=== PATIENT | female | born 1940 | race Caucasian/White ===

== ENCOUNTER 2023-05-07 14:59 | Outpatient (AMB) | payer MEDICARE, SELFPAY ==
--- NOTE | 2023-05-07 15:02 | A.OFFVIS_ITS ---
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 Clippings offered & declined Accompanied by: Sister Allergies penicillin G Allergy (Unknown, Verified 05/07/23 15:14) Hives Medication List - Last Reconciled 05/07/23 by Lillie Pérez LPN albuterol sulfate 90 mcg/actuation 1 puff inhalation QID PRN diphenhydramine-acetaminophen 25-500 mg (Tylenol PM Extra Strength) 1 tab PO BEDTIME PRN ferrous sulfate (Feosol) 975 mg PO BID gutihcjsiod-vmbdfexks-gclclkir 200-62.5-25 mcg (Trelegy Ellipta) 1 inh inhalation DAILY gabapentin 200 mg PO BID lisinopril 20 mg PO DAILY melatonin 12 mg PO BEDTIME ropinirole 2 mg PO BEDTIME simvastatin 20 mg PO BEDTIME HPI COPD 2 HPI0 Details Beata is a very pleasant 82 year old female, former smoker, quit 10 years ago, with 55 pack year history. She was referred by PCP for pulmonary evaluation for dyspnea on exertion. She reports progressively worsening dyspnea on minimal exertion over the last few years. She denies cough, chest tightness or wheezing. She has trialed multiple inhalers and was recently started on Trelegy with significant improvements overall. She reports minimal use of albuterol since starting Trelegy 2 months ago. Recent CXR was unremarkable, denies recent CT or PFT. She denies any prior history of respiratory conditions or any family history. She reports intermittent bilateral lower extremity edema and has been on a short course of lasix in the past. She had a recent echo, report not available today. [facility] Social History (Updated 05/07/23 @ 15:16 by Lillie Pérez LPN) Patient Tobacco Use Status: Former Tobacco user Tobacco use type: Cigarette Cigarette Packs Per Day: 1.5 Cigarettes Per Day: 15 Years Smoked: 50 Review of Systems Const Denies chills, Denies excessive sweating, Denies fever(s), Denies headache(s) and Denies night sweats Eyes Denies dry eyes, Denies irritation and Denies itchy eyes ENT Reports Normal hearing present, Denies headache(s), Denies nasal congestion, Denies nasal discharge, Denies post nasal drip and Denies sore throat Card Denies chest pain, Denies chest pain at rest, Denies chest pain with activity, Denies claudication, Denies orthopnea and Denies paroxysmal nocturnal dyspnea Resp Denies chest congestion, Denies cough, Denies excessive phlegm production, Denies pain on inspiration, Denies pain with cough, Denies stridor and Denies wheezing Musc Denies myalgias Neuro Reports Normal hearing present and Denies headache(s) Endo Denies excessive sweating Buddy/Lymph Denies lymphadenopathy Aller/Immun Denies itchy eyes, Denies seasonal rhinorrhea and Denies wheezing Physical Exam Vital Signs: Last Vital Signs Pulse 89 05/07/23 15:06 BP 110/64 05/07/23 15:06 Pulse Ox 94 05/07/23 15:06 Oxygen Delivery Method Room Air 05/07/23 15:06 BMI result Body Mass Index 34.7 Const General: cooperative, healthy appearing, comfortable, no acute distress, well developed and alert Orientation/consciousness: patient oriented x3 Limitations: no limitations HEENT Head: Yes normal to inspection, Yes normocephalic and Yes atraumatic Ears: hearing grossly normal bilaterally and external ears normal Eyes General: appearance normal, both eyes and all related structures Eyelids: Yes eyelids normal Sclerae: sclerae normal EOM: EOMs intact bilaterally Neck Neck: Yes normal visual inspection and Yes no lymphadenopathy Lymphatic: no lymphadenopathy noted Chest Chest palpation & inspection: normal inspection of the chest Resp Effort & Inspection: normal respiratory effort, able to speak in complete sentences, no audible wheezes, no cough, no stridor, not tachypneic, no tripod positioning and no use of accessory muscles Cardio Jugular venous distension: no JVD Rate: regular rate Rhythm: regular rhythm Skin Other: warm, dry General skin exam: no rashes or lesions noted Neuro General: patient oriented x3 Cranial nerves: Yes Normal hearing present Cognition (Neuro): normal cognition Gait exam (Neuro): Normal gait present Extrem Other: 1+ pitting edema of BLE General: Yes normal to inspection and Yes capillary refill normal Psych Appearance: grossly normal and well kempt Speech and movement: Normal speech and movement present and Clear speech present Affect: normal affect Attitude: cooperative Thought process: Normal thought process present Thought content: Normal thought content present Insight: Good insight present (Psych) Judgement: Good judgement present (Psych) Office Procedures 6 Minute Walk Time:: 15:50 SPO2 % at rest: 95 Pulse at rest: 79 SPO2 % during excercise: 77 Pulse during excercise: 100 SPO2 % after excercise: 94 Pulse after excercise: 77 Distance in yards walked: 1,000 Michi Score: 8 Performance Observations:: Patient walked unassisted on level ground with occasional unsteadiness. Patient walked for approx 3 minutes when her O2 saturation dropped to 85% with a pulse of 99..O2 applied at 1L via nasal cannula. Rested with O2 on approx 1 minute and O2 saturation increased to 95% pulse of 91. Walk resumed with O2 on at 1L after approx 150 feet O2 sat dropped to 77% pulse 100. O2 increased to 2L and rested for 1 minute. Patient walked back to exam room and rested O2 sat returned to 94% and pulse of 77. Patient was short of breath during the walk and does not usually walk any distance. Patient would benefit from supplemental O2. [id number] - 6 Minute Walk Results Reviewed Results Reviewed: Assessment & Plan Assessment & Plan (1) Dyspnea on exertion: Code(s): R06.09 - Other forms of dyspnea (2) Personal history of tobacco use: Code(s): Z87.891 - Personal history of nicotine dependence (3) Nocturnal hypoxemia: Code(s): G47.34 - Idiopathic sleep related nonobstructive alveolar hypoventilation Plan Beata's symptoms are likely multifactorial with contribution from pulmonary, cardiac and deconditioning etiologies. Patient also reported history of anemia, will send for CBC. Likely with COPD, of unclear severity, will send for PFT to thoroughly evaluate. 6MWT performed and patient's oxygen saturation decreased to 77%, requiring 2L of oxygen. Discussed the need for supplemental oxygen with ambulation as well as the effects of not using oxygen. At this time, patient declined oxygen and is aware of the negative effects of not using. If she would like to proceed, she will call the office. She did agree to overnight oximetry, will enter this order. Will also send for chest CT as CXR unremarkable, to assess for underlying parenchymal disease. Patient requesting this be performed at [facility]. Advised to continue current regimen of Trelegy and albuterol PRN. Will also have patient sign release to obtain echo report. All questions were answered and patient is in agreement of plan. Will follow up in 4-6 weeks to review results. Orders: Orders 2 Complete Blood Count Auto Diff Today J44.9 - Chronic obstructive pulmonary disease, unspecified, R06.09 - Other forms of dyspnea, Z87.891 - Personal history of nicotine dependence AMB 6 minute walk Today J44.9 - Chronic obstructive pulmonary disease, unspecified, R06.09 - Other forms of dyspnea PFT pulmonary function test Today R06.09 - Other forms of dyspnea CT chest wo IV con Today R06.09 - Other forms of dyspnea Overnight Pulse Oximetry Today G47.34 - Idiopathic sleep related nonobstructive alveolar hypoventilation Medications: New 2 albuterol sulfate 90 mcg/actuation 2 puffs inhalation Q4-6H PRN 1 ea 3RF shortness of breath or wheezing Coding Level of Care Code New Pt Level 4 (78464) Diagnoses Dyspnea on exertion R06.09 Personal history of tobacco use Z87.891 Nocturnal hypoxemia G47.34 CPT Codes Coding ([id number])
[2023-05-07 15:06] VITALS: BP 110/64; PULSE 89; O2SAT 94; BMI 34.7
[2023-05-07 16:30] VITALS: PULSE 79; O2SAT 95
== END 2023-05-07 16:18 | disposition home or self-care (01) ==
LOC: HO.HPSW 14:59
PROVIDERS: PCP Physician Assistant; Referring Provider Physician Assistant; Visit Provider Nurse Practitioner Family
DX: R06.09 Other forms of dyspnea (principal); Z87.891 Personal history of nicotine dependence; G47.34 Idiopathic sleep related nonobstructive alveolar hypoventilation
CPT/HCPCS: 94618; 99204

== ENCOUNTER → 2023-05-07 14:59 | Outpatient (BNVA) | payer MEDICARE, SELFPAY | PROVIDERS: PCP Physician Assistant; Visit Provider Nurse Practitioner Family | DX: J44.9 Chronic obstructive pulmonary disease, unspecified (principal); R06.09 Other forms of dyspnea; G47.34 Idiopathic sleep related nonobstructive alveolar hypoventilation; Z87.891 Personal history of nicotine dependence | CPT/HCPCS: 94618 ==

== ENCOUNTER 2023-06-10 10:39 | Outpatient (REF) | payer MEDICARE, SELFPAY ==
--- NOTE | ~2023-06-10 | CT_ITS ---
EXAMINATION: CT CHEST WITHOUT CONTRAST CLINICAL INFORMATION: Dyspnea COMPARISON: None available. TECHNIQUE: Multidetector volumetric CT imaging of the chest was done. Axial MIP volume rendering provided. Sagittal and coronal reformatted images were obtained. This CT examination was performed using dose optimization techniques as appropriate, variously including the following: *Automated exposure control *Adjustment of mA and/or kV according to patient size (this includes techniques or standardized protocols for targeted exams where dose is matched to indication/reason for exam; i.e. extremities or head) *Use of iterative reconstruction technique DLP: 144 mGy-cm FINDINGS: BMET: Low lung volumes with eventrated right hemidiaphragm. Large thick-walled hiatal hernia containing most of the stomach. Cholecystectomy clips. LUNGS: Study limited by respiratory motion and atelectasis. Mild centrilobular emphysema. Trachea and bronchi are patent. Increased markings and cystic change anterior right upper lobe, 5:210, right middle lobe, 5:266. RUL micronodule, 5:210. Scattered granulomas. MEDIASTINUM: Unremarkable thyroid. No pathologic lymphadenopathy. Large thick-walled hiatal hernia. Nonenlarged heart. No pericardial effusion. Mitral annular calcifications. Atherosclerotic calcifications nonaneurysmal aorta. Nonenlarged pulmonary arteries. CORONARY ARTERY CALCIFICATION: Mild PLEURA: There is no pleural effusion. No pleural mass or thickening. AXILLA: No lymphadenopathy. UPPER ABDOMEN: Status post cholecystectomy. Mild left adrenal hypertrophy. 1.7 cm exophytic right upper pole indeterminate renal lesion with peripheral calcification. Nonspecific mild perinephric stranding. OSSEOUS STRUCTURES: Old right posterolateral rib fractures IMPRESSION.: Study limited by respiratory motion. Underlying mild centrilobular emphysema, atelectasis and chronic appearing increased markings and cystic changes. Large hiatal hernia. 1.7 cm right upper pole exophytic renal lesion. Ultrasound recommended. Fleischner guidelines were followed.
--- NOTE | 2023-06-10 12:33 | PFT_ITS ---
Forced vital capacity 97%, FEV1 108%, FEV1 over FVC ratio is 85. FEF 25-75 151% and MVV 84%. Post bronchodilator therapy, there is no significant change. Total lung capacity 105%. Residual volume 119%. Diffusion capacity is 26%, which is markedly decreased and out of proportion to the other findings. CONCLUSION: Normal pulmonary function test and there is no evidence of obstructive or restrictive pulmonary disorder. Markedly decreased diffusion capacity. I think it is probably due to technical reason. Clinical correlation is recommended. This should be correlated with the radiologic picture and also with oxygen saturation at rest and walking. MD SABA Ocampo/MODL / [id number]
== END 2023-06-10 10:40 | disposition home or self-care (01) ==
LOC: HO.CT 10:39
PROVIDERS: PCP Physician Assistant; Visit Provider Nurse Practitioner Family
DX: R06.09 Other forms of dyspnea (principal); J43.2 Centrilobular emphysema; K44.9 Diaphragmatic hernia without obstruction or gangrene
CPT/HCPCS: 71250; 94010; 94727; 94729

== ENCOUNTER → 2023-06-10 12:33 | Outpatient (BNV) | payer MEDICARE, SELFPAY | PROVIDERS: PCP Physician Assistant; Visit Provider Internal Medicine | DX: R06.09 Other forms of dyspnea (principal) | CPT/HCPCS: 94060; 94727; 94729 ==

== ENCOUNTER 2023-06-18 10:33 | Outpatient (AMB) | payer MEDICARE, SELFPAY ==
--- NOTE | 2023-06-18 10:37 | A.OFFVIS_ITS ---
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: Cordage Sales Representative offered & declined Accompanied by: Sister Allergies penicillin G Allergy (Unknown, Verified 06/18/23 10:44) Hives Medication List - Last Reconciled 06/18/23 by Lillie Péerz LPN albuterol sulfate 90 mcg/actuation 1 puff inhalation QID PRN albuterol sulfate 90 mcg/actuation 2 puffs inhalation Q4-6H PRN diphenhydramine-acetaminophen 25-500 mg (Tylenol PM Extra Strength) 1 tab PO BEDTIME PRN ferrous sulfate (Feosol) 975 mg PO BID rsilawrncih-tvjuglgql-ftciixgx 200-62.5-25 mcg (Trelegy Ellipta) 1 inh inhalation DAILY gabapentin 200 mg PO BID lisinopril 20 mg PO DAILY melatonin 12 mg PO BEDTIME ropinirole 2 mg PO BEDTIME simvastatin 20 mg PO BEDTIME HPI copd: 6 week f/u 2 HPI0 Details Beata is a very pleasant 82 year old female, former smoker, quit 10 years ago, with 55 pack year history. She reports progressively worsening dyspnea on minimal exertion over the last few years. She denies cough, chest tightness or wheezing. She has been using Trelegy with good effect and minimal use of albuterol. At the last visit she had a 6MWT and required supplemental oxygen but patient again refused. Recommended obtaining a pulse oximeter which she has yet to obtain. Today she is here to review chest CT and PFT results. [facility] Social History (Updated 06/18/23 @ 10:45 by Lillie Pérez LPN) Patient Tobacco Use Status: Former Tobacco user Tobacco use type: Cigarette Cigarette Packs Per Day: 1.5 Cigarettes Per Day: 15 Years Smoked: 50 Review of Systems Const Denies chills, Denies excessive sweating, Denies fever(s), Denies headache(s) and Denies night sweats Eyes Denies dry eyes, Denies irritation and Denies itchy eyes ENT Reports Normal hearing present, Denies headache(s), Denies nasal congestion, Denies nasal discharge, Denies post nasal drip and Denies sore throat Card Denies chest pain, Denies chest pain at rest, Denies chest pain with activity, Denies claudication, Denies orthopnea and Denies paroxysmal nocturnal dyspnea Resp Denies chest congestion, Denies cough, Denies excessive phlegm production, Denies pain on inspiration, Denies pain with cough, Denies stridor and Denies wheezing Musc Denies myalgias Neuro Reports Normal hearing present and Denies headache(s) Endo Denies excessive sweating Buddy/Lymph Denies lymphadenopathy Aller/Immun Denies itchy eyes, Denies seasonal rhinorrhea and Denies wheezing Physical Exam Vital Signs: Last Vital Signs Pulse 89 06/18/23 10:39 BP 132/70 06/18/23 10:39 Pulse Ox 93 06/18/23 10:39 Oxygen Delivery Method Room Air 06/18/23 10:39 BMI result Body Mass Index 33.3 Const General: cooperative, healthy appearing, comfortable, no acute distress, well developed and alert Orientation/consciousness: patient oriented x3 Limitations: no limitations HEENT Head: Yes normal to inspection, Yes normocephalic and Yes atraumatic Ears: hearing grossly normal bilaterally and external ears normal Eyes General: appearance normal, both eyes and all related structures Eyelids: Yes eyelids normal Sclerae: sclerae normal EOM: EOMs intact bilaterally Neck Neck: Yes normal visual inspection and Yes no lymphadenopathy Lymphatic: no lymphadenopathy noted Chest Chest palpation & inspection: normal inspection of the chest Resp Effort & Inspection: normal respiratory effort, able to speak in complete sentences, no audible wheezes, no cough, no stridor, not tachypneic, no tripod positioning and no use of accessory muscles Auscultation: diminished lung sounds Cardio Other: trace BLE edema Jugular venous distension: no JVD Rate: regular rate Rhythm: regular rhythm Skin Other: warm, dry General skin exam: no rashes or lesions noted Neuro General: patient oriented x3 Cranial nerves: Yes Normal hearing present Cognition (Neuro): normal cognition Gait exam (Neuro): Normal gait present Extrem General: Yes normal to inspection and Yes capillary refill normal Psych Appearance: grossly normal and well kempt Speech and movement: Normal speech and movement present and Clear speech present Affect: normal affect Attitude: cooperative Thought process: Normal thought process present Thought content: Normal thought content present Insight: Good insight present (Psych) Judgement: Good judgement present (Psych) Results Reviewed Results Reviewed: [facility] [address] [place] [address] [place] [address] [place] Scan Report Signed Patient: Beata Arnold MR#: [id number] : 1940 Acct:[id number] Age/Sex: 82 / F ADM Date: 06/10/23 Loc: HO.CT Attending Dr: Maria Luisa Hills NP Ordering Physician: Maria Luisa Hills NP Date of Service: 06/10/23 Procedure(s): CT chest wo IV con Accession Number(s): [id number] cc: Socrates De Paz PA-C; Maria Luisa Hills NP~ EXAMINATION: CT CHEST WITHOUT CONTRAST CLINICAL INFORMATION: Dyspnea COMPARISON: None available. TECHNIQUE: Multidetector volumetric CT imaging of the chest was done. Axial MIP volume rendering provided. Sagittal and coronal reformatted images were obtained. This CT examination was performed using dose optimization techniques as appropriate, variously including the following: *Automated exposure control *Adjustment of mA and/or kV according to patient size (this includes techniques or standardized protocols for targeted exams where dose is matched to indication/reason for exam; i.e. 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 Large thick-walled hiatal hernia containing most of the stomach. Cholecystectomy clips. LUNGS: Study limited by respiratory motion and atelectasis. Mild centrilobular emphysema. Trachea and bronchi are patent. Increased markings and cystic change anterior right upper lobe, 5:210, right middle lobe, 5:266. RUL micronodule, 5:210. Scattered granulomas. MEDIASTINUM: Unremarkable thyroid. No pathologic lymphadenopathy. Large thick-walled hiatal hernia. Nonenlarged heart. No pericardial effusion. Mitral annular calcifications. Atherosclerotic calcifications nonaneurysmal aorta. Nonenlarged pulmonary arteries. CORONARY ARTERY CALCIFICATION: Mild PLEURA: There is no pleural effusion. No pleural mass or thickening. AXILLA: No lymphadenopathy. UPPER ABDOMEN: Status post cholecystectomy. Mild left adrenal hypertrophy. 1.7 cm exophytic right upper pole indeterminate renal lesion with peripheral calcification. Nonspecific mild perinephric stranding. OSSEOUS STRUCTURES: Old right posterolateral rib fractures IMPRESSION.: Study limited by respiratory motion. Underlying mild centrilobular emphysema, atelectasis and chronic appearing increased markings and cystic changes. Large hiatal hernia. 1.7 cm right upper pole exophytic renal lesion. Ultrasound recommended. Fleischner guidelines were followed. Assessment & Plan Assessment & Plan (1) Emphysema lung: Code(s): J43.9 - Emphysema, unspecified (2) Dyspnea on exertion: Code(s): R06.09 - Other forms of dyspnea (3) Personal history of tobacco use: Code(s): Z87.891 - Personal history of nicotine dependence (4) Nocturnal hypoxemia: Code(s): G47.34 - Idiopathic sleep related nonobstructive alveolar hypoventilation Plan Reviewed chest CT which revealed emphysema, atelectasis and chronic appearing increased markings and cystic changes. A large hiatal hernia was noted which she is aware of and declined surgical intervention in the past. There was also note of a 1.7 cm right upper pole exophytic renal lesion. She has an ultrasound ordered by PCP in June. Reviewed PFT which revealed no evidence of obstructive or restrictive pulmonary disorder. However there was a severely decreased DLCO of 26%. We again discussed importance of supplemental oxygen and negative effects of hypoxia. She had a 6MWT performed at prior visit requiring 2L of oxygen but she contines to decline. Advised to continue current regimen of Trelegy and albuterol PRN. Will attempt to obtain echo report again. All questions were answered and patient is in agreement of plan. Will follow up in 3 months or sooner if needed. Coding Level of Care Code Est Pt Level 4 (29059) Diagnoses Emphysema lung J43.9 Dyspnea on exertion R06.09 Personal history of tobacco use Z87.891 Nocturnal hypoxemia G47.34
[2023-06-18 10:39] VITALS: BP 132/70; PULSE 89; O2SAT 93; BMI 33.3
== END 2023-06-18 11:15 | disposition home or self-care (01) ==
PROVIDERS: PCP Physician Assistant; Visit Provider Nurse Practitioner Family
DX: J43.9 Emphysema, unspecified (principal); R06.09 Other forms of dyspnea; Z87.891 Personal history of nicotine dependence; G47.34 Idiopathic sleep related nonobstructive alveolar hypoventilation
CPT/HCPCS: 99214

== ENCOUNTER → 2023-06-18 10:33 | Outpatient (BNVA) | payer MEDICARE, SELFPAY | PROVIDERS: PCP Physician Assistant; Visit Provider Nurse Practitioner Family | DX: J43.9 Emphysema, unspecified (principal); R06.09 Other forms of dyspnea; G47.34 Idiopathic sleep related nonobstructive alveolar hypoventilation; Z87.891 Personal history of nicotine dependence | CPT/HCPCS: 99212 ==

== ENCOUNTER 2023-10-07 11:18 | Outpatient (AMB) | payer MEDICARE, SELFPAY ==
--- NOTE | 2023-10-07 11:17 | MHC.OFFVIS ---
Intake Vital Signs 10/07/23 11:20 Height 4 ft 11 in Weight 170 lb BMI 34.3 BP 124/68 Blood Pressure Location Rt brachial Position Sitting Pulse 80 Pulse Source Pulse Oximeter Pulse Oximetry (%) 95 Oxygen Delivery Method Room Air Intake Visit Reasons: copd [place] [employer] Group Leader Required: No [employer] Utility Worker: [employer] Utility Worker offered & declined Accompanied by: Sister Allergies penicillin G Allergy (Unknown, Verified 10/07/23 11:25) Hives Medication List - Last Reconciled 10/07/23 by Lillie Pérez LPN albuterol sulfate 90 mcg/actuation 1 puff inhalation QID PRN albuterol sulfate 90 mcg/actuation 2 puffs inhalation Q4-6H PRN diphenhydramine-acetaminophen 25-500 mg (Tylenol PM Extra Strength) 1 tab PO BEDTIME PRN ferrous sulfate (Feosol) 975 mg PO BID vqlrzwnbioz-qkncazcdi-ivnfgfei 200-62.5-25 mcg (Trelegy Ellipta) 1 inh inhalation DAILY gabapentin 200 mg PO BID lisinopril 20 mg PO DAILY melatonin 12 mg PO BEDTIME ropinirole 2 mg PO BEDTIME simvastatin 20 mg PO BEDTIME HPI copd HPI Details Beata is a very pleasant 82 year old female, former smoker, quit 10 years ago, with 55 pack year history. She is accompanied by her sister. She initially reported progressively worsening dyspnea on minimal exertion over the last few years and has been using Trelegy with significant improvements in symptoms. She has also been using albuterol PRN with good effect. She denies cough, chest tightness or wheezing. At previous visit, we had discussed importance of supplemental oxygen but patient continues to refuse. [facility] Social History (Updated 10/07/23 @ 11:26 by Lillie Pérez LPN) Patient Tobacco Use Status: Former Tobacco user Tobacco use type: Cigarette Cigarette Packs Per Day: 1.5 Cigarettes Per Day: 15 Years Smoked: 50 Review of Systems Const Denies chills, Denies excessive sweating, Denies fever(s), Denies headache(s) and Denies night sweats Eyes Denies dry eyes, Denies irritation and Denies itchy eyes ENT Reports Normal hearing present, Denies headache(s), Denies nasal congestion, Denies nasal discharge, Denies post nasal drip and Denies sore throat Card Denies chest pain, Denies chest pain at rest, Denies chest pain with activity, Denies claudication, Denies leg edema, Denies orthopnea and Denies paroxysmal nocturnal dyspnea Resp Denies chest congestion, Denies cough, Denies excessive phlegm production, Denies pain on inspiration, Denies pain with cough, Denies stridor and Denies wheezing Musc Denies myalgias Neuro Reports Normal hearing present and Denies headache(s) Endo Denies excessive sweating Buddy/Lymph Denies lymphadenopathy Aller/Immun Denies itchy eyes, Denies seasonal rhinorrhea and Denies wheezing Physical Exam Vital Signs: Last Vital Signs Pulse 80 10/07/23 11:20 BP 124/68 10/07/23 11:20 Pulse Ox 95 10/07/23 11:20 Oxygen Delivery Method Room Air 10/07/23 11:20 BMI result Body Mass Index 34.3 Const General: cooperative, healthy appearing, comfortable, no acute distress, well developed and alert Orientation/consciousness: patient oriented x3 Limitations: no limitations HEENT Head: Yes normal to inspection, Yes normocephalic and Yes atraumatic Ears: hearing grossly normal bilaterally and external ears normal Eyes General: appearance normal, both eyes and all related structures Eyelids: Yes eyelids normal Sclerae: sclerae normal EOM: EOMs intact bilaterally Neck Neck: Yes normal visual inspection and Yes no lymphadenopathy Lymphatic: no lymphadenopathy noted Chest Chest palpation & inspection: normal inspection of the chest Resp Effort & Inspection: normal respiratory effort, able to speak in complete sentences, no audible wheezes, no cough, no stridor, not tachypneic, no tripod positioning and no use of accessory muscles Auscultation: diminished lung sounds Cardio Jugular venous distension: no JVD Rate: regular rate Rhythm: regular rhythm Skin Other: warm, dry General skin exam: no rashes or lesions noted Neuro General: patient oriented x3 Cranial nerves: Yes Normal hearing present Cognition (Neuro): normal cognition Gait exam (Neuro): Normal gait present Extrem General: Yes normal to inspection, Yes capillary refill normal, Yes no clubbing, cyanosis or edema and Yes no pedal edema Psych Appearance: grossly normal and well kempt Speech and movement: Normal speech and movement present and Clear speech present Affect: normal affect Attitude: cooperative Thought process: Normal thought process present Thought content: Normal thought content present Insight: Good insight present (Psych) Judgement: Good judgement present (Psych) Assessment & Plan Assessment & Plan (1) COPD (chronic obstructive pulmonary disease): Code(s): J44.9 - Chronic obstructive pulmonary disease, unspecified (2) Emphysema lung: Code(s): J43.9 - Emphysema, unspecified (3) Dyspnea on exertion: Code(s): R06.09 - Other forms of dyspnea (4) Personal history of tobacco use: Code(s): Z87.895 - Personal history of nicotine dependence Plan Advised to continue current regimen of Trelegy and albuterol PRN. We again discussed importance of supplemental oxygen and negative effects of hypoxia. She is aware if she would like to proceed with use, she will call the office. Patient was supposed to get an ultrasound of kidney for a 1.7 cm lesion as well as repeat echo ordered by PCP but had canceled. She will follow up with PCP to reschedule. All questions were answered and patient is in agreement of plan. Will follow up in 6 months or sooner if needed. Coding Level of Care Code Est Pt Level 4 (50612) Diagnoses COPD (chronic obstructive pulmonary disease) J44.9 Emphysema lung J43.9 Dyspnea on exertion R06.09 Personal history of tobacco use Z12.197
[2023-10-07 11:20] VITALS: BP 124/68; PULSE 80; O2SAT 95; BMI 34.3
== END 2023-10-07 11:47 | disposition home or self-care (01) ==
PROVIDERS: PCP Physician Assistant; Visit Provider Nurse Practitioner Family
DX: J44.9 Chronic obstructive pulmonary disease, unspecified (principal); J43.9 Emphysema, unspecified; R06.09 Other forms of dyspnea; Z87.891 Personal history of nicotine dependence
CPT/HCPCS: 99214

== ENCOUNTER → 2023-10-07 11:18 | Outpatient (BNVA) | payer MEDICARE, SELFPAY | PROVIDERS: PCP Physician Assistant; Visit Provider Nurse Practitioner Family | DX: J44.9 Chronic obstructive pulmonary disease, unspecified (principal); J43.9 Emphysema, unspecified; R06.09 Other forms of dyspnea; Z87.891 Personal history of nicotine dependence | CPT/HCPCS: 99212 ==

== ENCOUNTER 2024-04-07 11:36 | Outpatient (AMB) | payer MEDICARE, SELFPAY ==
--- NOTE | 2024-04-07 11:36 | MHC.OFFVIS ---
Vital Signs 04/07/24 11:37 Height 4 ft 11 in Weight 166 lb 8 oz BMI 33.6 BP 130/88 Blood Pressure Location Rt brachial Position Sitting Pulse 71 Pulse Source Pulse Oximeter Pulse Oximetry (%) 96 Oxygen Delivery Method Room Air Intake Visit Reasons: 6 month f/u copd Allergies penicillin G Allergy (Unknown, Verified 04/07/24 11:41) Hives HPI HPI 6 month f/u copd : Details: Beata is a very pleasant 83 year old female, former smoker, quit 10 years ago, with 55 pack year history. She is accompanied by her sister. She reports good control with Trelegy, using albuterol infrequently. She denies any visits to urgent care or hospitalizations related to respiratory distress since the last visit. She was previously prescribed supplemental oxygen however does not use. She does not drive. Today she presents for routine visit. [facility] Social History Patient Tobacco Use Status: Former Tobacco user Tobacco use type: Cigarette Cigarette Packs Per Day: 1.5 Cigarettes Per Day: 15 Years Smoked: 50 Review of Systems Const Denies chills, Denies excessive sweating, Denies fever(s), Denies headache(s) and Denies night sweats Eyes Denies dry eyes, Denies irritation and Denies itchy eyes ENT Reports Normal hearing present, Denies headache(s), Denies nasal congestion, Denies nasal discharge, Denies post nasal drip and Denies sore throat Card Denies chest pain, Denies chest pain at rest, Denies chest pain with activity, Denies claudication, Denies leg edema, Denies orthopnea and Denies paroxysmal nocturnal dyspnea Resp Denies chest congestion, Denies cough, Denies excessive phlegm production, Denies pain on inspiration, Denies pain with cough, Denies stridor and Denies wheezing Musc Denies myalgias Neuro Reports Normal hearing present and Denies headache(s) Endo Denies excessive sweating Buddy/Lymph Denies lymphadenopathy Aller/Immun Denies itchy eyes, Denies seasonal rhinorrhea and Denies wheezing Physical Exam Vital Signs: Last Vital Signs Pulse 71 04/07/24 11:37 BP 130/88 04/07/24 11:37 Pulse Ox 96 04/07/24 11:37 Oxygen Delivery Method Room Air 04/07/24 11:37 BMI result Body Mass Index 33.6 Const General: cooperative, healthy appearing, comfortable, no acute distress, well developed and alert Orientation/consciousness: patient oriented x3 Limitations: no limitations HEENT Head: Yes normal to inspection, Yes normocephalic and Yes atraumatic Ears: hearing grossly normal bilaterally and external ears normal Eyes General: appearance normal, both eyes and all related structures Eyelids: Yes eyelids normal Sclerae: sclerae normal EOM: EOMs intact bilaterally Neck Neck: Yes normal visual inspection and Yes no lymphadenopathy Lymphatic: no lymphadenopathy noted Chest Chest palpation & inspection: normal inspection of the chest Resp Effort & Inspection: normal respiratory effort, able to speak in complete sentences, no audible wheezes, no cough, no stridor, not tachypneic, no tripod positioning and no use of accessory muscles Auscultation: diminished lung sounds Cardio Jugular venous distension: no JVD Rate: regular rate Rhythm: regular rhythm Skin Other: warm, dry General skin exam: no rashes or lesions noted Neuro General: patient oriented x3 Cranial nerves: Yes Normal hearing present Cognition (Neuro): normal cognition Gait exam (Neuro): Normal gait present Extrem General: Yes normal to inspection, Yes capillary refill normal, Yes no clubbing, cyanosis or edema and Yes no pedal edema Psych Appearance: grossly normal and well kempt Speech and movement: Normal speech and movement present and Clear speech present Affect: normal affect Attitude: cooperative Thought process: Normal thought process present Thought content: Normal thought content present Insight: Good insight present (Psych) Judgement: Good judgement present (Psych) Assessment & Plan Assessment & Plan (1) COPD (chronic obstructive pulmonary disease): Code(s): J44.9 - Chronic obstructive pulmonary disease, unspecified Category: Medical (2) Emphysema lung: Code(s): J43.9 - Emphysema, unspecified Category: Medical (3) Dyspnea on exertion: Code(s): R06.09 - Other forms of dyspnea Category: Medical (4) Personal history of tobacco use: Code(s): Z87.891 - Personal history of nicotine dependence Category: Social Hx (5) Multiple pulmonary nodules: Code(s): R91.8 - Other nonspecific abnormal finding of lung field Category: Medical Plan Advised to continue current regimen of Trelegy and albuterol PRN. We again discussed importance of supplemental oxygen and negative effects of hypoxia. Patient was supposed to get an ultrasound of kidney for a 1.7 cm lesion however this was never performed, sister agreed to discuss with PCP. She had a cardiac evaluation with [facility] with echo, results not available today. Will obtain records. All questions were answered and patient is in agreement of plan. Will follow up in 3-6 months or sooner if needed. Orders: Orders CT chest wo IV con 2 Months R91.8 - Other nonspecific abnormal finding of lung field Medications: New otkxgwqfiio-sllavzflu-pfjvtzof 200-62.5-25 mcg (Trelegy Ellipta) 1 inh inhalation DAILY 60 ea 3RF Coding Level of Care Code Est Pt Level 3 (47983) Diagnoses COPD (chronic obstructive pulmonary disease) J44.9 Emphysema lung J43.9 Dyspnea on exertion R06.09 Personal history of tobacco use Z87.891 Multiple pulmonary nodules R91.8
[2024-04-07 11:37] VITALS: BP 130/88; PULSE 71; O2SAT 96; BMI 33.6
== END 2024-04-07 11:59 | disposition home or self-care (01) ==
PROVIDERS: PCP Physician Assistant; Visit Provider Nurse Practitioner Family
DX: J44.9 Chronic obstructive pulmonary disease, unspecified (principal); J43.9 Emphysema, unspecified; R06.09 Other forms of dyspnea; Z87.891 Personal history of nicotine dependence; R91.8 Other nonspecific abnormal finding of lung field
CPT/HCPCS: 99213

== ENCOUNTER → 2024-04-07 11:36 | Outpatient (BNVA) | payer MEDICARE, SELFPAY | PROVIDERS: PCP Physician Assistant; Visit Provider Nurse Practitioner Family | DX: J43.9 Emphysema, unspecified (principal); R06.09 Other forms of dyspnea; R91.8 Other nonspecific abnormal finding of lung field; Z87.891 Personal history of nicotine dependence | CPT/HCPCS: 99212 ==

== ENCOUNTER 2024-10-05 10:51 | Outpatient (AMB) | payer MEDICARE, SELFPAY ==
[2024-10-05 10:52] VITALS: BP 122/68; PULSE 93; O2SAT 93; BMI 32.3
--- NOTE | 2024-10-05 10:52 | MHC.OFFVIS ---
Vital Signs 10/05/24 10:52 Height 4 ft 11 in Weight 160 lb BMI 32.3 BP 122/68 Blood Pressure Location Rt brachial Position Sitting Pulse 93 Pulse Source Pulse Oximeter Pulse Oximetry (%) 93 Oxygen Delivery Method Room Air Intake Visit Reasons: 6 month f/u copd Strategic Alliances Manager Required: No Slitter And Rewinder Machine Operator: Slitter And Rewinder Machine Operator offered & declined Accompanied by: Sister Allergies penicillin G Allergy (Unknown, Verified 10/05/24 10:58) Hives Medication List - Last Reconciled 10/05/24 by Lillie Pérez LPN albuterol sulfate 90 mcg/actuation 1 puff inhalation QID PRN albuterol sulfate 90 mcg/actuation 2 puffs inhalation Q4-6H PRN diphenhydramine-acetaminophen 25-500 mg (Tylenol PM Extra Strength) 1 tab PO BEDTIME PRN ferrous sulfate (Feosol) 975 mg PO BID rzgnbqytuor-thmudphtg-vglbsqzz 200-62.5-25 mcg (Trelegy Ellipta) 1 ea PO DAILY gabapentin 200 mg PO BID lisinopril 20 mg PO DAILY melatonin 12 mg PO BEDTIME ropinirole 2 mg PO BEDTIME simvastatin 20 mg PO BEDTIME HPI HPI 6 month f/u copd : Details: Beata is a very pleasant 83 year old female, former smoker, quit 10 years ago, with 55 pack year history with underlying COPD, emphysema and pulmonary nodules. Today she is accompanied by her sister. She reports good control with Trelegy, using albuterol infrequently. She endorses an urgent care visit in July related to worsening respiratory symptoms, however was not using Trelegy consistently. There have been some issues with memory which is being addressed by PCP. Since restarting consistent use of Trelegy patient denies any overt respiratory symptoms. She reports intermittent dry cough and wheezing which resolves with albuterol MDI. [facility] Social History Patient Tobacco Use Status: Former Tobacco user Tobacco use type: Cigarette Cigarette Packs Per Day: 1.5 Cigarettes Per Day: 15 Years Smoked: 50 Review of Systems Const Denies chills, Denies excessive sweating, Denies fever(s), Denies headache(s) and Denies night sweats Eyes Denies dry eyes, Denies irritation and Denies itchy eyes ENT Reports Normal hearing present, Denies headache(s), Denies nasal congestion, Denies nasal discharge, Denies post nasal drip and Denies sore throat Card Denies chest pain, Denies chest pain at rest, Denies chest pain with activity, Denies claudication, Denies leg edema, Denies orthopnea and Denies paroxysmal nocturnal dyspnea Resp Denies chest congestion, Denies excessive phlegm production, Denies pain on inspiration, Denies pain with cough and Denies stridor Musc Denies myalgias Neuro Reports Normal hearing present and Denies headache(s) Endo Denies excessive sweating Buddy/Lymph Denies lymphadenopathy Aller/Immun Denies itchy eyes and Denies seasonal rhinorrhea Physical Exam Vital Signs: Last Vital Signs Pulse 93 10/05/24 10:52 BP 122/68 10/05/24 10:52 Pulse Ox 93 10/05/24 10:52 Oxygen Delivery Method Room Air 10/05/24 10:52 BMI result Body Mass Index 32.3 Const General: cooperative, healthy appearing, comfortable, no acute distress, well developed and alert Orientation/consciousness: patient oriented x3 Limitations: no limitations HEENT Head: Yes normal to inspection, Yes normocephalic and Yes atraumatic Ears: hearing grossly normal bilaterally and external ears normal Eyes General: appearance normal, both eyes and all related structures Eyelids: Yes eyelids normal Sclerae: sclerae normal EOM: EOMs intact bilaterally Neck Neck: Yes normal visual inspection and Yes no lymphadenopathy Lymphatic: no lymphadenopathy noted Chest Chest palpation & inspection: normal inspection of the chest Resp Other: diminished aeration through left compared to right Effort & Inspection: normal respiratory effort, able to speak in complete sentences, no audible wheezes, no cough, no stridor, not tachypneic, no tripod positioning and no use of accessory muscles Cardio Jugular venous distension: no JVD Rate: regular rate Rhythm: regular rhythm Skin Other: warm, dry General skin exam: no rashes or lesions noted Neuro General: patient oriented x3 Cranial nerves: Yes Normal hearing present Cognition (Neuro): normal cognition Gait exam (Neuro): Normal gait present Extrem General: Yes normal to inspection, Yes capillary refill normal, Yes no clubbing, cyanosis or edema and Yes no pedal edema Psych Appearance: grossly normal and well kempt Speech and movement: Normal speech and movement present and Clear speech present Affect: normal affect Attitude: cooperative Thought process: Normal thought process present Thought content: Normal thought content present Insight: Good insight present (Psych) Judgement: Good judgement present (Psych) Assessment & Plan Assessment & Plan (1) COPD (chronic obstructive pulmonary disease): Code(s): J44.9 - Chronic obstructive pulmonary disease, unspecified Category: Medical (2) Emphysema lung: Code(s): J43.9 - Emphysema, unspecified Category: Medical (3) Dyspnea on exertion: Code(s): R06.09 - Other forms of dyspnea Category: Medical (4) Personal history of tobacco use: Code(s): Z87.891 - Personal history of nicotine dependence Category: Social Hx (5) Multiple pulmonary nodules: Code(s): R91.8 - Other nonspecific abnormal finding of lung field Category: Medical Plan Advised to continue current regimen of Trelegy and albuterol PRN. We again discussed importance of supplemental oxygen and negative effects of hypoxia. Patient is overdue for chest CT, states she never received information to schedule, however documentation notes multiple attempts made to patient with letter ultimately being sent to schedule. Will reenter chest CT order to assess stability of pulmonary nodules. On exam today patient with assymetrical breath sounds, will send for CXR. All questions were answered and patient is in agreement of plan. Will follow up in 3 months or sooner if needed. Orders: Orders XR chest 2V Today R05.9 - Cough, unspecified Medications: Refilled nhmvutcfdxl-rwcyqhrvw-hntggvnc 200-62.5-25 mcg (Trelegy Ellipta) 1 ea PO DAILY 60 ea 3RF Coding Level of Care Code Est Pt Level 4 (96734) Diagnoses COPD (chronic obstructive pulmonary disease) J44.9 Emphysema lung J43.9 Dyspnea on exertion R06.09 Personal history of tobacco use Z87.891 Multiple pulmonary nodules R91.8
--- OUTSIDE RECORDS SUMMARY | 2024-10-05 13:16 | XMS_ITS ---
Author Organization [facility] Address [address] [place] [address] Care Team Providers Care Lab Engineer Name Role Phone MARTIN LOREDO [phone] REASON FOR VISIT refill if Ropinirole MEDICATIONS Medication SIG (Take, Route, Fr equency, Duration) Notes Start Date End Date Status rOPINIRole HCl ER 8 MG TAKE 1 TABLET BY MOUTH DAILY for 30 days Active Encounters Encounter Location Date Provider Diagnosis [facility] [address] [place] [address] 09/14/2024 MARTIN LOREDO PLAN OF TREATMENT Medication Medication Name Sig Start Date Stop Date Notes rOPINIRole HCl ER 8 MG TAKE 1 TABLET BY MOUTH DAILY for 30 days Next Appt Details Provider Name:MARTIN LOREDO, 0 12/06/2024 01:30:00 PM, [address] , [place], [address], Progress Notes * LUIS ARMANDO MUÑOZOB:[birth year] (83 yo F)Acc No.[id number]:09/14/2024 Patient:??IBAN MUÑOZ :1940?Age:83 Y?Sex:Fe male Address:[address], [place] [address] * Refills?? Refill rOPINIRole HCl ER Tablet Extended Release 24 Hour, 8 MG, 30 Tablet, TAKE 1 TABLET BY MOUTH DAILY, 30 days, Refills=0 * true * Date:??
--- OUTSIDE RECORDS SUMMARY | 2024-10-05 13:16 | XMS_ITS | Encounter Summary ---
Author Organization [facility] Address [address] [place] [address] Care Team Providers Care Forest Technology Professor Name Role Phone Socrates De Paz Primary Care Provider [phone] Reason for Visit * Reason Onset Date Comments Called to schedule follow up with Vinnie Reagan NP 09/25/2024 Encounter Details Date Type Department Care Team (Late st Contact Info) Description 09/25/2024 Telephone [facility] - [facility] [address] [address] Vinnie Reagan NP [address] [place] [address] Called to schedule follow up with Vinnie Reagan NP Social History Tobacco Use Types Packs/Day Years Used Date Smoking Tobacco: Former Cigarettes Q uit: 2013 Alcohol Use Standard Drinks/Week Comments Not Asked 0 (1 standard drink = 0.6 oz pur e alcohol) Occasionally Interpersonal Safety Answer Date Record ed Physical Abuse 06/13/2024 Verbal Abuse 06/13/2024 Comments Unknown Sex and Gender Information Value Date Recorded Sex Assigned at Not on file Legal Sex Female 8:36 PM EST Gender Identity Not on file Sexual Orientation Not on file documented as of this encounter Progress Notes * Kavita Bermeo MA - 09/25/2024 10:02 AM EST 09/25/24 - Spoke with patient's sister Veronica who will call [facility] back on Friday09/27/24 to schedule follow up with Vinnie Reagan NP on recall list. Veronica was unable to schedule due to not being home but stated she would call us back. Thank you. documented in this encounter Plan of Treatment Upcoming Encounters Date Type Department Care Team (Late st Contact Info) Description 05/30/2025 11:00 AM EST Ancillary Procedure [facility] - [address] [place] [address] documented as of this encounter Visit Diagnoses Not on filedocumented in this encounter Care Teams Forest Technology Professor Relationship Specialty Start Date End Date Socrates De Paz PA [address] [place] [address] PCP - General 02/06/23 documented as of this encounter
--- OUTSIDE RECORDS SUMMARY | 2024-10-05 13:16 | XMS_ITS ---
Author Organization [facility] Address [address] [place] [address] Care Team Providers Care Recooperer Name Role Phone MARTIN LOREDO Unavailable [phone] REASON FOR VISIT FYI-neuro referral Encounters Encounter Location Date Provider Diagnosis [facility] [address] [place] [address] 10/04/2024 MARTIN LOREDO PLAN OF TREATMENT Next Appt Details Provider Name:MARTIN LOREDO, 0 12/06/2024 01:30:00 PM, [address], [place], [address], Progress Notes * LUIS ARMANDO MUÑOZOB:[birth year] (83 yo F)Acc No.[id number]:10/04/2024 Patient:??TONI IBAN :1940?Age:83 Y?Sex:Fe male Address:[address], [place] [address] * true * Date:??
--- OUTSIDE RECORDS SUMMARY | 2024-10-05 13:16 | XMS_ITS | Clinical Summary ---
Author Organization [facility] Address [address] [place] [address] Phone Care Team Providers Care Production Sorter Name Role Phone Socrates De Paz Primary Care Provider Allergies Active Allergy Reactions Criticality Noted Date Comments Penicillins 01/27/2024 Medications acetaminophen (TYLENOL) 325 mg tablet Take 2 tablets (650 mg total) by mouth every 6 (six) hours if needed. Active albuterol HFA (PROAIR HFA ; PROVENTIL HFA ; VENTOLIN HFA) 90 mcg/actuation inhaler Inhale 2 puffs by mouth every 4 (four) hours if needed. Active ferrous sulfate 325 mg (65 mg elemental iron) tablet Take 1 tablet (325 mg total) by mouth 1 (one) time each day. Active gabapentin (NEURONTIN) 300 mg capsule Take 1 capsule (300 mg total) by mouth 1 (one) time each day. Active rOPINIRole XL (REQUIP XL) 8 mg 24 hr tablet Take 1 tablet (8 mg total) by mouth. Active simvastatin (ZOCOR) 20 mg tablet Take 1 tablet (20 mg total) by mouth. Active pantoprazole (PROTONIX) 40 mg EC tablet Take 1 tablet (40 mg total) by mouth 2 (two) times a day before meals. Do not crush, chew, or split. 60 each 06/14/2024 Active Active Problems Problem Noted Date Diagnosed Date Nonrheumatic aortic valve stenosis 06/14/2024 RYAN (acute kidney injury) 06/13/2024 Mild cognitive impairment 06/13/2024 Acute encephalopathy 06/13/2024 Resolved Problems Problem Noted Date Diagnosed Date Resolved Date Upper GI bleed 06/13/2024 06/14/2024 Systolic murmur 06/13/2024 06/14/2024 Encounters Date Type Department Care Team Description 09/25/2024 Telephone [facility] - [facility] [address] [place] [address] Vinnie Reagan NP Called to schedule follow up with Vinnie Reagan NP from Last 3 Months Surgical History Surgery Date Site/Laterality Comments CHOLECYSTECTOMY APPENDECTOMY Medical History Medical History Date Comments Hypertension Restless leg syndrome COPD (chronic obstructive pu lmonary disease) ([facility]) Hypercholesteremia CKD (chronic kidney disease) stage 3, GFR 30-59 ml/min ([facility]) Insomnia Aortic stenosis Mod to severe pe r Echo 02/2024, asymptomatic Social History Tobacco Use Types Packs/Day Years Used Date Smoking Tobacco: Former Cigarettes Q uit: 2014 Alcohol Use Standard Drinks/Week Comments Not Asked 0 (1 standard drink = 0.6 oz pur e alcohol) Occasionally Interpersonal Safety Answer Date Record ed Physical Abuse 06/13/2024 Verbal Abuse 06/13/2024 Comments Unknown Sex and Gender Information Value Date Recorded Sex Assigned at Not on file Legal Sex Female 8:36 PM EST Gender Identity Not on file Sexual Orientation Not on file Obstetrics History Last Filed Vital Signs Vital Sign Reading Time Taken Comments Blood Pressure 126/74 06/14/2024 9:16 AM EST Pulse 73 06/14/2024 9:16 AM EST Temperature 36.4 ??C (97.5 ??F) 06/14/2024 8:56 AM ES T Respiratory Rate 19 06/14/2024 9:16 AM EST Oxygen Saturation 88% 06/14/2024 9:16 AM EST Inhaled Oxygen Concentration - - Weight 74.2 kg (163 lb 8 oz) 06/13/2024 1:13 PM EST Height 157.5 cm (5' 2 ) 06/13/2024 1:13 PM EST Body Mass Index 29.9 06/13/2024 1:13 PM EST Plan of Treatment Upcoming Encounters Date Type Department Care Team (Late st Contact Info) Description 05/30/2025 11:00 AM EST Ancillary Procedure [facility] - [address] [place] [address] Health Maintenance Due Date Last Done Comments COVID-19 Vaccine (#1) 1945 DTaP,Tdap,and Td Vaccines (1 - Tdap) 1960 Pneumococcal Vaccine: 50+ Years (1 of 1 - PCV) 10/28/1991 Zoster Vaccines (1 of 2) 10/28/1991 RSV Immunization Patients 60+ Years Old (1 - 1-dose 75+ series) 2016 Cholesterol Screening (Lipid Panel) 08/22/2023 Depression Screening 08/22/2023 Medicare Annual Wellness Visit 08/22/2023 Osteoporosis Screening (Bone Density Screening) 08/22/2023 Social Influencers of Health Screening 08/22/2023 Influenza Vaccine (#1) 2024 Falls Risk Assessment 06/14/2025 06/14/2024 Hypertension/CHF/CAD Annual BMP Blood Test 06/14/2025 06/14/2024, 06/13/2024, 01/30/2024, Additional history exists HIB Vaccines Aged Out No longer eligi ble based on patient's age to complete this topic HPV Vaccines Aged Out No longer eligi ble based on patient's age to complete this topic Hepatitis A Vaccines Aged Out No long er eligible based on patient's age to complete this topic Hepatitis B Vaccines Aged Out No long er eligible based on patient's age to complete this topic IPV Vaccines Aged Out No longer eligi ble based on patient's age to complete this topic MMR Vaccines Aged Out No longer eligi ble based on patient's age to complete this topic Meningococcal ACWY Vaccine Aged Out N o longer eligible based on patient's age to complete this topic Meningococcal B Vacine Aged Out No lo nger eligible based on patient's age to complete this topic RSV Immunization Patients Under 20 months Aged Out No longer eligible based on patient's age to complete this topic Varicella Vaccines Aged Out No longer eligible based on patient's age to complete this topic Procedures Procedure Name Priority Date/Time Associated Diagnosis Comments COMPREHENSIVE METABOLIC PANEL Routine 06/14/2024 5:40 AM EST from Last 3 Months or Most Recently Relevant to Health Maintenance Results * (ABNORMAL) Comprehensive metabolic panel (06/14/2024 5:40 AM EST) Sodium 144 133 - 145 mmol/L LAB CHEMISTRY METHOD 06/14/2024 6:46 AM [facility] Potassium 4.2 3.5 - 5.5 mmol/L LAB CHEMISTRY METHOD 06/14/2024 6:46 AM [facility] Chloride 116(H) 96 - 110 mmol/L LAB CHEMISTRY METHOD 06/14/2024 6:46 AM [facility] CO2 23 21 - 32 mmol/L LAB CHEMISTRY METHOD 06/14/2024 6:46 AM [facility] Anion Gap 5 3 - 11 LAB CHEMISTRY METHOD 06/14/2024 6:46 AM [facility] Glucose 93 70 - 100 mg/dL LAB CHEMISTRY METHOD 06/14/2024 6:46 AM [facility] BUN 64(H) 5 - 25 mg/dL LAB CHEMISTRY METHOD 06/14/2024 6:46 AM [facility] Creatinine 1.50(H) 0.50 - 1.10 mg/dL LAB CHEMISTRY METHOD 06/14/2024 6:46 AM [facility] eGFR 35(L) >=60 mL/min/1. 73m2 LAB CHEMISTRY METHOD 06/14/2024 6:46 AM [facility] Comment:Calculation based on the??Chronic Kidney Disease Epidemiology Collaboration (CKD-EPI) equation refit??without adjustment for race. BUN/Creatinine Ratio 42.7 LAB CHEMISTRY METHOD 06/14/2024 6:46 AM [facility] Calcium 8.6 8.5 - 10.5 mg/dL LAB CHEMISTRY METHOD 06/14/2024 6:46 AM [facility] AST (SGOT) 19 10 - 42 unit/L LAB CHEMISTRY METHOD 06/14/2024 6:46 AM [facility] ALT (SGPT) 16 10 - 60 unit/L LAB CHEMISTRY METHOD 06/14/2024 6:46 AM EST [facility] Alkaline Phosphatase 45 42 - 121 unit/L LAB CHEMISTRY METHOD 06/14/2024 6:46 AM [facility] Total Protein 5.0(L) 6.0 - 8.0 g/dL LAB CHEMISTRY METHOD 06/14/2024 6:46 AM [facility] Albumin 3.0(L) 3.2 - 5.0 g/dL LAB CHEMISTRY METHOD 06/14/2024 6:46 AM [facility] Total Bilirubin 0.4 0.0 - 1.4 mg/dL LAB CHEMISTRY METHOD 06/14/2024 6:46 AM [facility] Blood Venous blood specimen / Unknown Venipuncture / Unknown 06/14/2024 5:40 AM EST 06/14/2024 6:13 AM EST us Brain Green MD LAB BLOOD ORDERABLES Final Re sult [facility] [address] [place] [address], from Last 3 Months or Most Recently Relevant to Health Maintenance Insurance [address] [place] [address] [facility]) MEDICARE ADVANTAGE Advance Directives Documents on File Type Date Recorded Patient Head Of Research & Insights Mercedes roberts Advance Directives and Tomer lazo Will 06/15/2024 10:01 AM * Full Code - Default (Latest Code Status on File) Date Activated Date Inactivated Comments 06/13/2024 11:21 AM 06/14/2024 4:20 PM This is o rder is used when code status has not been discussed with the patient, or code status is otherwise unknown/unconfirmed To update the patient's code status, place a code status order. Do not modify or discontinue any currently active code status orders. Care Teams Production Sorter Relationship Specialty Start Date End Date Socrates De Paz PA [address] [place] [address] PCP - General 02/06/23
--- OUTSIDE RECORDS SUMMARY | 2024-10-05 13:17 | XMS_ITS | Clinical Summary ---
Author Organization [facility] Address [address] [place] [address] Care Team Providers Care Distribution Field Engineer Name Role Phone Socrates De Paz PA-C Primary Care Provider [phone] Allergies Active Allergy Reactions Criticality Noted Date Comments Penicillins 01/27/2024 Medications Medication Sig Dispensed Refills Start Date End Date Status nitrofurantoin, macrocrystal-monohyd rate, (MACROBID) 100 MG capsule Take 1 capsule (100 mg total) by mouth 2 (two) times a day. 14 capsule 0 01/27/2024 Active Active Problems No known active problems Social History Tobacco Use Types Packs/Day Years Used Date Smoking Tobacco: Never Assessed Sex and Gender Information Value Date Recorded Sex Assigned at Not on file Gender Identity Not on file Sexual Orientation Not on file Job Start Date Occupation Industry Not on file Not on file Not on file Last Filed Vital Signs Vital Sign Reading Time Taken Comments Blood Pressure 175/74 01/30/2024 10:28 PM EDT Pulse 89 01/30/2024 10:29 PM EDT Temperature 36.8 ??C (98.2 ??F) 01/30/2024 10:28 PM E DT Respiratory Rate 21 01/30/2024 10:28 PM EDT Oxygen Saturation 93% 01/30/2024 10:29 PM EDT Inhaled Oxygen Concentration - - Weight 77.6 kg (171 lb) 01/30/2024 8:24 PM EDT Height 157.5 cm (5' 2 ) 01/30/2024 8:24 PM EDT Body Mass Index 31.28 01/30/2024 8:24 PM EDT Plan of Treatment Health Maintenance Due Date Last Done Comments COVID-19 Vaccine (#1) 04/28/1941 Depression Screening 1953 Preventative Health Evaluation 10/28/1959 DTap / Tdap / Td (1 - Tdap) 1960 Shingrix-Zoster Vaccine (1 of 2) 10/28/1991 Fall Risk Assessment 2006 Osteoporosis Screening (DEXA Scan) 2006 Pneumococcal Vaccine (1 of 1 - PCV) 2006 RSV Adult > 60+ Yrs or Pregn ant (1 - 1-dose 75+ series) 2016 Influenza Vaccine (#1) 2024 Hepatitis B Vaccines Aged Out No long er eligible based on patient's age to complete this topic RSV Ped < 20 months Aged Out No longe r eligible based on patient's age to complete this topic Care Teams Distribution Field Engineer Relationship Specialty Start Date End Date Socrates De Paz PA-C [address] [facility] [place] [address] PCP - General Physician [facility] 01/27/24
--- OUTSIDE RECORDS SUMMARY | 2024-10-05 13:17 | XMS_ITS ---
Author Name [facility] Organization Unknown History of Medication Use Medication Directions Dispensed Refills Start Date End Date Stat ipratropium-albutero l (DUO-NEB) nebulizer solution 3 mL 3 mL, Nebulization, Once, On Fri01/30/24 at 2030, For 1 dose 01/31/2024 01/31/2024 completed nitrofurantoin (macrocrystal-monohy drate) (MACROBID) capsule 100 mg 100 mg, Oral, Once, On Fri01/27/24 at 2000, For 1 dose 01/27/2024 01/28/2024 completed Problems Problem Status Onset Date Problem Type Date of Resoluti on Source Palpitation active EncounterDiagnosisAct [facility] Encounters Encounter Type Encounter Reason Primary Diagnosis Location Date Emergency Palpitations Palpitations [facility] 11/2023 Emergency Urinary tract infection, site not specified Urinary tract infection, site not specified [facility] 01/27/2024
--- OUTSIDE RECORDS SUMMARY | 2024-10-05 13:17 | XMS_ITS ---
Author Organization [facility] Address [address] [place] [address] Care Team Providers [facility] Director Name Role Phone MARTIN LOREDO Unavailable [phone] ALLERGIES Allergen (clinical drug ingredient) Drug/Non Drug Allergy documented on EMR Reaction Allergy Type Onset Date Status Penicillin G Potassium rash Drug Allergy Active REASON FOR VISIT pt presents in office accompanied by Rossi for routine follow up with no acute concerns MEDICATIONS Medication SIG (Take, Route, Frequency, Duration) Notes Start Date End Date Status Vitamin C 500 MG as directed Orally Active Trelegy Ellipta 200-62.5-25 MCG/ACT INHALE 1 PUFF BY MOUTH EVERY DAY for 90 days Active Iron Active Simvastatin 20 MG TAKE 1 TABLET BY JEANCARLOS TH EVERY DAY IN THE EVENING for 90 days Active Gabapentin 400 MG 1 capsule Orally Onc e a day for 90 days Not-Taking Pantoprazole Sodium 40 MG 1 tablet 1/2 t o 1 hour before morning meal Orally Once a day Active Tylenol 325 MG 1 capsule as needed Orally every 6 hrs Active Albuterol Sulfate HFA 108 (90 Base) MCG/ACT INHALE 1 PUFF BY MOUTH EVERY 4 HOURS NEEDED for 33 prn Active Lisinopril 20 MG TAKE 1 TABLET Orally Once a day for 90 days Active rOPINIRole HCl ER 8 MG TAKE 1 TABLET BY MOUTH DAILY Orally Once a day for 90 days Active VITAL SIGNS Heart Rate 94 /min 10/04/2024 Blood pressure systolic 146 mm Hg 10/05/19 25 Blood pressure diastolic 80 mm Hg 025 Weight 158.2 lbs 10/04/2024 BMI 29.89 kg/m2 10/04/2024 Height 61 in 10/04/2024 Oximetry 95 % 10/04/2024 Encounters Encounter Location Date Provider Diagnosis [facility] [address] [place] [address] 10/04/2024 MARTIN LOREDO Cognitive changes R4 1.89 ; Restless leg syndrome G25.81 ; Hypertension, unspecified type I10 ; Hyperlipidemia, unspecified hyperlipidemia type E78.5 ; COPD, mild J44.9 ; Anxiety F41.9 ; Kidney lesion N28.9 and Chronic kidney disease, stage 3a N18.31 ASSESSMENTS Encounter Date Diagnosis Assessment Notes Treatment Notes Treatment Clinical Notes Section Notes 10/04/2024 Cognitive changes (ICD-10 - R41.89) # Hyperlipidemia: Continue simvastatin 20 mg #COPD: Patient diagnosed with emphysema 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 Taking Trelegy with adequate control of SOB.Patient stopped taking Trelegy x 1 month, and had a flareup, Continue with Trelegy and albuterol. Following with pulmonology tomorrow. # Patient inquires about snoring/heavy breathing at night. Following with pulmonology consider sleep study # With pulmonology obtaining a CT of her chest,incidentally found a right 1.7 cm kidney lesion For which we ordered an ultrasound, and resulted on 05/25/2024 showing a cyst in the right upper pole of the kidney benign, no further workup needed at this time. #Anxiety: Patient discontinue mirtazapine due to diarrhea, but she is feeling well, no need for initiation of additional medication at this time. #HTN: BP stable today in office. Educated take blood pressure at home. Call the office blood pressure reading greater than 140/90.Lisinopril was discontinued due to acute kidney injury in the hospital.Repeated BMP. Showing stability. Continuing lisinopril 20 mg at this time. #Restless leg syndrome: Discontinued gabapentin because she felt it was making it worse. States that stable on ropinirole 8 mg Extended release in the evening. Going to follow with neurology for continued restless leg #Heart murmur: Patient with history of aortic and mitral stenosis. Previous echo with evidence of aortic stenosis, mitral stenosis, LVH, LAE. Most recent echo 03/10/2024 showing severe aortic stenosis and left atrial enlargement for which we are referring to cardiology for further evaluation. Ejection fraction 65 to 70%. Normal pulmonary pressures.Continuing to follow with cardiology # Patient had a history of GI bleed, was going to get endoscopy with Dr. Mackenzie. Patient sister will call the office for follow-up. Patient declines any symptoms at this time Signed scheduled for cataract surgery in November, [facility]. #Cognitive decline: Patient's sister/healthcare proxy Rossi and Mrs. Muñoz expressed concern for Alzheimer's, as their mother did unfortunately suffer from early onset Alzheimer's disease. Mini-Mental status exam performed in office In January by TONI Yan scored 30 out of 30 points. Did MoCA testing In February for which she scored a 26 out of 30. Completed MoCA testing again 10/04/2024 with continued score of 26 out of 30 Patient mostly had difficulty with memory recall with category cue, But was able to get options with multiple choice. Also difficulty counting back from sevens from 100. Blood work including B12, folate, RPR, TSH, and UA negative. MRI patient obtained, although could not get result because she did not tolerate the machine well,So we repeated MRI without contrast, prescribed 1 dose of lorazepam to help with anxiety associated with image. Showed moderate to severe periventricular and subcortical hyperintensity suggestive of chronic microvascular ischemia. Going to refer to neurology. Also going to follow with [facility]. Follow-up in 2 months, sooner as needed. Follow-up pulmonology, cardiology, neurology in the meantime. All quetsions answered to patients satisfaction. Patient verbalized understanding of diagnosis and treatments explained. To call sooner prior to next visit it any questions/concerns arise. Case discussed with collaborating physician Teri Stroud who reviewed the assessment and plan. Chart, medications, labs, vital signs reviewed. Dictation was accomplished with the use of [employer] voice recognition software, prone to medical misidentifications and grammatical errors. This is unintentional and the practitioner does try to identify and correct these, but some could still be present. Please do not hesitate to contact practitioner for clarification. 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 Taking Trelegy with adequate control of SOB.Patient stopped taking Trelegy x 1 month, and had a flareup, Continue with Trelegy and albuterol. Following with pulmonology tomorrow. # Patient inquires about snoring/heavy breathing at night. Following with pulmonology consider sleep study # With pulmonology obtaining a CT of her chest,incidentally found a right 1.7 cm kidney lesion For which we ordered an ultrasound, and resulted on 05/25/2024 showing a cyst in the right upper pole of the kidney benign, no further workup needed at this time. #Anxiety: Patient discontinue mirtazapine due to diarrhea, but she is feeling well, no need for initiation of additional medication at this time. #HTN: BP stable today in office. Educated take blood pressure at home. Call the office blood pressure reading greater than 140/90.Lisinopril was discontinued due to acute kidney injury in the hospital.Repeated BMP. Showing stability. Continuing lisinopril 20 mg at this time. #Restless leg syndrome: Discontinued gabapentin because she felt it was making it worse. States that stable on ropinirole 8 mg Extended release in the evening. Going to follow with neurology for continued restless leg #Heart murmur: Patient with history of aortic and mitral stenosis. Previous echo with evidence of aortic stenosis, mitral stenosis, LVH, LAE. Most recent echo 03/10/2024 showing severe aortic stenosis and left atrial enlargement for which we are referring to cardiology for further evaluation. Ejection fraction 65 to 70%. Normal pulmonary pressures.Continuing to follow with cardiology # Patient had a history of GI bleed, was going to get endoscopy with Dr. Mackenzie. Patient sister will call the office for follow-up. Patient declines any symptoms at this time Signed scheduled for cataract surgery in November, [facility]. #Cognitive decline: Patient's sister/healthcare proxy Rossi and Mrs. Muñoz expressed concern for Alzheimer's, as their mother did unfortunately suffer from early onset Alzheimer's disease. Mini-Mental status exam performed in office In January by TONI Yan scored 30 out of 30 points. Did MoCA testing In February for which she scored a 26 out of 30. Completed MoCA testing again 10/04/2024 with continued score of 26 out of 30 Patient mostly had difficulty with memory recall with category cue, But was able to get options with multiple choice. Also difficulty counting back from sevens from 100. Blood work including B12, folate, RPR, TSH, and UA negative. MRI patient obtained, although could not get result because she did not tolerate the machine well,So we repeated MRI without contrast, prescribed 1 dose of lorazepam to help with anxiety associated with image. Showed moderate to severe periventricular and subcortical hyperintensity suggestive of chronic microvascular ischemia. Going to refer to neurology. Also going to follow with [facility] services. Follow-up in 2 months, sooner as needed. Follow-up pulmonology, cardiology, neurology in the meantime. All quetsions answered to patients satisfaction. Patient verbalized understanding of diagnosis and treatments explained. To call sooner prior to next visit it any questions/concerns arise. Case discussed with collaborating physician Teri Stroud who reviewed the assessment and plan. Chart, medications, labs, vital signs reviewed. Dictation was accomplished with the use of [employer] voice recognition software, prone to medical misidentifications and grammatical errors. This is unintentional and the practitioner does try to identify and correct these, but some could still be present. Please do not hesitate to contact practitioner for clarification. 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 Taking Trelegy with adequate control of SOB.Patient stopped taking Trelegy x 1 month, and had a flareup, Continue with Trelegy and albuterol. Following with pulmonology tomorrow. # Patient inquires about snoring/heavy breathing at night. Following with pulmonology consider sleep study # With pulmonology obtaining a CT of her chest,incidentally found a right 1.7 cm kidney lesion For which we ordered an ultrasound, and resulted on 05/25/2024 showing a cyst in the right upper pole of the kidney benign, no further workup needed at this time. #Anxiety: Patient discontinue mirtazapine due to diarrhea, but she is feeling well, no need for initiation of additional medication at this time. #HTN: BP stable today in office. Educated take blood pressure at home. Call the office blood pressure reading greater than 140/90.Lisinopril was discontinued due to acute kidney injury in the hospital.Repeated BMP. Showing stability. Continuing lisinopril 20 mg at this time. #Restless leg syndrome: Discontinued gabapentin because she felt it was making it worse. States that stable on ropinirole 8 mg Extended release in the evening. Going to follow with neurology for continued restless leg #Heart murmur: Patient with history of aortic and mitral stenosis. Previous echo with evidence of aortic stenosis, mitral stenosis, LVH, LAE. Most recent echo 03/10/2024 showing severe aortic stenosis and left atrial enlargement for which we are referring to cardiology for further evaluation. Ejection fraction 65 to 70%. Normal pulmonary pressures.Continuing to follow with cardiology # Patient had a history of GI bleed, was going to get endoscopy with Dr. Mackenzie. Patient sister will call the office for follow-up. Patient declines any symptoms at this time Signed scheduled for cataract surgery in November, [facility]. #Cognitive decline: Patient's sister/healthcare proxy Rossi and Mrs. Muñoz expressed concern for Alzheimer's, as their mother did unfortunately suffer from early onset Alzheimer's disease. Mini-Mental status exam performed in office In January by TONI Yan scored 30 out of 30 points. Did MoCA testing In February for which she scored a 26 out of 30. Completed MoCA testing again 10/04/2024 with continued score of 26 out of 30 Patient mostly had difficulty with memory recall with category cue, But was able to get options with multiple choice. Also difficulty counting back from sevens from 100. Blood work including B12, folate, RPR, TSH, and UA negative. MRI patient obtained, although could not get result because she did not tolerate the machine well,So we repeated MRI without contrast, prescribed 1 dose of lorazepam to help with anxiety associated with image. Showed moderate to severe periventricular and subcortical hyperintensity suggestive of chronic microvascular ischemia. Going to refer to neurology. Also going to follow with [facility]. Follow-up in 2 months, sooner as needed. Follow-up pulmonology, cardiology, neurology in the meantime. All quetsions answered to patients satisfaction. Patient verbalized understanding of diagnosis and treatments explained. To call sooner prior to next visit it any questions/concerns arise. Case discussed with collaborating physician Teri Stroud who reviewed the assessment and plan. Chart, medications, labs, vital signs reviewed. Dictation was accomplished with the use of [employer] voice recognition software, prone to medical misidentifications and grammatical errors. This is unintentional and the practitioner does try to identify and correct these, but some could still be present. Please do not hesitate to contact practitioner for clarification. 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 Taking Trelegy with adequate control of SOB.Patient stopped taking Trelegy x 1 month, and had a flareup, Continue with Trelegy and albuterol. Following with pulmonology tomorrow. # Patient inquires about snoring/heavy breathing at night. Following with pulmonology consider sleep study # With pulmonology obtaining a CT of her chest,incidentally found a right 1.7 cm kidney lesion For which we ordered an ultrasound, and resulted on 05/25/2024 showing a cyst in the right upper pole of the kidney benign, no further workup needed at this time. #Anxiety: Patient discontinue mirtazapine due to diarrhea, but she is feeling well, no need for initiation of additional medication at this time. #HTN: BP stable today in office. Educated take blood pressure at home. Call the office blood pressure reading greater than 140/90.Lisinopril was discontinued due to acute kidney injury in the hospital.Repeated BMP. Showing stability. Continuing lisinopril 20 mg at this time. #Restless leg syndrome: Discontinued gabapentin because she felt it was making it worse. States that stable on ropinirole 8 mg Extended release in the evening. Going to follow with neurology for continued restless leg #Heart murmur: Patient with history of aortic and mitral stenosis. Previous echo with evidence of aortic stenosis, mitral stenosis, LVH, LAE. Most recent echo 03/10/2024 showing severe aortic stenosis and left atrial enlargement for which we are referring to cardiology for further evaluation. Ejection fraction 65 to 70%. Normal pulmonary pressures.Continuing to follow with cardiology # Patient had a history of GI bleed, was going to get endoscopy with Dr. Mackenzie. Patient sister will call the office for follow-up. Patient declines any symptoms at this time Signed scheduled for cataract surgery in November, [facility]. #Cognitive decline: Patient's sister/healthcare proxy Rossi and Mrs. Muñoz expressed concern for Alzheimer's, as their mother did unfortunately suffer from early onset Alzheimer's disease. Mini-Mental status exam performed in office In January by TONI Yan scored 30 out of 30 points. Did MoCA testing In February for which she scored a 26 out of 30. Completed MoCA testing again 10/04/2024 with continued score of 26 out of 30 Patient mostly had difficulty with memory recall with category cue, But was able to get options with multiple choice. Also difficulty counting back from sevens from 100. Blood work including B12, folate, RPR, TSH, and UA negative. MRI patient obtained, although could not get result because she did not tolerate the machine well,So we repeated MRI without contrast, prescribed 1 dose of lorazepam to help with anxiety associated with image. Showed moderate to severe periventricular and subcortical hyperintensity suggestive of chronic microvascular ischemia. Going to refer to neurology. Also going to follow with [facility]. Follow-up in 2 months, sooner as needed. Follow-up pulmonology, cardiology, neurology in the meantime. All quetsions answered to patients satisfaction. Patient verbalized understanding of diagnosis and treatments explained. To call sooner prior to next visit it any questions/concerns arise. Case discussed with collaborating physician Teri Stroud who reviewed the assessment and plan. Chart, medications, labs, vital signs reviewed. Dictation was accomplished with the use of [employer] voice recognition software, prone to medical misidentifications and grammatical errors. This is unintentional and the practitioner does try to identify and correct these, but some could still be present. Please do not hesitate to contact practitioner for clarification. 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 Taking Trelegy with adequate control of SOB.Patient stopped taking Trelegy x 1 month, and had a flareup, Continue with Trelegy and albuterol. Following with pulmonology tomorrow. # Patient inquires about snoring/heavy breathing at night. Following with pulmonology consider sleep study # With pulmonology obtaining a CT of her chest,incidentally found a right 1.7 cm kidney lesion For which we ordered an ultrasound, and resulted on 05/25/2024 showing a cyst in the right upper pole of the kidney benign, no further workup needed at this time. #Anxiety: Patient discontinue mirtazapine due to diarrhea, but she is feeling well, no need for initiation of additional medication at this time. #HTN: BP stable today in office. Educated take blood pressure at home. Call the office blood pressure reading greater than 140/90.Lisinopril was discontinued due to acute kidney injury in the hospital.Repeated BMP. Showing stability. Continuing lisinopril 20 mg at this time. #Restless leg syndrome: Discontinued gabapentin because she felt it was making it worse. States that stable on ropinirole 8 mg Extended release in the evening. Going to follow with neurology for continued restless leg #Heart murmur: Patient with history of aortic and mitral stenosis. Previous echo with evidence of aortic stenosis, mitral stenosis, LVH, LAE. Most recent echo 03/10/2024 showing severe aortic stenosis and left atrial enlargement for which we are referring to cardiology for further evaluation. Ejection fraction 65 to 70%. Normal pulmonary pressures.Continuing to follow with cardiology # Patient had a history of GI bleed, was going to get endoscopy with Dr. Mackenzie. Patient sister will call the office for follow-up. Patient declines any symptoms at this time Signed scheduled for cataract surgery in November, [facility]. #Cognitive decline: Patient's sister/healthcare proxy Rossi and Mrs. Muñoz expressed concern for Alzheimer's, as their mother did unfortunately suffer from early onset Alzheimer's disease. Mini-Mental status exam performed in office In January by TONI Yan scored 30 out of 30 points. Did MoCA testing In February for which she scored a 26 out of 30. Completed MoCA testing again 10/04/2024 with continued score of 26 out of 30 Patient mostly had difficulty with memory recall with category cue, But was able to get options with multiple choice. Also difficulty counting back from sevens from 100. Blood work including B12, folate, RPR, TSH, and UA negative. MRI patient obtained, although could not get result because she did not tolerate the machine well,So we repeated MRI without contrast, prescribed 1 dose of lorazepam to help with anxiety associated with image. Showed moderate to severe periventricular and subcortical hyperintensity suggestive of chronic microvascular ischemia. Going to refer to neurology. Also going to follow with [facility]. Follow-up in 2 months, sooner as needed. Follow-up pulmonology, cardiology, neurology in the meantime. All quetsions answered to patients satisfaction. Patient verbalized understanding of diagnosis and treatments explained. To call sooner prior to next visit it any questions/concerns arise. Case discussed with collaborating physician Teri Stroud who reviewed the assessment and plan. Chart, medications, labs, vital signs reviewed. Dictation was accomplished with the use of [employer] voice recognition software, prone to medical misidentifications and grammatical errors. This is unintentional and the practitioner does try to identify and correct these, but some could still be present. Please do not hesitate to contact practitioner for clarification. 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 Taking Trelegy with adequate control of SOB.Patient stopped taking Trelegy x 1 month, and had a flareup, Continue with Trelegy and albuterol. Following with pulmonology tomorrow. # Patient inquires about snoring/heavy breathing at night. Following with pulmonology consider sleep study # With pulmonology obtaining a CT of her chest,incidentally found a right 1.7 cm kidney lesion For which we ordered an ultrasound, and resulted on 05/25/2024 showing a cyst in the right upper pole of the kidney benign, no further workup needed at this time. #Anxiety: Patient discontinue mirtazapine due to diarrhea, but she is feeling well, no need for initiation of additional medication at this time. #HTN: BP stable today in office. Educated take blood pressure at home. Call the office blood pressure reading greater than 140/90.Lisinopril was discontinued due to acute kidney injury in the hospital.Repeated BMP. Showing stability. Continuing lisinopril 20 mg at this time. #Restless leg syndrome: Discontinued gabapentin because she felt it was making it worse. States that stable on ropinirole 8 mg Extended release in the evening. Going to follow with neurology for continued restless leg #Heart murmur: Patient with history of aortic and mitral stenosis. Previous echo with evidence of aortic stenosis, mitral stenosis, LVH, LAE. Most recent echo 03/10/2024 showing severe aortic stenosis and left atrial enlargement for which we are referring to cardiology for further evaluation. Ejection fraction 65 to 70%. Normal pulmonary pressures.Continuing to follow with cardiology # Patient had a history of GI bleed, was going to get endoscopy with Dr. Mackenzie. Patient sister will call the office for follow-up. Patient declines any symptoms at this time Signed scheduled for cataract surgery in November, [facility]. #Cognitive decline: Patient's sister/healthcare proxy Rossi and Mrs. Muñoz expressed concern for Alzheimer's, as their mother did unfortunately suffer from early onset Alzheimer's disease. Mini-Mental status exam performed in office In January by TONI Yan scored 30 out of 30 points. Did MoCA testing In February for which she scored a 26 out of 30. Completed MoCA testing again 10/04/2024 with continued score of 26 out of 30 Patient mostly had difficulty with memory recall with category cue, But was able to get options with multiple choice. Also difficulty counting back from sevens from 100. Blood work including B12, folate, RPR, TSH, and UA negative. MRI patient obtained, although could not get result because she did not tolerate the machine well,So we repeated MRI without contrast, prescribed 1 dose of lorazepam to help with anxiety associated with image. Showed moderate to severe periventricular and subcortical hyperintensity suggestive of chronic microvascular ischemia. Going to refer to neurology. Also going to follow with [facility]. Follow-up in 2 months, sooner as needed. Follow-up pulmonology, cardiology, neurology in the meantime. All quetsions answered to patients satisfaction. Patient verbalized understanding of diagnosis and treatments explained. To call sooner prior to next visit it any questions/concerns arise. Case discussed with collaborating physician Teri Stroud who reviewed the assessment and plan. Chart, medications, labs, vital signs reviewed. Dictation was accomplished with the use of [employer] voice recognition software, prone to medical misidentifications and grammatical errors. This is unintentional and the practitioner does try to identify and correct these, but some could still be present. Please do not hesitate to contact practitioner for clarification. 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 Taking Trelegy with adequate control of SOB.Patient stopped taking Trelegy x 1 month, and had a flareup, Continue with Trelegy and albuterol. Following with pulmonology tomorrow. # Patient inquires about snoring/heavy breathing at night. Following with pulmonology consider sleep study # With pulmonology obtaining a CT of her chest,incidentally found a right 1.7 cm kidney lesion For which we ordered an ultrasound, and resulted on 05/25/2024 showing a cyst in the right upper pole of the kidney benign, no further workup needed at this time. #Anxiety: Patient discontinue mirtazapine due to diarrhea, but she is feeling well, no need for initiation of additional medication at this time. #HTN: BP stable today in office. Educated take blood pressure at home. Call the office blood pressure reading greater than 140/90.Lisinopril was discontinued due to acute kidney injury in the hospital.Repeated BMP. Showing stability. Continuing lisinopril 20 mg at this time. #Restless leg syndrome: Discontinued gabapentin because she felt it was making it worse. States that stable on ropinirole 8 mg Extended release in the evening. Going to follow with neurology for continued restless leg #Heart murmur: Patient with history of aortic and mitral stenosis. Previous echo with evidence of aortic stenosis, mitral stenosis, LVH, LAE. Most recent echo 03/10/2024 showing severe aortic stenosis and left atrial enlargement for which we are referring to cardiology for further evaluation. Ejection fraction 65 to 70%. Normal pulmonary pressures.Continuing to follow with cardiology # Patient had a history of GI bleed, was going to get endoscopy with Dr. Mackenzie. Patient sister will call the office for follow-up. Patient declines any symptoms at this time Signed scheduled for cataract surgery in November, [facility]. #Cognitive decline: Patient's sister/healthcare proxy Rossi and Mrs. Muñoz expressed concern for Alzheimer's, as their mother did unfortunately suffer from early onset Alzheimer's disease. Mini-Mental status exam performed in office In January by TONI Yan scored 30 out of 30 points. Did MoCA testing In February for which she scored a 26 out of 30. Completed MoCA testing again 10/04/2024 with continued score of 26 out of 30 Patient mostly had difficulty with memory recall with category cue, But was able to get options with multiple choice. Also difficulty counting back from sevens from 100. Blood work including B12, folate, RPR, TSH, and UA negative. MRI patient obtained, although could not get result because she did not tolerate the machine well,So we repeated MRI without contrast, prescribed 1 dose of lorazepam to help with anxiety associated with image. Showed moderate to severe periventricular and subcortical hyperintensity suggestive of chronic microvascular ischemia. Going to refer to neurology. Also going to follow with [facility]. Follow-up in 2 months, sooner as needed. Follow-up pulmonology, cardiology, neurology in the meantime. All quetsions answered to patients satisfaction. Patient verbalized understanding of diagnosis and treatments explained. To call sooner prior to next visit it any questions/concerns arise. Case discussed with collaborating physician Teri Stroud who reviewed the assessment and plan. Chart, medications, labs, vital signs reviewed. Dictation was accomplished with the use of [employer] voice recognition software, prone to medical misidentifications and grammatical errors. This is unintentional and the practitioner does try to identify and correct these, but some could still be present. Please do not hesitate to contact practitioner for clarification. 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 Taking Trelegy with adequate control of SOB.Patient stopped taking Trelegy x 1 month, and had a flareup, Continue with Trelegy and albuterol. Following with pulmonology tomorrow. # Patient inquires about snoring/heavy breathing at night. Following with pulmonology consider sleep study # With pulmonology obtaining a CT of her chest,incidentally found a right 1.7 cm kidney lesion For which we ordered an ultrasound, and resulted on 05/25/2024 showing a cyst in the right upper pole of the kidney benign, no further workup needed at this time. #Anxiety: Patient discontinue mirtazapine due to diarrhea, but she is feeling well, no need for initiation of additional medication at this time. #HTN: BP stable today in office. Educated take blood pressure at home. Call the office blood pressure reading greater than 140/90.Lisinopril was discontinued due to acute kidney injury in the hospital.Repeated BMP. Showing stability. Continuing lisinopril 20 mg at this time. #Restless leg syndrome: Discontinued gabapentin because she felt it was making it worse. States that stable on ropinirole 8 mg Extended release in the evening. Going to follow with neurology for continued restless leg #Heart murmur: Patient with history of aortic and mitral stenosis. Previous echo with evidence of aortic stenosis, mitral stenosis, LVH, LAE. Most recent echo 03/10/2024 showing severe aortic stenosis and left atrial enlargement for which we are referring to cardiology for further evaluation. Ejection fraction 65 to 70%. Normal pulmonary pressures.Continuing to follow with cardiology # Patient had a history of GI bleed, was going to get endoscopy with Dr. Mackenzie. Patient sister will call the office for follow-up. Patient declines any symptoms at this time Signed scheduled for cataract surgery in November, [facility]. #Cognitive decline: Patient's sister/healthcare proxy Rossi and Mrs. Muñoz expressed concern for Alzheimer's, as their mother did unfortunately suffer from early onset Alzheimer's disease. Mini-Mental status exam performed in office In January by TONI Yan scored 30 out of 30 points. Did MoCA testing In February for which she scored a 26 out of 30. Completed MoCA testing again 10/04/2024 with continued score of 26 out of 30 Patient mostly had difficulty with memory recall with category cue, But was able to get options with multiple choice. Also difficulty counting back from sevens from 100. Blood work including B12, folate, RPR, TSH, and UA negative. MRI patient obtained, although could not get result because she did not tolerate the machine well,So we repeated MRI without contrast, prescribed 1 dose of lorazepam to help with anxiety associated with image. Showed moderate to severe periventricular and subcortical hyperintensity suggestive of chronic microvascular ischemia. Going to refer to neurology. Also going to follow with [facility]. Follow-up in 2 months, sooner as needed. Follow-up pulmonology, cardiology, neurology in the meantime. All quetsions answered to patients satisfaction. Patient verbalized understanding of diagnosis and treatments explained. To call sooner prior to next visit it any questions/concerns arise. Case discussed with collaborating physician Teri Stroud who reviewed the assessment and plan. Chart, medications, labs, vital signs reviewed. Dictation was accomplished with the use of [employer] voice recognition software, prone to medical misidentifications and grammatical errors. This is unintentional and the practitioner does try to identify and correct these, but some could still be present. Please do not hesitate to contact practitioner for clarification. PLAN OF TREATMENT Medication Medication Name Sig Start Date Stop Date Notes rOPINIRole HCl ER 8 MG TAKE 1 TABLET BY MOUTH DAILY Orally Once a day for 90 days Next Appt Details Provider Name:MARTIN LOREDO, 0 12/06/2024 01:30:00 PM, [address], [place], [address], Progress Notes * LUIS ARMANDO MUÑOZOB:[birth year] (83 yo F)Acc No.[id number]:10/04/2024 Progress Notes Patient:??BEATA MUÑOZ Provider:??MARTIN LOREDO PA-C :1940?Age:83 Y?Sex:Fe male Date:10/04/2024 Address:[address] [place], [place] [id number] Subjective: * Chief Complaints: * ?1. pt presents in offi ce accompanied by Rossi for routine follow up with no acute concerns. * HPI: ?Constitutional:? Beata is a pleasant 83-year-old female who presents the office for a follow-up visit. Past medical history including not limited to hiatal hernia, hyperlipidemia, hypertension, restless leg, iron deficiency, COPD, aortic stenosis, mitral stenosis, anxiety, chronic kidney disease, and short-term memory loss.Patient is here with her sister.Last seen on 08/02/2024. Actively following with gastroenterology, cardiology, and neurology. Also being evaluated by [facility] for home services. We did discuss that patient may benefit from potential assisted living. No recent labs to review. Most recent labs from May 2024.Patient has no acute concerns. Still in the process of trying to establish with neurology, for which we will refer elsewhere. We have sent to referrals to neurology 1 in January, and 1 in February, they have not heard. Otherwise, scheduled for cataract surgery in November, following with [facility]. Seeing pulmonology tomorrow. Not interested in getting further endoscopy as she states right now her symptoms are controlled. Did do MoCA testing today, showing stability from January 2024, with a 26 out of 30 score. * ROS:?Constitutional: no weight loss, no fever, no night sweats, no changes in sleep. ???Eyes: No eye discharge, no itching, no redness, no vision changes. ???Ear nose throat: No ear pain, No sore throat, no postnasal drip, no runny nose, no sneezing, + hearing changes ???Cardiovascular: No chest pain, no dyspnea on exertion, no PND, no orthopnea, no irregular pulse, no palpitations, no claudication, no diaphoresis, no claudication. ???Respiratory: No chronic cough, no hemoptysis, no sputum, no wheezing, no SOB, no pleuritic pain. ???GI, No diarrhea, no constipation, no blood in the stools, no pain associated with eating, no indigestion, no difficulty swallowing, no appetite change. ???Genitourinary: No painful urination, no hesitancy, no blood in the urine, no incontinence, no frequency, no urgency, no abnormal discharge. ???Musculoskeletal: No back pain, no joint pain, + limitations to walking and running, no joint deformity, no joint stiffness, no muscle weakness ???Integumentary: No new skin rash. No new changes in skin moles, no pruritis, no color change. ???Neurological: No history of seizures, no memory loss, no language dysfunction, no inability to concentrate, no localized weakness, no sensation loss, no confusion, no dizziness, no tremor, no numbness, no tingling. ???Psychiatric: + anxiety, no depression, no suicidal thoughts, feels safe at home. ???Endocrine: No polyuria, no polyphagia, no polydipsia. No heat/cold intolerance, no excesss thirst. ???Hematological: No easy bruising or bleeding, no lymph node swelling. * Medical History:??Hiatal her dayanna, Hyperlipidemia, Hypertension, essential, Restless leg syndrome, Iron deficiency, COPD, moderate, Aortic stenosis, moderate, Rheumatic mitral stenosis, Anxiety, Duodenitis with bleeding, Chronic kidney disease, stage 3b, Short-term memory loss. * Surgical History:??tubal shady betzy , apendix removal 1959, gallbladder , tonsil removed , Endoscopy 05/2024. * Hospitalization/Major Diagno stic Procedure:??[facility]- Upper GI bleed secondary to hiatal hernia 05/2024. * Family History:??Father: yeni gnosed with Other specified conditions influencing health status.??2 brother(s) , 1 sister(s) . .?? uterine cancer, memory concerns - mother HTN, stroke, heart attack - father mental health- brother no children. * Social History:?tob: quit 8 years ago, pack and a half a day since 16 years ago ???alcohol: 2-3 glasses of wine per week ???drug: denies ???caffeine: stopped drinking coffee ???living alone in [place], no stairs in the appt. ???sister lives in [place]. * Medications:??Taking Pantopr azole Sodium 40 MG Tablet Delayed Release 1 tablet 1/2 to 1 hour before morning meal Orally Once a day , Taking Tylenol 325 MG Capsule 1 capsule as needed Orally every 6 hrs , Taking Albuterol Sulfate HFA 108 (90 Base) MCG/ACT Aerosol Solution INHALE 1 PUFF BY MOUTH EVERY 4 HOURS NEEDED , Notes to Pharmacist: prn, Taking Lisinopril 20 MG Tablet TAKE 1 TABLET Orally Once a day , Taking Vitamin C 500 MG Capsule as directed Orally , Taking Trelegy Ellipta 200-62.5-25 MCG/ACT Aerosol Powder Breath Activated INHALE 1 PUFF BY MOUTH EVERY DAY , Taking rOPINIRole HCl ER 8 MG Tablet Extended Release 24 Hour TAKE 1 TABLET BY MOUTH DAILY , Taking Iron , Taking Simvastatin 20 MG Tablet TAKE 1 TABLET BY MOUTH EVERY DAY IN THE EVENING , Not-Taking Gabapentin 400 MG Capsule 1 capsule Orally Once a day , Medication List reviewed and reconciled with the patient * Allergies:??Penicillin G Pot assium: rash. Objective: * Vitals:??HR: 94 /min, BP: 14 6/80 mm Hg, Wt: 158.2 lbs, BMI: 29.89 Index, Ht: 61 in, Oxygen sat %: 95 %. * Physical Examination:?General: Age appropriate female, well appearing, no acute distress, speaking in full sentences without respiratory compromise. Well groomed, well developed. Alert, Interactive. ?Skin: Warm, dry and intact. No lesions/rashes/erythema. ?HEENT: Normocephalic/atraumatic. Positive bilateral cerumen impaction ?Neck/Thyroid: Supple, with no lymphadenopathy. Full ROM. Thyroid free of nodules and nonenlarged. ?Lung: Clear to auscultation bilaterally, no wheezes, rales or rhonchi. No barrel chest. Equal chest rise and fall bilaterally. ?Cardiac: S1 and S2 appreciated. + murmurs/rubs or gallops. Aortic stenosis radiating to the carotid arteries. DP pulses intact 2+ bilaterally. Capillary refill <2 seconds. ?Extremities: Bilateral lower extremities with no edema or rubor. + evidence of varicose veins. Equal tone bilaterally. ?MSK: Bilateral upper and lower extremities 4/5 strength with flexion/extension. Hammer Shop Supervisor strength 4/5. Sensation intact. ?Neuro: CN II-XI grossly intact. Encourage walker/cane with ambulation. ?Psych: Stable mood and affect. Assessment: * Assessment: 1.??Cognitive changes - R41. 89 (Primary)??2.??Restless leg syndrome - G25.81??3.??Hypertension, unspecified type - I10??4.??Hyperlipidemia, unspecified hyperlipidemia type - E78.5??5.??COPD, mild - J44.9??6.??Anxiety - F41.9??7.??Kidney lesion - N28.9??8.??Chronic kidney disease, stage 3a - N18.31?? 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 Taking Trelegy with adequate control of SOB.Patient stopped taking Trelegy x 1 month, and had a flareup, Continue with Trelegy and albuterol. Following with pulmonology tomorrow. # Patient inquires about snoring/heavy breathing at night. Following with pulmonology consider sleep study # With pulmonology obtaining a CT of her chest,incidentally found a right 1.7 cm kidney lesion For which we ordered an ultrasound, and resulted on 05/25/2024 showing a cyst in the right upper pole of the kidney benign, no further workup needed at this time. #Anxiety: Patient discontinue mirtazapine due to diarrhea, but she is feeling well, no need for initiation of additional medication at this time. #HTN: BP stable today in office. Educated take blood pressure at home. Call the office blood pressure reading greater than 140/90.Lisinopril was discontinued due to acute kidney injury in the hospital.Repeated BMP. Showing stability. Continuing lisinopril 20 mg at this time. #Restless leg syndrome: Discontinued gabapentin because she felt it was making it worse. States that stable on ropinirole 8 mg Extended release in the evening. Going to follow with neurology for continued restless leg #Heart murmur: Patient with history of aortic and mitral stenosis. Previous echo with evidence of aortic stenosis, mitral stenosis, LVH, LAE. Most recent echo 03/10/2024 showing severe aortic stenosis and left atrial enlargement for which we are referring to cardiology for further evaluation. Ejection fraction 65 to 70%. Normal pulmonary pressures.Continuing to follow with cardiology # Patient had a history of GI bleed, was going to get endoscopy with Dr. Mackenzie. Patient sister will call the office for follow-up. Patient declines any symptoms at this time Signed scheduled for cataract surgery in November, [facility]. #Cognitive decline: Patient's sister/healthcare proxy Rossi and Mrs. Muñoz expressed concern for Alzheimer's, as their mother did unfortunately suffer from early onset Alzheimer's disease. Mini-Mental status exam performed in office In January by TONI Yan scored 30 out of 30 points. Did MoCA testing In February for which she scored a 26 out of 30. Completed MoCA testing again 10/04/2024 with continued score of 26 out of 30 Patient mostly had difficulty with memory recall with category cue, But was able to get options with multiple choice. Also difficulty counting back from sevens from 100. Blood work including B12, folate, RPR, TSH, and UA negative. MRI patient obtained, although could not get result because she did not tolerate the machine well,So we repeated MRI without contrast, prescribed 1 dose of lorazepam to help with anxiety associated with image. Showed moderate to severe periventricular and subcortical hyperintensity suggestive of chronic microvascular ischemia. Going to refer to neurology. Also going to follow with [facility]. Follow-up in 2 months, sooner as needed. Follow-up pulmonology, cardiology, neurology in the meantime. All quetsions answered to patients satisfaction. Patient verbalized understanding of diagnosis and treatments explained. To call sooner prior to next visit it any questions/concerns arise. Case discussed with collaborating physician Teri Stroud who reviewed the assessment and plan. Chart, medications, labs, vital signs reviewed. Dictation was accomplished with the use of [employer] voice recognition software, prone to medical misidentifications and grammatical errors. This is unintentional and the practitioner does try to identify and correct these, but some could still be present. Please do not hesitate to contact practitioner for clarification. Plan: * Treatment: * Images: Billing Information: * Visit Code:?? 81114 Office Visit, Est Pt., Level 4. Modifiers: 25, SA * Procedure Codes:?? Care Plan Details* * Sign off status: Completed true * Provider:??MARTIN LOREDO PA-C Date:??09/25 History and Physical Notes * HPI (History of Present Illness) Category Sub-Category Detail Notes Category Not es Constitutional Beata is a pleasant 83-year-old female who presents the office for a follow-up visit. Past medical history including not limited to hiatal hernia, hyperlipidemia, hypertension, restless leg, iron deficiency, COPD, aortic stenosis, mitral stenosis, anxiety, chronic kidney disease, and short-term memory loss.Patient is here with her sister.Last seen on 08/02/2024. Actively following with gastroenterology, cardiology, and neurology. Also being evaluated by [facility] for home services. We did discuss that patient may benefit from potential assisted living. No recent labs to review. Most recent labs from May 2024.Patient has no acute concerns. Still in the process of trying to establish with neurology, for which we will refer elsewhere. We have sent to referrals to neurology 1 in January, and 1 in February, they have not heard. Otherwise, scheduled for cataract surgery in November, following with [facility]. Seeing pulmonology tomorrow. Not interested in getting further endoscopy as she states right now her symptoms are controlled. Did do MoCA testing today, showing stability from January 2024, with a 26 out of 30 score. Physical Examination Category Sub-Category Detail Notes Section Note s General: Age appropriate female, well appearing, no acute distress, speaking in full sentences without respiratory compromise. Well groomed, well developed. Alert, Interactive. Skin: Warm, dry and intact. No lesions/rashes/erythema. HEENT: Normocephalic/atraumatic. Positive bilateral cerumen impaction Neck/Thyroid: Supple, with no lymphadenopathy. Full ROM. Thyroid free of nodules and nonenlarged. Lung: Clear to auscultation bilaterally, no wheezes, rales or rhonchi. No barrel chest. Equal chest rise and fall bilaterally. Cardiac: S1 and S2 appreciated. + murmurs/rubs or gallops. Aortic stenosis radiating to the carotid arteries. DP pulses intact 2+ bilaterally. Capillary refill <2 seconds. Extremities: Bilateral lower extremities with no edema or rubor. + evidence of varicose veins. Equal tone bilaterally. MSK: Bilateral upper and lower extremities 4/5 strength with flexion/extension. Hammer Shop Supervisor strength 4/5. Sensation intact. Neuro: CN II-XI grossly intact. Encourage walker/cane with ambulation. Psych: Stable mood and affect
== END 2024-10-05 11:17 | disposition home or self-care (01) ==
LOC: HO.HPSW 10:52
PROVIDERS: PCP Physician Assistant; Visit Provider Nurse Practitioner Family
DX: J44.9 Chronic obstructive pulmonary disease, unspecified (principal); J43.9 Emphysema, unspecified; R06.09 Other forms of dyspnea; Z87.891 Personal history of nicotine dependence; R91.8 Other nonspecific abnormal finding of lung field
CPT/HCPCS: 99214

== ENCOUNTER → 2024-10-05 10:51 | Outpatient (BNVA) | payer MEDICARE, SELFPAY | PROVIDERS: PCP Physician Assistant; Visit Provider Nurse Practitioner Family | DX: J43.9 Emphysema, unspecified (principal); R06.09 Other forms of dyspnea; R91.8 Other nonspecific abnormal finding of lung field; Z87.891 Personal history of nicotine dependence | CPT/HCPCS: 99212 ==

== ENCOUNTER 2025-01-04 13:46 | Outpatient (AMB) | payer MEDICARE, SELFPAY ==
[2025-01-04 14:03] VITALS: BP 178/86; PULSE 88; O2SAT 96; BMI 32.0
--- NOTE | 2025-01-04 14:03 | A.OFFVIS_ITS ---
Vital Signs 01/04/25 14:03 Height 4 ft 11 in Weight 158 lb 4 oz BMI 32.0 BP 178/86 H Blood Pressure Location Rt brachial Position Sitting Pulse 88 Pulse Source Pulse Oximeter Pulse Oximetry (%) 96 Oxygen Delivery Method Room Air Intake Visit Reasons: 6 month f/u copd Allergies penicillin G Allergy (Unknown, Verified 01/04/25 14:07) Hives HPI HPI 6 month f/u copd : Details: Beata is a pleasant 84 year old female, former 55 pack year smoker, quit 10 years ago, with underlying COPD, emphysema and pulmonary nodules. Today she is accompanied by her sister as she is a poor historian. She reports good control with Trelegy, using albuterol infrequently. She does admit to not using Trelegy as frequently due to costs however today states she will use consistently instead of attempting to trial a more cost effective alternative. Today she denies any respiratory symptoms. She denies any visits to urgent care or hospitalizations related to respiratory distress since the last visit. She was previously sent for chest CT to assess pulmonary nodules, however was unable to contact patient due to change in phone numbers, which was updated today. Of note, patient under the care of Dr. Caceres, [facility], for known moderate to severe aortic stenosis. [facility] Social History Patient Tobacco Use Status: Former Tobacco user Tobacco use type: Cigarette Cigarette Packs Per Day: 1.5 Cigarettes Per Day: 15 Years Smoked: 50 Review of Systems Const Denies chills, Denies excessive sweating, Denies fever(s), Denies headache(s) and Denies night sweats Eyes Denies dry eyes, Denies irritation and Denies itchy eyes ENT Reports Normal hearing present, Denies headache(s), Denies nasal congestion, Denies nasal discharge, Denies post nasal drip and Denies sore throat Card Denies chest pain, Denies chest pain at rest, Denies chest pain with activity, Denies claudication, Denies leg edema, Denies dyspnea, Denies dyspnea on exertion, Denies orthopnea and Denies paroxysmal nocturnal dyspnea Resp Denies chest congestion, Denies cough, Denies excessive phlegm production, Denies pain on inspiration, Denies pain with cough, Denies dyspnea, Denies dyspnea on exertion, Denies stridor and Denies wheezing Musc Denies myalgias Neuro Reports Normal hearing present and Denies headache(s) Endo Denies excessive sweating Buddy/Lymph Denies lymphadenopathy Aller/Immun Denies itchy eyes, Denies seasonal rhinorrhea and Denies wheezing Physical Exam Vital Signs: Last Vital Signs Pulse 88 01/04/25 14:03 BP 178/86 H 01/04/25 14:03 Pulse Ox 96 01/04/25 14:03 Oxygen Delivery Method Room Air 01/04/25 14:03 BMI result Body Mass Index 32.0 Const General: cooperative, healthy appearing, comfortable, no acute distress, well developed and alert Orientation/consciousness: patient oriented x3 Limitations: no limitations HEENT Head: Yes normal to inspection, Yes normocephalic and Yes atraumatic Ears: hearing grossly normal bilaterally and external ears normal Eyes General: appearance normal, both eyes and all related structures Eyelids: Yes eyelids normal Sclerae: sclerae normal EOM: EOMs intact bilaterally Neck Neck: Yes normal visual inspection and Yes no lymphadenopathy Lymphatic: no lymphadenopathy noted Chest Chest palpation & inspection: normal inspection of the chest Resp Other: diminished aeration through left compared to right Effort & Inspection: normal respiratory effort, able to speak in complete sentences, no audible wheezes, no cough, no stridor, not tachypneic, no tripod positioning and no use of accessory muscles Cardio Jugular venous distension: no JVD Rate: regular rate Rhythm: regular rhythm Skin Other: warm, dry General skin exam: no rashes or lesions noted Neuro General: patient oriented x3 Cranial nerves: Yes Normal hearing present Cognition (Neuro): normal cognition Gait exam (Neuro): Normal gait present Extrem General: Yes normal to inspection, Yes capillary refill normal, Yes no clubbing, cyanosis or edema and Yes no pedal edema Psych Appearance: grossly normal and well kempt Speech and movement: Normal speech and movement present and Clear speech present Affect: normal affect Attitude: cooperative Thought process: Normal thought process present Thought content: Normal thought content present Insight: Fair insight present (Psych) Judgement: Fair judgement present (Psych) Assessment & Plan Assessment & Plan (1) COPD (chronic obstructive pulmonary disease): Code(s): J44.9 - Chronic obstructive pulmonary disease, unspecified Category: Medical (2) Emphysema lung: Code(s): J43.9 - Emphysema, unspecified Category: Medical (3) Dyspnea on exertion: Code(s): R06.09 - Other forms of dyspnea Category: Medical (4) Personal history of tobacco use: Code(s): Z87.891 - Personal history of nicotine dependence Category: Social Hx (5) Multiple pulmonary nodules: Code(s): R91.8 - Other nonspecific abnormal finding of lung field Category: Medical Plan Advised to continue current regimen of Trelegy and albuterol PRN. Patient is overdue for chest CT, states she never received information to schedule, however documentation notes multiple attempts made to patient with letter ultimately being sent to schedule but patient had changed phone number. Will reenter chest CT order to assess stability of pulmonary nodules, she is requesting this order to be sent to [facility]. All questions were answered and patient is in agreement of plan. Will follow up in 3 months or sooner if needed. Coding Level of Care Code Est Pt Level 4 (84920) Diagnoses COPD (chronic obstructive pulmonary disease) J44.9 Emphysema lung J43.9 Dyspnea on exertion R06.09 Personal history of tobacco use Z87.891 Multiple pulmonary nodules R91.8
--- OUTSIDE RECORDS SUMMARY | 2025-01-04 16:19 | XMS_ITS ---
Author Organization [facility] [address] Address [address] [place] [address] Care Team Providers Care Chief Investigator Name Role Phone DES MARTIN Unavailable [phone] Encounters Encounter Location Date Provider Diagnosis [facility] [address] [place] [address] 12/06/2024 MARTIN NUNES Plan Of Treatment Next Appt Details Provider Name:MARTIN NUNES, 01/11/2025 11:15:00 AM, [address], [place], [address], Progress Notes * LUIS ARMANDO MUÑOZOB:[birth year] (84 yo F)Acc No.[id number]:12/06/2024 Progress Notes Patient:?IBAN MUÑOZ Provider:?MARTIN LOREDO PA-C :1940???Age:84 Y???Sex:Female D ate:12/06/2024 Address:[address], [facility] Subjective: * Chief Complaints: * ??? * Medical History:? Objective: * Vitals:? Assessment: Plan: * Treatment: * Images: Billing Information: * Visit Code:? * Procedure Codes:? Care Plan Details* * Electronic signature of JUSTEN NUNES PA-C on 01/04/2025 at 04:18 PM EDT Sign off status: Pending * Provider:?MARTIN LOREDO PA-C Date:?2024 Generated for Leola boothe/Antonio/Ant on:?01/04/2025 04:18 PM EDT
== END 2025-01-04 14:53 | disposition home or self-care (01) ==
LOC: HO.HPSW 13:47
PROVIDERS: PCP Physician Assistant; Visit Provider Nurse Practitioner Family
DX: J44.9 Chronic obstructive pulmonary disease, unspecified (principal); J43.9 Emphysema, unspecified; R06.09 Other forms of dyspnea; Z87.891 Personal history of nicotine dependence; R91.8 Other nonspecific abnormal finding of lung field
CPT/HCPCS: 99214

== ENCOUNTER → 2025-01-04 13:46 | Outpatient (BNVA) | payer MEDICARE, SELFPAY | PROVIDERS: PCP Physician Assistant; Visit Provider Nurse Practitioner Family | DX: R05.9 Cough, unspecified (principal); J44.9 Chronic obstructive pulmonary disease, unspecified; J43.9 Emphysema, unspecified; R06.09 Other forms of dyspnea; Z87.891 Personal history of nicotine dependence; R91.8 Other nonspecific abnormal finding of lung field | CPT/HCPCS: 99212 ==

== ENCOUNTER 2025-01-31 13:35 | Outpatient (REF) | payer MEDICARE, SELFPAY ==
--- OUTSIDE RECORDS SUMMARY | 2023-12-30 10:30 | XMS_ITS | Continuity of Care Document ---
Author Organization [facility] Address [address] [place] [address] [address] [place] [address] Phone Care Team Providers Care Embossing Toolsetter Name Role Phone Jayson LOPES, DEJAN, ALEXANDRIA, Alex Unavailable U navailable Procedures Procedure Date Offic Cons New/estab Mod 40 Mi- CT & [place] Advance Directives Directive Yes / No Effective Date File Name Other Directive No 12/30/2023 N/A WARNING:The information contained in this section is historical and is provided for information only and does not constitute a legal document or any assurance that the information is still accurate. Please verify the information with the humphries of the legal document before using it for clinical purposes. Encounters Encounter Description Practice Location Reason(s) For Visit Diagnoses Date Provider Providers Copied on Encounter Offic Cons New/estab Mod 40 Mi- [place] & [place] [facility], [address] [place] [address] Dr [address], [place], [id number], [place] tel:[phone] CVR - [place] - Jolon Pain in right lower legPain in left lower legPain in right legPain in left legRestless legs syndromeEssenti al (primary) hypertensionLym phedema, not elsewhere classifiedPruri tus, unspecifiedHere ditary lymphedemaLocal ized edema 4 Jayson LOPES, ALEXANDRIA WYLIE. [address], [address], [facility] [place], [id number] , [place]. tel:[phone] Referring Provider: Socrates Field, [facility] [address] [facility], [place], [address]. tel:[phone] Family History Family Member Type Diagnosis Age At Onset No Information Payers Payer name Insurance type Covered democrat ID Elizabeth swan(s) [facility] Advant[facility] [id number] Social History Type Description Quantity Date Captured Comments Alcohol Use Details Unknown Caffeine Use Details Unknown Tobacco Use Status No Information Smoking Status Former Smoker Non-Smoking Tobacco Use Details : No Details Available : No Details Available Sex Female Vital Signs Date / Time: Height Weight BMI Pulse Rate Blood Pressure Temperature Respiratory Rate Body Surface Area Head Circumference Head Circ. Percentile Wt./Dexter. Percentile BMI percentile Pulse Ox Inhaled Ox 75.750 kg (167.00 lbs) 30.5 8 kg/m eter (2) 140/90 mm[Hg] Chief Complaint And Reason For Visit No Information Reason For Referral Reason For Referral No Information Plan Of Treatment Date Type Action Status Goal Diet education completed Goal Tobacco cessation counseling completed Referral Ordered: Weight management: Referral to physician timeframe: 3 Months (related to Body mass index (BMI) 30.0-30.9, adult) ordered History Of Present Illness Encounter Date Complaint History Of Prese nt Illness No Information Functional Status Date Functional Assessmen t No Information Instructions Date Instruction Additional Infor mation Diet education Related to Body mass index (BMI) 30.0-30.9, adult Giving Encouragement to exercise Related to Body mass index (BMI) 30.0-30.9, adult Lifestyle education Related to B hardy mass index (BMI) 30.0-30.9, adult Patient education booklet given Related to Pain in right lower leg Assessments Type Assessment Date No Information Patient Care Teams Name Effective Dates (start - stop) Status Members No Information
--- NOTE | ~2025-01-31 | XR_ITS ---
EXAMINATION: XR CHEST 2 VIEWS HISTORY: R06.00 - Dyspnea, unspecified COMPARISON: Correlation is made with a chest CT dated 06/10/2023. FINDINGS: PA and lateral views of the chest are submitted. There is prominence of the pulmonary vasculature, consistent with congestion. There are patchy airspace opacities at the lung bases which could represent pulmonary edema or pneumonia. There is no pneumothorax or pulmonary vascular congestion. The heart appears enlarged. There is a moderate hiatal hernia. There is degenerative disc disease of the spine. There are old right-sided rib fractures. XR/XR chest 2V IMPRESSION: Cardiomegaly and pulmonary vascular congestion. Bibasilar airspace opacities could represent pulmonary edema or pneumonia. Electronically signed by: Alex Gu MD 01/31/2025 03:09 PM EDT
[2025-01-31 16:13] LABS: B Type Natriuretic Peptide 1126 pg/mL (<100)
== END 2025-01-31 13:36 | disposition home or self-care (01) ==
LOC: HO.XRAY 13:35
PROVIDERS: PCP Physician Assistant; Visit Provider Nurse Practitioner Family
DX: I51.7 Cardiomegaly (principal); R06.09 Other forms of dyspnea; R09.89 Other specified symptoms and signs involving the circulatory and respiratory systems
CPT/HCPCS: 36415; 71046; 83880; 99212

== ENCOUNTER 2025-01-31 13:35 | Outpatient (AMB) | payer MEDICARE, SELFPAY ==
--- OUTSIDE RECORDS SUMMARY | 2024-12-06 09:30 | XMS_ITS ---
Author Organization [facility] [address] Address [address] [place] [address] Care Team Providers Care Supervisor Poultry Hatchery Name Role Phone NUNES, MARTIN Unavailable [phone] Encounters Encounter Location Date Provider Diagnosis [facility] [address] [address] [place] [address] 12/06/2024 MARTIN NUNES Plan Of Treatment Next Appt Details Provider Name:MARTIN NUNES, 04/13/2025 11:00:00 AM, [address], [place], [address], Progress Notes * TONIJULIANE GANDARASCOUTOB:[birth year] (84 yo F)Acc No.[id number]:12/06/2024 Progress Notes Patient: IBAN ACHARYA Provider: Julisa LOREDO PA-C :1940 A ge:84 Y S ex:Female Date:12/06/2024 Address:[address] [place], [place] [id number] Subjective: * Chief Complaints: * * Medical History: Objective: * Vitals: Assessment: Plan: * Treatment: * Images: Billing Information: * Visit Code: * Procedure Codes: Care Plan Details* * Electronic signature of JUSTEN NUNES PA-C on 01/31/2025 at 02:04 PM EDT Sign off status: Pending * Provider: Julisa LOREDO PA-C Date: 12/06/2024 Generated for Leola boothe/Antonio/eTjonathonsmitting on: 01/31/2025 02:04 PM EDT
[2025-01-31 13:41] VITALS: BP 200/84; PULSE 92; O2SAT 94; BMI 31.5
--- NOTE | 2025-01-31 13:41 | A.OFFVIS_ITS ---
Vital Signs 01/31/25 13:41 Height 4 ft 11 in Weight 156 lb BMI 31.5 BP 200/84 H Blood Pressure Location Lt brachial Position Sitting Pulse 92 Pulse Source Pulse Oximeter Pulse Oximetry (%) 94 Oxygen Delivery Method Room Air Intake Visit Reasons: dyspnea on exertion Allergies penicillin G Allergy (Unknown, Verified 01/31/25 13:45) Hives HPI HPI dyspnea on exertion: Details: Beata is a pleasant 84 year old female, former 55 pack year smoker, quit 10 years ago, with underlying COPD, emphysema moderate to severe aortic stenosis (PVC), and pulmonary nodules. Today she is accompanied by her sister as she is a poor historian. At baseline, she reports good control with Trelegy, using albuterol infrequently. Today she presents for an acute visit. She reports increased shortness of breath for the past 2 weeks and sister reports patient appears to have more labored breathing. She has been using albuterol 3-4 times a day with minimal relief. Denies cough, chest congestion, wheeze or fever. Denies orthopnea or BLE edema. ON LICENSE OF [facility] Social History Patient Tobacco Use Status: Former Tobacco user Tobacco use type: Cigarette Cigarette Packs Per Day: 1.5 Cigarettes Per Day: 15 Years Smoked: 50 Review of Systems Const Denies chills, Denies excessive sweating, Denies fever(s), Denies headache(s) and Denies night sweats Eyes Denies dry eyes, Denies irritation and Denies itchy eyes ENT Reports Normal hearing present, Denies headache(s), Denies nasal congestion, Denies nasal discharge, Denies post nasal drip and Denies sore throat Card Denies chest pain, Denies chest pain at rest, Denies chest pain with activity, Denies claudication, Denies leg edema, Denies orthopnea and Denies paroxysmal nocturnal dyspnea Resp Denies chest congestion, Denies cough, Denies excessive phlegm production, Denies pain on inspiration, Denies pain with cough, Denies stridor and Denies wheezing Musc Denies myalgias Neuro Reports Normal hearing present and Denies headache(s) Endo Denies excessive sweating Buddy/Lymph Denies lymphadenopathy Aller/Immun Denies itchy eyes, Denies seasonal rhinorrhea and Denies wheezing Physical Exam Vital Signs: Last Vital Signs Pulse 92 01/31/25 13:41 BP 200/84 H 01/31/25 13:41 Pulse Ox 94 01/31/25 13:41 Oxygen Delivery Method Room Air 01/31/25 13:41 BMI result Body Mass Index 31.5 Const General: cooperative, healthy appearing, comfortable, no acute distress, well developed and alert Orientation/consciousness: patient oriented x3 Limitations: no limitations HEENT Head: Yes normal to inspection, Yes normocephalic and Yes atraumatic Ears: hearing grossly normal bilaterally and external ears normal Eyes General: appearance normal, both eyes and all related structures Eyelids: Yes eyelids normal Sclerae: sclerae normal EOM: EOMs intact bilaterally Neck Neck: Yes normal visual inspection and Yes no lymphadenopathy Lymphatic: no lymphadenopathy noted Chest Chest palpation & inspection: normal inspection of the chest Resp Other: bibasilar inspiratory crackles Effort & Inspection: normal respiratory effort, able to speak in complete sentences, no audible wheezes, no cough, no stridor, not tachypneic, no tripod positioning and no use of accessory muscles Cardio Jugular venous distension: no JVD Rate: regular rate Rhythm: regular rhythm Heart sounds: Murmur heart sound present (aortic stenosis grade 3-4) Skin Other: warm, dry General skin exam: no rashes or lesions noted Neuro General: patient oriented x3 Cranial nerves: Yes Normal hearing present Cognition (Neuro): normal cognition Gait exam (Neuro): Normal gait present Extrem General: Yes normal to inspection, Yes capillary refill normal, Yes no clubbing, cyanosis or edema and Yes no pedal edema Psych Appearance: grossly normal and well kempt Speech and movement: Normal speech and movement present and Clear speech present Affect: normal affect Attitude: cooperative Thought process: Normal thought process present Thought content: Normal thought content present Insight: Fair insight present (Psych) Judgement: Fair judgement present (Psych) Assessment & Plan Assessment & Plan (1) COPD (chronic obstructive pulmonary disease): Code(s): J44.9 - Chronic obstructive pulmonary disease, unspecified Category: Medical (2) Emphysema lung: Code(s): J43.9 - Emphysema, unspecified Category: Medical (3) Dyspnea on exertion: Code(s): R06.09 - Other forms of dyspnea Category: Medical (4) Personal history of tobacco use: Code(s): Z87.891 - Personal history of nicotine dependence Category: Social Hx (5) Multiple pulmonary nodules: Code(s): R91.8 - Other nonspecific abnormal finding of lung field Category: Medical Plan Beata presents for worsening dyspnea over the last two weeks minimally responsive to albuterol MDI, using frequently. Today patient's BP 200/84 and rechecked 190/100. Trace BLE edema. Urged patient with worsening dyspnea, bibasilar inspiratory crackles and hypertension to go to ED due to possible underlying cardiac etiologies and h/o aortic stenosis, however adamantly refused despite discussing potential negative outcomes. Agreeable to labs and CXR. During visit, sister on phone with cardiology and scheduled an appt for next week with PVC. All questions were answered and patient is in agreement of plan. Will follow up in 2-4 weeks or sooner if needed. Orders: Orders XR chest 2V Today R06.00 - Dyspnea, unspecified B Type Natriuretic Peptide Today R06.09 - Other forms of dyspnea Coding Level of Care Code Est Pt Level 4 (62538) Complex EM visit Add On G2211 Diagnoses COPD (chronic obstructive pulmonary disease) J44.9 Emphysema lung J43.9 Dyspnea on exertion R06.09 Personal history of tobacco use Z87.891 Multiple pulmonary nodules R91.8
--- OUTSIDE RECORDS SUMMARY | 2025-01-31 14:04 | XMS_ITS ---
Author Name [facility] Organization Unknown History of Medication Use Medication Directions Dispensed Refills Start Date End Date Stat us ipratropium-albutero l (DUO-NEB) nebulizer solution 3 mL 3 mL, Nebulization, Once, On Fri01/30/24 at 2030, For 1 dose 01/31/2024 01/31/2024 completed nitrofurantoin (macrocrystal-monohy drate) (MACROBID) capsule 100 mg 100 mg, Oral, Once, On Fri01/27/24 at 2000, For 1 dose 01/27/2024 01/28/2024 completed Allergies Allergen Reaction Severity Comment Documented Date Source Statu s [facility] 01/27/2024 [facility] active Problems Problem Status Onset Date Problem Type Date of Resoluti on Source Palpitation active EncounterDiagnosisAct [facility] Encounters Encounter Type Encounter Reason Primary Diagnosis Location Date Emergency Palpitations Palpitations [facility] 11/2023 Emergency Urinary tract infection, site not specified Urinary tract infection, site not specified [facility] 01/27/2024 Care Team Organization Name Specialty Phone Email Start Date End Da te [facility] 2023 [facility] MARTIN FACUNDO Primary Care 2023 [facility] 01/27/2024
--- OUTSIDE RECORDS SUMMARY | 2025-01-31 14:04 | XMS_ITS | Clinical Summary ---
Author Organization [facility] Address [address] [place] [address] Phone Care Team Providers Care Hr Shared Services Consultant Name Role Phone Socrates Reddy Primary Care Provider [phone] Allergies Active Allergy Reactions Criticality Noted Date [...] crush, chew, or split. 60 each 06/14/2024 5 Active Active Problems Problem Noted Date Diagnosed Date Nonrheumatic aortic valve stenosis 06/14/2024 RYAN (acute kidney injury) ([facility] V24) 11/17/20 24 Mild cognitive impairment 06/13/2024 Acute encephalopathy 06/13/2024 Resolved Problems Problem Noted Date Diagnosed Date Resolved Date Upper GI bleed 06/13/2024 06/14/2024 Systolic murmur 06/13/2024 06/14/2024 Encounters Date Type Department Care Team Description 01/12/2025 Telephone Gastroenterology - [address] [place] [address] Daniela Bang PA from Last 3 Months Surgical History Surgery Date Site/Laterality Comments CHOLECYSTECTOMY APPENDECTOMY Medical History Medical History Date Comments Hypertension Restless leg syndrome COPD (chronic obstructive pu lmonary disease) ([facility] V24, [facility] V28) Hypercholesteremia CKD (chronic kidney disease) stage 3, GFR 30-59 ml/min ([facility] V24, [facility] V28) Insomnia Aortic stenosis Mod to severe pe [...] 73 06/14/2024 9:16 AM EST Temperature 36.4 C (97.5 F) 06/14/2024 8:56 AM EST Respiratory Rate 19 06/14/2024 9:16 AM EST Oxygen Saturation 88% 06/14/2024 9:16 AM EST Inhaled Oxygen Concentration - - Weight 74.2 kg (163 lb 8 oz) 06/13/2024 1:13 PM EST Height 157.5 cm (5' 2 ) 06/13/2024 1:13 PM EST Body Mass Index 29.9 06/13/2024 1:13 PM EST Plan of Treatment Upcoming Encounters Date Type Department Care Team (Late st Contact Info) Description 02/28/2025 9:40 AM EDT Consult Gastroenterology - [address] [facility] [address] [place] [address] Daniela Bang PA [address] [facility] [address] [place] [address] 05/30/2025 11:00 AM EST Ancillary Procedure [facility] [address] [facility] [address] [place] [id number] Health Maintenance Due Date Last Done Comments COVID-19 Vaccine (#1) 1945 DTaP,Tdap,and Td Vaccines (1 - Tdap) 1960 Zoster Vaccines (1 of 2) 1960 Pneumococcal Vaccine: 50+ Years (1 of 1 - PCV) 10/28/1991 RSV Immunization Adult Patients (1 - 1-dose 75+ series) 2016 Cholesterol Screening (Lipid Panel) 08/22/2023 Depression Screening 08/22/2023 Medicare Annual Wellness Visit 08/22/2023 Osteoporosis Screening (Bone Density Screening) 08/22/2023 Social Influencers of Health Screening 08/22/2023 Influenza Vaccine (Season Ended) 2025 Falls Risk Assessment 06/14/2025 06/14/2024 Hypertension/CHF/CAD Annual [...] age to complete this topic Meningococcal B Vaccine Aged Out No l onger eligible based on patient's age to complete [...] mmol/L LAB CHEMISTRY METHOD 06/14/2024 6:46 AM [facility] Potassium 4.2 3.5 - 5.5 mmol/L LAB CHEMISTRY METHOD 06/14/2024 6:46 AM [facility] Chloride 116(H) 96 - 110 mmol/L LAB CHEMISTRY METHOD 06/14/2024 6:46 AM [facility] CO2 23 21 - 32 mmol/L LAB CHEMISTRY METHOD 06/14/2024 6:46 AM [facility] Anion Gap 5 3 - 11 LAB CHEMISTRY METHOD 06/14/2024 6:46 AM [facility] Glucose 93 70 - 100 mg/dL LAB CHEMISTRY METHOD 06/14/2024 6:46 AM [facility] BUN 64(H) 5 - 25 mg/dL LAB CHEMISTRY METHOD 06/14/2024 6:46 AM [facility] Creatinine 1.50(H) 0.50 - 1.10 mg/dL LAB CHEMISTRY METHOD 06/14/2024 6:46 AM [facility] eGFR 35(L) >=60 mL/min/1. 73m2 LAB CHEMISTRY METHOD 06/14/2024 6:46 AM [facility] Comment:Calculation based on the Chronic Kidney Disease Epidemiology Collaboration (CKD-EPI) equation refit without adjustment for race. BUN/Creatinine Ratio 42.7 LAB CHEMISTRY METHOD 06/14/2024 6:46 AM [facility] Calcium 8.6 8.5 - 10.5 mg/dL LAB CHEMISTRY METHOD 06/14/2024 6:46 AM [facility] AST (SGOT) 19 10 - 42 unit/L LAB CHEMISTRY METHOD 06/14/2024 6:46 AM [facility] ALT (SGPT) 16 10 - 60 unit/L LAB CHEMISTRY METHOD 06/14/2024 6:46 AM [facility] Alkaline Phosphatase 45 42 - 121 unit/L LAB CHEMISTRY METHOD 06/14/2024 6:46 AM [facility] Total Protein 5.0(L) 6.0 - 8.0 g/dL LAB CHEMISTRY METHOD 06/14/2024 6:46 AM [facility] Albumin 3.0(L) 3.2 - 5.0 g/dL LAB CHEMISTRY METHOD 06/14/2024 6:46 AM [facility] Total Bilirubin 0.4 0.0 - 1.4 mg/dL LAB CHEMISTRY METHOD 06/14/2024 6:46 AM [facility] Blood Venous blood specimen / Unknown Venipuncture / Unknown 06/14/2024 5:40 AM EST 06/14/2024 6:13 AM EST Brain Green MD LAB BLOOD ORDERABLES Final Re sult [facility] [address] [place] [address], from Last 3 Months or Most Recently Relevant to Health Maintenance Insurance * Guarantor: Beata Muñoz Account Type Relation to Patient Date of Phone Billing Address Personal/Family Self 1940 [address] [place] [address] [facility] ([facility] MEDICARE ADVANTAGE Advance Directives Documents on File Type Date Recorded Patient Ear Nose Throat Surgeon Expl anation Advance Directives and Livin g Will 06/15/2024 10:01 AM * Full Code [...] currently active code status orders. Care Teams Hr Shared Services Consultant Relationship Specialty Start Date End Date Socrates Reddy PA [address] [place] [address] PCP - General 02/06/23
--- OUTSIDE RECORDS SUMMARY | 2025-01-31 14:05 | XMS_ITS | Clinical Summary ---
Author Organization [facility] Address [address] [place] [address] Care Team Providers Care Assurance Associate Name Role Phone Socrates De Paz PA-C Primary Care Provider [phone] Allergies Active Allergy Reactions Criticality Noted Date [...] 89 01/30/2024 10:29 PM EDT Temperature 36.8 C (98.2 F) 01/30/2024 10:28 PM EDT Respiratory Rate 21 01/30/2024 10:28 PM EDT [...] 1-dose 75+ series) 2016 Influenza Vaccine (#1) 2025 Hepatitis B Vaccines Aged Out No long er eligible based on patient's age to complete this topic RSV Ped < 20 months Aged Out No longe r eligible based on patient's age to complete this topic Care Teams Assurance Associate Relationship Specialty Start Date End Date Socrates De Paz PA-C [address] [facility] [place] [phone] PCP - General Physician Spread Cutter 01/27/24
== END 2025-01-31 14:26 | disposition home or self-care (01) ==
LOC: HO.HPS 13:36
PROVIDERS: PCP Physician Assistant; Visit Provider Nurse Practitioner Family
DX: J44.9 Chronic obstructive pulmonary disease, unspecified (principal); J43.9 Emphysema, unspecified; R06.09 Other forms of dyspnea; Z87.891 Personal history of nicotine dependence; R91.8 Other nonspecific abnormal finding of lung field
CPT/HCPCS: 99214; G2211

== ENCOUNTER → 2025-01-31 14:46 | Outpatient (BNV) | payer MEDICARE, SELFPAY | PROVIDERS: PCP Physician Assistant; Visit Provider Radiology Diagnostic Radiology | DX: I51.7 Cardiomegaly (principal) | CPT/HCPCS: 71046 ==

== ENCOUNTER 2025-04-06 11:04 | Outpatient (AMB) | payer MEDICARE, SELFPAY ==
--- OUTSIDE RECORDS SUMMARY | 2024-12-06 09:30 | XMS_ITS ---
Author Organization [facility] [address] Address [address] [place] [address] Care Team Providers Care Hand Driller Name Role Phone NUNES, MARTIN Unavailable [phone] Encounters Encounter Location Date Provider Diagnosis [facility] [address] [place] [address] 12/06/2024 MARTIN NUNES Plan Of Treatment Next Appt Details Provider Name:MARTIN NUNES, 04/13/2025 11:00:00 AM, [address], [place], [address], Progress Notes * TONIJULIANE GANDARASCOUTOB:[birth year] (84 yo F)Acc No.[id number]:12/06/2024 Progress Notes Patient: IBAN ACHARYA Provider: Julisa LOREDO PA-C :1940 A ge:84 Y S ex:Female Date:12/06/2024 Address:[address] [place] [address] Subjective: * Chief Complaints: * * Medical History: Objective: * Vitals: Assessment: Plan: * Treatment: * Images: Billing Information: * Visit Code: * Procedure Codes: Care Plan Details* * Electronic signature of JUSTEN NUNES PA-C on 04/06/2025 at 02:08 PM EDT Sign off status: Pending * Provider: Julisa LOREDO PA-C Date: 0 12/06/2024 Generated for Leola boothe/Antonio/eTransmitting on: 0 04/06/2025 02:08 PM EDT
[2025-04-06 11:15] VITALS: BP 142/90; PULSE 76; O2SAT 94; BMI 31.0
--- NOTE | 2025-04-06 11:15 | A.OFFVIS_ITS ---
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 Today she is accompanied by her sister as she is a poor historian. At the last visit patient hypertensive with significantly elevated BNP with recommendations to seek emergent care however patient refused. She did see her commercial plumber shortly after who started patient on Lasix and will now be having evaluation for TAVR in April. Since initiating Lasix patient reports good control of respiratory symptoms in addition to the use of Trelegy, using albuterol infrequently. She currently denies any respiratory symptoms. Of note patient is scheduled for barium swallow through GI reportedly to assess hernia. She denies any visits urgent care or hospitalizations related to respiratory distress since last visit. [facility] Social History Patient Tobacco Use Status: Former Tobacco user Tobacco use type: Cigarette Cigarette Packs Per Day: 1.5 Cigarettes Per Day: 15 Years Smoked: 50 Review of Systems Const Denies chills, Denies excessive sweating, Denies fever(s), Denies headache(s) and Denies night sweats Eyes Denies dry eyes, Denies irritation and Denies itchy eyes ENT Reports Normal hearing present, Denies headache(s), Denies nasal congestion, Denies nasal discharge, Denies post nasal drip and Denies sore throat Card Denies chest pain, Denies chest pain at rest, Denies chest pain with activity, Denies claudication, Denies leg edema, Denies dyspnea, Denies dyspnea on exertion, Denies orthopnea and Denies paroxysmal nocturnal dyspnea Resp Denies chest congestion, Denies cough, Denies excessive phlegm production, Denies pain on inspiration, Denies pain with cough, Denies dyspnea, Denies dyspnea on exertion, Denies stridor and Denies wheezing Musc Denies myalgias Neuro Reports Normal hearing present and Denies headache(s) Endo Denies excessive sweating Buddy/Lymph Denies lymphadenopathy Aller/Immun Denies itchy eyes, Denies seasonal rhinorrhea and Denies wheezing Physical Exam Vital Signs: Last Vital Signs Pulse 76 04/06/25 11:15 BP 142/90 H 04/06/25 11:15 Pulse Ox 94 04/06/25 11:15 Oxygen Delivery Method Room Air 04/06/25 11:15 BMI result Body Mass Index 31.0 Const General: cooperative, healthy appearing, comfortable, no acute distress, well developed and alert Orientation/consciousness: patient oriented x3 Limitations: no limitations HEENT Head: Yes normal to inspection, Yes normocephalic and Yes atraumatic Ears: hearing grossly normal bilaterally and external ears normal Eyes General: appearance normal, both eyes and all related structures Eyelids: Yes eyelids normal Sclerae: sclerae normal EOM: EOMs intact bilaterally Neck Neck: Yes normal visual inspection and Yes no lymphadenopathy Lymphatic: no lymphadenopathy noted Chest Chest palpation & inspection: normal inspection of the chest Resp Effort & Inspection: normal respiratory effort, able to speak in complete sentences, no audible wheezes, no cough, no stridor, not tachypneic, no tripod positioning and no use of accessory muscles Cardio Jugular venous distension: no JVD Rate: regular rate Rhythm: regular rhythm Heart sounds: Murmur heart sound present (aortic stenosis grade 3-4) Skin Other: warm, dry General skin exam: no rashes or lesions noted Neuro General: patient oriented x3 Cranial nerves: Yes Normal hearing present Cognition (Neuro): normal cognition Gait exam (Neuro): Normal gait present Extrem General: Yes normal to inspection, Yes capillary refill normal, Yes no clubbing, cyanosis or edema and Yes no pedal edema Psych Appearance: grossly normal and well kempt Speech and movement: Normal speech and movement present and Clear speech present Affect: normal affect Attitude: cooperative Thought process: Normal thought process present Thought content: Normal thought content present Insight: Fair insight present (Psych) Judgement: Fair judgement present (Psych) Assessment & Plan Assessment & Plan (1) COPD (chronic obstructive pulmonary disease): Code(s): J44.9 - Chronic obstructive pulmonary disease, unspecified Category: Medical (2) Emphysema lung: Code(s): J43.9 - Emphysema, unspecified Category: Medical (3) Personal history of tobacco use: Code(s): Z87.891 - Personal history of nicotine dependence Category: Social Hx (4) Multiple pulmonary nodules: Code(s): R91.8 - Other nonspecific abnormal finding of lung field Category: Medical Plan At this time Beata reports good control of respiratory symptoms with the use of Trelegy in addition to daily Lasix. Discussed importance of compliance with medication as well as monitoring daily weights/BLE edema and limiting salt intake. She has upcoming appointment to be evaluated for TAVR procedure. Patient aware if symptoms change to call office. Patient previously underwent chest CT which revealed multiple pulmonary nodules and was supposed to have a repeat chest CT however this was never scheduled. Will resend order to [facility] per patient request. All questions were answered and patient is in agreement of plan. Will follow up in 3 months or sooner if needed. Orders: Orders CT chest wo IV con Today R91.8 - Other nonspecific abnormal finding of lung field Coding Level of Care Code Est Pt Level 4 (11053) Diagnoses COPD (chronic obstructive pulmonary disease) J44.9 Emphysema lung J43.9 Personal history of tobacco use Z87.891 Multiple pulmonary nodules R91.8
--- OUTSIDE RECORDS SUMMARY | 2025-04-06 14:09 | XMS_ITS | Patient Health Record ---
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 Authorization received from Irma Rivas for Link Request on 06-18-2024 Logged by Jayne Otoole Basic Metabolic Panel [phone] Reviewed date:06/22/2024 08:41:56 AM Interpretation: Performing Lab:[facility], [facility], Phone - [phone], Director - Shira Notes/Report: Glucose 116 70-99 mg/dL BUN 28 8-27 mg/dL Creatinine 1.33 0.57-1.00 mg/dL eGFR 40 >59 mL/min/1.73 BUN/Creatinine Ratio 21 12-28 Sodium 148 134-144 mmol/L Potassium 4.6 3.5-5.2 mmol/L Chloride 111 96-106 mmol/L Carbon Dioxide, Total 17 20-29 mmol/L [id number] Reviewed date:06/18/2024 10:13:11 AM Interpretation: Performing Lab:[facility], [address] [facility], Phone - [phone], Director - Shira Notes/Report: NT-proBNP 2053 0-738 pg/mL The following cut-points have been suggested for the use of proBNP for the diagnostic evaluation of heart failure (HF) in patients with acute dyspnea: . Modality Age Optimal Cut (years) Point ---- Diagnosis (rule in HF) <50 450 pg/mL 50 - 75 900 pg/mL >75 1800 pg/mL Exclusion (rule out HF) Age independent 300 pg/mL CBC With Differential/Platel et-[id number] Reviewed date:06/18/2024 10:13:11 AM Interpretation: Performing Lab:[facility], [address] [place] [address], [place], Phone - [phone], Director - Shira Notes/Report: WBC 7.3 3.4-10.8 x10E3/uL Effective June 28, 2024 profile [id number] WBC will be made non-orderable as a stand-alone order code. RBC 3.21 3.77-5.28 x10E6/uL Hemoglobin 9.4 11.1-15.9 g/dL Hematocrit 30.1 34.0-46.6 % MCV 94 79-97 fL MCH 29.3 26.6-33.0 pg MCHC 31.2 31.5-35.7 g/dL RDW 13.9 11.7-15.4 % Platelets 265 150-450 x10E3/uL Neutrophils 77 Not Estab. % Lymphs 12 Not Estab. % Monocytes 8 Not Estab. % Eos 3 Not Estab. % Basos 0 Not Estab. % Neutrophils (Absolute) 5.5 1.4-7.0 x10E3/uL Lymphs (Absolute) 0.9 0.7-3.1 x10E3/uL Monocytes(Absolute) 0.6 0.1-0.9 x10E3/uL Eos (Absolute) 0.3 0.0-0.4 x10E3/uL Baso (Absolute) 0.0 0.0-0.2 x10E3/uL Immature Granulocytes 0 Not Estab. % Immature Grans (Abs) 0.0 0.0-0.1 x10E3/uL TSH+Free T4 Reviewed date:06/01/2024 08:13:17 AM Interpretation: Performing Lab:[facility] [address], Phone - [phone], Director - Shira Notes/Report: Clinical Information:[id number] TSH-ICMA 0.65 Reference Range: Non- Adult 0.450-4.500 First Trimester 0.100-4.000 Second Trimester 0.200-4.000 Third Trimester 0.300-4.500 Free T4 by Dialysis/Application Internship 1.2 This test was developed and its performance characteristics determined by [facility]. It has not been cleared or approved by the Food and Drug Administration. Reference Range: Pubertal Children and Adults: 0.8 - 1.7 Folate, [id number] Reviewed date:06/01/2024 08:13:23 AM Interpretation: Performing Lab:[facility], Phone - [phone], Director - Shira Notes/Report: Clinical Information:[id number] Folate, Hemolysate 402.0 Not Estab. ng/mL Hematocrit 40.1 34.0-46.6 % Folate, RBC 1002 >498 ng/mL RPR, Rfx Qn RPR/Confirm TP-0 [id number] Reviewed date:06/01/2024 08:13:12 AM Interpretation: Performing Lab:[facility] [address], Phone - [phone], Director - Shira Notes/Report: Clinical Information:[id number] RPR Non Reactive Non Reactive Urinalysis, Routine-[id number] Reviewed date:06/01/2024 08:13:34 AM Interpretation: Performing Lab:[facility] [address], Phone - [phone], Director - Shira Notes/Report: Clinical Information:[id number] Clinical Information:[id number] Specific [place] 1.024 1.005-1.030 pH 5.5 5.0-7.5 Urine-Color Yellow Yellow Appearance Clear Clear WBC Esterase Negative Negative Protein 1+ Negative/Trace Glucose Negative Negative Ketones Negative Negative Occult Blood Negative Negative Bilirubin Negative Negative Urobilinogen,Semi-Qn 1.0 0.2-1.0 mg/dL Nitrite, Urine Negative Negative Microscopic Examination See below: Micr oscopic was indicated and was performed. WBC 0-5 0 - 5 /hpf RBC None seen 0 - 2 /hpf Epithelial Cells (non renal) >10 0 - 10 /hpf Casts None seen None seen /lpf Crystals Present N/A Crystal Type Calcium Oxalate N/A Bacteria Moderate None seen/Few Vitamin [id number] Reviewed date:06/01/2024 08:13:06 AM Interpretation: Performing Lab:[facility] [place], [address] [place] [address], Phone - [phone], Director - MDJodry Notes/Report: Clinical Information:[id number] Vitamin B12 504 732-5030 pg/mL Comp. Metabolic Panel (14)-3 Reviewed date:02/04/2025 08:22:06 AM Interpretation: Performing Lab:[facility] [place], [address] [place] [address], Phone - [phone], Director - MDEvelyny Notes/Report: Glucose 93 70-99 mg/dL BUN 13 8-27 mg/dL Creatinine 1.03 0.57-1.00 mg/dL eGFR 54 >59 mL/min/1.73 BUN/Creatinine Ratio 13 12-28 Sodium 143 134-144 mmol/L Potassium 3.8 3.5-5.2 mmol/L Chloride 103 96-106 mmol/L Carbon Dioxide, Total 22 20-29 mmol/L Calcium 9.7 8.7-10.3 mg/dL Protein, Total 6.3 6.0-8.5 g/dL Albumin 4.4 3.7-4.7 g/dL Globulin, Total 1.9 1.5-4.5 g/dL Bilirubin, Total 0.6 0.0-1.2 mg/dL Alkaline Phosphatase 68 44-121 IU/L AST (SGOT) 21 0-40 IU/L ALT (SGPT) 13 0-32 IU/L Lipid Panel-[id number] Reviewed date:02/04/2025 08:22:51 AM Interpretation: Performing Lab:[facility] [place], [address] [place] [address], Phone - [phone], Director - MDJodry Notes/Report: Cholesterol, Total 144 100-199 mg/dL Triglycerides 139 0-149 mg/dL HDL Cholesterol 55 >39 mg/dL VLDL Cholesterol Emanuel 24 5-40 mg/dL LDL Chol Calc ([facility]) 65 0-99 mg/dL Vitamin D, 95-[id number] Reviewed date:02/04/2025 08:27:05 AM Interpretation: Performing Lab:[facility], [address] [place] [address], Phone - [phone], Director - WAJessiedry Notes/Report: Vitamin D, 25-Hydroxy 27.0 30.0-100.0 ng/mL Vitamin D deficiency has been defined by the [place] of [employer] and an Endocrine Society practice guideline as a level of serum 25-OH vitamin D less than 20 ng/mL (1,2). The Endocrine Society went on to further define vitamin D insufficiency as a level between 21 and 29 ng/mL (2). 1. IOM ([place] of [employer]). 2010. Dietary reference intakes for calcium and D. [place]: The National Academies Press. 2. Duran MF, Izaiah NC, Nick AVILA, et al. Evaluation, treatment, and prevention of vitamin D deficiency: an Endocrine Society clinical practice guideline. JCEM. 2010; 96(7):1911-30. Ferritin-[id number] Reviewed date:02/04/2025 08:22:51 AM Interpretation: Performing Lab:[facility] [place], [address] [place] [address], Phone - [phone], Director - Shira Notes/Report: Ferritin 76 15-150 ng/mL TSH-[id number] Reviewed date:02/04/2025 08:22:51 AM Interpretation: Performing Lab:[facility] [place], [address] [place] [address], Phone - [phone], Director - Kiy Notes/Report: TSH 1.460 0.450-4.500 uIU/mL Urinalysis, Complete-[id number] Reviewed date:02/04/2025 08:22:51 AM Interpretation: Performing Lab:[facility] [address] [place] [address], Phone - [phone], Director - Kiy Notes/Report: Specific [place] 1.011 1.005-1.030 pH 8.5 5.0-7.5 Urine-Color Yellow Yellow Appearance Cloudy Clear WBC Esterase 1+ Negative Protein Negative Negative/Trace Glucose Negative Negative Ketones Negative Negative Occult Blood Trace Negative Bilirubin Negative Negative Urobilinogen,Semi-Qn 0.2 0.2-1.0 mg/dL Nitrite, Urine Negative Negative Microscopic Examination See below: Micr oscopic was indicated and was performed. WBC 0-5 0 - 5 /hpf RBC 11-30 0 - 2 /hpf Epithelial Cells (non renal) 0-10 0 - 10 /hpf Casts None seen None seen /lpf Bacteria Many None seen/Few Hemoglobin [id number] Reviewed date:02/04/2025 08:22:51 AM Interpretation: Performing Lab:[facility] [place], [address] [facility], Phone - [phone], Director - [facility] Notes/Report: Hemoglobin A1c 5.2 4.8-5.6 % . Prediabetes: 5.7 - 6.4 Diabetes: >6.4 Glycemic control for adults with diabetes: <7.0 Iron and TIBC-[id number] Reviewed date:02/04/2025 08:22:51 AM Interpretation: Performing Lab:[facility], [address] [facility], [place], Phone - [phone], Director - MDEvelyny Notes/Report: Iron Bind.Cap.(TIBC) 367 250-450 ug/dL UIBC 238 118-369 ug/dL Iron 129 27-139 ug/dL Iron Saturation 35 15-55 % US Renal Reviewed date:05/25/2024 04:37:30 PM Interpretation: Performing Lab: Notes/Report: Original Ordering Provider: MARTIN LOREDO PA-C [facility] Reason For Referral Reason evaluate Diagnosis 1 Aortic stenosis, mod erate (I35.0) Referral Organization [facility] KARTIK RAMIREZ Referring Provider First Name MARTIN Referring Provider Last Name DES Referring Provider Speciality Internal edicine Referred Provider Specialty Cardiology Clinical Notes Aleksandar Gaston 08/2023 10:04:22 AM > refaxed pt info to [facility] p) [phone] F) [phone]., Gordon Shirley 12/10/2024 01:47:47 PM > The patient was seen on 05/29/2024 Referral Priority Routine Reason Evaluate & Treat Diagnosis 1 Cognitive changes (R 41.89) Referral Organization [facility] Referring Provider First Name MARTIN Referring Provider Last Name DES Referring Provider Speciality Internal M edicine Referred Provider Specialty Neurology General Notes Natividad José 0 01/11/2025 11:55:51 AM > Referral to memory clinic associated with [facility] and faxed, p) [phone] , f) [phone] Clinical Notes Uriel Wilcox 03:27:14 PM > spoke with Natalia, booked on Jun 13 at 10AM Referral Priority Routine Reason Evaluate & Treat G I Bleed need repeat Endoscopy Diagnosis 1 Gastroduodenitis, un specified, with bleeding (K29.91) [facility] Referring Provider First Name MARTIN Referring Provider Last Name DES Referring Provider Speciality Internal edicine Referred Provider Maryjo Mackenzie Referred Provider Specialty Gastroentero logvalentin General Notes Natividad José 0 01/11/2025 11:59:38 AM > Referral to Dr. Mackenzie and faxed, p. [phone], f. [phone] Clinical Notes Uriel Wilcox 03:30:40 PM > spoke with Marley, booked on Feb 28 9:25AM Referral Priority Routine Medications Medication SIG (Take, Route, Frequency, Duration) Notes Start Date End Date Status Albuterol Sulfate HFA 108 (90 Base) MCG/ACT 1 puff as needed Inhalation every 4 hrs; Duration: 30 days Active rOPINIRole HCl ER 8 MG TAKE 1 TABLET BY MOUTH DAILY; Duration: 90 Active Furosemide 20 MG Oral; Duration: 90 Days Active Gabapentin 400 MG 1 capsule Orally Onc e a day; Duration: 90 days Not-Takin g Tylenol 325 MG 1 capsule as needed Orally every 6 hrs Active Trelegy Ellipta 200-62.5-25 MCG/ACT INHALE 1 PUFF BY MOUTH EVERY DAY; Duration: 90 days Active Vitamin C 500 MG as directed Orally Active Lisinopril 20 MG 1 tablet Orally Once a day; Duration: 90 days Active Iron Active Simvastatin 20 MG TAKE 1 TABLET BY JEANCARLOS TH EVERY DAY IN THE EVENING; Duration: 90 Active Problems Problem Type SNOMED Code ICD Code Onset Dates Problem Status W/U Status Risk Notes Problem Mixed hyperlipidemia (043857446) Mixed hyperlipidemia (E78.2) Active confirmed Problem Shortness of breath (063548160) Shortness of breath (R06.02) Active confirmed Problem Adult health examination (127624308) Encounter for general adult medical examination without abnormal findings (Z00.00) Active confirmed Problem Hyperlipidaemia (07914798) Hyperlipidemia, unspecified hyperlipidemia type (E78.5) Active confirmed Problem Anxiety (11663098) Anxiety (F41.9) Active confi rmed Problem Adult health examination (109302161) Adult general medical exam (Z00.00) Active confirmed Problem Vitamin D deficiency (03617814) Vitamin D deficiency (E55.9) Active confirmed Problem Restless legs syndrome (20741207) Restless leg syndrome (G25.81) Active confirmed Problem Essential hypertension (78920266) Hypertension, unspecified type (I10) Active confirmed Problem Chronic kidney disease stage 3A (disorder) (576469650) Chronic kidney disease, stage 3a (N18.31) Active confirmed Problem Chronic kidney disease stage 3B (disorder) (727894440) Chronic kidney disease, stage 3b (N18.32) Active confirmed Problem Aortic stenosis, non-rheumatic (023136845) Nonrheumatic aortic valve stenosis (I35.0) Active confirmed Problem Abnormal gait (17255193) Gait instability (R26.81) Active confirmed Problem Short-term memory loss (256380770) Short-term memory loss (R41.3) Active confirmed Problem Heart murmur (39035513) Heart murmur (R01.1) Active confirmed Problem Kidney disease (27852540) Kidney disease (N28.9) Active confirmed Problem Kidney lesion (85779404390683) Kidney lesion (N28.9) Active confirmed Problem Weakness of both lower extremities (314299475661435) Weakness of both lower extremities (R29.898) Active confirmed Problem Essential hypertension (17457805) Hypertension, essential (I10) Active confirmed Problem Hyperlipidemia (22741699) Hyperlipidemia (E78.5) Active confirmed Problem Anemia (386650566) Anemia (D64.9) Active confir med Problem Chronic obstructive pulmonary disease (02723403) COPD, mild (J44.9) Active confirmed Problem Chronic obstructive pulmonary disease (61711455) COPD, moderate (J44.9) Active confirmed Problem Aortic valve disorder (8267156) Aortic stenosis, moderate (I35.0) Active confirmed Problem Varicose veins of lower extremity (71296924) Uncomplicated varicose veins (I83.90) Active confirmed Problem At risk for falls (497769615) At risk for falls (Z91.81) Active confirmed Problem Altered thought processes (08550936) Cognitive changes (R41.89) Active confirmed Vital Signs Heart Rate 88 /min 03/07/2025 Oximetry 95 % 03/07/2025 Blood pressure diastolic 88 mm Hg 03/07/2025 Height 61 in 03/07/2025 Blood pressure systolic 142 mm Hg 03/07/2025 Weight 154.3 lbs 03/07/2025 BMI 29.15 kg/m2 03/07/2025 Encounters Encounter Location Date Provider Diagnosis [address] [address] 04/15/2024 MARTIN NUNES Cognitive changes R4 1.89 ; Restless leg syndrome G25.81 ; Hypertension, unspecified type I10 ; Hyperlipidemia, unspecified hyperlipidemia type E78.5 ; COPD, mild J44.9 and Anxiety F41.[address] [address] 05/11/2024 MARTIN NUNES Cognitive changes R4 1.89 ; Restless leg syndrome G25.81 ; Hypertension, unspecified type I10 ; Hyperlipidemia, unspecified hyperlipidemia type E78.5 ; COPD, mild J44.9 ; Anxiety F41.9 and Kidney lesion N28.[address] [address] 06/16/2024 MARTIN NUNES Cognitive changes R4 1.89 ; Upper GI bleed K92.2 ; Restless leg syndrome G25.81 ; Hypertension, unspecified type I10 ; Hyperlipidemia, unspecified hyperlipidemia type E78.5 ; COPD, mild J44.9 ; Anxiety F41.9 ; Kidney lesion N28.9 and Chronic kidney disease, stage 3a N18.[address] [address] 08/02/2024 MARTIN NUNES Cognitive changes R4 1.89 ; Restless leg syndrome G25.81 ; Hypertension, unspecified type I10 ; Hyperlipidemia, unspecified hyperlipidemia type E78.5 ; COPD, mild J44.9 ; Anxiety F41.9 ; Kidney lesion N28.9 and Chronic kidney disease, stage 3a N18.[address] [facility] [address] [place] [address] 10/04/2024 MARTIN NUNES Cognitive changes R4 1.89 ; Restless leg syndrome G25.81 ; Hypertension, unspecified type I10 ; Hyperlipidemia, unspecified hyperlipidemia type E78.5 ; COPD, mild J44.9 ; Anxiety F41.9 ; Kidney lesion N28.9 and Chronic kidney disease, stage 3a N18.[address] [address] [place] [address] 01/11/2025 MARTIN NUNES Cognitive changes R4 1.89 ; Restless leg syndrome G25.81 ; COPD, mild J44.9 ; Anxiety F41.9 ; Kidney lesion N28.9 ; Chronic kidney disease, stage 3a N18.31 ; Anemia D64.9 ; Hyperlipidemia E78.5 and Encounter for examination of blood pressure without abnormal findings Z01.[address] [facility] [address] [place] [address] 03/07/2025 MARTIN NUNES Breath shortness R06 .02 ; Restless leg syndrome G25.81 ; Cognitive changes R41.89 ; COPD, mild J44.9 ; Anxiety F41.9 ; Kidney lesion N28.9 ; Chronic kidney disease, stage 3a N18.31 ; Anemia D64.9 ; Hyperlipidemia E78.5 and Encounter for examination of blood pressure without abnormal findings Z01.[address] [address] [place] [address] 04/12/2024 MARTIN NUNES [facility] [address] [place] [address] 04/28/2024 MARTIN NUNES [facility] [address] [address] 05/04/2024 MARTIN NUNES [facility] [address] [place] [address] 05/14/2024 MARTIN NUNES Cognitive changes R4 1.[address] [place] [address] 05/25/2024 MARTIN NUNES Restless leg syndrom e G25.81 [facility] [address] [address] 05/26/2024 MARTIN NUNES [facility] [address] [place] [address] 06/14/2024 MARTIN NUNES [facility] [address] [place] [address] 06/17/2024 MARTIN NUNES Chronic kidney disea se, stage 3a N18.[address] [facility] [address] [place] [address] 06/18/2024 MARTIN NUNES [facility] [address] [place] [address] 06/22/2024 MARTIN NUNES [facility] [address] [place] [address] 07/26/2024 MARTIN NUNES [facility] [address] [place] [address] 07/30/2024 MARTIN NUNES [facility] [address] [place] [address] 08/20/2024 MARTIN NUNES [facility] [address] [place] [address] 09/14/2024 MARTIN NUNES [facility] [address] [place] [address] 10/04/2024 MARTIN NUNES [facility] [address] [place] [address] 10/18/2024 MARTIN NUNES [facility] [address] [place] [address] 10/18/2024 MARTIN NUNES [facility] [address] [place] [address] 10/25/2024 MARTIN NUNES [facility] [address] [place] [address] 11/22/2024 MARTIN NUNES [facility] [address] [place] [address] 01/26/2025 MARTIN NUNES [facility] [address] [place] [address] 02/24/2025 MARTINValentin NUNES Assessments Encounter Date Diagnosis (ICD Code) Assessment Notes Treatment Notes Treatment Clinical Notes Section Notes 04/15/2024 Restless leg syndrome (ICD-10 - G25.81) # Scheduled for COVID, flu vaccine in April, will also get RSV vaccine this fall. # Hyperlipidemia: Continue simvastatin 20 mg # Swelling under right lymph node, on examination bilateral lymph nodes submandibularly are equal. Patient states that is getting better. Will monitor over the next week, if no improvement could consider ultrasound. CBC in November within normal limits. No unintentional weight loss. 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 Taking Trelegy with adequate control of SOB. Anxiety: Patient reporting markedly improved symptoms of anxiety on mirtazapine 15 mg twice daily. But admits to diarrhea in the morning. Would like to trial 15 mg in the morning, and 7.5 mg in the evening. #HTN: BP stable today in office, continue lisinopril 20 mg daily. Educated take blood pressure at home. Call the office blood pressure reading greater than 140/90. #Restless leg syndrome: Patient taking gabapentin 300 mg In the morning in addition to ropinirole 8 mg extended release In the evening. States extended release medication has improved her restless leg, and she is no longer waking during the night. Still admits to difficulty with restless leg in the morning. Will increase gabapentin dose to 400 mg. Referral to [facility] neurology is still pending.Is using a cane. No recent falls. #Heart murmur: Patient with history of aortic and mitral stenosis. Previous echo with evidence of aortic stenosis, mitral stenosis, LVH, LAE. Most recent echo 03/10/2024 showing severe aortic stenosis and left atrial enlargement for which we are referring to cardiology for further evaluation. This referral still pending.Ejection fraction 65 to 70%. Normal pulmonary pressures. #Urinary incontinence: Patient states she has not had any episodes of urinary incontinence since last visit. Does wear pads for occasional leaking. Patient did have urinary tract infection which resulted in confusion and lethargy in January. Reports complete resolution of symptoms since.Denies dysuria, urinary frequency, hematuria, fever, chills, low back pain, or confusion. #Cognitive decline: Patient's sister/healthcare proxy Rossi and Mrs. Arnold expressed concern for Alzheimer's, as their mother did unfortunately suffer from early onset Alzheimer's disease. Mini-Mental status exam performed in office Last visit by TONI Yan scored 30 out of 30 points. Will repeat Mini-Mental status exam in April in addition to in addition plan to do MoCA exam. The patient is educated that some level of forgetfulness with age is a part of normal aging. However given their concerns, plan to workup with laboratory evaluation including B12, folate, RPR, TSH, UA.Blood work still pending, MRI scheduled for April 2024. Neurology referral still pending. All questions answered to the patient's satisfaction. Patient demonstrates understanding of diagnosis and treatments discussed. Follow-up in 6 weeks, sooner should any questions/concerns arise. Plan for MoCA, and lab/imaging review at this visit. Case discussed with collaborating physician Mónica Stroud who has reviewed the assessment/plan. Chart, medications, labs, and vital signs reviewed. Dictation completed with the use of icomply voice recognition software, prone to medical misidentifications and grammatical errors. All errors are unintentional. Although the practitioner does try to identify and correct errors, some may be present. Please do not hesitate to contact the practitioner for clarification. 04/15/2024 Cognitive changes (ICD-10 - R41.89) # Scheduled for COVID, flu vaccine in April, will also get RSV vaccine this fall. # Hyperlipidemia: Continue simvastatin 20 mg # Swelling under right lymph node, on examination bilateral lymph nodes submandibularly are equal. Patient states that is getting better. Will monitor over the next week, if no improvement could consider ultrasound. CBC in November within normal limits. No unintentional weight loss. 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 Taking Trelegy with adequate control of SOB. Anxiety: Patient reporting markedly improved symptoms of anxiety on mirtazapine 15 mg twice daily. But admits to diarrhea in the morning. Would like to trial 15 mg in the morning, and 7.5 mg in the evening. #HTN: BP stable today in office, continue lisinopril 20 mg daily. Educated take blood pressure at home. Call the office blood pressure reading greater than 140/90. #Restless leg syndrome: Patient taking gabapentin 300 mg In the morning in addition to ropinirole 8 mg extended release In the evening. States extended release medication has improved her restless leg, and she is no longer waking during the night. Still admits to difficulty with restless leg in the morning. Will increase gabapentin dose to 400 mg. Referral to [facility] neurology is still pending.Is using a cane. No recent falls. #Heart murmur: Patient with history of aortic and mitral stenosis. Previous echo with evidence of aortic stenosis, mitral stenosis, LVH, LAE. Most recent echo 03/10/2024 showing severe aortic stenosis and left atrial enlargement for which we are referring to cardiology for further evaluation. This referral still pending.Ejection fraction 65 to 70%. Normal pulmonary pressures. #Urinary incontinence: Patient states she has not had any episodes of urinary incontinence since last visit. Does wear pads for occasional leaking. Patient did have urinary tract infection which resulted in confusion and lethargy in January. Reports complete resolution of symptoms since.Denies dysuria, urinary frequency, hematuria, fever, chills, low back pain, or confusion. #Cognitive decline: Patient's sister/healthcare proxy Rossi and Mrs. Arnold expressed concern for Alzheimer's, as their mother did unfortunately suffer from early onset Alzheimer's disease. Mini-Mental status exam performed in office Last visit by TONI Yan scored 30 out of 30 points. Will repeat Mini-Mental status exam in April in addition to in addition plan to do MoCA exam. The patient is educated that some level of forgetfulness with age is a part of normal aging. However given their concerns, plan to workup with laboratory evaluation including B12, folate, RPR, TSH, UA.Blood work still pending, MRI scheduled for April 2024. Neurology referral still pending. All questions answered to the patient's satisfaction. Patient demonstrates understanding of diagnosis and treatments discussed. Follow-up in 6 weeks, sooner should any questions/concerns arise. Plan for MoCA, and lab/imaging review at this visit. Case discussed with collaborating physician Mónica Stroud who has reviewed the assessment/plan. Chart, medications, labs, and vital signs reviewed. Dictation completed with the use of icomply voice recognition software, prone to medical misidentifications and grammatical errors. All errors are unintentional. Although the practitioner does try to identify and correct errors, some may be present. Please do not hesitate to contact the practitioner for clarification. 05/11/2024 Cognitive changes (ICD-10 - R41.89) # Obtained COVID and flu vaccine, getting RSV in the next few weeks at local pharmacy. 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 Taking Trelegy with adequate control of SOB. # With pulmonology obtaining a CT of her chest, still pending but incidentally found a right 1.7 cm kidney lesion for which we will order ultrasound. # Anxiety: Patient discontinue mirtazapine due to diarrhea, but she is feeling well, no need for initiation of additional medication at this time. #HTN: BP stable today in office, continue lisinopril 20 mg daily. Educated take blood pressure at home. Call the office blood pressure reading greater than 140/90. #Restless leg syndrome: Improved with gabapentin 400 mg in the morning, and ropinirole 8 mg extended release in the evening. #Heart murmur: Patient with history of aortic and mitral stenosis. Previous echo with evidence of aortic stenosis, mitral stenosis, LVH, LAE. Most recent echo 03/10/2024 showing severe aortic stenosis and left atrial enlargement for which we are referring to cardiology for further evaluation. This referral still pending.Ejection fraction 65 to 70%. Normal pulmonary pressures.Next visit with cardiology is May 28. #Urinary incontinence: Patient states she has not had any episodes of urinary incontinence since last visit. Does wear pads for occasional leaking. Patient did have urinary tract infection which resulted in confusion and lethargy in January. Reports complete resolution of symptoms since.Denies dysuria, urinary frequency, hematuria, fever, chills, low back pain, or confusion. #Cognitive decline: Patient's sister/healthcare proxy Rossi and Mrs. Arnold expressed concern for Alzheimer's, as their mother did unfortunately suffer from early onset Alzheimer's disease. Mini-Mental status exam performed in office Last visit by TONI Yan scored 30 out of 30 points. Did MoCA testing today for which she scored a 26 out of 30.Patient mostly had difficulty with memory recall with category cue,, and multiple-choice cue. Also difficulty counting back from sevens from 100. Blood work including B12, folate, RPR, TSH, and UA negative. MRI patient obtained, although could not get result because she did not tolerate the machine well, and she is considering going back into to the machine or not. Neurology still pending. Follow-up in 3 months, sooner as needed. Following with cardiology and hopefully neurology in the meantime. All quetsions answered to patients satisfaction. Patient verbalized understanding of diagnosis and treatments explained. To call sooner prior to next visit it any questions/concerns arise. Case discussed with collaborating physician Teri Stroud who reviewed the assessment and plan. Chart, medications, labs, vital signs reviewed. Dictation was accomplished with the use of icomply voice recognition software, prone to medical misidentifications and grammatical errors. This is unintentional and the practitioner does try to identify and correct these, but some could still be present. Please do not hesitate to contact practitioner for clarification. 05/14/2024 Cognitive changes (ICD-10 - R41.89) 05/25/2024 Restless leg syndrome (ICD-10 - G25.81) 06/16/2024 Upper GI bleed (ICD-10 - K92.2) Beata is a pleasant 83-year-old female who presents the office for a hospital follow-up. Admitted to [facility] on 06/13/2024, discharged on 06/14/2024. Patient symptom started on 06/10/2024 for which she had vomiting red blood, and clots x 3 days. She subsequently had black tarry stool without abdominal pain. Declined any recent aspirin or NSAID use. No other red flag symptoms. Patient was hemodynamically stable, H&H 11 and 36% respectively. She was given 40 mg of Protonix IV push in the emergency department and was admitted for further evaluation with consultation to gastroenterology by Dr. Mackenzie. Patient underwent an endoscopy revealing a large hiatal hernia with linear ulcers and dudonitis. They recommended PPI therapy twice daily, and outpatient GI series with esophagram followed by gastroenterology. The upper GI bleed was most likely secondary to hiatal hernia. They recommended consuming very small meals, and to remain upright for 30 to 60 minutes after the meal. Incidentally, patient did have an acute kidney injury on chronic kidney disease, most likely secondary to volume loss. Lisinopril was held, but patient's blood pressure holding stable. Received fluids in the hospital. Will order repeat BMP/ CBC. Will call with results, and reinitiate lisinopril as needed. Provided with blood pressure cuff Prescription for patient to blood pressure at home daily. Otherwise, notes transferred from previous documents for continuity of care. 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 Taking Trelegy with adequate control of SOB. # With pulmonology obtaining a CT of her chest, still pending but incidentally found a right 1.7 cm kidney lesion [...] due to acute kidney injury in the hospital.Will repeat BMP, consider reinitiation of lisinopril, provided with prescription for BP cuff. #Restless leg syndrome: Improved with gabapentin 400 mg in the morning, and ropinirole 8 mg extended release in the evening. #Heart murmur: Patient with history of aortic and mitral stenosis. Previous echo with evidence of aortic stenosis, mitral stenosis, LVH, LAE. Most recent echo 03/10/2024 showing severe aortic stenosis and left atrial enlargement for which we are referring to cardiology for further evaluation. This referral still pending.Ejection fraction 65 to 70%. Normal pulmonary pressures.Next visit with cardiology is May 28. #Urinary incontinence: Patient states she has not had any episodes of urinary incontinence since last visit. Does wear pads for occasional leaking. Patient did have urinary tract infection which resulted in confusion and lethargy in January. Reports complete resolution of symptoms since.Denies dysuria, urinary frequency, hematuria, fever, chills, low back pain, or confusion. #Cognitive decline: Patient's sister/healthcare proxy Rossi and Mrs. Arnold expressed concern for Alzheimer's, as their mother did unfortunately suffer from early onset Alzheimer's disease. Mini-Mental status exam performed in office Last visit by TONI Yan scored 30 out of 30 points. Did MoCA testing today for which she scored a 26 out of 30.Patient mostly had difficulty with memory recall with category cue,, and multiple-choice cue. Also difficulty counting back from sevens from 100. Blood work including B12, folate, RPR, TSH, and UA negative. MRI patient obtained, although could not get result because she did not tolerate the machine well,So we repeated MRI without contrast, prescribed 1 dose of lorazepam to help with anxiety associated with image. Showed moderate to severe periventricular and subcortical hyperintensity suggestive of chronic microvascular ischemia, patient is following with neurology, and documents were sent to them. Continue to encourage follow-up with specialist, discussed emergency department criteria/criteria to call the office. Follow-up August 03, 2024, sooner as needed. Following with gastroenterology, cardiology, and neurology in the meantime. All quetsions answered to patients satisfaction. Patient verbalized understanding of diagnosis and treatments explained. To call sooner prior to next visit it any questions/concerns arise. Case discussed with collaborating physician Teri Stroud who reviewed the assessment and plan. Chart, medications, labs, vital signs reviewed. Dictation was accomplished with the use of icomply voice recognition software, prone to medical misidentifications and grammatical errors. This is unintentional and the practitioner does try to identify and correct these, but some could still be present. Please do not hesitate to contact practitioner for clarification. 06/16/2024 Cognitive changes (ICD-10 - R41.89) Beata is a pleasant 83-year-old female who presents the office for a hospital follow-up. Admitted to [facility] on 06/13/2024, discharged on 06/14/2024. Patient symptom started on 06/10/2024 for which she had vomiting red blood, and clots x 3 days. She subsequently had black tarry stool without abdominal pain. Declined any recent aspirin or NSAID use. No other red flag symptoms. Patient was hemodynamically stable, H&H 11 and 36% respectively. She was given 40 mg of Protonix IV push in the emergency department and was admitted for further evaluation with consultation to gastroenterology by Dr. Mackenzie. Patient underwent an endoscopy revealing a large hiatal hernia with linear ulcers and dudonitis. They recommended PPI therapy twice daily, and outpatient GI series with esophagram followed by gastroenterology. The upper GI bleed was most likely secondary to hiatal hernia. They recommended consuming very small meals, and to remain upright for 30 to 60 minutes after the meal. Incidentally, patient did have an acute kidney injury on chronic kidney disease, most likely secondary to volume loss. Lisinopril was held, but patient's blood pressure holding stable. Received fluids in the hospital. Will order repeat BMP/ CBC. Will call with results, and reinitiate lisinopril as needed. Provided with blood pressure cuff Prescription for patient to blood pressure at home daily. Otherwise, notes transferred from previous documents for continuity of care. 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 Taking Trelegy with adequate control of SOB. # With pulmonology obtaining a CT of her chest, still pending but incidentally found a right 1.7 cm kidney lesion [...] due to acute kidney injury in the hospital.Will repeat BMP, consider reinitiation of lisinopril, provided with prescription for BP cuff. #Restless leg syndrome: Improved with gabapentin 400 mg in the morning, and ropinirole 8 mg extended release in the evening. #Heart murmur: Patient with history of aortic and mitral stenosis. Previous echo with evidence of aortic stenosis, mitral stenosis, LVH, LAE. Most recent echo 03/10/2024 showing severe aortic stenosis and left atrial enlargement for which we are referring to cardiology for further evaluation. This referral still pending.Ejection fraction 65 to 70%. Normal pulmonary pressures.Next visit with cardiology is May 28. #Urinary incontinence: Patient states she has not had any episodes of urinary incontinence since last visit. Does wear pads for occasional leaking. Patient did have urinary tract infection which resulted in confusion and lethargy in January. Reports complete resolution of symptoms since.Denies dysuria, urinary frequency, hematuria, fever, chills, low back pain, or confusion. #Cognitive decline: Patient's sister/healthcare proxy Rossi and Mrs. Arnold expressed concern for Alzheimer's, as their mother did unfortunately suffer from early onset Alzheimer's disease. Mini-Mental status exam performed in office Last visit by TONI Yan scored 30 out of 30 points. Did MoCA testing today for which she scored a 26 out of 30.Patient mostly had difficulty with memory recall with category cue,, and multiple-choice cue. Also difficulty counting back from sevens from 100. Blood work including B12, folate, RPR, TSH, and UA negative. MRI patient obtained, although could not get result because she did not tolerate the machine well,So we repeated MRI without contrast, prescribed 1 dose of lorazepam to help with anxiety associated with image. Showed moderate to severe periventricular and subcortical hyperintensity suggestive of chronic microvascular ischemia, patient is following with neurology, and documents were sent to them. Continue to encourage follow-up with specialist, discussed emergency department criteria/criteria to call the office. Follow-up August 03, 2024, sooner as needed. Following with gastroenterology, cardiology, and neurology in the meantime. All quetsions answered to patients satisfaction. Patient verbalized understanding of diagnosis and treatments explained. To call sooner prior to next visit it any questions/concerns arise. Case discussed with collaborating physician Teri Stroud who reviewed the assessment and plan. Chart, medications, labs, vital signs reviewed. Dictation was accomplished with the use of icomply voice recognition software, prone to medical misidentifications and grammatical errors. This is unintentional and the practitioner does try to identify and correct these, but some could still be present. Please do not hesitate to contact practitioner for clarification. 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 Taking Trelegy with adequate control of SOB.Patient stopped taking Trelegy x 1 month, and had a flareup, went to urgent care on Friday and treated with prednisone and albuterol with improvement in symptoms. # With pulmonology obtaining a CT of [...] injury in the hospital.Repeated BMP. Showing stability. Blood pressure was elevated when she walked in at 156/92, but improved to 136/88. Has resumed lisinopril 20 mg. #Restless leg syndrome: IDiscontinue gabapentin because she felt it was making it worse. States that stable on ropinirole 8 mg Extended release in the evening #Heart murmur: Patient with history of aortic and mitral stenosis. Previous echo with evidence of aortic stenosis, mitral stenosis, LVH, LAE. Most recent echo 03/10/2024 showing severe aortic stenosis and left atrial enlargement for which we are referring to cardiology for further evaluation. Ejection fraction 65 to 70%. Normal pulmonary pressures.Continuing to follow with cardiology #Urinary incontinence: Patient states she has not had any episodes of urinary incontinence since last visit. Does wear pads for occasional leaking. Patient did have urinary tract infection which resulted in confusion and lethargy in January. Reports complete resolution of symptoms since.Denies dysuria, urinary frequency, hematuria, fever, chills, low back pain, or confusion. #Cognitive decline: Patient's sister/healthcare proxy Rossi and Mrs. Arnold expressed concern for Alzheimer's, as their mother did unfortunately suffer from early onset Alzheimer's disease. Mini-Mental status exam performed in office Last visit by TONI Yan scored 30 out of 30 points. Did MoCA testing today for which she scored a 26 out of 30.Patient mostly had difficulty with memory recall with category cue,, and multiple-choice cue. Also difficulty counting back from sevens from 100. Blood work including B12, folate, RPR, TSH, and UA negative. MRI patient obtained, although could not get result because she did not tolerate the machine well,So we repeated MRI without contrast, prescribed 1 dose of lorazepam to help with anxiety associated with image. Showed moderate to severe periventricular and subcortical hyperintensity suggestive of chronic microvascular ischemia, patient is following with neurology, and documents were sent to them.In the meantime, getting [facility] for at home evaluation for needs. Patient may eventually need assisted living. Follow-up in 1 month, sooner as needed. Continue to follow with gastroenterology, cardiology and neurology. All quetsions answered to patients satisfaction. Patient verbalized understanding of diagnosis and treatments explained. To call sooner prior to next visit it any questions/concerns arise. Case discussed with collaborating physician Teri Stroud who reviewed the assessment and plan. Chart, medications, labs, vital signs reviewed. Dictation was accomplished with the use of icomply voice recognition software, prone to medical misidentifications and grammatical errors. This is unintentional and the practitioner does try to identify and correct these, but some could still be present. Please do not hesitate to contact practitioner for clarification. 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 Taking Trelegy with adequate control of SOB.Patient stopped taking Trelegy x 1 month, and had a flareup, went to urgent care on Friday and treated with prednisone and albuterol with improvement in symptoms. # With pulmonology obtaining a CT of [...] injury in the hospital.Repeated BMP. Showing stability. Blood pressure was elevated when she walked in at 156/92, but improved to 136/88. Has resumed lisinopril 20 mg. #Restless leg syndrome: IDiscontinue gabapentin because she felt it was making it worse. States that stable on ropinirole 8 mg Extended release in the evening #Heart murmur: Patient with history of aortic and mitral stenosis. Previous echo with evidence of aortic stenosis, mitral stenosis, LVH, LAE. Most recent echo 03/10/2024 showing severe aortic stenosis and left atrial enlargement for which we are referring to cardiology for further evaluation. Ejection fraction 65 to 70%. Normal pulmonary pressures.Continuing to follow with cardiology #Urinary incontinence: Patient states she has not had any episodes of urinary incontinence since last visit. Does wear pads for occasional leaking. Patient did have urinary tract infection which resulted in confusion and lethargy in January. Reports complete resolution of symptoms since.Denies dysuria, urinary frequency, hematuria, fever, chills, low back pain, or confusion. #Cognitive decline: Patient's sister/healthcare proxy Rossi and Mrs. Arnold expressed concern for Alzheimer's, as their mother did unfortunately suffer from early onset Alzheimer's disease. Mini-Mental status exam performed in office Last visit by OTNI Yan scored 30 out of 30 points. Did MoCA testing today for which she scored a 26 out of 30.Patient mostly had difficulty with memory recall with category cue,, and multiple-choice cue. Also difficulty counting back from sevens from 100. Blood work including B12, folate, RPR, TSH, and UA negative. MRI patient obtained, although could not get result because she did not tolerate the machine well,So we repeated MRI without contrast, prescribed 1 dose of lorazepam to help with anxiety associated with image. Showed moderate to severe periventricular and subcortical hyperintensity suggestive of chronic microvascular ischemia, patient is following with neurology, and documents were sent to them.In the meantime, getting [facility] for at home evaluation for needs. Patient may eventually need assisted living. Follow-up in 1 month, sooner as needed. Continue to follow with gastroenterology, cardiology and neurology. All quetsions answered to patients satisfaction. Patient verbalized understanding of diagnosis and treatments explained. To call sooner prior to next visit it any questions/concerns arise. Case discussed with collaborating physician Teri Stroud who reviewed the assessment and plan. Chart, medications, labs, vital signs reviewed. Dictation was accomplished with the use of icomply voice recognition software, prone to medical misidentifications and grammatical errors. This is unintentional and the practitioner does try to identify and correct these, but some could still be present. Please do not hesitate to contact practitioner for clarification. 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 Taking Trelegy with adequate control of SOB.Patient [...] Signed scheduled for cataract surgery in November, [facility]. #Cognitive decline: Patient's sister/healthcare proxy Rossi and Mrs. Arnold expressed concern for Alzheimer's, as their mother [...] to neurology. Also going to follow with [facility] services. Follow-up in 2 months, sooner [...] Dictation was accomplished with the use of icomply voice recognition software, prone to medical misidentifications and grammatical errors. This is unintentional and the practitioner does try to identify and correct these, but some could still be present. Please do not hesitate to contact practitioner for clarification. 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 Taking Trelegy with adequate control of SOB. Patient started taking trelagy infrequently due to cost, has since resumed after receiving a coupon. Continue with Trelegy and albuterol. Continues to follow with pulmonology # Patient inquires about snoring/heavy breathing at night. Following with pulmonology consider sleep study # With pulmonology obtaining a CT of her chest,incidentally found a right 1.7 cm kidney lesion For which we ordered an ultrasound, and resulted on 05/25/2024 showing a cyst in the right upper pole of the kidney benign, no further workup needed at this time. Pt states that pulmonology has ordered a CT of the kidney d/t nodule finding. #Anxiety: Patient discontinue mirtazapine due to diarrhea, but she is feeling well, no need for initiation of additional medication at this time. #HTN: BP stable today in office. Educated take blood pressure at home, pt asked about BP machine for the wrist. Call the office blood pressure reading greater than 140/90.Lisinopril was discontinued due to acute kidney injury in the hospital.Repeated BMP. Showing stability. Continuing lisinopril 20 mg at this time.Going obtain a different blood pressure machine at the local pharmacy. #Restless leg syndrome: Discontinued gabapentin because she felt it was making it worse. States that stable on ropinirole 8 mg Extended release in the evening. Pt states that ropinirole has worked well and improved symptoms. Going to follow with neurology for continued restless leg #Heart murmur: Patient with history of aortic and mitral stenosis. Previous echo with evidence of aortic stenosis, mitral stenosis, LVH, LAE. Most recent echo 03/10/2024 showing severe aortic stenosis and left atrial enlargement for which we are referring to cardiology for further evaluation. Ejection fraction 65 to 70%. Normal pulmonary pressures. Continuing to follow with cardiology # Patient had a history of GI bleed, was going to get endoscopy with Dr. Mackenzie. Patient sister will call the office for follow-up. Patient declines any symptoms at this time # Signed scheduled for cataract surgery in November, [facility] [place] [facility]. #Cognitive decline: Patient's sister/healthcare proxy Rossi and Mrs. Arnold expressed concern for Alzheimer's, as their mother [...] neurology. Also going to follow with [facility] [place] [facility]. # Pt has a rash on her right arm that is flat and mostly purple in color, with it being slightly more red above the elbow, extending from the wrist to slightly above the elbow. Pt states that the rash does itch. Pt has used arnica with some improvement. Educated pt to use topical benadryl or hydrocortisone. Pt does have history of iron deficiency anemia. Will order iron studies and CBC and reevaluate next visit. # Patient is no longer driving. Does have a living will, and her sister is the power of criminal attorney. Follow-up in 3 months for Medicare wellness visit with fasting labs, sooner as needed All quetsions answered to patients satisfaction. Patient verbalized understanding of diagnosis and treatments explained. To call sooner prior to next visit it any questions/concerns arise. Case discussed with collaborating physician Teri Stroud who reviewed the assessment and plan. Chart, medications, labs, vital signs reviewed. Dictation was accomplished with the use of icomply voice recognition software, prone to medical misidentifications and grammatical errors. This is unintentional and the practitioner does try to identify and correct these, but some could still be present. Please do not hesitate to contact practitioner for clarification. 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 Taking Trelegy with adequate control of SOB. Patient started taking trelagy infrequently due to cost, has since resumed after receiving a coupon. Continue with Trelegy and albuterol. Continues to follow with pulmonology # Patient inquires about snoring/heavy breathing at night. Following with pulmonology consider sleep study # With pulmonology obtaining a CT of her chest,incidentally found a right 1.7 cm kidney lesion For which we ordered an ultrasound, and resulted on 05/25/2024 showing a cyst in the right upper pole of the kidney benign, no further workup needed at this time. Pt states that pulmonology has ordered a CT of the kidney d/t nodule finding. #Anxiety: Patient discontinue mirtazapine due to diarrhea, but she is feeling well, no need for initiation of additional medication at this time. #HTN: BP stable today in office. Educated take blood pressure at home, pt asked about BP machine for the wrist. Call the office blood pressure reading greater than 140/90.Lisinopril was discontinued due to acute kidney injury in the hospital.Repeated BMP. Showing stability. Continuing lisinopril 20 mg at this time.Going obtain a different blood pressure machine at the local pharmacy. #Restless leg syndrome: Discontinued gabapentin because she felt it was making it worse. States that stable on ropinirole 8 mg Extended release in the evening. Pt states that ropinirole has worked well and improved symptoms. Going to follow with neurology for continued restless leg #Heart murmur: Patient with history of aortic and mitral stenosis. Previous echo with evidence of aortic stenosis, mitral stenosis, LVH, LAE. Most recent echo 03/10/2024 showing severe aortic stenosis and left atrial enlargement for which we are referring to cardiology for further evaluation. Ejection fraction 65 to 70%. Normal pulmonary pressures. Continuing to follow with cardiology # Patient had a history of GI bleed, was going to get endoscopy with Dr. Mackenzie. Patient sister will call the office for follow-up. Patient declines any symptoms at this time # Signed scheduled for cataract surgery in November, [place] [facility]. #Cognitive decline: Patient's sister/healthcare proxy Rossi and Mrs. Arnold expressed concern for Alzheimer's, as their mother [...] to neurology. Also going to follow with [facility]. # Pt has a rash on her right arm that is flat and mostly purple in color, with it being slightly more red above the elbow, extending from the wrist to slightly above the elbow. Pt states that the rash does itch. Pt has used arnica with some improvement. Educated pt to use topical benadryl or hydrocortisone. Pt does have history of iron deficiency anemia. Will order iron studies and CBC and reevaluate next visit. # Patient is no longer driving. Does have a living will, and her sister is the power of criminal attorney. Follow-up in 3 months for Medicare wellness visit with fasting labs, sooner as needed All quetsions answered to patients satisfaction. Patient verbalized understanding of diagnosis and treatments explained. To call sooner prior to next visit it any questions/concerns arise. Case discussed with collaborating physician Teri Stroud who reviewed the assessment and plan. Chart, medications, labs, vital signs reviewed. Dictation was accomplished with the use of icomply voice recognition software, prone to medical misidentifications and grammatical errors. This is unintentional and the practitioner does try to identify and correct these, but some could still be present. Please do not hesitate to contact practitioner for clarification. 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 Taking Trelegy with adequate control of SOB. Patient started taking trelagy infrequently due to cost, has since resumed after receiving a coupon. Continue with Trelegy and albuterol. Continues to follow with pulmonology # With pulmonology obtaining a CT of her chest,incidentally found a right 1.7 cm kidney lesion For which we ordered an ultrasound, and resulted on 05/25/2024 showing a cyst in the right upper pole of the kidney benign, no further workup needed at this time. Pt states that pulmonology has ordered a CT of the kidney d/t nodule finding. #Anxiety: Patient discontinue mirtazapine due to diarrhea, but she is feeling well, no need for initiation of additional medication at this time. #HTN: BP stable today in office. Educated take blood pressure at home, pt asked about BP machine for the wrist. Call the office blood pressure reading greater than 140/90.Lisinopril was discontinued due to acute kidney injury in the hospital.Repeated BMP. Showing stability. Continuing lisinopril 20 mg at this time.Going obtain a different blood pressure machine at the local pharmacy. #Restless leg syndrome: Discontinued gabapentin because she felt it was making it worse. States that stable on ropinirole 8 mg Extended release in the evening. Pt states that ropinirole has worked well and improved symptoms. Going to follow with neurology for continued restless leg #Heart murmur: Patient with history of aortic and mitral stenosis. Previous echo with evidence of aortic stenosis, mitral stenosis, LVH, LAE. echo 03/10/2024 showing severe aortic stenosis and left atrial enlargement for which we are referring to cardiology for further evaluation. Ejection fraction 65 to 70%. Normal pulmonary pressures. Continuing to follow with cardiology., Cardiogram January 2025, trying to obtain record.Also had a Holter monitor. # Patient did have an echo cardiogram February 03, 2025, Holter February 04, 2025. Based on those records they started patient on Lasix 20 mg daily following with Dr. Caceres at [facility] cardiology. Patient's weights been stable, limiting sodium. Considering TAVR # Followed with gastroenterology Dr. Daniela Bang, ordered barium swallow scheduled for March 2025 # Recently had blood work January 2025, chronic kidney disease has improved, most recent GFR 54 with creatinine 1.03. Previous GFR 40 with creatinine 1.33 # Vitamin D deficiency: Vitamin D 20 February 2025, replacing vitamin D OTC # It was noted on echocardiogram that patient was holding some fluid around the lungs secondary to an inadequate aortic valve. Going to proceed with a TAVR, but will order chest x-ray. Patient's lungs clear to auscultation. She declines any worsening shortness of breath. # Patient had a history of GI bleed, was going to get endoscopy with Dr. Mackenzie. Scheduled barium swallow. # Signed scheduled for cataract surgery in November, [facility] [place] [facility]. #Cognitive decline: Patient's sister/healthcare proxy Rossi and Mrs. Arnold expressed concern for Alzheimer's, as their mother [...] to neurology. Also going to follow with [facility].Patient is doing well today # Patient is no longer driving. Does have a living will, and her sister is the power of criminal attorney. Follow-up next month for Medicare wellness visit, sooner as needed. All quetsions answered to patients satisfaction. Patient verbalized understanding of diagnosis and treatments explained. To call sooner prior to next visit it any questions/concerns arise. Case discussed with collaborating physician Teri Stroud who reviewed the assessment and plan. Chart, medications, labs, vital signs reviewed. Dictation was accomplished with the use of icomply voice recognition software, prone to medical misidentifications and grammatical errors. This is unintentional and the practitioner does try to identify and correct these, but some could still be present. Please do not hesitate to contact practitioner for clarification. 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 Taking Trelegy with adequate control of SOB. Patient started taking trelagy infrequently due to cost, has since resumed after receiving a coupon. Continue with Trelegy and albuterol. Continues to follow with pulmonology # Patient inquires about snoring/heavy breathing at night. Following with pulmonology consider sleep study # With pulmonology obtaining a CT of her chest,incidentally found a right 1.7 cm kidney lesion For which we ordered an ultrasound, and resulted on 05/25/2024 showing a cyst in the right upper pole of the kidney benign, no further workup needed at this time. Pt states that pulmonology has ordered a CT of the kidney d/t nodule finding. #Anxiety: Patient discontinue mirtazapine due to diarrhea, but she is feeling well, no need for initiation of additional medication at this time. #HTN: BP stable today in office. Educated take blood pressure at home, pt asked about BP machine for the wrist. Call the office blood pressure reading greater than 140/90.Lisinopril was discontinued due to acute kidney injury in the hospital.Repeated BMP. Showing stability. Continuing lisinopril 20 mg at this time.Going obtain a different blood pressure machine at the local pharmacy. #Restless leg syndrome: Discontinued gabapentin because she felt it was making it worse. States that stable on ropinirole 8 mg Extended release in the evening. Pt states that ropinirole has worked well and improved symptoms. Going to follow with neurology for continued restless leg #Heart murmur: Patient with history of aortic and mitral stenosis. Previous echo with evidence of aortic stenosis, mitral stenosis, LVH, LAE. Most recent echo 03/10/2024 showing severe aortic stenosis and left atrial enlargement for which we are referring to cardiology for further evaluation. Ejection fraction 65 to 70%. Normal pulmonary pressures. Continuing to follow with cardiology # Patient had a history of GI bleed, was going to get endoscopy with Dr. Mackenzie. Patient sister will call the office for follow-up. Patient declines any symptoms at this time # Signed scheduled for cataract surgery in November, [facility]. #Cognitive decline: Patient's sister/healthcare proxy Rossi and Mrs. Arnold expressed concern for Alzheimer's, as their mother [...] to neurology. Also going to follow with [facility]. # Pt has a rash on her right arm that is flat and mostly purple in color, with it being slightly more red above the elbow, extending from the wrist to slightly above the elbow. Pt states that the rash does itch. Pt has used arnica with some improvement. Educated pt to use topical benadryl or hydrocortisone. Pt does have history of iron deficiency anemia. Will order iron studies and CBC and reevaluate next visit. # Patient is no longer driving. Does have a living will, and her sister is the power of criminal attorney. Follow-up in 3 months for Medicare wellness visit with fasting labs, sooner as needed All quetsions answered to patients satisfaction. Patient [...] not hesitate to contact practitioner for clarification. 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 Taking Trelegy with adequate control of SOB. Patient started taking trelagy infrequently due to cost, has since resumed after receiving a coupon. Continue with Trelegy and albuterol. Continues to follow with pulmonology # With pulmonology obtaining a CT of her chest,incidentally found a right 1.7 cm kidney lesion For which we ordered an ultrasound, and resulted on 05/25/2024 showing a cyst in the right upper pole of the kidney benign, no further workup needed at this time. Pt states that pulmonology has ordered a CT of the kidney d/t nodule finding. #Anxiety: Patient discontinue mirtazapine due to diarrhea, but she is feeling well, no need for initiation of additional medication at this time. #HTN: BP stable today in office. Educated take blood pressure at home, pt asked about BP machine for the wrist. Call the office blood pressure reading greater than 140/90.Lisinopril was discontinued due to acute kidney injury in the hospital.Repeated BMP. Showing stability. Continuing lisinopril 20 mg at this time.Going obtain a different blood pressure machine at the local pharmacy. #Restless leg syndrome: Discontinued gabapentin because she felt it was making it worse. States that stable on ropinirole 8 mg Extended release in the evening. Pt states that ropinirole has worked well and improved symptoms. Going to follow with neurology for continued restless leg #Heart murmur: Patient with history of aortic and mitral stenosis. Previous echo with evidence of aortic stenosis, mitral stenosis, LVH, LAE. echo 03/10/2024 showing severe aortic stenosis and left atrial enlargement for which we are referring to cardiology for further evaluation. Ejection fraction 65 to 70%. Normal pulmonary pressures. Continuing to follow with cardiology., Cardiogram January 2025, trying to obtain record.Also had a Holter monitor. # Patient did have an echo cardiogram February 03, 2025, Holter February 04, 2025. Based on those records they started patient on Lasix 20 mg daily following with Dr. Caceres at [facility] cardiology. Patient's weights been stable, limiting sodium. Considering TAVR # Followed with gastroenterology Dr. Daniela Bang, ordered barium swallow scheduled for March 2025 # Recently had blood work January 2025, chronic kidney disease has improved, most recent GFR 54 with creatinine 1.03. Previous GFR 40 with creatinine 1.33 # Vitamin D deficiency: Vitamin D 20 February 2025, replacing vitamin D OTC # It was noted on echocardiogram that patient was holding some fluid around the lungs secondary to an inadequate aortic valve. Going to proceed with a TAVR, but will order chest x-ray. Patient's lungs clear to auscultation. She declines any worsening shortness of breath. # Patient had a history of GI bleed, was going to get endoscopy with Dr. Mackenzie. Scheduled barium swallow. # Signed scheduled for cataract surgery in November, [facility]. #Cognitive decline: Patient's sister/healthcare proxy Rossi and Mrs. Arnold expressed concern for Alzheimer's, as their mother [...] to neurology. Also going to follow with [facility].Patient is doing well today # Patient is no longer driving. Does have a living will, and her sister is the power of criminal attorney. Follow-up next month for Medicare wellness visit, sooner as needed. All quetsions answered to patients satisfaction. Patient verbalized understanding of diagnosis and treatments explained. To call sooner prior to next visit it any questions/concerns arise. Case discussed with collaborating physician Teri Stroud who reviewed the assessment and plan. Chart, medications, labs, vital signs reviewed. Dictation was accomplished with the use of icomply voice recognition software, prone to medical misidentifications and grammatical errors. This is unintentional and the practitioner does try to identify and correct these, but some could still be present. Please do not hesitate to contact practitioner for clarification. 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 Taking Trelegy with adequate control of SOB.Patient [...] Signed scheduled for cataract surgery in November, [facility] [place] [facility]. #Cognitive decline: Patient's sister/healthcare proxy Rossi and Mrs. Arnold expressed concern for Alzheimer's, as their mother [...] neurology. Also going to follow with [facility] [place] [facility]. Follow-up in 2 months, sooner [...] Dictation was accomplished with the use of icomply voice recognition software, prone to medical misidentifications and grammatical errors. This is unintentional and the practitioner does try to identify and correct these, but some could still be present. Please do not hesitate to contact practitioner for clarification. 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 Taking Trelegy with adequate control of SOB.Patient stopped taking Trelegy x 1 month, and had a flareup, went to urgent care on Friday and treated with prednisone and albuterol with improvement in symptoms. # With pulmonology obtaining a CT of [...] injury in the hospital.Repeated BMP. Showing stability. Blood pressure was elevated when she walked in at 156/92, but improved to 136/88. Has resumed lisinopril 20 mg. #Restless leg syndrome: IDiscontinue gabapentin because she felt it was making it worse. States that stable on ropinirole 8 mg Extended release in the evening #Heart murmur: Patient with history of aortic and mitral stenosis. Previous echo with evidence of aortic stenosis, mitral stenosis, LVH, LAE. Most recent echo 03/10/2024 showing severe aortic stenosis and left atrial enlargement for which we are referring to cardiology for further evaluation. Ejection fraction 65 to 70%. Normal pulmonary pressures.Continuing to follow with cardiology #Urinary incontinence: Patient states she has not had any episodes of urinary incontinence since last visit. Does wear pads for occasional leaking. Patient did have urinary tract infection which resulted in confusion and lethargy in January. Reports complete resolution of symptoms since.Denies dysuria, urinary frequency, hematuria, fever, chills, low back pain, or confusion. #Cognitive decline: Patient's sister/healthcare proxy Rossi and Mrs. Arnold expressed concern for Alzheimer's, as their mother did unfortunately suffer from early onset Alzheimer's disease. Mini-Mental status exam performed in office Last visit by TONI Yan scored 30 out of 30 points. Did MoCA testing today for which she scored a 26 out of 30.Patient mostly had difficulty with memory recall with category cue,, and multiple-choice cue. Also difficulty counting back from sevens from 100. Blood work including B12, folate, RPR, TSH, and UA negative. MRI patient obtained, although could not get result because she did not tolerate the machine well,So we repeated MRI without contrast, prescribed 1 dose of lorazepam to help with anxiety associated with image. Showed moderate to severe periventricular and subcortical hyperintensity suggestive of chronic microvascular ischemia, patient is following with neurology, and documents were sent to them.In the meantime, getting [facility] for at home evaluation for needs. Patient may eventually need assisted living. Follow-up in 1 month, sooner as needed. Continue to follow with gastroenterology, cardiology and neurology. All quetsions answered to patients satisfaction. Patient verbalized understanding of diagnosis and treatments explained. To call sooner prior to next visit it any questions/concerns arise. Case discussed with collaborating physician Teri Stroud who reviewed the assessment and plan. Chart, medications, labs, vital signs reviewed. Dictation was accomplished with the use of icomply voice recognition software, prone to medical misidentifications and grammatical errors. This is unintentional and the practitioner does try to identify and correct these, but some could still be present. Please do not hesitate to contact practitioner for clarification. 06/16/2024 Restless leg syndrome (ICD-10 - G25.81) Beata is a pleasant 83-year-old female who presents the office for a hospital follow-up. Admitted to [facility] on 06/13/2024, discharged on 06/14/2024. Patient symptom started on 06/10/2024 for which she had vomiting red blood, and clots x 3 days. She subsequently had black tarry stool without abdominal pain. Declined any recent aspirin or NSAID use. No other red flag symptoms. Patient was hemodynamically stable, H&H 11 and 36% respectively. She was given 40 mg of Protonix IV push in the emergency department and was admitted for further evaluation with consultation to gastroenterology by Dr. Mackenzie. Patient underwent an endoscopy revealing a large hiatal hernia with linear ulcers and dudonitis. They recommended PPI therapy twice daily, and outpatient GI series with esophagram followed by gastroenterology. The upper GI bleed was most likely secondary to hiatal hernia. They recommended consuming very small meals, and to remain upright for 30 to 60 minutes after the meal. Incidentally, patient did have an acute kidney injury on chronic kidney disease, most likely secondary to volume loss. Lisinopril was held, but patient's blood pressure holding stable. Received fluids in the hospital. Will order repeat BMP/ CBC. Will call with results, and reinitiate lisinopril as needed. Provided with blood pressure cuff Prescription for patient to blood pressure at home daily. Otherwise, notes transferred from previous documents for continuity of care. 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 Taking Trelegy with adequate control of SOB. # With pulmonology obtaining a CT of her chest, still pending but incidentally found a right 1.7 cm kidney lesion [...] due to acute kidney injury in the hospital.Will repeat BMP, consider reinitiation of lisinopril, provided with prescription for BP cuff. #Restless leg syndrome: Improved with gabapentin 400 mg in the morning, and ropinirole 8 mg extended release in the evening. #Heart murmur: Patient with history of aortic and mitral stenosis. Previous echo with evidence of aortic stenosis, mitral stenosis, LVH, LAE. Most recent echo 03/10/2024 showing severe aortic stenosis and left atrial enlargement for which we are referring to cardiology for further evaluation. This referral still pending.Ejection fraction 65 to 70%. Normal pulmonary pressures.Next visit with cardiology is May 28. #Urinary incontinence: Patient states she has not had any episodes of urinary incontinence since last visit. Does wear pads for occasional leaking. Patient did have urinary tract infection which resulted in confusion and lethargy in January. Reports complete resolution of symptoms since.Denies dysuria, urinary frequency, hematuria, fever, chills, low back pain, or confusion. #Cognitive decline: Patient's sister/healthcare proxy Rossi and Mrs. Arnold expressed concern for Alzheimer's, as their mother did unfortunately suffer from early onset Alzheimer's disease. Mini-Mental status exam performed in office Last visit by TONI Yan scored 30 out of 30 points. Did MoCA testing today for which she scored a 26 out of 30.Patient mostly had difficulty with memory recall with category cue,, and multiple-choice cue. Also difficulty counting back from sevens from 100. Blood work including B12, folate, RPR, TSH, and UA negative. MRI patient obtained, although could not get result because she did not tolerate the machine well,So we repeated MRI without contrast, prescribed 1 dose of lorazepam to help with anxiety associated with image. Showed moderate to severe periventricular and subcortical hyperintensity suggestive of chronic microvascular ischemia, patient is following with neurology, and documents were sent to them. Continue to encourage follow-up with specialist, discussed emergency department criteria/criteria to call the office. Follow-up August 03, 2024, sooner as needed. Following with gastroenterology, cardiology, and neurology in the meantime. All quetsions answered to patients satisfaction. Patient verbalized understanding of diagnosis and treatments explained. To call sooner prior to next visit it any questions/concerns arise. Case discussed with collaborating physician Teri Stroud who reviewed the assessment and plan. Chart, medications, labs, vital signs reviewed. Dictation was accomplished with the use of icomply voice recognition software, prone to medical misidentifications and grammatical errors. This is unintentional and the practitioner does try to identify and correct these, but some could still be present. Please do not hesitate to contact practitioner for clarification. 05/11/2024 Restless leg syndrome (ICD-10 - G25.81) # Obtained COVID and flu vaccine, getting RSV in the next few weeks at local pharmacy. 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 Taking Trelegy with adequate control of SOB. # With pulmonology obtaining a CT of her chest, still pending but incidentally found a right 1.7 cm kidney lesion for which we will order ultrasound. # Anxiety: Patient discontinue mirtazapine due to diarrhea, but she is feeling well, no need for initiation of additional medication at this time. #HTN: BP stable today in office, continue lisinopril 20 mg daily. Educated take blood pressure at home. Call the office blood pressure reading greater than 140/90. #Restless leg syndrome: Improved with gabapentin 400 mg in the morning, and ropinirole 8 mg extended release in the evening. #Heart murmur: Patient with history of aortic and mitral stenosis. Previous echo with evidence of aortic stenosis, mitral stenosis, LVH, LAE. Most recent echo 03/10/2024 showing severe aortic stenosis and left atrial enlargement for which we are referring to cardiology for further evaluation. This referral still pending.Ejection fraction 65 to 70%. Normal pulmonary pressures.Next visit with cardiology is May 28. #Urinary incontinence: Patient states she has not had any episodes of urinary incontinence since last visit. Does wear pads for occasional leaking. Patient did have urinary tract infection which resulted in confusion and lethargy in January. Reports complete resolution of symptoms since.Denies dysuria, urinary frequency, hematuria, fever, chills, low back pain, or confusion. #Cognitive decline: Patient's sister/healthcare proxy Rossi and Mrs. Arnold expressed concern for Alzheimer's, as their mother did unfortunately suffer from early onset Alzheimer's disease. Mini-Mental status exam performed in office Last visit by TONI Yan scored 30 out of 30 points. Did MoCA testing today for which she scored a 26 out of 30.Patient mostly had difficulty with memory recall with category cue,, and multiple-choice cue. Also difficulty counting back from sevens from 100. Blood work including B12, folate, RPR, TSH, and UA negative. MRI patient obtained, although could not get result because she did not tolerate the machine well, and she is considering going back into to the machine or not. Neurology still pending. Follow-up in 3 months, sooner as needed. Following with cardiology and hopefully neurology in the meantime. All quetsions answered to patients satisfaction. Patient verbalized understanding of diagnosis and treatments explained. To call sooner prior to next visit it any questions/concerns arise. Case discussed with collaborating physician Teri Stroud who reviewed the assessment and plan. Chart, medications, labs, vital signs reviewed. Dictation was accomplished with the use of icomply voice recognition software, prone to medical misidentifications and grammatical errors. This is unintentional and the practitioner does try to identify and correct these, but some could still be present. Please do not hesitate to contact practitioner for clarification. 04/15/2024 Hypertension, unspecified type (ICD-10 - I10) # Scheduled for COVID, flu vaccine in April, will also get RSV vaccine this fall. # Hyperlipidemia: Continue simvastatin 20 mg # Swelling under right lymph node, on examination bilateral lymph nodes submandibularly are equal. Patient states that is getting better. Will monitor over the next week, if no improvement could consider ultrasound. CBC in May within normal limits. No unintentional weight loss. 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 Taking Trelegy with adequate control of SOB. Anxiety: Patient reporting markedly improved symptoms of anxiety on mirtazapine 15 mg twice daily. But admits to diarrhea in the morning. Would like to trial 15 mg in the morning, and 7.5 mg in the evening. #HTN: BP stable today in office, continue lisinopril 20 mg daily. Educated take blood pressure at home. Call the office blood pressure reading greater than 140/90. #Restless leg syndrome: Patient taking gabapentin 300 mg In the morning in addition to ropinirole 8 mg extended release In the evening. States extended release medication has improved her restless leg, and she is no longer waking during the night. Still admits to difficulty with restless leg in the morning. Will increase gabapentin dose to 400 mg. Referral to [facility] neurology is still pending.Is using a cane. No recent falls. #Heart murmur: Patient with history of aortic and mitral stenosis. Previous echo with evidence of aortic stenosis, mitral stenosis, LVH, LAE. Most recent echo 03/10/2024 showing severe aortic stenosis and left atrial enlargement for which we are referring to cardiology for further evaluation. This referral still pending.Ejection fraction 65 to 70%. Normal pulmonary pressures. #Urinary incontinence: Patient states she has not had any episodes of urinary incontinence since last visit. Does wear pads for occasional leaking. Patient did have urinary tract infection which resulted in confusion and lethargy in January. Reports complete resolution of symptoms since.Denies dysuria, urinary frequency, hematuria, fever, chills, low back pain, or confusion. #Cognitive decline: Patient's sister/healthcare proxy Rossi and Mrs. Arnold expressed concern for Alzheimer's, as their mother did unfortunately suffer from early onset Alzheimer's disease. Mini-Mental status exam performed in office Last visit by TOIN Yan scored 30 out of 30 points. Will repeat Mini-Mental status exam in April in addition to in addition plan to do MoCA exam. The patient is educated that some level of forgetfulness with age is a part of normal aging. However given their concerns, plan to workup with laboratory evaluation including B12, folate, RPR, TSH, UA.Blood work still pending, MRI scheduled for April 2024. Neurology referral still pending. All questions answered to the patient's satisfaction. Patient demonstrates understanding of diagnosis and treatments discussed. Follow-up in 6 weeks, sooner should any questions/concerns arise. Plan for MoCA, and lab/imaging review at this visit. Case discussed with collaborating physician Mónica Stroud who has reviewed the assessment/plan. Chart, medications, labs, and vital signs reviewed. Dictation completed with the use of icomply voice recognition software, prone to medical misidentifications and grammatical errors. All errors are unintentional. Although the practitioner does try to identify and correct errors, some may be present. Please do not hesitate to contact the practitioner for clarification. 04/15/2024 Hyperlipidemia, unspecified hyperlipidemia type (ICD-10 - E78.5) # Scheduled for COVID, flu vaccine in April, will also get RSV vaccine this fall. # Hyperlipidemia: Continue simvastatin 20 mg # Swelling under right lymph node, on examination bilateral lymph nodes submandibularly are equal. Patient states that is getting better. Will monitor over the next week, if no improvement could consider ultrasound. CBC in November within normal limits. No unintentional weight loss. 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 Taking Trelegy with adequate control of SOB. Anxiety: Patient reporting markedly improved symptoms of anxiety on mirtazapine 15 mg twice daily. But admits to diarrhea in the morning. Would like to trial 15 mg in the morning, and 7.5 mg in the evening. #HTN: BP stable today in office, continue lisinopril 20 mg daily. Educated take blood pressure at home. Call the office blood pressure reading greater than 140/90. #Restless leg syndrome: Patient taking gabapentin 300 mg In the morning in addition to ropinirole 8 mg extended release In the evening. States extended release medication has improved her restless leg, and she is no longer waking during the night. Still admits to difficulty with restless leg in the morning. Will increase gabapentin dose to 400 mg. Referral to [facility] neurology is still pending.Is using a cane. No recent falls. #Heart murmur: Patient with history of aortic and mitral stenosis. Previous echo with evidence of aortic stenosis, mitral stenosis, LVH, LAE. Most recent echo 03/10/2024 showing severe aortic stenosis and left atrial enlargement for which we are referring to cardiology for further evaluation. This referral still pending.Ejection fraction 65 to 70%. Normal pulmonary pressures. #Urinary incontinence: Patient states she has not had any episodes of urinary incontinence since last visit. Does wear pads for occasional leaking. Patient did have urinary tract infection which resulted in confusion and lethargy in January. Reports complete resolution of symptoms since.Denies dysuria, urinary frequency, hematuria, fever, chills, low back pain, or confusion. #Cognitive decline: Patient's sister/healthcare proxy Rossi and Mrs. Arnold expressed concern for Alzheimer's, as their mother did unfortunately suffer from early onset Alzheimer's disease. Mini-Mental status exam performed in office Last visit by TONI Yan scored 30 out of 30 points. Will repeat Mini-Mental status exam in April in addition to in addition plan to do MoCA exam. The patient is educated that some level of forgetfulness with age is a part of normal aging. However given their concerns, plan to workup with laboratory evaluation including B12, folate, RPR, TSH, UA.Blood work still pending, MRI scheduled for April 2024. Neurology referral still pending. All questions answered to the patient's satisfaction. Patient demonstrates understanding of diagnosis and treatments discussed. Follow-up in 6 weeks, sooner should any questions/concerns arise. Plan for MoCA, and lab/imaging review at this visit. Case discussed with collaborating physician Mónica Stroud who has reviewed the assessment/plan. Chart, medications, labs, and vital signs reviewed. Dictation completed with the use of icomply voice recognition software, prone to medical misidentifications and grammatical errors. All errors are unintentional. Although the practitioner does try to identify and correct errors, some may be present. Please do not hesitate to contact the practitioner for clarification. 05/11/2024 Hypertension, unspecified type (ICD-10 - I10) # Obtained COVID and flu vaccine, getting RSV in the next few weeks at local pharmacy. 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 Taking Trelegy with adequate control of SOB. # With pulmonology obtaining a CT of her chest, still pending but incidentally found a right 1.7 cm kidney lesion for which we will order ultrasound. # Anxiety: Patient discontinue mirtazapine due to diarrhea, but she is feeling well, no need for initiation of additional medication at this time. #HTN: BP stable today in office, continue lisinopril 20 mg daily. Educated take blood pressure at home. Call the office blood pressure reading greater than 140/90. #Restless leg syndrome: Improved with gabapentin 400 mg in the morning, and ropinirole 8 mg extended release in the evening. #Heart murmur: Patient with history of aortic and mitral stenosis. Previous echo with evidence of aortic stenosis, mitral stenosis, LVH, LAE. Most recent echo 03/10/2024 showing severe aortic stenosis and left atrial enlargement for which we are referring to cardiology for further evaluation. This referral still pending.Ejection fraction 65 to 70%. Normal pulmonary pressures.Next visit with cardiology is May 28. #Urinary incontinence: Patient states she has not had any episodes of urinary incontinence since last visit. Does wear pads for occasional leaking. Patient did have urinary tract infection which resulted in confusion and lethargy in January. Reports complete resolution of symptoms since.Denies dysuria, urinary frequency, hematuria, fever, chills, low back pain, or confusion. #Cognitive decline: Patient's sister/healthcare proxy Rossi and Mrs. Arnold expressed concern for Alzheimer's, as their mother did unfortunately suffer from early onset Alzheimer's disease. Mini-Mental status exam performed in office Last visit by TONI Yan scored 30 out of 30 points. Did MoCA testing today for which she scored a 26 out of 30.Patient mostly had difficulty with memory recall with category cue,, and multiple-choice cue. Also difficulty counting back from sevens from 100. Blood work including B12, folate, RPR, TSH, and UA negative. MRI patient obtained, although could not get result because she did not tolerate the machine well, and she is considering going back into to the machine or not. Neurology still pending. Follow-up in 3 months, sooner as needed. Following with cardiology and hopefully neurology in the meantime. All quetsions answered to patients satisfaction. Patient verbalized understanding of diagnosis and treatments explained. To call sooner prior to next visit it any questions/concerns arise. Case discussed with collaborating physician Teri Stroud who reviewed the assessment and plan. Chart, medications, labs, vital signs reviewed. Dictation was accomplished with the use of icomply voice recognition software, prone to medical misidentifications and grammatical errors. This is unintentional and the practitioner does try to identify and correct these, but some could still be present. Please do not hesitate to contact practitioner for clarification. 06/16/2024 Hypertension, unspecified type (ICD-10 - I10) Beata is a pleasant 83-year-old female who presents the office for a hospital follow-up. Admitted to [facility] on 06/13/2024, discharged on 06/14/2024. Patient symptom started on 06/10/2024 for which she had vomiting red blood, and clots x 3 days. She subsequently had black tarry stool without abdominal pain. Declined any recent aspirin or NSAID use. No other red flag symptoms. Patient was hemodynamically stable, H&H 11 and 36% respectively. She was given 40 mg of Protonix IV push in the emergency department and was admitted for further evaluation with consultation to gastroenterology by Dr. Mackenzie. Patient underwent an endoscopy revealing a large hiatal hernia with linear ulcers and dudonitis. They recommended PPI therapy twice daily, and outpatient GI series with esophagram followed by gastroenterology. The upper GI bleed was most likely secondary to hiatal hernia. They recommended consuming very small meals, and to remain upright for 30 to 60 minutes after the meal. Incidentally, patient did have an acute kidney injury on chronic kidney disease, most likely secondary to volume loss. Lisinopril was held, but patient's blood pressure holding stable. Received fluids in the hospital. Will order repeat BMP/ CBC. Will call with results, and reinitiate lisinopril as needed. Provided with blood pressure cuff Prescription for patient to blood pressure at home daily. Otherwise, notes transferred from previous documents for continuity of care. 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 Taking Trelegy with adequate control of SOB. # With pulmonology obtaining a CT of her chest, still pending but incidentally found a right 1.7 cm kidney lesion [...] due to acute kidney injury in the hospital.Will repeat BMP, consider reinitiation of lisinopril, provided with prescription for BP cuff. #Restless leg syndrome: Improved with gabapentin 400 mg in the morning, and ropinirole 8 mg extended release in the evening. #Heart murmur: Patient with history of aortic and mitral stenosis. Previous echo with evidence of aortic stenosis, mitral stenosis, LVH, LAE. Most recent echo 03/10/2024 showing severe aortic stenosis and left atrial enlargement for which we are referring to cardiology for further evaluation. This referral still pending.Ejection fraction 65 to 70%. Normal pulmonary pressures.Next visit with cardiology is May 28. #Urinary incontinence: Patient states she has not had any episodes of urinary incontinence since last visit. Does wear pads for occasional leaking. Patient did have urinary tract infection which resulted in confusion and lethargy in January. Reports complete resolution of symptoms since.Denies dysuria, urinary frequency, hematuria, fever, chills, low back pain, or confusion. #Cognitive decline: Patient's sister/healthcare proxy Rossi and Mrs. Arnold expressed concern for Alzheimer's, as their mother did unfortunately suffer from early onset Alzheimer's disease. Mini-Mental status exam performed in office Last visit by TONI Yan scored 30 out of 30 points. Did MoCA testing today for which she scored a 26 out of 30.Patient mostly had difficulty with memory recall with category cue,, and multiple-choice cue. Also difficulty counting back from sevens from 100. Blood work including B12, folate, RPR, TSH, and UA negative. MRI patient obtained, although could not get result because she did not tolerate the machine well,So we repeated MRI without contrast, prescribed 1 dose of lorazepam to help with anxiety associated with image. Showed moderate to severe periventricular and subcortical hyperintensity suggestive of chronic microvascular ischemia, patient is following with neurology, and documents were sent to them. Continue to encourage follow-up with specialist, discussed emergency department criteria/criteria to call the office. Follow-up August 03, 2024, sooner as needed. Following with gastroenterology, cardiology, and neurology in the meantime. All quetsions answered to patients satisfaction. Patient verbalized understanding of diagnosis and treatments explained. To call sooner prior to next visit it any questions/concerns arise. Case discussed with collaborating physician Teri Storud who reviewed the assessment and plan. Chart, medications, labs, vital signs reviewed. Dictation was accomplished with the use of icomply voice recognition software, prone to medical misidentifications and grammatical errors. This is unintentional and the practitioner does try to identify and correct these, but some could still be present. Please do not hesitate to contact practitioner for clarification. 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 Taking Trelegy with adequate control of SOB.Patient stopped taking Trelegy x 1 month, and had a flareup, went to urgent care on Friday and treated with prednisone and albuterol with improvement in symptoms. # With pulmonology obtaining a CT of [...] injury in the hospital.Repeated BMP. Showing stability. Blood pressure was elevated when she walked in at 156/92, but improved to 136/88. Has resumed lisinopril 20 mg. #Restless leg syndrome: IDiscontinue gabapentin because she felt it was making it worse. States that stable on ropinirole 8 mg Extended release in the evening #Heart murmur: Patient with history of aortic and mitral stenosis. Previous echo with evidence of aortic stenosis, mitral stenosis, LVH, LAE. Most recent echo 03/10/2024 showing severe aortic stenosis and left atrial enlargement for which we are referring to cardiology for further evaluation. Ejection fraction 65 to 70%. Normal pulmonary pressures.Continuing to follow with cardiology #Urinary incontinence: Patient states she has not had any episodes of urinary incontinence since last visit. Does wear pads for occasional leaking. Patient did have urinary tract infection which resulted in confusion and lethargy in January. Reports complete resolution of symptoms since.Denies dysuria, urinary frequency, hematuria, fever, chills, low back pain, or confusion. #Cognitive decline: Patient's sister/healthcare proxy Rossi and Mrs. Arnold expressed concern for Alzheimer's, as their mother did unfortunately suffer from early onset Alzheimer's disease. Mini-Mental status exam performed in office Last visit by TONI Yan scored 30 out of 30 points. Did MoCA testing today for which she scored a 26 out of 30.Patient mostly had difficulty with memory recall with category cue,, and multiple-choice cue. Also difficulty counting back from sevens from 100. Blood work including B12, folate, RPR, TSH, and UA negative. MRI patient obtained, although could not get result because she did not tolerate the machine well,So we repeated MRI without contrast, prescribed 1 dose of lorazepam to help with anxiety associated with image. Showed moderate to severe periventricular and subcortical hyperintensity suggestive of chronic microvascular ischemia, patient is following with neurology, and documents were sent to them.In the meantime, getting [facility] for at home evaluation for needs. Patient may eventually need assisted living. Follow-up in 1 month, sooner as needed. Continue to follow with gastroenterology, cardiology and neurology. All quetsions answered to patients satisfaction. Patient verbalized understanding of diagnosis and treatments explained. To call sooner prior to next visit it any questions/concerns arise. Case discussed with collaborating physician Teri Stroud who reviewed the assessment and plan. Chart, medications, labs, vital signs reviewed. Dictation was accomplished with the use of icomply voice recognition software, prone to medical misidentifications and grammatical errors. This is unintentional and the practitioner does try to identify and correct these, but some could still be present. Please do not hesitate to contact practitioner for clarification. 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 Taking Trelegy with adequate control of SOB.Patient [...] Signed scheduled for cataract surgery in November, [facility]. #Cognitive decline: Patient's sister/healthcare proxy Rossi and Mrs. Arnold expressed concern for Alzheimer's, as their mother [...] to neurology. Also going to follow with [facility] services. Follow-up in 2 months, sooner as needed. Follow-up pulmonology, cardiology, neurology in the meantime. All quetsions answered to patients satisfaction. Patient verbalized understanding of diagnosis and treatments explained. To call sooner prior to next visit it any questions/concerns arise. Case discussed with collaborating physician Teri tSroud who reviewed the assessment and plan. Chart, medications, labs, vital signs reviewed. Dictation was accomplished with the use of icomply voice recognition software, prone to medical misidentifications and grammatical errors. This is unintentional and the practitioner does try to identify and correct these, but some could still be present. Please do not hesitate to contact practitioner for clarification. 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 Taking Trelegy with adequate control of SOB. Patient started taking trelagy infrequently due to cost, has since resumed after receiving a coupon. Continue with Trelegy and albuterol. Continues to follow with pulmonology # Patient inquires about snoring/heavy breathing at night. Following with pulmonology consider sleep study # With pulmonology obtaining a CT of her chest,incidentally found a right 1.7 cm kidney lesion For which we ordered an ultrasound, and resulted on 05/25/2024 showing a cyst in the right upper pole of the kidney benign, no further workup needed at this time. Pt states that pulmonology has ordered a CT of the kidney d/t nodule finding. #Anxiety: Patient discontinue mirtazapine due to diarrhea, but she is feeling well, no need for initiation of additional medication at this time. #HTN: BP stable today in office. Educated take blood pressure at home, pt asked about BP machine for the wrist. Call the office blood pressure reading greater than 140/90.Lisinopril was discontinued due to acute kidney injury in the hospital.Repeated BMP. Showing stability. Continuing lisinopril 20 mg at this time.Going obtain a different blood pressure machine at the local pharmacy. #Restless leg syndrome: Discontinued gabapentin because she felt it was making it worse. States that stable on ropinirole 8 mg Extended release in the evening. Pt states that ropinirole has worked well and improved symptoms. Going to follow with neurology for continued restless leg #Heart murmur: Patient with history of aortic and mitral stenosis. Previous echo with evidence of aortic stenosis, mitral stenosis, LVH, LAE. Most recent echo 03/10/2024 showing severe aortic stenosis and left atrial enlargement for which we are referring to cardiology for further evaluation. Ejection fraction 65 to 70%. Normal pulmonary pressures. Continuing to follow with cardiology # Patient had a history of GI bleed, was going to get endoscopy with Dr. Mackenzie. Patient sister will call the office for follow-up. Patient declines any symptoms at this time # Signed scheduled for cataract surgery in November, [place] [facility]. #Cognitive decline: Patient's sister/healthcare proxy Rossi and Mrs. Arnold expressed concern for Alzheimer's, as their mother [...] to neurology. Also going to follow with [facility]. # Pt has a rash on her right arm that is flat and mostly purple in color, with it being slightly more red above the elbow, extending from the wrist to slightly above the elbow. Pt states that the rash does itch. Pt has used arnica with some improvement. Educated pt to use topical benadryl or hydrocortisone. Pt does have history of iron deficiency anemia. Will order iron studies and CBC and reevaluate next visit. # Patient is no longer driving. Does have a living will, and her sister is the power of criminal attorney. Follow-up in 3 months for Medicare wellness visit with fasting labs, sooner as needed All quetsions answered to patients satisfaction. Patient verbalized understanding of diagnosis and treatments explained. To call sooner prior to next visit it any questions/concerns arise. Case discussed with collaborating physician Teri Stroud who reviewed the assessment and plan. Chart, medications, labs, vital signs reviewed. Dictation was accomplished with the use of icomply voice recognition software, prone to medical misidentifications and grammatical errors. This is unintentional and the practitioner does try to identify and correct these, but some could still be present. Please do not hesitate to contact practitioner for clarification. 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 Taking Trelegy with adequate control of SOB. Patient started taking trelagy infrequently due to cost, has since resumed after receiving a coupon. Continue with Trelegy and albuterol. Continues to follow with pulmonology # With pulmonology obtaining a CT of her chest,incidentally found a right 1.7 cm kidney lesion For which we ordered an ultrasound, and resulted on 05/25/2024 showing a cyst in the right upper pole of the kidney benign, no further workup needed at this time. Pt states that pulmonology has ordered a CT of the kidney d/t nodule finding. #Anxiety: Patient discontinue mirtazapine due to diarrhea, but she is feeling well, no need for initiation of additional medication at this time. #HTN: BP stable today in office. Educated take blood pressure at home, pt asked about BP machine for the wrist. Call the office blood pressure reading greater than 140/90.Lisinopril was discontinued due to acute kidney injury in the hospital.Repeated BMP. Showing stability. Continuing lisinopril 20 mg at this time.Going obtain a different blood pressure machine at the local pharmacy. #Restless leg syndrome: Discontinued gabapentin because she felt it was making it worse. States that stable on ropinirole 8 mg Extended release in the evening. Pt states that ropinirole has worked well and improved symptoms. Going to follow with neurology for continued restless leg #Heart murmur: Patient with history of aortic and mitral stenosis. Previous echo with evidence of aortic stenosis, mitral stenosis, LVH, LAE. echo 03/10/2024 showing severe aortic stenosis and left atrial enlargement for which we are referring to cardiology for further evaluation. Ejection fraction 65 to 70%. Normal pulmonary pressures. Continuing to follow with cardiology., Cardiogram January 2025, trying to obtain record.Also had a Holter monitor. # Patient did have an echo cardiogram February 03, 2025, Holter February 04, 2025. Based on those records they started patient on Lasix 20 mg daily following with Dr. Caceres at [facility] cardiology. Patient's weights been stable, limiting sodium. Considering TAVR # Followed with gastroenterology Dr. Daniela Bang, ordered barium swallow scheduled for March 2025 # Recently had blood work January 2025, chronic kidney disease has improved, most recent GFR 54 with creatinine 1.03. Previous GFR 40 with creatinine 1.33 # Vitamin D deficiency: Vitamin D 20 February 2025, replacing vitamin D OTC # It was noted on echocardiogram that patient was holding some fluid around the lungs secondary to an inadequate aortic valve. Going to proceed with a TAVR, but will order chest x-ray. Patient's lungs clear to auscultation. She declines any worsening shortness of breath. # Patient had a history of GI bleed, was going to get endoscopy with Dr. Mackenzie. Scheduled barium swallow. # Signed scheduled for cataract surgery in November, [facility]. #Cognitive decline: Patient's sister/healthcare proxy Rossi and Mrs. Arnold expressed concern for Alzheimer's, as their mother [...] to neurology. Also going to follow with [facility].Patient is doing well today # Patient is no longer driving. Does have a living will, and her sister is the power of criminal attorney. Follow-up next month for Medicare wellness visit, sooner as needed. All quetsions answered to patients satisfaction. Patient verbalized understanding of diagnosis and treatments explained. To call sooner prior to next visit it any questions/concerns arise. Case discussed with collaborating physician Teri Stroud who reviewed the assessment and plan. Chart, medications, labs, vital signs reviewed. Dictation was accomplished with the use of icomply voice recognition software, prone to medical misidentifications and grammatical errors. This is unintentional and the practitioner does try to identify and correct these, but some could still be present. Please do not hesitate to contact practitioner for clarification. 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 Taking Trelegy with adequate control of SOB. Patient started taking trelagy infrequently due to cost, has since resumed after receiving a coupon. Continue with Trelegy and albuterol. Continues to follow with pulmonology # With pulmonology obtaining a CT of her chest,incidentally found a right 1.7 cm kidney lesion For which we ordered an ultrasound, and resulted on 05/25/2024 showing a cyst in the right upper pole of the kidney benign, no further workup needed at this time. Pt states that pulmonology has ordered a CT of the kidney d/t nodule finding. #Anxiety: Patient discontinue mirtazapine due to diarrhea, but she is feeling well, no need for initiation of additional medication at this time. #HTN: BP stable today in office. Educated take blood pressure at home, pt asked about BP machine for the wrist. Call the office blood pressure reading greater than 140/90.Lisinopril was discontinued due to acute kidney injury in the hospital.Repeated BMP. Showing stability. Continuing lisinopril 20 mg at this time.Going obtain a different blood pressure machine at the local pharmacy. #Restless leg syndrome: Discontinued gabapentin because she felt it was making it worse. States that stable on ropinirole 8 mg Extended release in the evening. Pt states that ropinirole has worked well and improved symptoms. Going to follow with neurology for continued restless leg #Heart murmur: Patient with history of aortic and mitral stenosis. Previous echo with evidence of aortic stenosis, mitral stenosis, LVH, LAE. echo 03/10/2024 showing severe aortic stenosis and left atrial enlargement for which we are referring to cardiology for further evaluation. Ejection fraction 65 to 70%. Normal pulmonary pressures. Continuing to follow with cardiology., Cardiogram January 2025, trying to obtain record.Also had a Holter monitor. # Patient did have an echo cardiogram February 03, 2025, Holter February 04, 2025. Based on those records they started patient on Lasix 20 mg daily following with Dr. Caceres at [facility]. Patient's weights been stable, limiting sodium. Considering TAVR # Followed with gastroenterology Dr. Daniela Bang, ordered barium swallow scheduled for March 2025 # Recently had blood work January 2025, chronic kidney disease has improved, most recent GFR 54 with creatinine 1.03. Previous GFR 40 with creatinine 1.33 # Vitamin D deficiency: Vitamin D 20 February 2025, replacing vitamin D OTC # It was noted on echocardiogram that patient was holding some fluid around the lungs secondary to an inadequate aortic valve. Going to proceed with a TAVR, but will order chest x-ray. Patient's lungs clear to auscultation. She declines any worsening shortness of breath. # Patient had a history of GI bleed, was going to get endoscopy with Dr. Mackenzie. Scheduled barium swallow. # Signed scheduled for cataract surgery in November, [facility]. #Cognitive decline: Patient's sister/healthcare proxy Rossi and Mrs. Arnold expressed concern for Alzheimer's, as their mother [...] to neurology. Also going to follow with [facility].Patient is doing well today # Patient is no longer driving. Does have a living will, and her sister is the power of criminal attorney. Follow-up next month for Medicare wellness visit, sooner as needed. All quetsions answered to patients satisfaction. Patient verbalized understanding of diagnosis and treatments explained. To call sooner prior to next visit it any questions/concerns arise. Case discussed with collaborating physician Teri Stroud who reviewed the assessment and plan. Chart, medications, labs, vital signs reviewed. Dictation was accomplished with the use of icomply voice recognition software, prone to medical misidentifications and grammatical errors. This is unintentional and the practitioner does try to identify and correct these, but some could still be present. Please do not hesitate to contact practitioner for clarification. 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 Taking Trelegy with adequate control of SOB.Patient [...] Signed scheduled for cataract surgery in November, [place] [facility]. #Cognitive decline: Patient's sister/healthcare proxy Rossi and Mrs. Arnold expressed concern for Alzheimer's, as their mother [...] neurology. Also going to follow with [facility] [place] [facility]. Follow-up in 2 months, sooner [...] Dictation was accomplished with the use of icomply voice recognition software, prone to medical misidentifications and grammatical errors. This is unintentional and the practitioner does try to identify and correct these, but some could still be present. Please do not hesitate to contact practitioner for clarification. 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 Taking Trelegy with adequate control of SOB.Patient stopped taking Trelegy x 1 month, and had a flareup, went to urgent care on Friday and treated with prednisone and albuterol with improvement in symptoms. # With pulmonology obtaining a CT of [...] injury in the hospital.Repeated BMP. Showing stability. Blood pressure was elevated when she walked in at 156/92, but improved to 136/88. Has resumed lisinopril 20 mg. #Restless leg syndrome: IDiscontinue gabapentin because she felt it was making it worse. States that stable on ropinirole 8 mg Extended release in the evening #Heart murmur: Patient with history of aortic and mitral stenosis. Previous echo with evidence of aortic stenosis, mitral stenosis, LVH, LAE. Most recent echo 03/10/2024 showing severe aortic stenosis and left atrial enlargement for which we are referring to cardiology for further evaluation. Ejection fraction 65 to 70%. Normal pulmonary pressures.Continuing to follow with cardiology #Urinary incontinence: Patient states she has not had any episodes of urinary incontinence since last visit. Does wear pads for occasional leaking. Patient did have urinary tract infection which resulted in confusion and lethargy in January. Reports complete resolution of symptoms since.Denies dysuria, urinary frequency, hematuria, fever, chills, low back pain, or confusion. #Cognitive decline: Patient's sister/healthcare proxy Rossi and Mrs. Arnold expressed concern for Alzheimer's, as their mother did unfortunately suffer from early onset Alzheimer's disease. Mini-Mental status exam performed in office Last visit by TONI Yan scored 30 out of 30 points. Did MoCA testing today for which she scored a 26 out of 30.Patient mostly had difficulty with memory recall with category cue,, and multiple-choice cue. Also difficulty counting back from sevens from 100. Blood work including B12, folate, RPR, TSH, and UA negative. MRI patient obtained, although could not get result because she did not tolerate the machine well,So we repeated MRI without contrast, prescribed 1 dose of lorazepam to help with anxiety associated with image. Showed moderate to severe periventricular and subcortical hyperintensity suggestive of chronic microvascular ischemia, patient is following with neurology, and documents were sent to them.In the meantime, getting [facility] for at home evaluation for needs. Patient may eventually need assisted living. Follow-up in 1 month, sooner as needed. Continue to follow with gastroenterology, cardiology and neurology. All quetsions answered to patients satisfaction. Patient verbalized understanding of diagnosis and treatments explained. To call sooner prior to next visit it any questions/concerns arise. Case discussed with collaborating physician Teri Stroud who reviewed the assessment and plan. Chart, medications, labs, vital signs reviewed. Dictation was accomplished with the use of icomply voice recognition software, prone to medical misidentifications and grammatical errors. This is unintentional and the practitioner does try to identify and correct these, but some could still be present. Please do not hesitate to contact practitioner for clarification. 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 Taking Trelegy with adequate control of SOB. Patient started taking trelagy infrequently due to cost, has since resumed after receiving a coupon. Continue with Trelegy and albuterol. Continues to follow with pulmonology # Patient inquires about snoring/heavy breathing at night. Following with pulmonology consider sleep study # With pulmonology obtaining a CT of her chest,incidentally found a right 1.7 cm kidney lesion For which we ordered an ultrasound, and resulted on 05/25/2024 showing a cyst in the right upper pole of the kidney benign, no further workup needed at this time. Pt states that pulmonology has ordered a CT of the kidney d/t nodule finding. #Anxiety: Patient discontinue mirtazapine due to diarrhea, but she is feeling well, no need for initiation of additional medication at this time. #HTN: BP stable today in office. Educated take blood pressure at home, pt asked about BP machine for the wrist. Call the office blood pressure reading greater than 140/90.Lisinopril was discontinued due to acute kidney injury in the hospital.Repeated BMP. Showing stability. Continuing lisinopril 20 mg at this time.Going obtain a different blood pressure machine at the local pharmacy. #Restless leg syndrome: Discontinued gabapentin because she felt it was making it worse. States that stable on ropinirole 8 mg Extended release in the evening. Pt states that ropinirole has worked well and improved symptoms. Going to follow with neurology for continued restless leg #Heart murmur: Patient with history of aortic and mitral stenosis. Previous echo with evidence of aortic stenosis, mitral stenosis, LVH, LAE. Most recent echo 03/10/2024 showing severe aortic stenosis and left atrial enlargement for which we are referring to cardiology for further evaluation. Ejection fraction 65 to 70%. Normal pulmonary pressures. Continuing to follow with cardiology # Patient had a history of GI bleed, was going to get endoscopy with Dr. Mackenzie. Patient sister will call the office for follow-up. Patient declines any symptoms at this time # Signed scheduled for cataract surgery in November, [place] [facility]. #Cognitive decline: Patient's sister/healthcare proxy Rossi and Mrs. Arnold expressed concern for Alzheimer's, as their mother [...] to neurology. Also going to follow with [facility] services. # Pt has a rash on her right arm that is flat and mostly purple in color, with it being slightly more red above the elbow, extending from the wrist to slightly above the elbow. Pt states that the rash does itch. Pt has used arnica with some improvement. Educated pt to use topical benadryl or hydrocortisone. Pt does have history of iron deficiency anemia. Will order iron studies and CBC and reevaluate next visit. # Patient is no longer driving. Does have a living will, and her sister is the power of criminal attorney. Follow-up in 3 months for Medicare wellness visit with fasting labs, sooner as needed All quetsions answered to patients satisfaction. Patient verbalized understanding of diagnosis and treatments explained. To call sooner prior to next visit it any questions/concerns arise. Case discussed with collaborating physician Teri Stroud who reviewed the assessment and plan. Chart, medications, labs, vital signs reviewed. Dictation was accomplished with the use of icomply voice recognition software, prone to medical misidentifications and grammatical errors. This is unintentional and the practitioner does try to identify and correct these, but some could still be present. Please do not hesitate to contact practitioner for clarification. 06/16/2024 Hyperlipidemia, unspecified hyperlipidemia type (ICD-10 - E78.5) Beata is a pleasant 83-year-old female who presents the office for a hospital follow-up. Admitted to [facility] on 06/13/2024, discharged on 06/14/2024. Patient symptom started on 06/10/2024 for which she had vomiting red blood, and clots x 3 days. She subsequently had black tarry stool without abdominal pain. Declined any recent aspirin or NSAID use. No other red flag symptoms. Patient was hemodynamically stable, H&H 11 and 36% respectively. She was given 40 mg of Protonix IV push in the emergency department and was admitted for further evaluation with consultation to gastroenterology by Dr. Mackenzie. Patient underwent an endoscopy revealing a large hiatal hernia with linear ulcers and dudonitis. They recommended PPI therapy twice daily, and outpatient GI series with esophagram followed by gastroenterology. The upper GI bleed was most likely secondary to hiatal hernia. They recommended consuming very small meals, and to remain upright for 30 to 60 minutes after the meal. Incidentally, patient did have an acute kidney injury on chronic kidney disease, most likely secondary to volume loss. Lisinopril was held, but patient's blood pressure holding stable. Received fluids in the hospital. Will order repeat BMP/ CBC. Will call with results, and reinitiate lisinopril as needed. Provided with blood pressure cuff Prescription for patient to blood pressure at home daily. Otherwise, notes transferred from previous documents for continuity of care. 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 Taking Trelegy with adequate control of SOB. # With pulmonology obtaining a CT of her chest, still pending but incidentally found a right 1.7 cm kidney lesion [...] due to acute kidney injury in the hospital.Will repeat BMP, consider reinitiation of lisinopril, provided with prescription for BP cuff. #Restless leg syndrome: Improved with gabapentin 400 mg in the morning, and ropinirole 8 mg extended release in the evening. #Heart murmur: Patient with history of aortic and mitral stenosis. Previous echo with evidence of aortic stenosis, mitral stenosis, LVH, LAE. Most recent echo 03/10/2024 showing severe aortic stenosis and left atrial enlargement for which we are referring to cardiology for further evaluation. This referral still pending.Ejection fraction 65 to 70%. Normal pulmonary pressures.Next visit with cardiology is May 28. #Urinary incontinence: Patient states she has not had any episodes of urinary incontinence since last visit. Does wear pads for occasional leaking. Patient did have urinary tract infection which resulted in confusion and lethargy in January. Reports complete resolution of symptoms since.Denies dysuria, urinary frequency, hematuria, fever, chills, low back pain, or confusion. #Cognitive decline: Patient's sister/healthcare proxy Rossi and Mrs. Arnold expressed concern for Alzheimer's, as their mother did unfortunately suffer from early onset Alzheimer's disease. Mini-Mental status exam performed in office Last visit by TONI Yan scored 30 out of 30 points. Did MoCA testing today for which she scored a 26 out of 30.Patient mostly had difficulty with memory recall with category cue,, and multiple-choice cue. Also difficulty counting back from sevens from 100. Blood work including B12, folate, RPR, TSH, and UA negative. MRI patient obtained, although could not get result because she did not tolerate the machine well,So we repeated MRI without contrast, prescribed 1 dose of lorazepam to help with anxiety associated with image. Showed moderate to severe periventricular and subcortical hyperintensity suggestive of chronic microvascular ischemia, patient is following with neurology, and documents were sent to them. Continue to encourage follow-up with specialist, discussed emergency department criteria/criteria to call the office. Follow-up August 03, 2024, sooner as needed. Following with gastroenterology, cardiology, and neurology in the meantime. All quetsions answered to patients satisfaction. Patient verbalized understanding of diagnosis and treatments explained. To call sooner prior to next visit it any questions/concerns arise. Case discussed with collaborating physician Teri Stroud who reviewed the assessment and plan. Chart, medications, labs, vital signs reviewed. Dictation was accomplished with the use of icomply voice recognition software, prone to medical misidentifications and grammatical errors. This is unintentional and the practitioner does try to identify and correct these, but some could still be present. Please do not hesitate to contact practitioner for clarification. 04/15/2024 COPD, mild (ICD-10 - J44.9) # Scheduled for COVID, flu vaccine in April, will also get RSV vaccine this fall. # Hyperlipidemia: Continue simvastatin 20 mg # Swelling under right lymph node, on examination bilateral lymph nodes submandibularly are equal. Patient states that is getting better. Will monitor over the next week, if no improvement could consider ultrasound. CBC in November within normal limits. No unintentional weight loss. 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 Taking Trelegy with adequate control of SOB. Anxiety: Patient reporting markedly improved symptoms of anxiety on mirtazapine 15 mg twice daily. But admits to diarrhea in the morning. Would like to trial 15 mg in the morning, and 7.5 mg in the evening. #HTN: BP stable today in office, continue lisinopril 20 mg daily. Educated take blood pressure at home. Call the office blood pressure reading greater than 140/90. #Restless leg syndrome: Patient taking gabapentin 300 mg In the morning in addition to ropinirole 8 mg extended release In the evening. States extended release medication has improved her restless leg, and she is no longer waking during the night. Still admits to difficulty with restless leg in the morning. Will increase gabapentin dose to 400 mg. Referral to [facility] neurology is still pending.Is using a cane. No recent falls. #Heart murmur: Patient with history of aortic and mitral stenosis. Previous echo with evidence of aortic stenosis, mitral stenosis, LVH, LAE. Most recent echo 03/10/2024 showing severe aortic stenosis and left atrial enlargement for which we are referring to cardiology for further evaluation. This referral still pending.Ejection fraction 65 to 70%. Normal pulmonary pressures. #Urinary incontinence: Patient states she has not had any episodes of urinary incontinence since last visit. Does wear pads for occasional leaking. Patient did have urinary tract infection which resulted in confusion and lethargy in January. Reports complete resolution of symptoms since.Denies dysuria, urinary frequency, hematuria, fever, chills, low back pain, or confusion. #Cognitive decline: Patient's sister/healthcare proxy Rossi and Mrs. Arnold expressed concern for Alzheimer's, as their mother did unfortunately suffer from early onset Alzheimer's disease. Mini-Mental status exam performed in office Last visit by TONI Yan scored 30 out of 30 points. Will repeat Mini-Mental status exam in April in addition to in addition plan to do MoCA exam. The patient is educated that some level of forgetfulness with age is a part of normal aging. However given their concerns, plan to workup with laboratory evaluation including B12, folate, RPR, TSH, UA.Blood work still pending, MRI scheduled for April 2024. Neurology referral still pending. All questions answered to the patient's satisfaction. Patient demonstrates understanding of diagnosis and treatments discussed. Follow-up in 6 weeks, sooner should any questions/concerns arise. Plan for MoCA, and lab/imaging review at this visit. Case discussed with collaborating physician Mónica Stroud who has reviewed the assessment/plan. Chart, medications, labs, and vital signs reviewed. Dictation completed with the use of icomply voice recognition software, prone to medical misidentifications and grammatical errors. All errors are unintentional. Although the practitioner does try to identify and correct errors, some may be present. Please do not hesitate to contact the practitioner for clarification. 05/11/2024 Hyperlipidemia, unspecified hyperlipidemia type (ICD-10 - E78.5) # Obtained COVID and flu vaccine, getting RSV in the next few weeks at local pharmacy. 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 Taking Trelegy with adequate control of SOB. # With pulmonology obtaining a CT of her chest, still pending but incidentally found a right 1.7 cm kidney lesion for which we will order ultrasound. # Anxiety: Patient discontinue mirtazapine due to diarrhea, but she is feeling well, no need for initiation of additional medication at this time. #HTN: BP stable today in office, continue lisinopril 20 mg daily. Educated take blood pressure at home. Call the office blood pressure reading greater than 140/90. #Restless leg syndrome: Improved with gabapentin 400 mg in the morning, and ropinirole 8 mg extended release in the evening. #Heart murmur: Patient with history of aortic and mitral stenosis. Previous echo with evidence of aortic stenosis, mitral stenosis, LVH, LAE. Most recent echo 03/10/2024 showing severe aortic stenosis and left atrial enlargement for which we are referring to cardiology for further evaluation. This referral still pending.Ejection fraction 65 to 70%. Normal pulmonary pressures.Next visit with cardiology is May 28. #Urinary incontinence: Patient states she has not had any episodes of urinary incontinence since last visit. Does wear pads for occasional leaking. Patient did have urinary tract infection which resulted in confusion and lethargy in January. Reports complete resolution of symptoms since.Denies dysuria, urinary frequency, hematuria, fever, chills, low back pain, or confusion. #Cognitive decline: Patient's sister/healthcare proxy Rossi and Mrs. Arnold expressed concern for Alzheimer's, as their mother did unfortunately suffer from early onset Alzheimer's disease. Mini-Mental status exam performed in office Last visit by TONI Yan scored 30 out of 30 points. Did MoCA testing today for which she scored a 26 out of 30.Patient mostly had difficulty with memory recall with category cue,, and multiple-choice cue. Also difficulty counting back from sevens from 100. Blood work including B12, folate, RPR, TSH, and UA negative. MRI patient obtained, although could not get result because she did not tolerate the machine well, and she is considering going back into to the machine or not. Neurology still pending. Follow-up in 3 months, sooner as needed. Following with cardiology and hopefully neurology in the meantime. All quetsions answered to patients satisfaction. Patient verbalized understanding of diagnosis and treatments explained. To call sooner prior to next visit it any questions/concerns arise. Case discussed with collaborating physician Teri Stroud who reviewed the assessment and plan. Chart, medications, labs, vital signs reviewed. Dictation was accomplished with the use of icomply voice recognition software, prone to medical misidentifications and grammatical errors. This is unintentional and the practitioner does try to identify and correct these, but some could still be present. Please do not hesitate to contact practitioner for clarification. 04/15/2024 Anxiety (ICD-10 - F41.9) # Scheduled for COVID, flu vaccine in April, will also get RSV vaccine this fall. # Hyperlipidemia: Continue simvastatin 20 mg # Swelling under right lymph node, on examination bilateral lymph nodes submandibularly are equal. Patient states that is getting better. Will monitor over the next week, if no improvement could consider ultrasound. CBC in November within normal limits. No unintentional weight loss. 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 Taking Trelegy with adequate control of SOB. Anxiety: Patient reporting markedly improved symptoms of anxiety on mirtazapine 15 mg twice daily. But admits to diarrhea in the morning. Would like to trial 15 mg in the morning, and 7.5 mg in the evening. #HTN: BP stable today in office, continue lisinopril 20 mg daily. Educated take blood pressure at home. Call the office blood pressure reading greater than 140/90. #Restless leg syndrome: Patient taking gabapentin 300 mg In the morning in addition to ropinirole 8 mg extended release In the evening. States extended release medication has improved her restless leg, and she is no longer waking during the night. Still admits to difficulty with restless leg in the morning. Will increase gabapentin dose to 400 mg. Referral to [facility] neurology is still pending.Is using a cane. No recent falls. #Heart murmur: Patient with history of aortic and mitral stenosis. Previous echo with evidence of aortic stenosis, mitral stenosis, LVH, LAE. Most recent echo 03/10/2024 showing severe aortic stenosis and left atrial enlargement for which we are referring to cardiology for further evaluation. This referral still pending.Ejection fraction 65 to 70%. Normal pulmonary pressures. #Urinary incontinence: Patient states she has not had any episodes of urinary incontinence since last visit. Does wear pads for occasional leaking. Patient did have urinary tract infection which resulted in confusion and lethargy in January. Reports complete resolution of symptoms since.Denies dysuria, urinary frequency, hematuria, fever, chills, low back pain, or confusion. #Cognitive decline: Patient's sister/healthcare proxy Rossi and Mrs. Arnold expressed concern for Alzheimer's, as their mother did unfortunately suffer from early onset Alzheimer's disease. Mini-Mental status exam performed in office Last visit by TONI Yan scored 30 out of 30 points. Will repeat Mini-Mental status exam in April in addition to in addition plan to do MoCA exam. The patient is educated that some level of forgetfulness with age is a part of normal aging. However given their concerns, plan to workup with laboratory evaluation including B12, folate, RPR, TSH, UA.Blood work still pending, MRI scheduled for April 2024. Neurology referral still pending. All questions answered to the patient's satisfaction. Patient demonstrates understanding of diagnosis and treatments discussed. Follow-up in 6 weeks, sooner should any questions/concerns arise. Plan for MoCA, and lab/imaging review at this visit. Case discussed with collaborating physician Mónica Stroud who has reviewed the assessment/plan. Chart, medications, labs, and vital signs reviewed. Dictation completed with the use of icomply voice recognition software, prone to medical misidentifications and grammatical errors. All errors are unintentional. Although the practitioner does try to identify and correct errors, some may be present. Please do not hesitate to contact the practitioner for clarification. 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 Taking Trelegy with adequate control of SOB. # With pulmonology obtaining a CT of her chest, still pending but incidentally found a right 1.7 cm kidney lesion for which we will order ultrasound. # Anxiety: Patient discontinue mirtazapine due to diarrhea, but she is feeling well, no need for initiation of additional medication at this time. #HTN: BP stable today in office, continue lisinopril 20 mg daily. Educated take blood pressure at home. Call the office blood pressure reading greater than 140/90. #Restless leg syndrome: Improved with gabapentin 400 mg in the morning, and ropinirole 8 mg extended release in the evening. #Heart murmur: Patient with history of aortic and mitral stenosis. Previous echo with evidence of aortic stenosis, mitral stenosis, LVH, LAE. Most recent echo 03/10/2024 showing severe aortic stenosis and left atrial enlargement for which we are referring to cardiology for further evaluation. This referral still pending.Ejection fraction 65 to 70%. Normal pulmonary pressures.Next visit with cardiology is May 28. #Urinary incontinence: Patient states she has not had any episodes of urinary incontinence since last visit. Does wear pads for occasional leaking. Patient did have urinary tract infection which resulted in confusion and lethargy in January. Reports complete resolution of symptoms since.Denies dysuria, urinary frequency, hematuria, fever, chills, low back pain, or confusion. #Cognitive decline: Patient's sister/healthcare proxy Rossi and Mrs. Arnold expressed concern for Alzheimer's, as their mother did unfortunately suffer from early onset Alzheimer's disease. Mini-Mental status exam performed in office Last visit by TONI Yan scored 30 out of 30 points. Did MoCA testing today for which she scored a 26 out of 30.Patient mostly had difficulty with memory recall with category cue,, and multiple-choice cue. Also difficulty counting back from sevens from 100. Blood work including B12, folate, RPR, TSH, and UA negative. MRI patient obtained, although could not get result because she did not tolerate the machine well, and she is considering going back into to the machine or not. Neurology still pending. Follow-up in 3 months, sooner as needed. Following with cardiology and hopefully neurology in the meantime. All quetsions answered to patients satisfaction. Patient verbalized understanding of diagnosis and treatments explained. To call sooner prior to next visit it any questions/concerns arise. Case discussed with collaborating physician Teri Stroud who reviewed the assessment and plan. Chart, medications, labs, vital signs reviewed. Dictation was accomplished with the use of icomply voice recognition software, prone to medical misidentifications and grammatical errors. This is unintentional and the practitioner does try to identify and correct these, but some could still be present. Please do not hesitate to contact practitioner for clarification. 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 Taking Trelegy with adequate control of SOB.Patient stopped taking Trelegy x 1 month, and had a flareup, went to urgent care on Friday and treated with prednisone and albuterol with improvement in symptoms. # With pulmonology obtaining a CT of [...] injury in the hospital.Repeated BMP. Showing stability. Blood pressure was elevated when she walked in at 156/92, but improved to 136/88. Has resumed lisinopril 20 mg. #Restless leg syndrome: IDiscontinue gabapentin because she felt it was making it worse. States that stable on ropinirole 8 mg Extended release in the evening #Heart murmur: Patient with history of aortic and mitral stenosis. Previous echo with evidence of aortic stenosis, mitral stenosis, LVH, LAE. Most recent echo 03/10/2024 showing severe aortic stenosis and left atrial enlargement for which we are referring to cardiology for further evaluation. Ejection fraction 65 to 70%. Normal pulmonary pressures.Continuing to follow with cardiology #Urinary incontinence: Patient states she has not had any episodes of urinary incontinence since last visit. Does wear pads for occasional leaking. Patient did have urinary tract infection which resulted in confusion and lethargy in January. Reports complete resolution of symptoms since.Denies dysuria, urinary frequency, hematuria, fever, chills, low back pain, or confusion. #Cognitive decline: Patient's sister/healthcare proxy Rossi and Mrs. Arnold expressed concern for Alzheimer's, as their mother did unfortunately suffer from early onset Alzheimer's disease. Mini-Mental status exam performed in office Last visit by TONI Yan scored 30 out of 30 points. Did MoCA testing today for which she scored a 26 out of 30.Patient mostly had difficulty with memory recall with category cue,, and multiple-choice cue. Also difficulty counting back from sevens from 100. Blood work including B12, folate, RPR, TSH, and UA negative. MRI patient obtained, although could not get result because she did not tolerate the machine well,So we repeated MRI without contrast, prescribed 1 dose of lorazepam to help with anxiety associated with image. Showed moderate to severe periventricular and subcortical hyperintensity suggestive of chronic microvascular ischemia, patient is following with neurology, and documents were sent to them.In the meantime, getting [facility] for at home evaluation for needs. Patient may eventually need assisted living. Follow-up in 1 month, sooner as needed. Continue to follow with gastroenterology, cardiology and neurology. All quetsions answered to patients satisfaction. Patient verbalized understanding of diagnosis and treatments explained. To call sooner prior to next visit it any questions/concerns arise. Case discussed with collaborating physician Teri Stroud who reviewed the assessment and plan. Chart, medications, labs, vital signs reviewed. Dictation was accomplished with the use of icomply voice recognition software, prone to medical misidentifications and grammatical errors. This is unintentional and the practitioner does try to identify and correct these, but some could still be present. Please do not hesitate to contact practitioner for clarification. 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 Admitted to [facility] on 06/13/2024, discharged on 06/14/2024. Patient symptom started on 06/10/2024 for which she had vomiting red blood, and clots x 3 days. She subsequently had black tarry stool without abdominal pain. Declined any recent aspirin or NSAID use. No other red flag symptoms. Patient was hemodynamically stable, H&H 11 and 36% respectively. She was given 40 mg of Protonix IV push in the emergency department and was admitted for further evaluation with consultation to gastroenterology by Dr. Mackenzie. Patient underwent an endoscopy revealing a large hiatal hernia with linear ulcers and dudonitis. They recommended PPI therapy twice daily, and outpatient GI series with esophagram followed by gastroenterology. The upper GI bleed was most likely secondary to hiatal hernia. They recommended consuming very small meals, and to remain upright for 30 to 60 minutes after the meal. Incidentally, patient did have an acute kidney injury on chronic kidney disease, most likely secondary to volume loss. Lisinopril was held, but patient's blood pressure holding stable. Received fluids in the hospital. Will order repeat BMP/ CBC. Will call with results, and reinitiate lisinopril as needed. Provided with blood pressure cuff Prescription for patient to blood pressure at home daily. Otherwise, notes transferred from previous documents for continuity of care. 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 Taking Trelegy with adequate control of SOB. # With pulmonology obtaining a CT of her chest, still pending but incidentally found a right 1.7 cm kidney lesion [...] due to acute kidney injury in the hospital.Will repeat BMP, consider reinitiation of lisinopril, provided with prescription for BP cuff. #Restless leg syndrome: Improved with gabapentin 400 mg in the morning, and ropinirole 8 mg extended release in the evening. #Heart murmur: Patient with history of aortic and mitral stenosis. Previous echo with evidence of aortic stenosis, mitral stenosis, LVH, LAE. Most recent echo 03/10/2024 showing severe aortic stenosis and left atrial enlargement for which we are referring to cardiology for further evaluation. This referral still pending.Ejection fraction 65 to 70%. Normal pulmonary pressures.Next visit with cardiology is May 28. #Urinary incontinence: Patient states she has not had any episodes of urinary incontinence since last visit. Does wear pads for occasional leaking. Patient did have urinary tract infection which resulted in confusion and lethargy in January. Reports complete resolution of symptoms since.Denies dysuria, urinary frequency, hematuria, fever, chills, low back pain, or confusion. #Cognitive decline: Patient's sister/healthcare proxy Rossi and Mrs. Arnold expressed concern for Alzheimer's, as their mother did unfortunately suffer from early onset Alzheimer's disease. Mini-Mental status exam performed in office Last visit by TONI Yan scored 30 out of 30 points. Did MoCA testing today for which she scored a 26 out of 30.Patient mostly had difficulty with memory recall with category cue,, and multiple-choice cue. Also difficulty counting back from sevens from 100. Blood work including B12, folate, RPR, TSH, and UA negative. MRI patient obtained, although could not get result because she did not tolerate the machine well,So we repeated MRI without contrast, prescribed 1 dose of lorazepam to help with anxiety associated with image. Showed moderate to severe periventricular and subcortical hyperintensity suggestive of chronic microvascular ischemia, patient is following with neurology, and documents were sent to them. Continue to encourage follow-up with specialist, discussed emergency department criteria/criteria to call the office. Follow-up August 03, 2024, sooner as needed. Following with gastroenterology, cardiology, and neurology in the meantime. All quetsions answered to patients satisfaction. Patient verbalized understanding of diagnosis and treatments explained. To call sooner prior to next visit it any questions/concerns arise. Case discussed with collaborating physician Teri Stroud who reviewed the assessment and plan. Chart, medications, labs, vital signs reviewed. Dictation was accomplished with the use of icomply voice recognition software, prone to medical misidentifications and grammatical errors. This is unintentional and the practitioner does try to identify and correct these, but some could still be present. Please do not hesitate to contact practitioner for clarification. 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 Taking Trelegy with adequate control of SOB. Patient started taking trelagy infrequently due to cost, has since resumed after receiving a coupon. Continue with Trelegy and albuterol. Continues to follow with pulmonology # Patient inquires about snoring/heavy breathing at night. Following with pulmonology consider sleep study # With pulmonology obtaining a CT of her chest,incidentally found a right 1.7 cm kidney lesion For which we ordered an ultrasound, and resulted on 05/25/2024 showing a cyst in the right upper pole of the kidney benign, no further workup needed at this time. Pt states that pulmonology has ordered a CT of the kidney d/t nodule finding. #Anxiety: Patient discontinue mirtazapine due to diarrhea, but she is feeling well, no need for initiation of additional medication at this time. #HTN: BP stable today in office. Educated take blood pressure at home, pt asked about BP machine for the wrist. Call the office blood pressure reading greater than 140/90.Lisinopril was discontinued due to acute kidney injury in the hospital.Repeated BMP. Showing stability. Continuing lisinopril 20 mg at this time.Going obtain a different blood pressure machine at the local pharmacy. #Restless leg syndrome: Discontinued gabapentin because she felt it was making it worse. States that stable on ropinirole 8 mg Extended release in the evening. Pt states that ropinirole has worked well and improved symptoms. Going to follow with neurology for continued restless leg #Heart murmur: Patient with history of aortic and mitral stenosis. Previous echo with evidence of aortic stenosis, mitral stenosis, LVH, LAE. Most recent echo 03/10/2024 showing severe aortic stenosis and left atrial enlargement for which we are referring to cardiology for further evaluation. Ejection fraction 65 to 70%. Normal pulmonary pressures. Continuing to follow with cardiology # Patient had a history of GI bleed, was going to get endoscopy with Dr. Mackenzie. Patient sister will call the office for follow-up. Patient declines any symptoms at this time # Signed scheduled for cataract surgery in November, [facility]. #Cognitive decline: Patient's sister/healthcare proxy Rossi and Mrs. Arnold expressed concern for Alzheimer's, as their mother [...] to neurology. Also going to follow with [facility]. # Pt has a rash on her right arm that is flat and mostly purple in color, with it being slightly more red above the elbow, extending from the wrist to slightly above the elbow. Pt states that the rash does itch. Pt has used arnica with some improvement. Educated pt to use topical benadryl or hydrocortisone. Pt does have history of iron deficiency anemia. Will order iron studies and CBC and reevaluate next visit. # Patient is no longer driving. Does have a living will, and her sister is the power of criminal attorney. Follow-up in 3 months for Medicare wellness visit with fasting labs, sooner as needed All quetsions answered to patients satisfaction. Patient verbalized understanding of diagnosis and treatments explained. To call sooner prior to next visit it any questions/concerns arise. Case discussed with collaborating physician Teri Stroud who reviewed the assessment and plan. Chart, medications, labs, vital signs reviewed. Dictation was accomplished with the use of icomply voice recognition software, prone to medical misidentifications and grammatical errors. This is unintentional and the practitioner does try to identify and correct these, but some could still be present. Please do not hesitate to contact practitioner for clarification. 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 Taking Trelegy with adequate control of SOB.Patient [...] Signed scheduled for cataract surgery in November, [facility]. #Cognitive decline: Patient's sister/healthcare proxy Rossi and Mrs. Arnold expressed concern for Alzheimer's, as their mother [...] to neurology. Also going to follow with [facility] services. Follow-up in 2 months, sooner [...] Dictation was accomplished with the use of icomply voice recognition software, prone to medical misidentifications and grammatical errors. This is unintentional and the practitioner does try to identify and correct these, but some could still be present. Please do not hesitate to contact practitioner for clarification. 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 Taking Trelegy with adequate control of SOB. Patient started taking trelagy infrequently due to cost, has since resumed after receiving a coupon. Continue with Trelegy and albuterol. Continues to follow with pulmonology # With pulmonology obtaining a CT of her chest,incidentally found a right 1.7 cm kidney lesion For which we ordered an ultrasound, and resulted on 05/25/2024 showing a cyst in the right upper pole of the kidney benign, no further workup needed at this time. Pt states that pulmonology has ordered a CT of the kidney d/t nodule finding. #Anxiety: Patient discontinue mirtazapine due to diarrhea, but she is feeling well, no need for initiation of additional medication at this time. #HTN: BP stable today in office. Educated take blood pressure at home, pt asked about BP machine for the wrist. Call the office blood pressure reading greater than 140/90.Lisinopril was discontinued due to acute kidney injury in the hospital.Repeated BMP. Showing stability. Continuing lisinopril 20 mg at this time.Going obtain a different blood pressure machine at the local pharmacy. #Restless leg syndrome: Discontinued gabapentin because she felt it was making it worse. States that stable on ropinirole 8 mg Extended release in the evening. Pt states that ropinirole has worked well and improved symptoms. Going to follow with neurology for continued restless leg #Heart murmur: Patient with history of aortic and mitral stenosis. Previous echo with evidence of aortic stenosis, mitral stenosis, LVH, LAE. echo 03/10/2024 showing severe aortic stenosis and left atrial enlargement for which we are referring to cardiology for further evaluation. Ejection fraction 65 to 70%. Normal pulmonary pressures. Continuing to follow with cardiology., Cardiogram January 2025, trying to obtain record.Also had a Holter monitor. # Patient did have an echo cardiogram February 03, 2025, Holter February 04, 2025. Based on those records they started patient on Lasix 20 mg daily following with Dr. Caceres at [facility]. Patient's weights been stable, limiting sodium. Considering TAVR # Followed with gastroenterology Dr. Daniela Bang, ordered barium swallow scheduled for March 2025 # Recently had blood work January 2025, chronic kidney disease has improved, most recent GFR 54 with creatinine 1.03. Previous GFR 40 with creatinine 1.33 # Vitamin D deficiency: Vitamin D 20 February 2025, replacing vitamin D OTC # It was noted on echocardiogram that patient was holding some fluid around the lungs secondary to an inadequate aortic valve. Going to proceed with a TAVR, but will order chest x-ray. Patient's lungs clear to auscultation. She declines any worsening shortness of breath. # Patient had a history of GI bleed, was going to get endoscopy with Dr. Mackenzie. Scheduled barium swallow. # Signed scheduled for cataract surgery in November, [facility]. #Cognitive decline: Patient's sister/healthcare proxy Rossi and Mrs. Arnold expressed concern for Alzheimer's, as their mother [...] to neurology. Also going to follow with [facility].Patient is doing well today # Patient is no longer driving. Does have a living will, and her sister is the power of criminal attorney. Follow-up next month for Medicare wellness visit, sooner as needed. All quetsions answered to patients satisfaction. Patient verbalized understanding of diagnosis and treatments explained. To call sooner prior to next visit it any questions/concerns arise. Case discussed with collaborating physician Teri Stroud who reviewed the assessment and plan. Chart, medications, labs, vital signs reviewed. Dictation was accomplished with the use of icomply voice recognition software, prone to medical misidentifications and grammatical errors. This is unintentional and the practitioner does try to identify and correct these, but some could still be present. Please do not hesitate to contact practitioner for clarification. 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 Taking Trelegy with adequate control of SOB. Patient started taking trelagy infrequently due to cost, has since resumed after receiving a coupon. Continue with Trelegy and albuterol. Continues to follow with pulmonology # Patient inquires about snoring/heavy breathing at night. Following with pulmonology consider sleep study # With pulmonology obtaining a CT of her chest,incidentally found a right 1.7 cm kidney lesion For which we ordered an ultrasound, and resulted on 05/25/2024 showing a cyst in the right upper pole of the kidney benign, no further workup needed at this time. Pt states that pulmonology has ordered a CT of the kidney d/t nodule finding. #Anxiety: Patient discontinue mirtazapine due to diarrhea, but she is feeling well, no need for initiation of additional medication at this time. #HTN: BP stable today in office. Educated take blood pressure at home, pt asked about BP machine for the wrist. Call the office blood pressure reading greater than 140/90.Lisinopril was discontinued due to acute kidney injury in the hospital.Repeated BMP. Showing stability. Continuing lisinopril 20 mg at this time.Going obtain a different blood pressure machine at the local pharmacy. #Restless leg syndrome: Discontinued gabapentin because she felt it was making it worse. States that stable on ropinirole 8 mg Extended release in the evening. Pt states that ropinirole has worked well and improved symptoms. Going to follow with neurology for continued restless leg #Heart murmur: Patient with history of aortic and mitral stenosis. Previous echo with evidence of aortic stenosis, mitral stenosis, LVH, LAE. Most recent echo 03/10/2024 showing severe aortic stenosis and left atrial enlargement for which we are referring to cardiology for further evaluation. Ejection fraction 65 to 70%. Normal pulmonary pressures. Continuing to follow with cardiology # Patient had a history of GI bleed, was going to get endoscopy with Dr. Mackenzie. Patient sister will call the office for follow-up. Patient declines any symptoms at this time # Signed scheduled for cataract surgery in November, [place] [facility]. #Cognitive decline: Patient's sister/healthcare proxy Rossi and Mrs. Arnold expressed concern for Alzheimer's, as their mother [...] to neurology. Also going to follow with [facility]. # Pt has a rash on her right arm that is flat and mostly purple in color, with it being slightly more red above the elbow, extending from the wrist to slightly above the elbow. Pt states that the rash does itch. Pt has used arnica with some improvement. Educated pt to use topical benadryl or hydrocortisone. Pt does have history of iron deficiency anemia. Will order iron studies and CBC and reevaluate next visit. # Patient is no longer driving. Does have a living will, and her sister is the power of criminal attorney. Follow-up in 3 months for Medicare wellness visit with fasting labs, sooner as needed All quetsions answered to patients satisfaction. Patient verbalized understanding of diagnosis and treatments explained. To call sooner prior to next visit it any questions/concerns arise. Case discussed with collaborating physician Teri Stroud who reviewed the assessment and plan. Chart, medications, labs, vital signs reviewed. Dictation was accomplished with the use of icomply voice recognition software, prone to medical misidentifications and grammatical errors. This is unintentional and the practitioner does try to identify and correct these, but some could still be present. Please do not hesitate to contact practitioner for clarification. 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 Taking Trelegy with adequate control of SOB. Patient started taking trelagy infrequently due to cost, has since resumed after receiving a coupon. Continue with Trelegy and albuterol. Continues to follow with pulmonology # With pulmonology obtaining a CT of her chest,incidentally found a right 1.7 cm kidney lesion For which we ordered an ultrasound, and resulted on 05/25/2024 showing a cyst in the right upper pole of the kidney benign, no further workup needed at this time. Pt states that pulmonology has ordered a CT of the kidney d/t nodule finding. #Anxiety: Patient discontinue mirtazapine due to diarrhea, but she is feeling well, no need for initiation of additional medication at this time. #HTN: BP stable today in office. Educated take blood pressure at home, pt asked about BP machine for the wrist. Call the office blood pressure reading greater than 140/90.Lisinopril was discontinued due to acute kidney injury in the hospital.Repeated BMP. Showing stability. Continuing lisinopril 20 mg at this time.Going obtain a different blood pressure machine at the local pharmacy. #Restless leg syndrome: Discontinued gabapentin because she felt it was making it worse. States that stable on ropinirole 8 mg Extended release in the evening. Pt states that ropinirole has worked well and improved symptoms. Going to follow with neurology for continued restless leg #Heart murmur: Patient with history of aortic and mitral stenosis. Previous echo with evidence of aortic stenosis, mitral stenosis, LVH, LAE. echo 03/10/2024 showing severe aortic stenosis and left atrial enlargement for which we are referring to cardiology for further evaluation. Ejection fraction 65 to 70%. Normal pulmonary pressures. Continuing to follow with cardiology., Cardiogram January 2025, trying to obtain record.Also had a Holter monitor. # Patient did have an echo cardiogram February 03, 2025, Holter February 04, 2025. Based on those records they started patient on Lasix 20 mg daily following with Dr. Caceres at [facility]. Patient's weights been stable, limiting sodium. Considering TAVR # Followed with gastroenterology Dr. Daniela Bang, ordered barium swallow scheduled for March 2025 # Recently had blood work January 2025, chronic kidney disease has improved, most recent GFR 54 with creatinine 1.03. Previous GFR 40 with creatinine 1.33 # Vitamin D deficiency: Vitamin D 20 February 2025, replacing vitamin D OTC # It was noted on echocardiogram that patient was holding some fluid around the lungs secondary to an inadequate aortic valve. Going to proceed with a TAVR, but will order chest x-ray. Patient's lungs clear to auscultation. She declines any worsening shortness of breath. # Patient had a history of GI bleed, was going to get endoscopy with Dr. Mackenzie. Scheduled barium swallow. # Signed scheduled for cataract surgery in November, [facility]. #Cognitive decline: Patient's sister/healthcare proxy Rossi and Mrs. Arnold expressed concern for Alzheimer's, as their mother [...] to neurology. Also going to follow with [facility].Patient is doing well today # Patient is no longer driving. Does have a living will, and her sister is the power of criminal attorney. Follow-up next month for Medicare wellness visit, sooner as needed. All quetsions answered to patients satisfaction. Patient verbalized understanding of diagnosis and treatments explained. To call sooner prior to next visit it any questions/concerns arise. Case discussed with collaborating physician Teri Stroud who reviewed the assessment and plan. Chart, medications, labs, vital signs reviewed. Dictation was accomplished with the use of icomply voice recognition software, prone to medical misidentifications and grammatical errors. This is unintentional and the practitioner does try to identify and correct these, but some could still be present. Please do not hesitate to contact practitioner for clarification. 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 Taking Trelegy with adequate control of SOB.Patient stopped taking Trelegy x 1 month, and had a flareup, went to urgent care on Friday and treated with prednisone and albuterol with improvement in symptoms. # With pulmonology obtaining a CT of [...] injury in the hospital.Repeated BMP. Showing stability. Blood pressure was elevated when she walked in at 156/92, but improved to 136/88. Has resumed lisinopril 20 mg. #Restless leg syndrome: IDiscontinue gabapentin because she felt it was making it worse. States that stable on ropinirole 8 mg Extended release in the evening #Heart murmur: Patient with history of aortic and mitral stenosis. Previous echo with evidence of aortic stenosis, mitral stenosis, LVH, LAE. Most recent echo 03/10/2024 showing severe aortic stenosis and left atrial enlargement for which we are referring to cardiology for further evaluation. Ejection fraction 65 to 70%. Normal pulmonary pressures.Continuing to follow with cardiology #Urinary incontinence: Patient states she has not had any episodes of urinary incontinence since last visit. Does wear pads for occasional leaking. Patient did have urinary tract infection which resulted in confusion and lethargy in January. Reports complete resolution of symptoms since.Denies dysuria, urinary frequency, hematuria, fever, chills, low back pain, or confusion. #Cognitive decline: Patient's sister/healthcare proxy Rossi and Mrs. Arnold expressed concern for Alzheimer's, as their mother did unfortunately suffer from early onset Alzheimer's disease. Mini-Mental status exam performed in office Last visit by TONI Yan scored 30 out of 30 points. Did MoCA testing today for which she scored a 26 out of 30.Patient mostly had difficulty with memory recall with category cue,, and multiple-choice cue. Also difficulty counting back from sevens from 100. Blood work including B12, folate, RPR, TSH, and UA negative. MRI patient obtained, although could not get result because she did not tolerate the machine well,So we repeated MRI without contrast, prescribed 1 dose of lorazepam to help with anxiety associated with image. Showed moderate to severe periventricular and subcortical hyperintensity suggestive of chronic microvascular ischemia, patient is following with neurology, and documents were sent to them.In the meantime, getting [facility] for at home evaluation for needs. Patient may eventually need assisted living. Follow-up in 1 month, sooner as needed. Continue to follow with gastroenterology, cardiology and neurology. All quetsions answered to patients satisfaction. Patient verbalized understanding of diagnosis and treatments explained. To call sooner prior to next visit it any questions/concerns arise. Case discussed with collaborating physician Teri Stroud who reviewed the assessment and plan. Chart, medications, labs, vital signs reviewed. Dictation was accomplished with the use of icomply voice recognition software, prone to medical misidentifications and grammatical errors. This is unintentional and the practitioner does try to identify and correct these, but some could still be present. Please do not hesitate to contact practitioner for clarification. 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 Taking Trelegy with adequate control of SOB.Patient [...] Signed scheduled for cataract surgery in November, [place] [facility]. #Cognitive decline: Patient's sister/healthcare proxy Rossi and Mrs. Arnold expressed concern for Alzheimer's, as their mother [...] to neurology. Also going to follow with [facility]. Follow-up in 2 months, [...] Dictation was accomplished with the use of icomply voice recognition software, prone to medical misidentifications and grammatical errors. This is unintentional and the practitioner does try to identify and correct these, but some could still be present. Please do not hesitate to contact practitioner for clarification. 06/16/2024 Anxiety (ICD-10 - F41.9) Beata is a pleasant 83-year-old female who presents the office for a hospital follow-up. Admitted to [facility] on 06/13/2024, discharged on 06/14/2024. Patient symptom started on 06/10/2024 for which she had vomiting red blood, and clots x 3 days. She subsequently had black tarry stool without abdominal pain. Declined any recent aspirin or NSAID use. No other red flag symptoms. Patient was hemodynamically stable, H&H 11 and 36% respectively. She was given 40 mg of Protonix IV push in the emergency department and was admitted for further evaluation with consultation to gastroenterology by Dr. Mackenzie. Patient underwent an endoscopy revealing a large hiatal hernia with linear ulcers and dudonitis. They recommended PPI therapy twice daily, and outpatient GI series with esophagram followed by gastroenterology. The upper GI bleed was most likely secondary to hiatal hernia. They recommended consuming very small meals, and to remain upright for 30 to 60 minutes after the meal. Incidentally, patient did have an acute kidney injury on chronic kidney disease, most likely secondary to volume loss. Lisinopril was held, but patient's blood pressure holding stable. Received fluids in the hospital. Will order repeat BMP/ CBC. Will call with results, and reinitiate lisinopril as needed. Provided with blood pressure cuff Prescription for patient to blood pressure at home daily. Otherwise, notes transferred from previous documents for continuity of care. 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 Taking Trelegy with adequate control of SOB. # With pulmonology obtaining a CT of her chest, still pending but incidentally found a right 1.7 cm kidney lesion [...] due to acute kidney injury in the hospital.Will repeat BMP, consider reinitiation of lisinopril, provided with prescription for BP cuff. #Restless leg syndrome: Improved with gabapentin 400 mg in the morning, and ropinirole 8 mg extended release in the evening. #Heart murmur: Patient with history of aortic and mitral stenosis. Previous echo with evidence of aortic stenosis, mitral stenosis, LVH, LAE. Most recent echo 03/10/2024 showing severe aortic stenosis and left atrial enlargement for which we are referring to cardiology for further evaluation. This referral still pending.Ejection fraction 65 to 70%. Normal pulmonary pressures.Next visit with cardiology is May 28. #Urinary incontinence: Patient states she has not had any episodes of urinary incontinence since last visit. Does wear pads for occasional leaking. Patient did have urinary tract infection which resulted in confusion and lethargy in January. Reports complete resolution of symptoms since.Denies dysuria, urinary frequency, hematuria, fever, chills, low back pain, or confusion. #Cognitive decline: Patient's sister/healthcare proxy Rossi and Mrs. Arnold expressed concern for Alzheimer's, as their mother did unfortunately suffer from early onset Alzheimer's disease. Mini-Mental status exam performed in office Last visit by TONI Yan scored 30 out of 30 points. Did MoCA testing today for which she scored a 26 out of 30.Patient mostly had difficulty with memory recall with category cue,, and multiple-choice cue. Also difficulty counting back from sevens from 100. Blood work including B12, folate, RPR, TSH, and UA negative. MRI patient obtained, although could not get result because she did not tolerate the machine well,So we repeated MRI without contrast, prescribed 1 dose of lorazepam to help with anxiety associated with image. Showed moderate to severe periventricular and subcortical hyperintensity suggestive of chronic microvascular ischemia, patient is following with neurology, and documents were sent to them. Continue to encourage follow-up with specialist, discussed emergency department criteria/criteria to call the office. Follow-up August 03, 2024, sooner as needed. Following with gastroenterology, cardiology, and neurology in the meantime. All quetsions answered to patients satisfaction. Patient verbalized understanding of diagnosis and treatments explained. To call sooner prior to next visit it any questions/concerns arise. Case discussed with collaborating physician Teri Stroud who reviewed the assessment and plan. Chart, medications, labs, vital signs reviewed. Dictation was accomplished with the use of icomply voice recognition software, prone to medical misidentifications and grammatical errors. This is unintentional and the practitioner does try to identify and correct these, but some could still be present. Please do not hesitate to contact practitioner for clarification. 05/11/2024 Anxiety (ICD-10 - F41.9) # Obtained COVID and flu vaccine, getting RSV in the next few weeks at local pharmacy. 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 Taking Trelegy with adequate control of SOB. # With pulmonology obtaining a CT of her chest, still pending but incidentally found a right 1.7 cm kidney lesion for which we will order ultrasound. # Anxiety: Patient discontinue mirtazapine due to diarrhea, but she is feeling well, no need for initiation of additional medication at this time. #HTN: BP stable today in office, continue lisinopril 20 mg daily. Educated take blood pressure at home. Call the office blood pressure reading greater than 140/90. #Restless leg syndrome: Improved with gabapentin 400 mg in the morning, and ropinirole 8 mg extended release in the evening. #Heart murmur: Patient with history of aortic and mitral stenosis. Previous echo with evidence of aortic stenosis, mitral stenosis, LVH, LAE. Most recent echo 03/10/2024 showing severe aortic stenosis and left atrial enlargement for which we are referring to cardiology for further evaluation. This referral still pending.Ejection fraction 65 to 70%. Normal pulmonary pressures.Next visit with cardiology is May 28. #Urinary incontinence: Patient states she has not had any episodes of urinary incontinence since last visit. Does wear pads for occasional leaking. Patient did have urinary tract infection which resulted in confusion and lethargy in January. Reports complete resolution of symptoms since.Denies dysuria, urinary frequency, hematuria, fever, chills, low back pain, or confusion. #Cognitive decline: Patient's sister/healthcare proxy Rossi and Mrs. Arnold expressed concern for Alzheimer's, as their mother did unfortunately suffer from early onset Alzheimer's disease. Mini-Mental status exam performed in office Last visit by TONI Yan scored 30 out of 30 points. Did MoCA testing today for which she scored a 26 out of 30.Patient mostly had difficulty with memory recall with category cue,, and multiple-choice cue. Also difficulty counting back from sevens from 100. Blood work including B12, folate, RPR, TSH, and UA negative. MRI patient obtained, although could not get result because she did not tolerate the machine well, and she is considering going back into to the machine or not. Neurology still pending. Follow-up in 3 months, sooner as needed. Following with cardiology and hopefully neurology in the meantime. All quetsions answered to patients satisfaction. Patient verbalized understanding of diagnosis and treatments explained. To call sooner prior to next visit it any questions/concerns arise. Case discussed with collaborating physician Teri Stroud who reviewed the assessment and plan. Chart, medications, labs, vital signs reviewed. Dictation was accomplished with the use of icomply voice recognition software, prone to medical misidentifications and grammatical errors. This is unintentional and the practitioner does try to identify and correct these, but some could still be present. Please do not hesitate to contact practitioner for clarification. 05/11/2024 Kidney lesion (ICD-10 - N28.9) # Obtained COVID and flu vaccine, getting RSV in the next few weeks at local pharmacy. 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 Taking Trelegy with adequate control of SOB. # With pulmonology obtaining a CT of her chest, still pending but incidentally found a right 1.7 cm kidney lesion for which we will order ultrasound. # Anxiety: Patient discontinue mirtazapine due to diarrhea, but she is feeling well, no need for initiation of additional medication at this time. #HTN: BP stable today in office, continue lisinopril 20 mg daily. Educated take blood pressure at home. Call the office blood pressure reading greater than 140/90. #Restless leg syndrome: Improved with gabapentin 400 mg in the morning, and ropinirole 8 mg extended release in the evening. #Heart murmur: Patient with history of aortic and mitral stenosis. Previous echo with evidence of aortic stenosis, mitral stenosis, LVH, LAE. Most recent echo 03/10/2024 showing severe aortic stenosis and left atrial enlargement for which we are referring to cardiology for further evaluation. This referral still pending.Ejection fraction 65 to 70%. Normal pulmonary pressures.Next visit with cardiology is May 28. #Urinary incontinence: Patient states she has not had any episodes of urinary incontinence since last visit. Does wear pads for occasional leaking. Patient did have urinary tract infection which resulted in confusion and lethargy in January. Reports complete resolution of symptoms since.Denies dysuria, urinary frequency, hematuria, fever, chills, low back pain, or confusion. #Cognitive decline: Patient's sister/healthcare proxy Rossi and Mrs. Arnold expressed concern for Alzheimer's, as their mother did unfortunately suffer from early onset Alzheimer's disease. Mini-Mental status exam performed in office Last visit by TONI Yan scored 30 out of 30 points. Did MoCA testing today for which she scored a 26 out of 30.Patient mostly had difficulty with memory recall with category cue,, and multiple-choice cue. Also difficulty counting back from sevens from 100. Blood work including B12, folate, RPR, TSH, and UA negative. MRI patient obtained, although could not get result because she did not tolerate the machine well, and she is considering going back into to the machine or not. Neurology still pending. Follow-up in 3 months, sooner as needed. Following with cardiology and hopefully neurology in the meantime. All quetsions answered to patients satisfaction. Patient verbalized understanding of diagnosis and treatments explained. To call sooner prior to next visit it any questions/concerns arise. Case discussed with collaborating physician Teri Stroud who reviewed the assessment and plan. Chart, medications, labs, vital signs reviewed. Dictation was accomplished with the use of icomply voice recognition software, prone to medical misidentifications and grammatical errors. This is unintentional and the practitioner does try to identify and correct these, but some could still be present. Please do not hesitate to contact practitioner for clarification. 06/16/2024 Kidney lesion (ICD-10 - N28.9) Beata is a pleasant 83-year-old female who presents the office for a hospital follow-up. Admitted to [facility] on 06/13/2024, discharged on 06/14/2024. Patient symptom started on 06/10/2024 for which she had vomiting red blood, and clots x 3 days. She subsequently had black tarry stool without abdominal pain. Declined any recent aspirin or NSAID use. No other red flag symptoms. Patient was hemodynamically stable, H&H 11 and 36% respectively. She was given 40 mg of Protonix IV push in the emergency department and was admitted for further evaluation with consultation to gastroenterology by Dr. Mackenzie. Patient underwent an endoscopy revealing a large hiatal hernia with linear ulcers and dudonitis. They recommended PPI therapy twice daily, and outpatient GI series with esophagram followed by gastroenterology. The upper GI bleed was most likely secondary to hiatal hernia. They recommended consuming very small meals, and to remain upright for 30 to 60 minutes after the meal. Incidentally, patient did have an acute kidney injury on chronic kidney disease, most likely secondary to volume loss. Lisinopril was held, but patient's blood pressure holding stable. Received fluids in the hospital. Will order repeat BMP/ CBC. Will call with results, and reinitiate lisinopril as needed. Provided with blood pressure cuff Prescription for patient to blood pressure at home daily. Otherwise, notes transferred from previous documents for continuity of care. 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 Taking Trelegy with adequate control of SOB. # With pulmonology obtaining a CT of her chest, still pending but incidentally found a right 1.7 cm kidney lesion [...] due to acute kidney injury in the hospital.Will repeat BMP, consider reinitiation of lisinopril, provided with prescription for BP cuff. #Restless leg syndrome: Improved with gabapentin 400 mg in the morning, and ropinirole 8 mg extended release in the evening. #Heart murmur: Patient with history of aortic and mitral stenosis. Previous echo with evidence of aortic stenosis, mitral stenosis, LVH, LAE. Most recent echo 03/10/2024 showing severe aortic stenosis and left atrial enlargement for which we are referring to cardiology for further evaluation. This referral still pending.Ejection fraction 65 to 70%. Normal pulmonary pressures.Next visit with cardiology is May 28. #Urinary incontinence: Patient states she has not had any episodes of urinary incontinence since last visit. Does wear pads for occasional leaking. Patient did have urinary tract infection which resulted in confusion and lethargy in January. Reports complete resolution of symptoms since.Denies dysuria, urinary frequency, hematuria, fever, chills, low back pain, or confusion. #Cognitive decline: Patient's sister/healthcare proxy Rossi and Mrs. Arnold expressed concern for Alzheimer's, as their mother did unfortunately suffer from early onset Alzheimer's disease. Mini-Mental status exam performed in office Last visit by TONI Yan scored 30 out of 30 points. Did MoCA testing today for which she scored a 26 out of 30.Patient mostly had difficulty with memory recall with category cue,, and multiple-choice cue. Also difficulty counting back from sevens from 100. Blood work including B12, folate, RPR, TSH, and UA negative. MRI patient obtained, although could not get result because she did not tolerate the machine well,So we repeated MRI without contrast, prescribed 1 dose of lorazepam to help with anxiety associated with image. Showed moderate to severe periventricular and subcortical hyperintensity suggestive of chronic microvascular ischemia, patient is following with neurology, and documents were sent to them. Continue to encourage follow-up with specialist, discussed emergency department criteria/criteria to call the office. Follow-up August 03, 2024, sooner as needed. Following with gastroenterology, cardiology, and neurology in the meantime. All quetsions answered to patients satisfaction. Patient verbalized understanding of diagnosis and treatments explained. To call sooner prior to next visit it any questions/concerns arise. Case discussed with collaborating physician Teri Stroud who reviewed the assessment and plan. Chart, medications, labs, vital signs reviewed. Dictation was accomplished with the use of icomply voice recognition software, prone to medical misidentifications and grammatical errors. This is unintentional and the practitioner does try to identify and correct these, but some could still be present. Please do not hesitate to contact practitioner for clarification. 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 Taking Trelegy with adequate control of SOB.Patient stopped taking Trelegy x 1 month, and had a flareup, went to urgent care on Friday and treated with prednisone and albuterol with improvement in symptoms. # With pulmonology obtaining a CT of [...] injury in the hospital.Repeated BMP. Showing stability. Blood pressure was elevated when she walked in at 156/92, but improved to 136/88. Has resumed lisinopril 20 mg. #Restless leg syndrome: IDiscontinue gabapentin because she felt it was making it worse. States that stable on ropinirole 8 mg Extended release in the evening #Heart murmur: Patient with history of aortic and mitral stenosis. Previous echo with evidence of aortic stenosis, mitral stenosis, LVH, LAE. Most recent echo 03/10/2024 showing severe aortic stenosis and left atrial enlargement for which we are referring to cardiology for further evaluation. Ejection fraction 65 to 70%. Normal pulmonary pressures.Continuing to follow with cardiology #Urinary incontinence: Patient states she has not had any episodes of urinary incontinence since last visit. Does wear pads for occasional leaking. Patient did have urinary tract infection which resulted in confusion and lethargy in January. Reports complete resolution of symptoms since.Denies dysuria, urinary frequency, hematuria, fever, chills, low back pain, or confusion. #Cognitive decline: Patient's sister/healthcare proxy Rossi and Mrs. Arnold expressed concern for Alzheimer's, as their mother did unfortunately suffer from early onset Alzheimer's disease. Mini-Mental status exam performed in office Last visit by TONI Yan scored 30 out of 30 points. Did MoCA testing today for which she scored a 26 out of 30.Patient mostly had difficulty with memory recall with category cue,, and multiple-choice cue. Also difficulty counting back from sevens from 100. Blood work including B12, folate, RPR, TSH, and UA negative. MRI patient obtained, although could not get result because she did not tolerate the machine well,So we repeated MRI without contrast, prescribed 1 dose of lorazepam to help with anxiety associated with image. Showed moderate to severe periventricular and subcortical hyperintensity suggestive of chronic microvascular ischemia, patient is following with neurology, and documents were sent to them.In the meantime, getting [facility] for at home evaluation for needs. Patient may eventually need assisted living. Follow-up in 1 month, sooner as needed. Continue to follow with gastroenterology, cardiology and neurology. All quetsions answered to patients satisfaction. Patient verbalized understanding of diagnosis and treatments explained. To call sooner prior to next visit it any questions/concerns arise. Case discussed with collaborating physician Teri Stroud who reviewed the assessment and plan. Chart, medications, labs, vital signs reviewed. Dictation was accomplished with the use of icomply voice recognition software, prone to medical misidentifications and grammatical errors. This is unintentional and the practitioner does try to identify and correct these, but some could still be present. Please do not hesitate to contact practitioner for clarification. 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 Taking Trelegy with adequate control of SOB.Patient [...] Signed scheduled for cataract surgery in November, [facility]. #Cognitive decline: Patient's sister/healthcare proxy Rossi and Mrs. Arnold expressed concern for Alzheimer's, as their mother [...] to neurology. Also going to follow with [facility]. Follow-up in 2 months, [...] Dictation was accomplished with the use of icomply voice recognition software, prone to medical misidentifications and grammatical errors. This is unintentional and the practitioner does try to identify and correct these, but some could still be present. Please do not hesitate to contact practitioner for clarification. 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 Taking Trelegy with adequate control of SOB. Patient started taking trelagy infrequently due to cost, has since resumed after receiving a coupon. Continue with Trelegy and albuterol. Continues to follow with pulmonology # Patient inquires about snoring/heavy breathing at night. Following with pulmonology consider sleep study # With pulmonology obtaining a CT of her chest,incidentally found a right 1.7 cm kidney lesion For which we ordered an ultrasound, and resulted on 05/25/2024 showing a cyst in the right upper pole of the kidney benign, no further workup needed at this time. Pt states that pulmonology has ordered a CT of the kidney d/t nodule finding. #Anxiety: Patient discontinue mirtazapine due to diarrhea, but she is feeling well, no need for initiation of additional medication at this time. #HTN: BP stable today in office. Educated take blood pressure at home, pt asked about BP machine for the wrist. Call the office blood pressure reading greater than 140/90.Lisinopril was discontinued due to acute kidney injury in the hospital.Repeated BMP. Showing stability. Continuing lisinopril 20 mg at this time.Going obtain a different blood pressure machine at the local pharmacy. #Restless leg syndrome: Discontinued gabapentin because she felt it was making it worse. States that stable on ropinirole 8 mg Extended release in the evening. Pt states that ropinirole has worked well and improved symptoms. Going to follow with neurology for continued restless leg #Heart murmur: Patient with history of aortic and mitral stenosis. Previous echo with evidence of aortic stenosis, mitral stenosis, LVH, LAE. Most recent echo 03/10/2024 showing severe aortic stenosis and left atrial enlargement for which we are referring to cardiology for further evaluation. Ejection fraction 65 to 70%. Normal pulmonary pressures. Continuing to follow with cardiology # Patient had a history of GI bleed, was going to get endoscopy with Dr. Mackenzie. Patient sister will call the office for follow-up. Patient declines any symptoms at this time # Signed scheduled for cataract surgery in November, [place] [facility]. #Cognitive decline: Patient's sister/healthcare proxy Rossi and Mrs. Arnold expressed concern for Alzheimer's, as their mother [...] to neurology. Also going to follow with [facility]. # Pt has a rash on her right arm that is flat and mostly purple in color, with it being slightly more red above the elbow, extending from the wrist to slightly above the elbow. Pt states that the rash does itch. Pt has used arnica with some improvement. Educated pt to use topical benadryl or hydrocortisone. Pt does have history of iron deficiency anemia. Will order iron studies and CBC and reevaluate next visit. # Patient is no longer driving. Does have a living will, and her sister is the power of criminal attorney. Follow-up in 3 months for Medicare wellness visit with fasting labs, sooner as needed All quetsions answered to patients satisfaction. Patient verbalized understanding of diagnosis and treatments explained. To call sooner prior to next visit it any questions/concerns arise. Case discussed with collaborating physician Teri Stroud who reviewed the assessment and plan. Chart, medications, labs, vital signs reviewed. Dictation was accomplished with the use of icomply voice recognition software, prone to medical misidentifications and grammatical errors. This is unintentional and the practitioner does try to identify and correct these, but some could still be present. Please do not hesitate to contact practitioner for clarification. 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 Taking Trelegy with adequate control of SOB. Patient started taking trelagy infrequently due to cost, has since resumed after receiving a coupon. Continue with Trelegy and albuterol. Continues to follow with pulmonology # With pulmonology obtaining a CT of her chest,incidentally found a right 1.7 cm kidney lesion For which we ordered an ultrasound, and resulted on 05/25/2024 showing a cyst in the right upper pole of the kidney benign, no further workup needed at this time. Pt states that pulmonology has ordered a CT of the kidney d/t nodule finding. #Anxiety: Patient discontinue mirtazapine due to diarrhea, but she is feeling well, no need for initiation of additional medication at this time. #HTN: BP stable today in office. Educated take blood pressure at home, pt asked about BP machine for the wrist. Call the office blood pressure reading greater than 140/90.Lisinopril was discontinued due to acute kidney injury in the hospital.Repeated BMP. Showing stability. Continuing lisinopril 20 mg at this time.Going obtain a different blood pressure machine at the local pharmacy. #Restless leg syndrome: Discontinued gabapentin because she felt it was making it worse. States that stable on ropinirole 8 mg Extended release in the evening. Pt states that ropinirole has worked well and improved symptoms. Going to follow with neurology for continued restless leg #Heart murmur: Patient with history of aortic and mitral stenosis. Previous echo with evidence of aortic stenosis, mitral stenosis, LVH, LAE. echo 03/10/2024 showing severe aortic stenosis and left atrial enlargement for which we are referring to cardiology for further evaluation. Ejection fraction 65 to 70%. Normal pulmonary pressures. Continuing to follow with cardiology., Cardiogram January 2025, trying to obtain record.Also had a Holter monitor. # Patient did have an echo cardiogram February 03, 2025, Holter February 04, 2025. Based on those records they started patient on Lasix 20 mg daily following with Dr. Caceres at [facility] cardiology. Patient's weights been stable, limiting sodium. Considering TAVR # Followed with gastroenterology Dr. Daniela Bang, ordered barium swallow scheduled for March 2025 # Recently had blood work January 2025, chronic kidney disease has improved, most recent GFR 54 with creatinine 1.03. Previous GFR 40 with creatinine 1.33 # Vitamin D deficiency: Vitamin D 20 February 2025, replacing vitamin D OTC # It was noted on echocardiogram that patient was holding some fluid around the lungs secondary to an inadequate aortic valve. Going to proceed with a TAVR, but will order chest x-ray. Patient's lungs clear to auscultation. She declines any worsening shortness of breath. # Patient had a history of GI bleed, was going to get endoscopy with Dr. Mackenzie. Scheduled barium swallow. # Signed scheduled for cataract surgery in November, [facility]. #Cognitive decline: Patient's sister/healthcare proxy Rossi and Mrs. Arnold expressed concern for Alzheimer's, as their mother [...] to neurology. Also going to follow with [facility].Patient is doing well today # Patient is no longer driving. Does have a living will, and her sister is the power of criminal attorney. Follow-up next month for Medicare wellness visit, sooner as needed. All quetsions answered to patients satisfaction. Patient verbalized understanding of diagnosis and treatments explained. To call sooner prior to next visit it any questions/concerns arise. Case discussed with collaborating physician Teri Stroud who reviewed the assessment and plan. Chart, medications, labs, vital signs reviewed. Dictation was accomplished with the use of icomply voice recognition software, prone to medical misidentifications and grammatical errors. This is unintentional and the practitioner does try to identify and correct these, but some could still be present. Please do not hesitate to contact practitioner for clarification. 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 Taking Trelegy with adequate control of SOB. Patient started taking trelagy infrequently due to cost, has since resumed after receiving a coupon. Continue with Trelegy and albuterol. Continues to follow with pulmonology # With pulmonology obtaining a CT of her chest,incidentally found a right 1.7 cm kidney lesion For which we ordered an ultrasound, and resulted on 05/25/2024 showing a cyst in the right upper pole of the kidney benign, no further workup needed at this time. Pt states that pulmonology has ordered a CT of the kidney d/t nodule finding. #Anxiety: Patient discontinue mirtazapine due to diarrhea, but she is feeling well, no need for initiation of additional medication at this time. #HTN: BP stable today in office. Educated take blood pressure at home, pt asked about BP machine for the wrist. Call the office blood pressure reading greater than 140/90.Lisinopril was discontinued due to acute kidney injury in the hospital.Repeated BMP. Showing stability. Continuing lisinopril 20 mg at this time.Going obtain a different blood pressure machine at the local pharmacy. #Restless leg syndrome: Discontinued gabapentin because she felt it was making it worse. States that stable on ropinirole 8 mg Extended release in the evening. Pt states that ropinirole has worked well and improved symptoms. Going to follow with neurology for continued restless leg #Heart murmur: Patient with history of aortic and mitral stenosis. Previous echo with evidence of aortic stenosis, mitral stenosis, LVH, LAE. echo 03/10/2024 showing severe aortic stenosis and left atrial enlargement for which we are referring to cardiology for further evaluation. Ejection fraction 65 to 70%. Normal pulmonary pressures. Continuing to follow with cardiology., Cardiogram January 2025, trying to obtain record.Also had a Holter monitor. # Patient did have an echo cardiogram February 03, 2025, Holter February 04, 2025. Based on those records they started patient on Lasix 20 mg daily following with Dr. Caceres at [facility]. Patient's weights been stable, limiting sodium. Considering TAVR # Followed with gastroenterology Dr. Daniela Bang, ordered barium swallow scheduled for March 2025 # Recently had blood work January 2025, chronic kidney disease has improved, most recent GFR 54 with creatinine 1.03. Previous GFR 40 with creatinine 1.33 # Vitamin D deficiency: Vitamin D 20 February 2025, replacing vitamin D OTC # It was noted on echocardiogram that patient was holding some fluid around the lungs secondary to an inadequate aortic valve. Going to proceed with a TAVR, but will order chest x-ray. Patient's lungs clear to auscultation. She declines any worsening shortness of breath. # Patient had a history of GI bleed, was going to get endoscopy with Dr. Mackenzie. Scheduled barium swallow. # Signed scheduled for cataract surgery in November, [facility]. #Cognitive decline: Patient's sister/healthcare proxy Rossi and Mrs. Arnold expressed concern for Alzheimer's, as their mother [...] to neurology. Also going to follow with [facility].Patient is doing well today # Patient is no longer driving. Does have a living will, and her sister is the power of criminal attorney. Follow-up next month for Medicare wellness visit, sooner as needed. All quetsions answered to patients satisfaction. Patient verbalized understanding of diagnosis and treatments explained. To call sooner prior to next visit it any questions/concerns arise. Case discussed with collaborating physician Teri Stroud who reviewed the assessment and plan. Chart, medications, labs, vital signs reviewed. Dictation was accomplished with the use of icomply voice recognition software, prone to medical misidentifications and grammatical errors. This is unintentional and the practitioner does try to identify and correct these, but some could still be present. Please do not hesitate to contact practitioner for clarification. 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 Taking Trelegy with adequate control of SOB. Patient started taking trelagy infrequently due to cost, has since resumed after receiving a coupon. Continue with Trelegy and albuterol. Continues to follow with pulmonology # Patient inquires about snoring/heavy breathing at night. Following with pulmonology consider sleep study # With pulmonology obtaining a CT of her chest,incidentally found a right 1.7 cm kidney lesion For which we ordered an ultrasound, and resulted on 05/25/2024 showing a cyst in the right upper pole of the kidney benign, no further workup needed at this time. Pt states that pulmonology has ordered a CT of the kidney d/t nodule finding. #Anxiety: Patient discontinue mirtazapine due to diarrhea, but she is feeling well, no need for initiation of additional medication at this time. #HTN: BP stable today in office. Educated take blood pressure at home, pt asked about BP machine for the wrist. Call the office blood pressure reading greater than 140/90.Lisinopril was discontinued due to acute kidney injury in the hospital.Repeated BMP. Showing stability. Continuing lisinopril 20 mg at this time.Going obtain a different blood pressure machine at the local pharmacy. #Restless leg syndrome: Discontinued gabapentin because she felt it was making it worse. States that stable on ropinirole 8 mg Extended release in the evening. Pt states that ropinirole has worked well and improved symptoms. Going to follow with neurology for continued restless leg #Heart murmur: Patient with history of aortic and mitral stenosis. Previous echo with evidence of aortic stenosis, mitral stenosis, LVH, LAE. Most recent echo 03/10/2024 showing severe aortic stenosis and left atrial enlargement for which we are referring to cardiology for further evaluation. Ejection fraction 65 to 70%. Normal pulmonary pressures. Continuing to follow with cardiology # Patient had a history of GI bleed, was going to get endoscopy with Dr. Mackenzie. Patient sister will call the office for follow-up. Patient declines any symptoms at this time # Signed scheduled for cataract surgery in November, [facility]. #Cognitive decline: Patient's sister/healthcare proxy Rossi and Mrs. Arnold expressed concern for Alzheimer's, as their mother [...] to neurology. Also going to follow with [facility] services. # Pt has a rash on her right arm that is flat and mostly purple in color, with it being slightly more red above the elbow, extending from the wrist to slightly above the elbow. Pt states that the rash does itch. Pt has used arnica with some improvement. Educated pt to use topical benadryl or hydrocortisone. Pt does have history of iron deficiency anemia. Will order iron studies and CBC and reevaluate next visit. # Patient is no longer driving. Does have a living will, and her sister is the power of criminal attorney. Follow-up in 3 months for Medicare wellness visit with fasting labs, sooner as needed All quetsions answered to patients satisfaction. Patient verbalized understanding of diagnosis and treatments explained. To call sooner prior to next visit it any questions/concerns arise. Case discussed with collaborating physician Teri Stroud who reviewed the assessment and plan. Chart, medications, labs, vital signs reviewed. Dictation was accomplished with the use of icomply voice recognition software, prone to medical misidentifications and grammatical errors. This is unintentional and the practitioner does try to identify and correct these, but some could still be present. Please do not hesitate to contact practitioner for clarification. 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 Taking Trelegy with adequate control of SOB.Patient [...] Signed scheduled for cataract surgery in November, [facility]. #Cognitive decline: Patient's sister/healthcare proxy Rossi and Mrs. Arnold expressed concern for Alzheimer's, as their mother [...] to neurology. Also going to follow with [facility]. Follow-up in 2 months, [...] Dictation was accomplished with the use of icomply voice recognition software, prone to medical misidentifications and grammatical errors. This is unintentional and the practitioner does try to identify and correct these, but some could still be present. Please do not hesitate to contact practitioner for clarification. 06/16/2024 Chronic kidney disease, stage 3a (ICD-10 - N18.31) Beata is a pleasant 83-year-old female who presents the office for a hospital follow-up. Admitted to [facility] on 06/13/2024, discharged on 06/14/2024. Patient symptom started on 06/10/2024 for which she had vomiting red blood, and clots x 3 days. She subsequently had black tarry stool without abdominal pain. Declined any recent aspirin or NSAID use. No other red flag symptoms. Patient was hemodynamically stable, H&H 11 and 36% respectively. She was given 40 mg of Protonix IV push in the emergency department and was admitted for further evaluation with consultation to gastroenterology by Dr. Mackenzie. Patient underwent an endoscopy revealing a large hiatal hernia with linear ulcers and dudonitis. They recommended PPI therapy twice daily, and outpatient GI series with esophagram followed by gastroenterology. The upper GI bleed was most likely secondary to hiatal hernia. They recommended consuming very small meals, and to remain upright for 30 to 60 minutes after the meal. Incidentally, patient did have an acute kidney injury on chronic kidney disease, most likely secondary to volume loss. Lisinopril was held, but patient's blood pressure holding stable. Received fluids in the hospital. Will order repeat BMP/ CBC. Will call with results, and reinitiate lisinopril as needed. Provided with blood pressure cuff Prescription for patient to blood pressure at home daily. Otherwise, notes transferred from previous documents for continuity of care. 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 Taking Trelegy with adequate control of SOB. # With pulmonology obtaining a CT of her chest, still pending but incidentally found a right 1.7 cm kidney lesion [...] due to acute kidney injury in the hospital.Will repeat BMP, consider reinitiation of lisinopril, provided with prescription for BP cuff. #Restless leg syndrome: Improved with gabapentin 400 mg in the morning, and ropinirole 8 mg extended release in the evening. #Heart murmur: Patient with history of aortic and mitral stenosis. Previous echo with evidence of aortic stenosis, mitral stenosis, LVH, LAE. Most recent echo 03/10/2024 showing severe aortic stenosis and left atrial enlargement for which we are referring to cardiology for further evaluation. This referral still pending.Ejection fraction 65 to 70%. Normal pulmonary pressures.Next visit with cardiology is May 28. #Urinary incontinence: Patient states she has not had any episodes of urinary incontinence since last visit. Does wear pads for occasional leaking. Patient did have urinary tract infection which resulted in confusion and lethargy in January. Reports complete resolution of symptoms since.Denies dysuria, urinary frequency, hematuria, fever, chills, low back pain, or confusion. #Cognitive decline: Patient's sister/healthcare proxy Rossi and Mrs. Arnold expressed concern for Alzheimer's, as their mother did unfortunately suffer from early onset Alzheimer's disease. Mini-Mental status exam performed in office Last visit by TONI Yan scored 30 out of 30 points. Did MoCA testing today for which she scored a 26 out of 30.Patient mostly had difficulty with memory recall with category cue,, and multiple-choice cue. Also difficulty counting back from sevens from 100. Blood work including B12, folate, RPR, TSH, and UA negative. MRI patient obtained, although could not get result because she did not tolerate the machine well,So we repeated MRI without contrast, prescribed 1 dose of lorazepam to help with anxiety associated with image. Showed moderate to severe periventricular and subcortical hyperintensity suggestive of chronic microvascular ischemia, patient is following with neurology, and documents were sent to them. Continue to encourage follow-up with specialist, discussed emergency department criteria/criteria to call the office. Follow-up August 03, 2024, sooner as needed. Following with gastroenterology, cardiology, and neurology in the meantime. All quetsions answered to patients satisfaction. Patient verbalized understanding of diagnosis and treatments explained. To call sooner prior to next visit it any questions/concerns arise. Case discussed with collaborating physician Teri Stroud who reviewed the assessment and plan. Chart, medications, labs, vital signs reviewed. Dictation was accomplished with the use of icomply voice recognition software, prone to medical misidentifications and grammatical errors. This is unintentional and the practitioner does try to identify and correct these, but some could still be present. Please do not hesitate to contact practitioner for clarification. 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 Taking Trelegy with adequate control of SOB. Patient started taking trelagy infrequently due to cost, has since resumed after receiving a coupon. Continue with Trelegy and albuterol. Continues to follow with pulmonology # With pulmonology obtaining a CT of her chest,incidentally found a right 1.7 cm kidney lesion For which we ordered an ultrasound, and resulted on 05/25/2024 showing a cyst in the right upper pole of the kidney benign, no further workup needed at this time. Pt states that pulmonology has ordered a CT of the kidney d/t nodule finding. #Anxiety: Patient discontinue mirtazapine due to diarrhea, but she is feeling well, no need for initiation of additional medication at this time. #HTN: BP stable today in office. Educated take blood pressure at home, pt asked about BP machine for the wrist. Call the office blood pressure reading greater than 140/90.Lisinopril was discontinued due to acute kidney injury in the hospital.Repeated BMP. Showing stability. Continuing lisinopril 20 mg at this time.Going obtain a different blood pressure machine at the local pharmacy. #Restless leg syndrome: Discontinued gabapentin because she felt it was making it worse. States that stable on ropinirole 8 mg Extended release in the evening. Pt states that ropinirole has worked well and improved symptoms. Going to follow with neurology for continued restless leg #Heart murmur: Patient with history of aortic and mitral stenosis. Previous echo with evidence of aortic stenosis, mitral stenosis, LVH, LAE. echo 03/10/2024 showing severe aortic stenosis and left atrial enlargement for which we are referring to cardiology for further evaluation. Ejection fraction 65 to 70%. Normal pulmonary pressures. Continuing to follow with cardiology., Cardiogram January 2025, trying to obtain record.Also had a Holter monitor. # Patient did have an echo cardiogram February 03, 2025, Holter February 04, 2025. Based on those records they started patient on Lasix 20 mg daily following with Dr. Caceres at [facility]. Patient's weights been stable, limiting sodium. Considering TAVR # Followed with gastroenterology Dr. Daniela Bang, ordered barium swallow scheduled for March 2025 # Recently had blood work January 2025, chronic kidney disease has improved, most recent GFR 54 with creatinine 1.03. Previous GFR 40 with creatinine 1.33 # Vitamin D deficiency: Vitamin D 20 February 2025, replacing vitamin D OTC # It was noted on echocardiogram that patient was holding some fluid around the lungs secondary to an inadequate aortic valve. Going to proceed with a TAVR, but will order chest x-ray. Patient's lungs clear to auscultation. She declines any worsening shortness of breath. # Patient had a history of GI bleed, was going to get endoscopy with Dr. Mackenzie. Scheduled barium swallow. # Signed scheduled for cataract surgery in November, [facility]. #Cognitive decline: Patient's sister/healthcare proxy Rossi and Mrs. Arnold expressed concern for Alzheimer's, as their mother [...] to neurology. Also going to follow with [facility].Patient is doing well today # Patient is no longer driving. Does have a living will, and her sister is the power of criminal attorney. Follow-up next month for Medicare wellness visit, sooner as needed. All quetsions answered to patients satisfaction. Patient verbalized understanding of diagnosis and treatments explained. To call sooner prior to next visit it any questions/concerns arise. Case discussed with collaborating physician Teri Stroud who reviewed the assessment and plan. Chart, medications, labs, vital signs reviewed. Dictation was accomplished with the use of icomply voice recognition software, prone to medical misidentifications and grammatical errors. This is unintentional and the practitioner does try to identify and correct these, but some could still be present. Please do not hesitate to contact practitioner for clarification. 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 Taking Trelegy with adequate control of SOB. Patient started taking trelagy infrequently due to cost, has since resumed after receiving a coupon. Continue with Trelegy and albuterol. Continues to follow with pulmonology # With pulmonology obtaining a CT of her chest,incidentally found a right 1.7 cm kidney lesion For which we ordered an ultrasound, and resulted on 05/25/2024 showing a cyst in the right upper pole of the kidney benign, no further workup needed at this time. Pt states that pulmonology has ordered a CT of the kidney d/t nodule finding. #Anxiety: Patient discontinue mirtazapine due to diarrhea, but she is feeling well, no need for initiation of additional medication at this time. #HTN: BP stable today in office. Educated take blood pressure at home, pt asked about BP machine for the wrist. Call the office blood pressure reading greater than 140/90.Lisinopril was discontinued due to acute kidney injury in the hospital.Repeated BMP. Showing stability. Continuing lisinopril 20 mg at this time.Going obtain a different blood pressure machine at the local pharmacy. #Restless leg syndrome: Discontinued gabapentin because she felt it was making it worse. States that stable on ropinirole 8 mg Extended release in the evening. Pt states that ropinirole has worked well and improved symptoms. Going to follow with neurology for continued restless leg #Heart murmur: Patient with history of aortic and mitral stenosis. Previous echo with evidence of aortic stenosis, mitral stenosis, LVH, LAE. echo 03/10/2024 showing severe aortic stenosis and left atrial enlargement for which we are referring to cardiology for further evaluation. Ejection fraction 65 to 70%. Normal pulmonary pressures. Continuing to follow with cardiology., Cardiogram January 2025, trying to obtain record.Also had a Holter monitor. # Patient did have an echo cardiogram February 03, 2025, Holter February 04, 2025. Based on those records they started patient on Lasix 20 mg daily following with Dr. Caceres at [facility]. Patient's weights been stable, limiting sodium. Considering TAVR # Followed with gastroenterology Dr. Daniela Bang, ordered barium swallow scheduled for March 2025 # Recently had blood work January 2025, chronic kidney disease has improved, most recent GFR 54 with creatinine 1.03. Previous GFR 40 with creatinine 1.33 # Vitamin D deficiency: Vitamin D 20 February 2025, replacing vitamin D OTC # It was noted on echocardiogram that patient was holding some fluid around the lungs secondary to an inadequate aortic valve. Going to proceed with a TAVR, but will order chest x-ray. Patient's lungs clear to auscultation. She declines any worsening shortness of breath. # Patient had a history of GI bleed, was going to get endoscopy with Dr. Mackenzie. Scheduled barium swallow. # Signed scheduled for cataract surgery in November, [facility]. #Cognitive decline: Patient's sister/healthcare proxy Rossi and Mrs. Arnlod expressed concern for Alzheimer's, as their mother [...] to neurology. Also going to follow with [facility].Patient is doing well today # Patient is no longer driving. Does have a living will, and her sister is the power of criminal attorney. Follow-up next month for Medicare wellness visit, sooner as needed. All quetsions answered to patients satisfaction. Patient verbalized understanding of diagnosis and treatments explained. To call sooner prior to next visit it any questions/concerns arise. Case discussed with collaborating physician Teri Stroud who reviewed the assessment and plan. Chart, medications, labs, vital signs reviewed. Dictation was accomplished with the use of icomply voice recognition software, prone to medical misidentifications and grammatical errors. This is unintentional and the practitioner does try to identify and correct these, but some could still be present. Please do not hesitate to contact practitioner for clarification. Plan Of Treatment Pending Test Test Name Order Date Echocardiogram 01/20/2023 EMG/NCV ARMS 05/01/2023 X ray : Chest with 2 views 03/07/2025 X ray : Chest with 2 views 11/27/2022 Bone Density 11/12/2022 Ultrasound : Kidneys 06/16/2023 MRI : Brain without Contrast 05/14/2024 MRI : Brain without Contrast 03/18/2024 BASIC METABOLIC PANEL 06/17/2024 BNP (B -Type Natriuretic Peptide) 2023 CT Chest w and w/o Contrast 12/30/2022 LIPID PANEL, STANDARD 07/24/2023 LIPID PANEL, STANDARD 01/11/2025 IRON, TIBC AND FERRITIN PANEL 01/11/2025 COMPREHENSIVE METABOLIC PANEL 07/24/2023 COMPREHENSIVE METABOLIC PANEL 01/20/2023 COMPREHENSIVE METABOLIC PANEL 01/11/2025 CBC (H/H, RBC, INDICES, WBC, PLT) 2023 CBC (INCLUDES DIFF/PLT) 01/11/2025 CBC (INCLUDES DIFF/PLT) 06/16/2024 CBC (INCLUDES DIFF/PLT) 07/24/2023 URINALYSIS, COMPLETE 07/24/2023 URINALYSIS, COMPLETE 01/11/2025 URINALYSIS, COMPLETE 03/18/2024 RPR (DX) W/REFL TITER AND CONFIRMATORY T ESTING 03/18/2024 HEMOGLOBIN A1c 01/11/2025 VITAMIN B12 03/18/2024 FOLATE, RBC 03/18/2024 TSH 01/11/2025 TSH 07/24/2023 TSH W/REFLEX TO FT4 03/18/2024 VITAMIN D,25-OH,TOTAL,IA 01/11/2025 VITAMIN D,25-OH,TOTAL,IA 07/24/2023 B TYPE NATRIURETIC PEPTIDE (BNP) 023 CT Chest W/O Contrast 01/07/2023 Next Appt Details Provider Name:MARTIN NUNES, 04/13/2025 11:00:00 AM, [address], [place], [phone], Insurance Providers Payer Name Payer Address Payer Phone Subscriber Number Group Number Insured Name Patient Relationship to Insured Coverage Start Date Coverage End Date [employer] Medicare Advantage [address] [place] [address] [id number] BEATA ARNOLD Self - patient is the insured Medical (General) History Medical History History ICD Code Hiatal hernia K44.9 Hyperlipidemia E78.5 Hypertension, essential I10 Restless leg syndrome G25.81 Iron deficiency E61.1 COPD, moderate J44.9 Aortic stenosis, moderate I35.0 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
--- OUTSIDE RECORDS SUMMARY | 2025-04-06 14:09 | XMS_ITS | Clinical Summary ---
Author Organization [facility] Address [address] [place] [address] Phone Care Team Providers Care Early Intervention Specialist Name Role Phone Socrates Reddy Primary Care Provider [phone]- [phone] Allergies Active Allergy Reactions Criticality Noted Date [...] not crush, chew, or split. 60 each 4 06/14/20 25 Active Additional Information Patient not taking.Reported on 02/28/2025 Trelegy Ellipta 200-62.5-25 mcg inhaler Inhale 1 puff (200 mcg total) by mouth 1 (one) time each day. 5 Active metoprolol succinate (TOPROL-XL) 25 mg 24 hr tabletIndicatio ns:Palpitation Take 1 tablet (25 mg total) by mouth 1 (one) time each day. Do not crush or chew. 90 each 3 5 02/12/20 26 Active furosemide (LASIX) 20 mg tablet Take 1 tablet (20 mg total) by mouth 1 (one) time each day. 90 tablet 3 5 Active lisinopriL (PRINIVIL,ZESTR IL) 20 mg tablet Take 1 tablet (20 mg total) by mouth 1 (one) time each day. Active famotidine (PEPCID) 20 mg tablet Take 2 tablets (40 mg total) by mouth 1 (one) time each day. Active Active Problems Problem Noted Date Diagnosed Date Dyspnea on exertion 02/01/2025 Assessment & Plan (02/01/2025 4:23 PM EDT): This is likely multifactorial, but appears to now have a component of heart failure. I am going to have an echocardiogram done as soon as possible to assess pump function. Patient had a lab drawn recently that showed a BNP elevated at over thousand. I am going to have her continue to take the Lasix for the next 5 days, I am going to have her start weighing herself every morning and reach out to us if she gains more than 2 pounds in a day or 5 pounds in a week. In addition she is going to need to limit her sodium consumption, we were able to go over common foods that are high in sodium. I am also going to be adding in a Holter monitor to assess for arrhythmias, patient did have enlarged left atria on the most recent echocardiogram. I am going to reorder a BMP. Will need to introduce GDMT, pending kidney values. Nonrheumatic aortic valve stenosis 06/14/2024 Overview (03/30/2025): - Most recent Echocardiogram on 02/03/2025 showed moderate concentric left ventricular hypertrophy with normal cavity size and systolic function, normal regional wall motion with an ejection fraction of 60 to 65%, normal RV size and systolic function, severe aortic stenosis with mean gradient 54 mmHg and calculated aortic valve area by continuity equation 0.7 cm , moderate AI, severe mitral annular calcification with mild regurgitation and mild stenosis-mean gradient of 5 mmHg, evidence of severe pulmonary hypertension with RV systolic pressure 82 mmHg, evidence of high right atrial pressure, severe left atrial enlargement Assessment & Plan (02/01/2025 4:21 PM EDT): Patient has echocardiogram scheduled for May 2025, however I am going to push this off to be as soon as possible. Patient is showing signs of heart failure in addition to the nonrheumatic aortic valve stenosis. Sounds moderate on exam. RYAN (acute kidney injury) (CMS/[facility] V24) 06/13/20 24 Mild cognitive impairment 06/13/2024 Acute encephalopathy 06/13/2024 Palpitations 05/28/2024 Overview (02/07/2025): Last Assessment & Plan: Agree that this was likely anxiety mediated as symptoms have completely resolved since then. No further workup. Resistant hypertension 05/24/2024 Overview (02/07/2025): Last Assessment & Plan: Well-controlled today on current medications, continue. Resolved Problems Problem Noted Date Diagnosed Date Resolved Date Upper GI bleed 06/13/2024 06/14/2024 Systolic murmur 06/13/2024 06/14/2024 Encounters Date Type Department Care Team Description 03/09/[address] [facility] - [address] [place] [phone] Shannan Caceres MD 03/02/2025 Telephone Gastroenterology - [address] [facility] [address] [place] [phone] Daija Santos MA 02/28/2025 9:40 AM EDT Consult Gastroenterology - [address] [place] [id number] Daniela Bagn PA Anemia, unspecified type (Primary Dx); Hiatal hernia 02/24/2025 1:00 PM EDT Office Visit [facility] - [address] [place] [address] Shannan Caceres MD Nonrheumatic aortic valve stenosis (Primary Dx); Palpitations; Resistant hypertension 02/21/2025 Telephone [facility] - [address] [place] [address] Socrates Reddy PA 02/17/2025 Telephone [facility] - [address] [place] [address] Shannan Caceres MD 02/17/2025 Telephone [facility] - [address] [place] [address] Shannan Caceres MD 02/10/2025 Telephone [facility] - [address] [place] [address] Yenny Stark MA 02/04/2025 Telephone [facility] - [address] [place] [address] Vinnie Reagan NP 02/03/2025 3:00 PM EDT Ancillary Procedure [facility] - [address] [place] [address] Palpitation 02/03/2025 2:00 PM EDT Ancillary Procedure [facility] - [address] [place] [address] Nonrheumatic aortic (valve) stenosis 02/02/2025 Telephone [facility] - [address] [place] [address] Vinnie Reagan NP 02/01/2025 3:10 PM EDT Office Visit [facility] - [address] [place] [address] Vinnie Reagan NP Nonrheumatic aortic valve stenosis (Primary Dx); Palpitation; Dyspnea on exertion 01/12/2025 Telephone Gastroenterology - [address] [facility] [address] [place] [address] Daniela Bang PA from Last 3 Months Surgical History Surgery Date Site/Laterality Comments CHOLECYSTECTOMY APPENDECTOMY ESOPHAGOGASTRODUODENOSCOPY 06/13/2024 Medical History Medical History Date Comments Hypertension Restless leg syndrome COPD (chronic obstructive pu lmonary disease) ([facility] V24, [facility] V28) Hypercholesteremia CKD (chronic kidney disease) stage 3, GFR 30-59 ml/min ([facility] V24, [facility] V28) Insomnia Aortic stenosis Mod to severe pe r Echo 02/2024, asymptomatic Social History Tobacco Use Types Packs/Day Years Used Date Smoking Tobacco: Former Cigarettes Q uit: 2013 Tobacco Cessation:Counseling Given: Not Answered Alcohol Use Standard Drinks/Week Comments Yes 1 (1 standard drink = 0.6 oz pur e alcohol) daily Interpersonal Safety Answer Date Record ed Physical Abuse 06/13/2024 Verbal Abuse 06/13/2024 Comments Unknown Sex and Gender Information Value Date Recorded Sex Assigned at Female 03/07/2025 9:32 AM EDT Legal Sex Female 8:36 PM EST Gender Identity Female 03/07/2025 9:32 AM EDT Sexual Orientation Straight 03/07/2025 9: 32 AM EDT Obstetrics History Last Filed Vital Signs Vital Sign Reading Time Taken Comments Blood Pressure 180/90 02/24/2025 1:13 PM EDT Pulse 71 02/24/2025 1:13 PM EDT Temperature 36.4 C (97.5 F) 06/14/2024 8:56 AM EST Respiratory Rate 19 06/14/2024 9:16 AM EST Oxygen Saturation 97% 02/24/2025 1:13 PM EDT Inhaled Oxygen Concentration - - Weight 68 kg (150 lb) 02/28/2025 9:37 AM EDT Height 157.5 cm (5' 2 ) 02/28/2025 9:37 AM EDT Body Mass Index 27.44 02/28/2025 9:37 AM EDT Plan of Treatment Upcoming Encounters Date Type Department Care Team (Late st Contact Info) Description 04/12/2025 8:30 AM EDT Appointment [facility] [address] [place] [address] 05/02/2025 1:[address] [facility] [address] [place] [address] Lee Rodríguez MD [address] [place] [address] [address] [place] [address] Health Maintenance Due Date Last Done Comments DTaP,Tdap,and Td Vaccines (1 - Tdap) 1959 RSV Immunization Adult Patients (1 - 1-dose 75+ series) 2016 COVID-19 Vaccine (3 - Pfizer risk series) 01/30/2023 01/02/2023, 04/30/2022 Zoster Vaccines (2 of 2) 06/23/2023 04/28/2023 Cholesterol Screening (Lipid Panel) 08/22/2023 Medicare Annual Wellness Visit 08/22/2023 Osteoporosis Screening (Bone Density Screening) 08/22/2023 Social Influencers of Health Screening 08/22/2023 Depression Screening 07/28/2024 Influenza Vaccine (#1) 2025 04/28/2023, 2021 Falls Risk Assessment 06/14/2025 06/14/2024 Hypertension/CHF/CAD Annual BMP Blood Test 06/14/2025 06/14/2024, 06/13/2024, 01/30/2024, Additional history exists Pneumococcal Vaccine: 50+ Years Completed 04/28/2023 HIB Vaccines Aged Out No longer eligi [...] Procedure Name Priority Date/Time Associated Diagnosis Comments FERRITIN Routine 03/01/2025 Anemia, unspecified type IRON AND TIBC Routine 03/01/2025 Anemia, unspecified type CBC AND DIFFERENTIAL Routine 02/28/2025 Anemia, unspecified type CARDIAC HOLTER MONITOR (REPORT GENERATED IN HOUSE) Routine 02/03/2025 3:05 PM EDT Palpitation TRANSTHORACIC ECHOCARDIOGRAM (TTE) COMPLETE Routine 02/03/2025 2:40 PM EDT Nonrheumatic aortic (valve) stenosis EXTERNAL CLINICAL LAB Routine 02/03/2025 10:33 AM EDT ECG 12-LEAD Routine 02/01/2025 4:24 PM EDT Nonrheumatic aortic valve stenosis EXTERNAL CLINICAL LAB Routine 01/31/2025 3:48 PM EDT COMPREHENSIVE METABOLIC PANEL Routine 06/14/2024 5:40 AM EST from Last 3 Months or Most Recently Relevant to Health Maintenance Results * Iron and TIBC (03/01/2025) Blood Venous blood specimen / Unknown Daniela Bang PA LAB BLOOD ORDERABLES Final Resu lt Performing Organization Address [facility]/ZIP Co de Phone Number EXTERNAL LAB (NON-INTERFACED) * Ferritin (03/01/2025) Blood Venous blood specimen / Unknown Daniela Bang PA LAB BLOOD ORDERABLES Final Resu lt EXTERNAL LAB (NON-INTERFACED) * CBC and differential (02/28/2025) Blood Venous blood specimen / Unknown us Daniela BENITO LAB BLOOD ORDERABLES Final Resu lt EXTERNAL LAB (NON-INTERFACED) * CARDIAC HOLTER MONITOR (REPORT GENERATED IN HOUSE) (02/03/2025 3:05 PM EDT) Anatomical Region Laterality Modality Cardiac Diagnost ic Narrative 02/09/2025 7:45 AM EDT [facility] DI[facility] DEPARTMENT [address] [facility], [address] [address] TEL: FAX: Type of test: 48 hour Holter Monitor Date of test: 02/03/25 Ordering provider: Vinnie Reagan NP Reason for Test: Palpitations [facility] Clinical Specialty Rep Findings: 1: The predominant rhythm was Normal Sinus Rhythm. RBBB. 2: Frequent PACs with rare atrial pairs, atrial bi/trigeminy, and atrial runs up to 36 beats. 3: Rare PVCs with one triplet. 4: No pauses noted. Longest R-R 1.9 sec. 5: Diary returned with patient noting tired . EKG at those times showed Normal Sinus Rhythm. Impression: Baseline rhythm was sinus rhythm with a right bundle branch block. There were frequent PACs and atrial runs up to 36 bpm. No sustained atrial arrhythmias or atrial fibrillation. Rare PVCs. Vinnie Reagan NP CV CARDIAC SERVICES PROCEDURES F inal Result * (ABNORMAL) TRANSTHORACIC ECHOCARDIOGRAM (TTE) COMPLETE (02/03/2025 2:40 PM EDT) Left Atrium Minor [place] 6.1 cm CV PACS Left Atrium Major [place] 6.5 cm CV PACS LA Area Sys (A2C) 29 cm2 CV PACS LA Area Sys (A4C) 29 cm2 CV PACS LA Volume (BP) 113 mL CV PACS LA Size 5.5 cm CV PACS RA Area 16.7 cm2 CV PACS RA 2D Volume 46 mL CV PACS AV Regurgitation PHT 315 ms CV PACS AR Max Velocity 4.4 m/s CV PACS AV Peak Gradient 86 mmHg CV PACS AV Peak Yg 4.6 m/s CV PACS AV Mean Gradient 54 mmHg CV PACS Ao VTI 98.5 cm CV PACS AV Area Continuity Equation 0.7 cm2 CV PACS AV Area Peak Velocity 0.6 cm2 CV PACS Aortic Sinus Valsalva 3.5 cm CV PACS Ascending Aorta 3.5 cm CV PACS IVC Proximal 2.2 cm CV PACS IVSD 1.5(A) 0.6 - 0.9 cm CV PACS LVIDD 4.6 3.8 - 5.2 cm CV PACS LVIDS 3.1 2.2 - 3.5 cm CV PACS LVOT Diameter 2.1 cm CV PACS LVOT Mean Yg 0.6 m/s CV PACS LVOT Mean Yg 0.6 m/s CV PACS LVOT Mean Grad 2 mmHg CV PACS LVOT Peak VTI 18.7 cm CV PACS LVOT Peak Yg 0.9 m/s CV PACS LVOT Peak Gradient 3 mmHg CV PACS LVPWD 1.4(A) 0.6 - 0.9 cm CV PACS MV E' Tissue Velocity Lateral 6 cm/s CV PACS MV E' Tissue Velocity Septal 4 cm/s CV PACS LVOT Area 3.4 cm2 CV PACS LVOT Stroke Volume 64 mL CV PACS MV Mean Gradient 5 mmHg CV PACS MR VTI 169.0 cm CV PACS MV VTI 42.5 cm CV PACS MR PISA Max Velocity 0.1 m/s CV PACS MR Peak Gradient 130 mmHg CV PACS Mitral Valve Max Velocity 2.0 m/s CV PACS MV Peak Gradient 16 mmHg CV PACS MV Deceleration [place] 9.3 m/s2 CV PACS E Wave Deceleration Time 212 119 - 242 ms CV PACS MV PHT 62 ms CV PACS MV Peak A Yg 1.40 m/s CV PACS MV Peak E Yg 1.70 m/s CV PACS MV Area PHT 3.9 cm2 CV PACS MV Area Continuity Equation 1.5 cm2 CV PACS PV Acceleration Time 120 ms CV PACS PV Acceleration Time 127 ms CV PACS PV Acceleration Time 124 ms CV PACS PV Mean Gradient 1 mmHg CV PACS PV VTI 12.5 cm CV PACS PV Peak Velocity 0.8 m/s CV PACS PV Peak Gradient 3 mmHg CV PACS RV Diastolic Basal Dimension 3.5 2.5 - 4.1 cm CV PACS RV S' 9 cm/s CV PACS TAPSE 20 mm CV PACS TR Peak Velocity 4.10 m/s CV PACS TR Peak Gradient 67 mmHg CV PACS E/E' Ratio Septal 43 CV PACS E/E' Ratio Averaged 35 CV PACS Relative Wall Thickness ratio 0.62(A) 0.22 - 0.42 CV PACS LVOT:AV VTI Index 0.19 CV PACS FS 33 % CV PACS LV Mass 2D 278(A) 66 - 150 g CV PACS MV VTI:LVOT VTI ratio 2.3 CV PACS AV Velocity Ratio 0.20 CV PACS E/A Ratio 1.2 0.8 - 2.0 CV PACS E/E' Ratio Lateral 28 CV PACS BSA 1.74 m2 CV PACS LA Volume Index (BP) 64 mL/m2 CV PACS LVIDD Index 2.69 cm/m2 CV PACS LVIDS Index 1.81 cm/m2 CV PACS LV Mass Index 2D 158(A) 44 - 88 g/m2 CV PACS LVOT Stroke Index 0 mL/m2 CV PACS LA Dimension Index 2D 3.1 cm/m2 CV PACS RA 2D Volume Index 27 15 - 27 mL/m2 CV PACS ANAMIKA Index (VTI) 0.38 cm2/m2 CV PACS ANAMIKA Index (Pk Yg) 0.35 cm2/m2 CV PACS Ascending Aorta Index 2.05 cm/m2 CV PACS RV Free Wall Peak S' 9 cm/s CV PACS RA Major [place] 5.3 cm CV PACS RA Major [place] Index 3.1(A) 2.2 - 2.8 cm/m2 CV PACS AV Area 2D 0.7 cm2 CV PACS ANAMIKA Index (2D) 0.41 cm2/m2 CV PACS Inferior Vena Cava Diameter At Expiration 2.2 cm CV PACS IVC Expiration Index 1.29 cm/m2 CV PACS AV Area Index 0.4 CV PACS Right Ventricular Peak Systolic Pressure 82 mmHg CV PACS Est. RA Pressure 15 mmHg CV PACS Anatomical Region Laterality Modality Ultrasound Narrative 02/17/2025 2:58 PM EDT Left ventricle cavity size is normal. There is moderate, concentric left ventricular hypertrophy. There is normal left ventricular regional wall motion. Left ventricular systolic function is in the normal range with an ejection fraction of 60-65%. Right ventricle cavity is normal. Right ventricular systolic function is normal. There is severe aortic stenosis there is moderate aortic insufficiency. See measurements below. There is mild, calcific mitral stenosis. There is mild regurgitation. Severely elevated right ventricular systolic pressure. Estimated RVSP is 82 mmHg. There is evidence of high right atrial pressure. Trivial pericardial effusion. There is severe left atrial enlargement. Compared with prior echocardiogram from 03/10/2024, aortic stenosis and aortic insufficiency severity have worsened. Mitral regurgitation severity has worsened slightly from trace to mild. Right atrial pressure and RV systolic pressure are higher. Left Ventricle Left ventricle cavity size is normal. There is moderate concentric hypertrophy. Systolic function is normal with an ejection fraction of 60-65%. There are no regional LV wall motion abnormalities. Indeterminate diastolic function. Left atrial pressure is inconclusive. Right Ventricle Right ventricle cavity appears normal. Systolic function is normal. Left Atrium Left atrium cavity is severely dilated. Right Atrium Right atrium cavity is normal. IVC/SVC Inferior vena cava structure is normal. RA pressures is estimated to be 15 mmHg (IVC diameter >21 mm and decreases <50% during inspiration). Mitral Valve The leaflets are moderately thickened. There is severe annular calcification. There is mild regurgitation with a centrally directed jet. There is mild stenosis. MV mean gradient is 5 mmHg. Tricuspid Valve Tricuspid valve structure is normal. There is mild regurgitation with a central jet. There is no evidence of tricuspid valve stenosis. The right ventricular systolic pressure is severely elevated. Estimated RA pressure is 15 mmHg. The RVSP is estimated at 82 mmHg. Aortic Valve Number of aortic valve cusps cannot be determined. The leaflets are moderately thickened. There is moderate regurgitation with a centrally directed jet. There is severe stenosis. The mean gradient is 54 mmHg. The aortic valve area by continuity equation is 0.7 cm2. Pulmonic Valve Visualized portions of the pulmonic valve appear normal. There is trace pulmonic valve regurgitation. There is no evidence of pulmonic valve stenosis. Ascending Aorta The aorta appears normal in size. Pericardium Pericardium appears normal. There is a trivial pericardial effusion. Study Details Overall the study quality was adequate. us Shannan Caceres MD CV ECHO PROCEDURES Final Result * External clinical lab (02/03/2025 10:33 AM EDT) Only the most recent of2 resultswithin the time period is included. Historical Provider LAB BLOOD ORDERABLES Milagro l Result * ECG 12 lead (02/01/2025 4:24 PM EDT) Ventricular Rate ECG 77 BPM GEMUSE Atrial Rate 77 BPM GEMUSE P-R Interval 154 ms GEMUSE QRS Duration 122 ms GEMUSE Q-T Interval 442 ms GEMUSE QTc 500 ms GEMUSE P Wave [place] 57 degrees GEMUSE R [place] 55 degrees GEMUSE T [place] 28 degrees GEMUSE ECG Interpretation Sinus rhythm with Premature atrial complexes Right bundle branch block Abnormal ECG No previous ECGs available Confirmed by SHANNAN CACERES ([id number]) on 02/24/2025 1:08:29 PM GEMUSE 02/01/2025 3:12 PM EDT 02/24/2025 1:08 PM EDT Vinnie Reagan NP ECG ORDERABLES Edited Result - Final GEMUSE * (ABNORMAL) Comprehensive metabolic panel (06/14/2024 5:40 AM EST) Pathologist [facility] Sodium 144 133 - 145 mmol/L LAB CHEMISTRY METHOD 06/14/2024 6:46 AM [facility] Potassium 4.2 3.5 - 5.5 mmol/L LAB CHEMISTRY METHOD 06/14/2024 6:46 AM [facility] Chloride 116(H) 96 - 110 mmol/L LAB CHEMISTRY METHOD 06/14/2024 6:46 AM [facility] CO2 23 21 - 32 mmol/L LAB CHEMISTRY METHOD 06/14/2024 6:46 AM [facility] Anion Gap 5 3 - 11 LAB CHEMISTRY METHOD 06/14/2024 6:46 AM [facility] Glucose 93 70 - 100 mg/dL LAB CHEMISTRY METHOD 06/14/2024 6:46 AM [facility] BUN 64(H) 5 - 25 mg/dL LAB CHEMISTRY METHOD 06/14/2024 6:46 AM [facility] Creatinine 1.50(H) 0.50 - 1.10 mg/dL LAB CHEMISTRY METHOD 06/14/2024 6:46 AM [facility] eGFR 35(L) >=60 mL/min/1. 73m2 LAB CHEMISTRY METHOD 06/14/2024 6:46 AM [facility] Comment:Calculation based on the Chronic Kidney Disease Epidemiology Collaboration (CKD-EPI) equation refit without adjustment for race. BUN/Creatinine Ratio 42.7 LAB CHEMISTRY METHOD 06/14/2024 6:46 AM [facility] Calcium 8.6 8.5 - 10.5 mg/dL LAB CHEMISTRY METHOD 06/14/2024 6:46 AM [facility] AST (SGOT) 19 10 - 42 unit/L LAB CHEMISTRY METHOD 06/14/2024 6:46 AM [facility] ALT (SGPT) 16 10 - 60 unit/L LAB CHEMISTRY METHOD 06/14/2024 6:46 AM [facility] Alkaline Phosphatase 45 42 - 121 unit/L LAB CHEMISTRY METHOD 06/14/2024 6:46 AM [facility] Total Protein 5.0(L) 6.0 - 8.0 g/dL LAB CHEMISTRY METHOD 06/14/2024 6:46 AM [facility] Albumin 3.0(L) 3.2 - 5.0 g/dL LAB CHEMISTRY METHOD 06/14/2024 6:46 AM [facility] Total Bilirubin 0.4 0.0 - 1.4 mg/dL LAB CHEMISTRY METHOD 06/14/2024 6:46 AM [facility] Blood Venous blood specimen / Unknown Venipuncture / Unknown 06/14/2024 5:40 AM EST 06/14/2024 6:13 AM EST us Brain Green MD LAB BLOOD ORDERABLES Final Re s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 Care Teams Early Intervention Specialist Relationship Specialty Start Date End Date Socrates Reddy PA [address] [place] [phone] PCP - General 02/06/23
--- OUTSIDE RECORDS SUMMARY | 2025-04-06 14:09 | XMS_ITS | Clinical Summary ---
Author Organization [facility] Address [address] [place] [address] Care Team Providers Care Cooker Process Cheese Name Role Phone Socrates De Paz PA-C Primary Care Provider [phone] Allergies Active Allergy Reactions Criticality Noted Date [...] age to complete this topic Care Teams Cooker Process Cheese Relationship Specialty Start Date End Date Socrates De Paz PA-C [address] [facility] [place] [phone] PCP - General Physician Chief Digital Media Officer 01/27/24
== END 2025-04-06 11:51 | disposition home or self-care (01) ==
LOC: HO.HPSW 11:05
PROVIDERS: PCP Physician Assistant; Visit Provider Nurse Practitioner Family
DX: J44.9 Chronic obstructive pulmonary disease, unspecified (principal); J43.9 Emphysema, unspecified; Z87.891 Personal history of nicotine dependence; R91.8 Other nonspecific abnormal finding of lung field
CPT/HCPCS: 99214

== ENCOUNTER → 2025-04-06 11:04 | Outpatient (BNVA) | payer MEDICARE, SELFPAY | PROVIDERS: PCP Physician Assistant; Visit Provider Nurse Practitioner Family | DX: R91.8 Other nonspecific abnormal finding of lung field (principal); J43.9 Emphysema, unspecified; J44.9 Chronic obstructive pulmonary disease, unspecified; Z87.891 Personal history of nicotine dependence | CPT/HCPCS: 99212 ==

== ENCOUNTER 2025-04-26 11:12 | Outpatient (AMB) | payer MEDICARE, SELFPAY ==
--- OUTSIDE RECORDS SUMMARY | 2024-12-06 09:30 | XMS_ITS ---
Author Organization [facility] [address] Address [address] [place] [address] Care Team Providers Care Tour Actor Name Role Phone NUNES, MARTIN Unavailable [phone] Encounters Encounter Location Date Provider Diagnosis [facility] [address] [place] [address] 12/06/2024 MARTIN NUNES Plan Of Treatment Next Appt Details Provider Name:MARTIN NUNES, 06/13/2025 11:45:00 AM, [address], [place], [address], Progress Notes * TONIJULIANE GANDARASCOUTOB:[birth year] (84 yo F)Acc No.[id number]:12/06/2024 Progress Notes Patient: IBAN ACHARYA Provider: Julisa LOREDO PA-C :1940 A ge:84 Y S ex:Female Date:12/06/2024 Address:[address] [place], [place] [id number] Subjective: * Chief Complaints: * * Medical History: Objective: * Vitals: Assessment: Plan: * Treatment: * Images: Billing Information: * Visit Code: * Procedure Codes: Care Plan Details* * Electronic signature of JUSTEN NUNES PA-C on 04/26/2025 at 12:37 PM EDT Sign off status: Pending * Provider: Julisa LOREDO PA-C Date: 0 12/06/2024 Generated for Leola boothe/Antonio/eTransmitting on: 0 04/26/2025 12:37 PM EDT
[2025-04-26 11:14] VITALS: BP 136/88; PULSE 91; O2SAT 92; BMI 31.4
--- NOTE | 2025-04-26 11:14 | A.OFFVIS_ITS ---
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 Today she is accompanied by her sister as she is a poor historian. Since the last visit patient has been scheduled for evaluation for TAVR in April and has been using lasix 20 mg QD. She presents today for an acute visit. The patient reports experiencing hoarseness, which she attributes to the use of inhalers, particularly after switching to an [id number] option due to running out of Albuterol. She has been using Primatene, which contains epinephrine, despite having underlying cardiac issues, raising concerns about potential cardiac effects. The patient has difficulty using inhalers effectively, often not holding the medication in long enough, leading to rapid depletion of her inhaler supply. She has been advised to use a spacer to improve medication delivery and reduce the frequency of inhaler use. The patient experiences shortness of breath primarily at night, which may be related to her cardiac condition or potential sleep apnea. She sleeps with two pillows and a wedge but still wakes up short of breath, prompting a recommendation for a sleep study to evaluate for sleep apnea which she was in agreement. [facility] Social History Patient Tobacco Use Status: Former Tobacco user Tobacco use type: Cigarette Cigarette Packs Per Day: 1.5 Cigarettes Per Day: 15 Years Smoked: 50 Review of Systems Const Denies chills, Denies excessive sweating, Denies fever(s), Denies headache(s) and Denies night sweats Eyes Denies dry eyes, Denies irritation and Denies itchy eyes ENT Reports Normal hearing present, Denies headache(s), Denies nasal congestion, Denies nasal discharge, Denies post nasal drip and Denies sore throat Card Denies chest pain, Denies chest pain at rest, Denies chest pain with activity, Denies claudication, Denies leg edema, Reports dyspnea on exertion, Denies orthopnea and Denies paroxysmal nocturnal dyspnea Resp Denies chest congestion, Denies cough, Denies excessive phlegm production, Denies pain on inspiration, Denies pain with cough, Reports dyspnea on exertion, Denies stridor and Denies wheezing Musc Denies myalgias Neuro Reports Normal hearing present and Denies headache(s) Endo Denies excessive sweating Buddy/Lymph Denies lymphadenopathy Aller/Immun Denies itchy eyes, Denies seasonal rhinorrhea and Denies wheezing Physical Exam Vital Signs: Last Vital Signs Pulse 91 04/26/25 11:14 BP 136/88 04/26/25 11:14 Pulse Ox 92 04/26/25 11:14 Oxygen Delivery Method Room Air 04/26/25 11:14 BMI result Body Mass Index 31.4 Const General: cooperative, healthy appearing, comfortable, no acute distress, well developed and alert Orientation/consciousness: patient oriented x3 Limitations: no limitations HEENT Head: Yes normal to inspection, Yes normocephalic and Yes atraumatic Ears: hearing grossly normal bilaterally and external ears normal Eyes General: appearance normal, both eyes and all related structures Eyelids: Yes eyelids normal Sclerae: sclerae normal EOM: EOMs intact bilaterally Neck Neck: Yes normal visual inspection and Yes no lymphadenopathy Lymphatic: no lymphadenopathy noted Chest Chest palpation & inspection: normal inspection of the chest Resp Other: bilateral inspiratory bibasilar crackles Effort & Inspection: normal respiratory effort, able to speak in complete sentences, no audible wheezes, no cough, no stridor, not tachypneic, no tripod positioning and no use of accessory muscles Auscultation: crackles and diminished lung sounds Cardio Jugular venous distension: no JVD Rate: regular rate Rhythm: regular rhythm Heart sounds: Murmur heart sound present (aortic stenosis grade 3-4) Skin Other: warm, dry General skin exam: no rashes or lesions noted Neuro General: patient oriented x3 Cranial nerves: Yes Normal hearing present Cognition (Neuro): normal cognition Gait exam (Neuro): Normal gait present Extrem Other: 1-2+ BLE edema General: Yes normal to inspection Psych Appearance: grossly normal and well kempt Speech and movement: Normal speech and movement present and Clear speech present Affect: normal affect Attitude: cooperative Thought process: Normal thought process present Thought content: Normal thought content present Insight: Fair insight present (Psych) Judgement: Fair judgement present (Psych) Assessment & Plan Assessment & Plan (1) COPD (chronic obstructive pulmonary disease): Code(s): J44.9 - Chronic obstructive pulmonary disease, unspecified Category: Medical (2) Emphysema lung: Code(s): J43.9 - Emphysema, unspecified Category: Medical (3) Personal history of tobacco use: Code(s): Z87.891 - Personal history of nicotine dependence Category: Social Hx (4) Multiple pulmonary nodules: Code(s): R91.8 - Other nonspecific abnormal finding of lung field Category: Medical (5) Paroxysmal nocturnal dyspnea: Code(s): R06.00 - Dyspnea, unspecified Category: Medical (6) Nocturnal hypoxemia: Code(s): G47.34 - Idiopathic sleep related nonobstructive alveolar hypoventilation Category: Medical (7) Loud snoring: Code(s): R06.83 - Snoring Category: Medical Plan We had long discussion regarding proper inhaler technique including using a spacer to improve medication delivery and reduce inhaler depletion. Spacer rx sent to pharmacy. Advised to continue Trelegy and albuterol MDI, as well as discontinue Primatene. The patient is advised to increase her diuretic dosage for three days to address fluid retention, bibasilar crackles, increased pedal edema and reassess symptoms. If symptoms worsen she is aware to seek emergent care. She is instructed to contact cardiology if symptoms improve, to discuss maintaining the increased dosage. A sleep study is recommended to evaluate for sleep apnea due to the patient's nocturnal dyspnea and loud snoring. The patient is advised to continue using a wedge pillow to alleviate symptoms. All questions were answered and patient is in agreement of plan. Will follow up in 4 weeks or sooner if needed. Orders: Orders RT home sleep study Today R06.00 - Dyspnea, unspecified, R06.83 - Snoring Medications: New inhalational spacing device (Aerochamber Plus Z Stat spacer) As directed 1 ea 0RF Coding Level of Care Code Est Pt Level 4 (81781) Diagnoses COPD (chronic obstructive pulmonary disease) J44.9 Emphysema lung J43.9 Personal history of tobacco use Z87.891 Multiple pulmonary nodules R91.8 Paroxysmal nocturnal dyspnea R06.00 Nocturnal hypoxemia G47.34 Loud snoring R06.83
--- OUTSIDE RECORDS SUMMARY | 2025-04-26 12:38 | XMS_ITS | Clinical Summary ---
Author Organization [facility] Address [address] [place] [address] Care Team Providers Care Software Development Test Engineer Name Role Phone Socrates De Paz PA-C Primary Care Provider [phone] Allergies Active Allergy Reactions Criticality Noted Date [...] age to complete this topic Care Teams Software Development Test Engineer Relationship Specialty Start Date End Date Socrates De Paz PA-C [address] [facility] [place] [id number] PCP - General Physician Button Clamper 01/[birth year]
--- OUTSIDE RECORDS SUMMARY | 2025-04-26 12:38 | XMS_ITS | Patient Health Record ---
Author Organization [facility] [address] Address [address] [place] [address] Care Team Providers Care Stock Wetter Name Role Phone MARTIN NUNES Unavailable [phone] Allergies Allergen (clinical drug ingredient) Drug/Non Drug Allergy documented on EMR Reaction Allergy Type Onset Date Status penicillin G Penicillin G Potassium rash Drug Allergy Active Results Component Value Reference Range Notes Written Authorization Reviewed date:06/21/2024 04:47:57 PM Interpretation: Performing Lab:[facility], [address] [facility], Phone - [phone], Director - Shira Notes/Report: Written Authorization Written Authorization Received. Authorization received from Irma Rivas for Link Request on 06-18-2024 Logged by Jayne Otoole Basic Metabolic Panel [phone] Reviewed date:06/22/2024 08:41:56 AM Interpretation: Performing Lab:[facility], [address] [facility], Phone - [phone], Director - Shira Notes/Report: Glucose 116 70-99 mg/dL BUN 28 8-27 mg/dL Creatinine 1.33 0.57-1.00 mg/dL eGFR 40 >59 mL/min/1.73 BUN/Creatinine Ratio 21 12-28 Sodium 148 134-144 mmol/L Potassium 4.6 3.5-5.2 mmol/L Chloride 111 96-106 mmol/L Carbon Dioxide, Total 17 20-29 mmol/L TSH+Free T4 Reviewed date:06/01/2024 08:13:17 AM Interpretation: Performing Lab:[facility], [address] [facility], Phone - [phone], Director - Shira Notes/Report: Clinical Information:[id number] TSH-ICMA 0.65 Reference Range: Non- Adult 0.450-4.500 First Trimester 0.100-4.000 Second Trimester 0.200-4.000 Third Trimester 0.300-4.500 Free T4 by Dialysis/Process Safety Manager 1.2 This test was developed and its performance characteristics determined by [employer]. It has not been cleared or approved by the Food and Drug Administration. Reference Range: Pubertal Children and Adults: 0.8 - 1.7 Comp. Metabolic Panel (14)-3 Reviewed date:02/04/2025 08:22:06 AM Interpretation: Performing Lab:[facility], [address], [place], Phone - [phone], Director - Kiy Notes/Report: Glucose 93 70-99 mg/dL BUN 13 [...] IU/L ALT (SGPT) 13 0-32 IU/L Lipid Panel-[id number] Reviewed date:02/04/2025 08:22:51 AM Interpretation: Performing Lab:[facility], [address], [place], Phone - [phone], Director - Kiy Notes/Report: Cholesterol, Total 144 100-199 mg/dL Triglycerides 139 0-149 mg/dL HDL Cholesterol 55 >39 mg/dL VLDL Cholesterol Emanuel 24 5-40 mg/dL LDL Chol Calc ([facility]) 65 0-99 mg/dL Folate, RBC-593215 Reviewed date:06/01/2024 08:13:23 AM Interpretation: Performing Lab:[facility] [place], [address] [facility], Phone - [phone], Director - Shira Notes/Report: Clinical Information:[id number] Folate, Hemolysate 402.0 Not Estab. ng/mL Hematocrit 40.1 34.0-46.6 % Folate, RBC 1002 >498 ng/mL [id number] Reviewed date:06/18/2024 10:13:11 AM Interpretation: Performing Lab:[facility] [place], [address] [facility], Phone - [phone], Director - Shira Notes/Report: NT-proBNP 2054 0-738 pg/mL The following cut-points have been suggested for the use of proBNP for the diagnostic evaluation of heart failure (HF) in patients with acute dyspnea: . Modality Age Optimal Cut (years) Point ---- Diagnosis (rule in HF) <50 450 pg/mL 50 - 75 900 pg/mL >75 1800 pg/mL Exclusion (rule out HF) Age independent 300 pg/mL Vitamin D, 54-Qisbhsk-[id number] Reviewed date:02/04/2025 08:27:05 AM Interpretation: Performing Lab:[facility] [place], [address] [facility], Phone - [phone], Director - Shira Notes/Report: Vitamin D, 25-Hydroxy 27.0 30.0-100.0 ng/mL Vitamin D deficiency has been defined by the [place] of [employer] and an Endocrine Society practice guideline as a level of serum 25-OH vitamin D less than 20 ng/mL (1,2). The Endocrine Society went on to further define vitamin D insufficiency as a level between 21 and 29 ng/mL (2). 1. IOM ([place] of [employer]). 2010. Dietary reference intakes for calcium and D. [place]: The National Academies Press. 2. Duran MF, Izaiah FUNG, Nick AVILA, et al. Evaluation, treatment, and prevention of vitamin D deficiency: an Endocrine Society clinical practice guideline. JCEM. 2010; 96(7):1911-30. RPR, Rfx Qn RPR/Confirm TP-0 [id number] Reviewed date:06/01/2024 08:13:12 AM Interpretation: Performing Lab:[facility] [place], [address] [place] [address], Phone - [phone], Director - Shira Notes/Report: Clinical Information:[id number] RPR Non Reactive Non Reactive CBC With Differential/Platel et-[id number] Reviewed date:06/18/2024 10:13:11 AM Interpretation: Performing Lab:[facility] [place], [address] [place] [address], Phone - [phone], Director - Shira Notes/Report: WBC 7.3 3.4-10.8 x10E3/uL Effective June 28, 2024 profile [id number] WBC will be made non-orderable as a [...] % Immature Grans (Abs) 0.0 0.0-0.1 x10E3/uL Ferritin-[id number] Reviewed date:02/04/2025 08:22:51 AM Interpretation: Performing Lab:[facility] [place], [address] [place] [address], [place], Phone - [phone], Director - Shira Notes/Report: Ferritin 76 15-150 ng/mL TSH-[id number] Reviewed date:02/04/2025 08:22:51 AM Interpretation: Performing Lab:[facility] [address], Phone - [phone], Director - [facility] Notes/Report: TSH 1.460 0.450-4.500 uIU/mL Urinalysis, Complete-[id number] Reviewed date:02/04/2025 08:22:51 AM Interpretation: Performing Lab:[facility] [place], [address] [place] [address], Phone - [phone], Director - [facility] Notes/Report: Specific [place] 1.011 1.005-1.030 pH 8.5 5.0-7.5 Urine-Color Yellow [...] None seen /lpf Bacteria Many None seen/Few Urinalysis, Routine-[id number] Reviewed date:06/01/2024 08:13:34 AM Interpretation: Performing Lab:[facility], Phone - [phone], Director - [facility] Notes/Report: Clinical Information:[id number] Clinical Information:[id number] Specific [place] 1.024 1.005-1.030 pH 5.5 5.0-7.5 Urine-Color Yellow [...] Oxalate N/A Bacteria Moderate None seen/Few Vitamin [id number] Reviewed date:06/01/2024 08:13:06 AM Interpretation: Performing Lab:[facility] [place], [address] [place] [address], [place], Phone - [phone], Director - Shira Notes/Report: Clinical Information:[id number] Vitamin B12 750 215-6374 pg/mL Hemoglobin Z0p-[id number] Reviewed date:02/04/2025 08:22:51 AM Interpretation: Performing Lab:[facility] [place], [address] [place] [address], [place], Phone - [phone], Director - Shira Notes/Report: Hemoglobin A1c 5.2 4.8-5.6 % . Prediabetes: 5.7 - 6.4 Diabetes: >6.4 Glycemic control for adults with diabetes: <7.0 Iron and TIBC-197024 Reviewed date:02/04/2025 08:22:51 AM Interpretation: Performing Lab:[facility] [place], [address] [place] [address], [place], Phone - [phone], Director - Shira Notes/Report: Iron Bind.Cap.(TIBC) 367 250-450 ug/dL UIBC 238 118-369 ug/dL Iron 129 27-139 ug/dL Iron Saturation 35 15-55 % US Renal Reviewed date:05/25/2024 04:37:30 PM Interpretation: Performing Lab: Notes/Report: Original Ordering Provider: MARTIN LOREDO PA-C [facility] Reason For Referral Reason evaluate Diagnosis 1 Aortic stenosis, mod erate (I35.0) Referral Organization [facility] KARTIK RAMIREZ Referring Provider First Name MARITN Referring Provider Last Name DES Referring Provider Speciality Internal edicine Referred Provider Specialty Cardiology Clinical Notes Aleksandar Gaston 08/2023 10:04:22 AM > refaxed pt info to [facility] p) [phone] F) [phone].Casper Redena 12/10/2024 01:47:47 PM > The patient was seen on 05/29/2024 Referral Priority Routine Reason Evaluate & Treat Diagnosis 1 Cognitive changes (R 41.89) Referral Organization [facility] [address] Referring Provider First Name MARTIN Referring Provider Last Name DES Referring Provider Speciality Internal M edicine Referred Provider Specialty Neurology General Notes Natividad José 0 01/11/2025 11:55:51 AM > Referral to memory clinic associated with [facility] and faxed, p) [phone] , f) [phone] Clinical Notes Uriel Wilcox 03:27:14 PM > spoke with Natalia, booked on Jun 13 at 10AM Referral Priority Routine Reason Evaluate & Treat G I Bleed need repeat Endoscopy Diagnosis 1 Gastroduodenitis, un specified, with bleeding (K29.91) [facility] Referring Provider First Name MARTIN Referring Provider Last Name DES Referring Provider Speciality Internal edicine Referred Provider Maryjo Mackenzie Referred Provider Specialty Gastroentero srikanth General Notes Natividad José 0 01/11/2025 11:59:38 AM > Referral to Dr. Mackenzie and faxed, p. [phone], f. [phone] Clinical Notes Uriel Wilcox 03:30:40 PM > spoke with Marley, booked on Feb 28 9:25AM Referral Priority Routine Medications Medication SIG (Take, Route, Frequency, Duration) Notes Start Date End Date Status Albuterol Sulfate HFA 108 (90 Base) MCG/ACT 1 puff as needed Inhalation every 4 hrs; Duration: 30 days Active Lidocaine 5 % 1 patch remove after 12 hours Externally Once a day; Duration: 30 days 04/13/2025 Active Simvastatin 20 MG TAKE 1 TABLET BY JEANCARLOS TH EVERY DAY IN THE EVENING; Duration: 90 Active rOPINIRole HCl ER 8 MG TAKE 1 TABLET BY MOUTH DAILY; Duration: 90 Active Gabapentin 400 MG 1 capsule Orally Onc e a day; Duration: 90 days Not-Takin g Trelegy Ellipta 200-62.5-25 MCG/ACT INHALE 1 PUFF BY MOUTH EVERY DAY; Duration: 90 days Active Lisinopril 20 MG TAKE 1 TABLET BY JEANCARLOS TH DAILY; Duration: 90 Active Furosemide 20 MG Oral; Duration: 90 Days Active Iron Active Vitamin C 500 MG as directed Orally Active Tylenol 325 MG 1 capsule as needed Orally every 6 hrs Active Problems Problem Type SNOMED Code ICD Code Onset Dates Problem Status W/U Status Risk Notes Problem Mixed hyperlipidemia (090185761) Mixed hyperlipidemia (E78.2) Active confirmed Problem Shortness of breath (916079930) Shortness of breath (R06.02) Active confirmed Problem Adult health examination (360836719) Encounter for general adult medical examination without abnormal findings (Z00.00) Active confirmed Problem Hyperlipidaemia (98012739) Hyperlipidemia, unspecified hyperlipidemia type (E78.5) Active confirmed Problem Anxiety (14296131) Anxiety (F41.9) Active confi rmed Problem Adult health examination (571765751) Adult general medical exam (Z00.00) Active confirmed Problem Vitamin D deficiency (03052515) Vitamin D deficiency (E55.9) Active confirmed Problem Restless legs syndrome (28620977) Restless leg syndrome (G25.81) Active confirmed Problem Essential hypertension (78442791) Hypertension, unspecified type (I10) Active confirmed Problem Chronic kidney disease stage 3A (disorder) (947507227) Chronic kidney disease, stage 3a (N18.31) Active confirmed Problem Chronic kidney disease stage 3B (disorder) (428007120) Chronic kidney disease, stage 3b (N18.32) Active confirmed Problem Aortic stenosis, non-rheumatic (891540090) Nonrheumatic aortic valve stenosis (I35.0) Active confirmed Problem Abnormal gait (17030029) Gait instability (R26.81) Active confirmed Problem Short-term memory loss (082274982) Short-term memory loss (R41.3) Active confirmed Problem Heart murmur (20641770) Heart murmur (R01.1) Active confirmed Problem Kidney disease (08962910) Kidney disease (N28.9) Active confirmed Problem Kidney lesion (95303682940451) Kidney lesion (N28.9) Active confirmed Problem Weakness of both lower extremities (439632800660358) Weakness of both lower extremities (R29.898) Active confirmed Problem Essential hypertension (70921534) Hypertension, essential (I10) Active confirmed Problem Hyperlipidemia (95695696) Hyperlipidemia (E78.5) Active confirmed Problem Anemia (527381889) Anemia (D64.9) Active confir med Problem Chronic obstructive pulmonary disease (35868123) COPD, mild (J44.9) Active confirmed Problem Chronic obstructive pulmonary disease (44285062) COPD, moderate (J44.9) Active confirmed Problem Aortic valve disorder (5763926) Aortic stenosis, moderate (I35.0) Active confirmed Problem Varicose veins of lower extremity (08209607) Uncomplicated varicose veins (I83.90) Active confirmed Problem At risk for falls (676981388) At risk for falls (Z91.81) Active confirmed Problem Altered thought processes (29238400) Cognitive changes (R41.89) Active confirmed Vital Signs Heart Rate 86 /min 04/13/2025 Oximetry 96 % 04/13/2025 Blood pressure diastolic 82 mm Hg 04/13/2025 Height 61 in 04/13/2025 Blood pressure systolic 130 mm Hg 04/13/2025 Weight 154.6 lbs 04/13/2025 BMI 29.21 kg/m2 04/13/2025 Encounters Encounter Location Date Provider Diagnosis [address] [address] 05/11/2024 MARTIN NUNES Cognitive changes R4 1.89 ; Restless leg syndrome G25.81 ; Hypertension, unspecified type I10 ; Hyperlipidemia, unspecified hyperlipidemia type E78.5 ; COPD, mild J44.9 ; Anxiety F41.9 and Kidney lesion N28.[address] [address] 06/16/2024 MARTIN NUNES Cognitive changes R4 1.89 ; Upper GI bleed K92.2 ; Restless leg syndrome G25.81 ; Hypertension, unspecified type I10 ; Hyperlipidemia, unspecified hyperlipidemia type E78.5 ; COPD, mild J44.9 ; Anxiety F41.9 ; Kidney lesion N28.9 and Chronic kidney disease, stage 3a N18.[address] [address] 08/02/2024 MARTIN NUNES Cognitive changes R4 1.89 ; Restless leg syndrome G25.81 ; Hypertension, unspecified type I10 ; Hyperlipidemia, unspecified hyperlipidemia type E78.5 ; COPD, mild J44.9 ; Anxiety F41.9 ; Kidney lesion N28.9 and Chronic kidney disease, stage 3a N18.[address] [address] 10/04/2024 MARTIN NUNES Cognitive changes R4 1.89 ; Restless leg syndrome G25.81 ; Hypertension, unspecified type I10 ; Hyperlipidemia, unspecified hyperlipidemia type E78.5 ; COPD, mild J44.9 ; Anxiety F41.9 ; Kidney lesion N28.9 and Chronic kidney disease, stage 3a N18.[address] [address] [place] [address] 01/11/2025 MARTIN NUNES Cognitive changes R4 1.89 ; Restless leg syndrome G25.81 ; COPD, mild J44.9 ; Anxiety F41.9 ; Kidney lesion N28.9 ; Chronic kidney disease, stage 3a N18.31 ; Anemia D64.9 ; Hyperlipidemia E78.5 and Encounter for examination of blood pressure without abnormal findings Z01.[address] [place] [address] 03/07/2025 MARTIN NUNES Breath shortness R06 .02 ; Restless leg syndrome G25.81 ; Cognitive changes R41.89 ; COPD, mild J44.9 ; Anxiety F41.9 ; Kidney lesion N28.9 ; Chronic kidney disease, stage 3a N18.31 ; Anemia D64.9 ; Hyperlipidemia E78.5 and Encounter for examination of blood pressure without abnormal findings Z01.[address] [place] [address] 04/13/2025 MARTIN NUNES Cognitive changes R4 1.89 ; Wellness examination Z00.00 ; Restless leg syndrome G25.81 ; COPD, mild J44.9 ; Chronic kidney disease, stage 3a N18.31 ; Hyperlipidemia E78.5 ; Encounter for examination of blood pressure without abnormal findings Z01.30 ; Encounter for screening for depression Z13.31 ; Encounter for screening for other disorder Z13.89 and Other specified counseling Z71.[address] [place] [address] 04/28/2024 [facility]ES [facility] [address] [place] [address] 05/04/2024 MARTIN NUNES [facility] [address] [place] [address] 05/14/2024 MARTIN NUNES Cognitive changes R4 1.[address] [place] [address] 05/25/2024 MARTIN NUNES Restless leg syndrom e G25.81 [facility] [address] [place] [address] 05/26/2024 MARTIN NUNES [facility] [address] [place] [address] 06/14/2024 MARTIN NUNES [facility] [address] [place] [address] 06/17/2024 MARTIN NUNES Chronic kidney disea se, stage 3a N18.[address] [place] [address] 06/18/2024 MARTIN NUNES [facility] [address] [place] [address] 06/22/2024 MARTIN NUNES [facility] [address] [place] [address] 07/26/2024 MARTIN NUNES [facility] [address] [place] [address] 07/30/2024 MARTIN NUNES [facility] [address] [place] [address] 08/20/2024 MARTIN NUNES [facility] [address] [place] [address] 09/14/2024 MARTIN NUNES [facility] [address] [place] [address] 10/04/2024 MARTIN NUNES [facility] [address] [place] [address] 10/18/2024 MARTIN NUNES [facility] [address] [place] [address] 10/18/2024 MARTIN NUNES [facility] [address] [place] [address] 10/25/2024 MARTIN NUNES [facility] [address] [place] [address] 11/22/2024 MARTIN NUNES [facility] [address] [place] [address] 01/26/2025 MARTIN NUNES [facility] [address] [place] [address] 02/24/2025 MARTIN NUNES [facility] [address] [place] [address] 04/19/2025 MARTIN NUNES Assessments Encounter Date Diagnosis (ICD Code) Assessment Notes Treatment Notes Treatment Clinical Notes Section Notes 05/11/2024 Cognitive changes (ICD-10 - R41.89) # Obtained COVID and flu vaccine, getting RSV in the next few weeks at local pharmacy. 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 Taking Trelegy with adequate control of SOB. [...] Dictation was accomplished with the use of [email or web address] voice recognition software, prone to medical misidentifications [...] office for a hospital follow-up. Admitted to [facility] on 06/13/2024, discharged on 06/14/2024. 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 Taking Trelegy with adequate control of SOB. [...] Dictation was accomplished with the use of [email or web address] voice recognition software, prone to medical misidentifications and grammatical errors. This is unintentional and the practitioner does try to identify and correct these, but some could still be present. Please do not hesitate to contact practitioner for clarification. 06/16/2024 Cognitive changes (ICD-10 - R41.89) Beata is a pleasant 83-year-old female who presents the office for a hospital follow-up. Admitted to [facility] on 06/13/2024, discharged on 06/14/2024. 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 Taking Trelegy with adequate control of SOB. 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 Taking Trelegy with adequate control of SOB.Patient [...] performed in office Last visit by TONI Yna scored 30 out of 30 points. Did [...] were sent to them.In the meantime, getting [facility] for at home evaluation for needs. 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 Taking Trelegy with adequate control of SOB.Patient [...] were sent to them.In the meantime, getting [facility] for at home evaluation for needs. [...] Dictation was accomplished with the use of [email or web address] voice recognition software, prone to medical misidentifications and grammatical errors. This is unintentional and the practitioner does try to identify and correct these, but some could still be present. Please do not hesitate to contact practitioner for clarification. 10/04/2024 Cognitive changes (ICD-10 - R41.89) # Hyperlipidemia: Continue simvastatin 20 mg #COPD: Patient diagnosed with emphysema by entertainment production professional. Taking Trelegy with adequate control of SOB.Patient [...] Signed scheduled for cataract surgery in November, [facility]. #Cognitive decline: Patient's sister/healthcare proxy Rossi [...] to neurology. Also going to follow with [facility] services. Follow-up in 2 months, sooner [...] Dictation was accomplished with the use of [email or web address] voice recognition software, prone to medical misidentifications and grammatical errors. This is unintentional and the practitioner does try to identify and correct these, but some could still be present. Please do not hesitate to contact practitioner for clarification. 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 Taking Trelegy with adequate control of SOB. [...] Signed scheduled for cataract surgery in November, [place]. #Cognitive decline: Patient's sister/healthcare proxy Rossi [...] to neurology. Also going to follow with [facility]. # Pt has a [...] and her sister is the power of [employer] bowling centre manager. Follow-up in 3 months for Medicare wellness [...] Dictation was accomplished with the use of [email or web address] voice recognition software, prone to medical misidentifications and grammatical errors. This is unintentional and the practitioner does try to identify and correct these, but some could still be present. Please do not hesitate to contact practitioner for clarification. 01/11/2025 Cognitive changes (ICD-10 - R41.89) # Hyperlipidemia: Continue simvastatin 20 mg #COPD: Patient diagnosed with emphysema by entertainment production professional. Taking Trelegy with adequate control of SOB. [...] Signed scheduled for cataract surgery in November, [facility]. #Cognitive decline: Patient's sister/healthcare proxy Rossi [...] to neurology. Also going to follow with [facility]. # Pt has a [...] and her sister is the power of [employer] bowling centre manager. Follow-up in 3 months for Medicare wellness [...] Dictation was accomplished with the use of [email or web address] voice recognition software, prone to medical misidentifications and grammatical errors. This is unintentional and the practitioner does try to identify and correct these, but some could still be present. Please do not hesitate to contact practitioner for clarification. 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 Taking Trelegy with adequate control of SOB. [...] mg daily following with Dr. Caceres at [facility]. Patient's weights been stable, limiting [...] Signed scheduled for cataract surgery in November, [facility]. #Cognitive decline: Patient's sister/healthcare proxy Rossi [...] to neurology. Also going to follow with [facility].Patient is doing well today # Patient is no longer driving. Does have a living will, and her sister is the power of ten pin bowling centre manager. Follow-up next month for Medicare wellness visit, sooner as needed. All quetsions answered to patients satisfaction. Patient verbalized understanding of diagnosis and treatments explained. To call sooner prior to next visit it any questions/concerns arise. Case discussed with collaborating physician Teri Stroud who reviewed the assessment and plan. Chart, medications, labs, vital signs reviewed. Dictation was accomplished with the use of [email or web address] voice recognition software, prone to medical misidentifications and grammatical errors. This is unintentional and the practitioner does try to identify and correct these, but some could still be present. Please do not hesitate to contact practitioner for clarification. 04/13/2025 Wellness examination (ICD-10 - Z00.00) Beata is a pleasant 84-year-old female who presents the office for Medicare wellness visit. # Obtaining flu, COVID, and RSV at her local pharmacy. Up-to-date on pneumonia, shingles, and will obtain tetanus as needed # Based on age, no longer needing mammogram, colonoscopy, and patient declines bone density # Healthcare proxy completed in office today, April 13, 2025, her sister Peg # MOL[employer] form completed April 13, 2025, provided with her original. Patient is DNR, DNI, but is not positive transferred to the hospital. She is okay with CPAP short-term only, without any dialysis, or artificial nutrition, states that she is okay with the use of artificial hydration. # Most recent labs reviewed from January 2025 # Patient recently had a mechanical fall. Was wearing sandals. Discussed supportive shoes, now walking with a walker. Does admit to some left hip pain, declines x-ray. States that she is using Bengay, lidocaine, and Biofreeze which has been helpful. # BMI 29, weight stable. 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 Taking Trelegy with adequate control of SOB. Patient started taking trelagy infrequently due to cost, has since resumed after receiving a coupon. Continue with Trelegy and albuterol. Continues to follow with pulmonology. Discussed getting up-to-date on RSV, COVID, and flu vaccine secondary to pulmonary disease PHQ-9 completed in office April 13, 2025 with a total score of 1, no concern regarding mental health at this time. # Audit negative # Follows with Dr. Caceres for cardiology, [facility], Dr. Mackenzie for gastroenterology, and Dr. Maria Luisa Mckay for pulmonology. # With pulmonology obtaining a CT of [...] to follow with cardiology., Cardiogram January 2025, With Holter monitor. # Patient did have an echo cardiogram February 03, 2025, Holter February 04, 2025. Based on those records they started patient on Lasix 20 mg daily following with Dr. Caceres at [facility] cardiology. Patient's weights been stable, limiting sodium. Considering TAVR # Followed with gastroenterology Dr. Daniela Bang, ordered barium swallow scheduled for April 2025 # Recently had blood work January [...] aortic valve. Going to proceed with a TAVR Patient's lungs clear to auscultation. She declines any worsening shortness of breath.She had a chest x-ray March 08, 2025 showing left lower lung atelectasis, and a hiatal hernia. Also trace bilateral pleural effusions. # Patient had a history of GI bleed, was going to get endoscopy with Dr. Mackenzie. Scheduled barium swallow April 2025 # Signed scheduled for cataract surgery in November, [facility]. #Cognitive decline: Patient's sister/healthcare proxy Rossi [...] to neurology. Also going to follow with [facility].Patient is doing well today # Patient is no longer driving. Does have a living will, and her sister is the power of [employer] centre manager. 04/13/2025 Cognitive changes (ICD-10 - R41.89) Beata is a pleasant 84-year-old female who presents the office for Medicare wellness visit. # Obtaining flu, COVID, and RSV at her local pharmacy. Up-to-date on pneumonia, shingles, and will obtain tetanus as needed # Based on age, no longer needing mammogram, colonoscopy, and patient declines bone density # Healthcare proxy completed in office today, April 13, 2025, her sister Peg # MOLST form completed April 13, 2025, provided with her original. Patient is DNR, DNI, but is not positive transferred to the hospital. She is okay with CPAP short-term only, without any dialysis, or artificial nutrition, states that she is okay with the use of artificial hydration. # Most recent labs reviewed from January 2025 # Patient recently had a mechanical fall. Was wearing sandals. Discussed supportive shoes, now walking with a walker. Does admit to some left hip pain, declines x-ray. States that she is using Bengay, lidocaine, and Biofreeze which has been helpful. # BMI 29, weight stable. 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 Taking Trelegy with adequate control of SOB. Patient started taking trelagy infrequently due to cost, has since resumed after receiving a coupon. Continue with Trelegy and albuterol. Continues to follow with pulmonology. Discussed getting up-to-date on RSV, COVID, and flu vaccine secondary to pulmonary disease PHQ-9 completed in office April 13, 2025 with a total score of 1, no concern regarding mental health at this time. # Audit negative # Follows with Dr. Caceres for cardiology, [facility], Dr. Mackenzie for gastroenterology, and Dr. Maria Luisa Mckay for pulmonology. # With pulmonology obtaining a CT of [...] to follow with cardiology., Cardiogram January 2025, With Holter monitor. # Patient did have an echo cardiogram February 03, 2025, Holter February 04, 2025. Based on those records they started patient on Lasix 20 mg daily following with Dr. Caceres at [facility] cardiology. Patient's weights been stable, limiting sodium. Considering TAVR # Followed with gastroenterology Dr. Daniela Bang, ordered barium swallow scheduled for April 2025 # Recently had blood work January [...] aortic valve. Going to proceed with a TAVR Patient's lungs clear to auscultation. She declines any worsening shortness of breath.She had a chest x-ray March 08, 2025 showing left lower lung atelectasis, and a hiatal hernia. Also trace bilateral pleural effusions. # Patient had a history of GI bleed, was going to get endoscopy with Dr. Mackenzie. Scheduled barium swallow April 2025 # Signed scheduled for cataract surgery in November, [facility]. #Cognitive decline: Patient's sister/healthcare proxy Rossi [...] to neurology. Also going to follow with [facility].Patient is doing well today # Patient is no longer driving. Does have a living will, and her sister is the power of [employer] centre manager. 04/13/2025 Restless leg syndrome (ICD-10 - G25.81) Beata is a pleasant 84-year-old female who presents the office for Medicare wellness visit. # Obtaining flu, COVID, and RSV at her local pharmacy. Up-to-date on pneumonia, shingles, and will obtain tetanus as needed # Based on age, no longer needing mammogram, colonoscopy, and patient declines bone density # Healthcare proxy completed in office today, April 13, 2025, her sister Peg # MOLST form completed April 13, 2025, provided with her original. Patient is DNR, DNI, but is not positive transferred to the hospital. She is okay with CPAP short-term only, without any dialysis, or artificial nutrition, states that she is okay with the use of artificial hydration. # Most recent labs reviewed from January 2025 # Patient recently had a mechanical fall. Was wearing sandals. Discussed supportive shoes, now walking with a walker. Does admit to some left hip pain, declines x-ray. States that she is using Bengay, lidocaine, and Biofreeze which has been helpful. # BMI 29, weight stable. 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 Taking Trelegy with adequate control of SOB. Patient started taking trelagy infrequently due to cost, has since resumed after receiving a coupon. Continue with Trelegy and albuterol. Continues to follow with pulmonology. Discussed getting up-to-date on RSV, COVID, and flu vaccine secondary to pulmonary disease PHQ-9 completed in office April 13, 2025 with a total score of 1, no concern regarding mental health at this time. # Audit negative # Follows with Dr. Caceres for cardiology, [facility], Dr. Mackenzie for gastroenterology, and Dr. Maria Luisa Mckay for pulmonology. # With pulmonology obtaining a CT of [...] to follow with cardiology., Cardiogram January 2025, With Holter monitor. # Patient did have an echo cardiogram February 03, 2025, Holter February 04, 2025. Based on those records they started patient on Lasix 20 mg daily following with Dr. Caceres at [facility] cardiology. Patient's weights been stable, limiting sodium. Considering TAVR # Followed with gastroenterology Dr. Daniela Bang, ordered barium swallow scheduled for April 2025 # Recently had blood work January [...] aortic valve. Going to proceed with a TAVR Patient's lungs clear to auscultation. She declines any worsening shortness of breath.She had a chest x-ray March 08, 2025 showing left lower lung atelectasis, and a hiatal hernia. Also trace bilateral pleural effusions. # Patient had a history of GI bleed, was going to get endoscopy with Dr. Mackenzie. Scheduled barium swallow April 2025 # Signed scheduled for cataract surgery in November, [facility]. #Cognitive decline: Patient's sister/healthcare proxy Rossi [...] to neurology. Also going to follow with [facility].Patient is doing well today # Patient is no longer driving. Does have a living will, and her sister is the power of [employer] centre manager. 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 Taking Trelegy with adequate control of SOB. [...] Signed scheduled for cataract surgery in November, [facility]. #Cognitive decline: Patient's sister/healthcare proxy Rossi [...] to neurology. Also going to follow with [facility]. # Pt has a [...] and her sister is the power of [employer] centre manager. Follow-up in 3 months for Medicare wellness [...] Dictation was accomplished with the use of [email or web address] voice recognition software, prone to medical misidentifications and grammatical errors. This is unintentional and the practitioner does try to identify and correct these, but some could still be present. Please do not hesitate to contact practitioner for clarification. 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 Taking Trelegy with adequate control of SOB. [...] mg daily following with Dr. Caceres at [facility] cardiology. Patient's weights been stable, limiting sodium. [...] Signed scheduled for cataract surgery in November, [facility]. #Cognitive decline: Patient's sister/healthcare proxy Rossi [...] to neurology. Also going to follow with [facility].Patient is doing well today # Patient is no longer driving. Does have a living will, and her sister is the power of [employer] centre manager. Follow-up next month for Medicare wellness visit, sooner as needed. All quetsions answered to patients satisfaction. Patient verbalized understanding of diagnosis and treatments explained. To call sooner prior to next visit it any questions/concerns arise. Case discussed with collaborating physician Teri Stroud who reviewed the assessment and plan. Chart, medications, labs, vital signs reviewed. Dictation was accomplished with the use of [email or web address] voice recognition software, prone to medical misidentifications and grammatical errors. This is unintentional and the practitioner does try to identify and correct these, but some could still be present. Please do not hesitate to contact practitioner for clarification. 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 Taking Trelegy with adequate control of SOB.Patient [...] Signed scheduled for cataract surgery in November, [facility]. #Cognitive decline: Patient's sister/healthcare proxy Rossi [...] to neurology. Also going to follow with [facility]. Follow-up in 2 months, [...] Dictation was accomplished with the use of [email or web address] voice recognition software, prone to medical misidentifications [...] reinitiate #COPD: Patient diagnosed with emphysema by entertainment production professional. Taking Trelegy with adequate control of SOB.Patient [...] were sent to them.In the meantime, getting [facility] for at home evaluation for needs. [...] Dictation was accomplished with the use of [email or web address] voice recognition software, prone to medical misidentifications and grammatical errors. This is unintentional and the practitioner does try to identify and correct these, but some could still be present. Please do not hesitate to contact practitioner for clarification. 06/16/2024 Restless leg syndrome (ICD-10 - G25.81) Beata is a pleasant 83-year-old female who presents the office for a hospital follow-up. Admitted to [facility] on 06/13/2024, discharged on 06/14/2024. 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 Taking Trelegy with adequate control of SOB. [...] Dictation was accomplished with the use of [email or web address] voice recognition software, prone to medical misidentifications [...] mg #COPD: Patient diagnosed with emphysema by entertainment production professional. Taking Trelegy with adequate control of SOB. [...] Dictation was accomplished with the use of [email or web address] voice recognition software, prone to medical misidentifications and grammatical errors. This is unintentional and the practitioner does try to identify and correct these, but some could still be present. Please do not hesitate to contact practitioner for clarification. 05/11/2024 Hypertension, unspecified type (ICD-10 - I10) # Obtained COVID and flu vaccine, getting RSV in the next few weeks at local pharmacy. 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 Taking Trelegy with adequate control of SOB. [...] Dictation was accomplished with the use of [email or web address] voice recognition software, prone to medical misidentifications and grammatical errors. This is unintentional and the practitioner does try to identify and correct these, but some could still be present. Please do not hesitate to contact practitioner for clarification. 06/16/2024 Hypertension, unspecified type (ICD-10 - I10) Beata is a pleasant 83-year-old female who presents the office for a hospital follow-up. Admitted to [facility] on 06/13/2024, discharged on 06/14/2024. 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 Taking Trelegy with adequate control of SOB. 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 Taking Trelegy with adequate control of SOB.Patient [...] were sent to them.In the meantime, getting [facility] for at home evaluation for needs. [...] Dictation was accomplished with the use of [email or web address] voice recognition software, prone to medical misidentifications and grammatical errors. This is unintentional and the practitioner does try to identify and correct these, but some could still be present. Please do not hesitate to contact practitioner for clarification. 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 Taking Trelegy with adequate control of SOB.Patient [...] Signed scheduled for cataract surgery in November, [facility]. #Cognitive decline: Patient's sister/healthcare proxy Rossi [...] to neurology. Also going to follow with [facility]. Follow-up in 2 months, [...] Dictation was accomplished with the use of [email or web address] voice recognition software, prone to medical misidentifications and grammatical errors. This is unintentional and the practitioner does try to identify and correct these, but some could still be present. Please do not hesitate to contact practitioner for clarification. 01/11/2025 Anxiety (ICD-10 - F41.9) # Hyperlipidemia: Continue simvastatin 20 mg #COPD: Patient diagnosed with emphysema by entertainment production professional. Taking Trelegy with adequate control of SOB. [...] Signed scheduled for cataract surgery in November, [facility]. #Cognitive decline: Patient's sister/healthcare proxy Rossi [...] to neurology. Also going to follow with [facility]. # Pt has a [...] and her sister is the power of [employer] centre manager. Follow-up in 3 months for Medicare wellness [...] Dictation was accomplished with the use of [email or web address] voice recognition software, prone to medical misidentifications and grammatical errors. This is unintentional and the practitioner does try to identify and correct these, but some could still be present. Please do not hesitate to contact practitioner for clarification. 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 Taking Trelegy with adequate control of SOB. [...] mg daily following with Dr. Caceres at [facility] cardiology. Patient's weights been stable, limiting sodium. [...] Signed scheduled for cataract surgery in November, [facility]. #Cognitive decline: Patient's sister/healthcare proxy Rossi [...] to neurology. Also going to follow with [facility].Patient is doing well today # Patient is no longer driving. Does have a living will, and her sister is the power of [employer] bowling centre manager. Follow-up next month for Medicare wellness visit, sooner as needed. All quetsions answered to patients satisfaction. Patient verbalized understanding of diagnosis and treatments explained. To call sooner prior to next visit it any questions/concerns arise. Case discussed with collaborating physician Teri Stroud who reviewed the assessment and plan. Chart, medications, labs, vital signs reviewed. Dictation was accomplished with the use of [email or web address] voice recognition software, prone to medical misidentifications and grammatical errors. This is unintentional and the practitioner does try to identify and correct these, but some could still be present. Please do not hesitate to contact practitioner for clarification. 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 # Obtaining flu, COVID, and RSV at her local pharmacy. Up-to-date on pneumonia, shingles, and will obtain tetanus as needed # Based on age, no longer needing mammogram, colonoscopy, and patient declines bone density # Healthcare proxy completed in office today, April 13, 2025, her sister Peg # MOLST form completed April 13, 2025, provided with her original. Patient is DNR, DNI, but is not positive transferred to the hospital. She is okay with CPAP short-term only, without any dialysis, or artificial nutrition, states that she is okay with the use of artificial hydration. # Most recent labs reviewed from January 2025 # Patient recently had a mechanical fall. Was wearing sandals. Discussed supportive shoes, now walking with a walker. Does admit to some left hip pain, declines x-ray. States that she is using Bengay, lidocaine, and Biofreeze which has been helpful. # BMI 29, weight stable. 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 Taking Trelegy with adequate control of SOB. Patient started taking trelagy infrequently due to cost, has since resumed after receiving a coupon. Continue with Trelegy and albuterol. Continues to follow with pulmonology. Discussed getting up-to-date on RSV, COVID, and flu vaccine secondary to pulmonary disease PHQ-9 completed in office April 13, 2025 with a total score of 1, no concern regarding mental health at this time. # Audit negative # Follows with Dr. Caceres for cardiology, [facility], Dr. Mackenzie for gastroenterology, and Dr. Maria Luisa Mckay for pulmonology. # With pulmonology obtaining a CT of [...] to follow with cardiology., Cardiogram January 2025, With Holter monitor. # Patient did have an echo cardiogram February 03, 2025, Holter February 04, 2025. Based on those records they started patient on Lasix 20 mg daily following with Dr. Caceres at [facility] cardiology. Patient's weights been stable, limiting sodium. Considering TAVR # Followed with gastroenterology Dr. Daniela Bang, ordered barium swallow scheduled for April 2025 # Recently had blood work January [...] aortic valve. Going to proceed with a TAVR Patient's lungs clear to auscultation. She declines any worsening shortness of breath.She had a chest x-ray March 08, 2025 showing left lower lung atelectasis, and a hiatal hernia. Also trace bilateral pleural effusions. # Patient had a history of GI bleed, was going to get endoscopy with Dr. Mackenzie. Scheduled barium swallow April 2025 # Signed scheduled for cataract surgery in November, [facility]. #Cognitive decline: Patient's sister/healthcare proxy Rossi [...] to neurology. Also going to follow with [facility].Patient is doing well today # Patient is no longer driving. Does have a living will, and her sister is the power of [employer] bowling centre manager. 04/13/2025 Chronic kidney disease, stage 3a (ICD-10 - N18.31) Beata is a pleasant 84-year-old female who presents the office for Medicare wellness visit. # Obtaining flu, COVID, and RSV at her local pharmacy. Up-to-date on pneumonia, shingles, and will obtain tetanus as needed # Based on age, no longer needing mammogram, colonoscopy, and patient declines bone density # Healthcare proxy completed in office today, April 13, 2025, her sister Mariann # MOLST form completed April 13, 2025, provided with her original. Patient is DNR, DNI, but is not positive transferred to the hospital. She is okay with CPAP short-term only, without any dialysis, or artificial nutrition, states that she is okay with the use of artificial hydration. # Most recent labs reviewed from January 2025 # Patient recently had a mechanical fall. Was wearing sandals. Discussed supportive shoes, now walking with a walker. Does admit to some left hip pain, declines x-ray. States that she is using Bengay, lidocaine, and Biofreeze which has been helpful. # BMI 29, weight stable. 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 Taking Trelegy with adequate control of SOB. Patient started taking trelagy infrequently due to cost, has since resumed after receiving a coupon. Continue with Trelegy and albuterol. Continues to follow with pulmonology. Discussed getting up-to-date on RSV, COVID, and flu vaccine secondary to pulmonary disease PHQ-9 completed in office April 13, 2025 with a total score of 1, no concern regarding mental health at this time. # Audit negative # Follows with Dr. Caceres for cardiology, [facility], Dr. Mackenzie for gastroenterology, and Dr. Maria Luisa Mckay for pulmonology. # With pulmonology obtaining a CT of [...] to follow with cardiology., Cardiogram January 2025, With Holter monitor. # Patient did have an echo cardiogram February 03, 2025, Holter February 04, 2025. Based on those records they started patient on Lasix 20 mg daily following with Dr. Caceres at [facility] cardiology. Patient's weights been stable, limiting sodium. Considering TAVR # Followed with gastroenterology Dr. Daniela Bang, ordered barium swallow scheduled for April 2025 # Recently had blood work January [...] aortic valve. Going to proceed with a TAVR Patient's lungs clear to auscultation. She declines any worsening shortness of breath.She had a chest x-ray March 08, 2025 showing left lower lung atelectasis, and a hiatal hernia. Also trace bilateral pleural effusions. # Patient had a history of GI bleed, was going to get endoscopy with Dr. Mackenzie. Scheduled barium swallow April 2025 # Signed scheduled for cataract surgery in November, [place] [facility] [facility]. #Cognitive decline: Patient's sister/healthcare proxy Rossi [...] to neurology. Also going to follow with [facility].Patient is doing well today # Patient is no longer driving. Does have a living will, and her sister is the [employer] of [employer] manager. 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 Taking Trelegy with adequate control of SOB. [...] mg daily following with Dr. Caceres at [facility] cardiology. Patient's weights been stable, limiting sodium. [...] Signed scheduled for cataract surgery in November, [facility]. #Cognitive decline: Patient's sister/healthcare proxy Rossi [...] to neurology. Also going to follow with [facility].Patient is doing well today # Patient is no longer driving. Does have a living will, and her sister is the power of [employer] bowling centre manager. Follow-up next month for Medicare wellness visit, sooner as needed. All quetsions answered to patients satisfaction. Patient verbalized understanding of diagnosis and treatments explained. To call sooner prior to next visit it any questions/concerns arise. Case discussed with collaborating physician Teri Stroud who reviewed the assessment and plan. Chart, medications, labs, vital signs reviewed. Dictation was accomplished with the use of [email or web address] voice recognition software, prone to medical misidentifications and grammatical errors. This is unintentional and the practitioner does try to identify and correct these, but some could still be present. Please do not hesitate to contact practitioner for clarification. 01/11/2025 Kidney lesion (ICD-10 - N28.9) # Hyperlipidemia: Continue simvastatin 20 mg #COPD: Patient diagnosed with emphysema by entertainment production professional. Taking Trelegy with adequate control of SOB. [...] Signed scheduled for cataract surgery in November, [place] [facility]. #Cognitive decline: Patient's sister/healthcare proxy Rossi [...] neurology. Also going to follow with [facility] [facility]. # Pt has a rash [...] and her sister is the power of [employer] centre manager. Follow-up in 3 months for Medicare wellness [...] Dictation was accomplished with the use of [email or web address] voice recognition software, prone to medical misidentifications and grammatical errors. This is unintentional and the practitioner does try to identify and correct these, but some could still be present. Please do not hesitate to contact practitioner for clarification. 10/04/2024 Hyperlipidemia, unspecified hyperlipidemia type (ICD-10 - E78.5) # Hyperlipidemia: Continue simvastatin 20 mg #COPD: Patient diagnosed with emphysema by entertainment production professional. Taking Trelegy with adequate control of SOB.Patient [...] Signed scheduled for cataract surgery in November, [facility]. #Cognitive decline: Patient's sister/healthcare proxy Rossi [...] to neurology. Also going to follow with [facility]. Follow-up in 2 months, [...] Dictation was accomplished with the use of [email or web address] voice recognition software, prone to medical misidentifications [...] reinitiate #COPD: Patient diagnosed with emphysema by entertainment production professional. Taking Trelegy with adequate control of SOB.Patient [...] decline: Patient's sister/healthcare proxy Rossi and Mrs. Aronld expressed concern for Alzheimer's, as their mother [...] were sent to them.In the meantime, getting [facility] for at home evaluation for needs. [...] Dictation was accomplished with the use of [email or web address] voice recognition software, prone to medical misidentifications and grammatical errors. This is unintentional and the practitioner does try to identify and correct these, but some could still be present. Please do not hesitate to contact practitioner for clarification. 06/16/2024 Hyperlipidemia, unspecified hyperlipidemia type (ICD-10 - E78.5) Beata is a pleasant 83-year-old female who presents the office for a hospital follow-up. Admitted to [facility] on 06/13/2024, discharged on 06/14/2024. 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 Taking Trelegy with adequate control of SOB. [...] Dictation was accomplished with the use of [email or web address] voice recognition software, prone to medical misidentifications and grammatical errors. This is unintentional and the practitioner does try to identify and correct these, but some could still be present. Please do not hesitate to contact practitioner for clarification. 05/11/2024 Hyperlipidemia, unspecified hyperlipidemia type (ICD-10 - E78.5) # Obtained COVID and flu vaccine, getting RSV in the next few weeks at local pharmacy. 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 Taking Trelegy with adequate control of SOB. [...] Dictation was accomplished with the use of [email or web address] voice recognition software, prone to medical misidentifications and grammatical errors. This is unintentional and the practitioner does try to identify and correct these, but some could still be present. Please do not hesitate to contact practitioner for clarification. 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 Taking Trelegy with adequate control of SOB. 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 Taking Trelegy with adequate control of SOB.Patient [...] were sent to them.In the meantime, getting [facility] for at home evaluation for needs. [...] Dictation was accomplished with the use of [email or web address] voice recognition software, prone to medical misidentifications and grammatical errors. This is unintentional and the practitioner does try to identify and correct these, but some could still be present. Please do not hesitate to contact practitioner for clarification. 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 Admitted to [facility] on 06/13/2024, discharged on 06/14/2024. 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 Taking Trelegy with adequate control of SOB. [...] Dictation was accomplished with the use of [email or web address] voice recognition software, prone to medical misidentifications and grammatical errors. This is unintentional and the practitioner does try to identify and correct these, but some could still be present. Please do not hesitate to contact practitioner for clarification. 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 Taking Trelegy with adequate control of SOB.Patient [...] Signed scheduled for cataract surgery in November, [facility] [facility]. #Cognitive decline: Patient's sister/healthcare proxy Rossi [...] to neurology. Also going to follow with [facility]. Follow-up in 2 months, [...] Dictation was accomplished with the use of [email or web address] voice recognition software, prone to medical misidentifications and grammatical errors. This is unintentional and the practitioner does try to identify and correct these, but some could still be present. Please do not hesitate to contact practitioner for clarification. 01/11/2025 Chronic kidney disease, stage 3a (ICD-10 - N18.31) # Hyperlipidemia: Continue simvastatin 20 mg #COPD: Patient diagnosed with emphysema by entertainment production professional. Taking Trelegy with adequate control of SOB. [...] Signed scheduled for cataract surgery in November, [facility] [facility] [facility]. #Cognitive decline: Patient's sister/healthcare proxy Rossi [...] to neurology. Also going to follow with [facility]. # Pt has a [...] and her sister is the power of [employer] centre manager. Follow-up in 3 months for Medicare wellness [...] Dictation was accomplished with the use of [email or web address] voice recognition software, prone to medical misidentifications and grammatical errors. This is unintentional and the practitioner does try to identify and correct these, but some could still be present. Please do not hesitate to contact practitioner for clarification. 03/07/2025 Anxiety (ICD-10 - F41.9) # Hyperlipidemia: Continue simvastatin 20 mg #COPD: Patient diagnosed with emphysema by entertainment production professional. Taking Trelegy with adequate control of SOB. [...] mg daily following with Dr. Caceres at [facility] cardiology. Patient's weights been stable, limiting sodium. [...] Signed scheduled for cataract surgery in November, [facility]. #Cognitive decline: Patient's sister/healthcare proxy Rossi [...] to neurology. Also going to follow with [facility].Patient is doing well today # Patient is no longer driving. Does have a living will, and her sister is the power of [employer] bowling centre manager. Follow-up next month for Medicare wellness visit, sooner as needed. All quetsions answered to patients satisfaction. Patient verbalized understanding of diagnosis and treatments explained. To call sooner prior to next visit it any questions/concerns arise. Case discussed with collaborating physician Teri Stroud who reviewed the assessment and plan. Chart, medications, labs, vital signs reviewed. Dictation was accomplished with the use of [email or web address] voice recognition software, prone to medical misidentifications and grammatical errors. This is unintentional and the practitioner does try to identify and correct these, but some could still be present. Please do not hesitate to contact practitioner for clarification. 04/13/2025 Hyperlipidemia (ICD-10 - E78.5) Beata is a pleasant 84-year-old female who presents the office for Medicare wellness visit. # Obtaining flu, COVID, and RSV at her local pharmacy. Up-to-date on pneumonia, shingles, and will obtain tetanus as needed # Based on age, no longer needing mammogram, colonoscopy, and patient declines bone density # Healthcare proxy completed in office today, April 13, 2025, her sister Peg # MOLST form completed April 13, 2025, provided with her original. Patient is DNR, DNI, but is not positive transferred to the hospital. She is okay with CPAP short-term only, without any dialysis, or artificial nutrition, states that she is okay with the use of artificial hydration. # Most recent labs reviewed from January 2025 # Patient recently had a mechanical fall. Was wearing sandals. Discussed supportive shoes, now walking with a walker. Does admit to some left hip pain, declines x-ray. States that she is using Bengay, lidocaine, and Biofreeze which has been helpful. # BMI 29, weight stable. 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 Taking Trelegy with adequate control of SOB. Patient started taking trelagy infrequently due to cost, has since resumed after receiving a coupon. Continue with Trelegy and albuterol. Continues to follow with pulmonology. Discussed getting up-to-date on RSV, COVID, and flu vaccine secondary to pulmonary disease PHQ-9 completed in office April 13, 2025 with a total score of 1, no concern regarding mental health at this time. # Audit negative # Follows with Dr. Caceres for cardiology, [facility], Dr. Mackenzie for gastroenterology, and Dr. Maria Luisa Mckay for pulmonology. # With pulmonology obtaining a CT of [...] to follow with cardiology., Cardiogram January 2025, With Holter monitor. # Patient did have an echo cardiogram February 03, 2025, Holter February 04, 2025. Based on those records they started patient on Lasix 20 mg daily following with Dr. Caceres at [facility] cardiology. Patient's weights been stable, limiting sodium. Considering TAVR # Followed with gastroenterology Dr. Daniela Bang, ordered barium swallow scheduled for April 2025 # Recently had blood work January [...] aortic valve. Going to proceed with a TAVR Patient's lungs clear to auscultation. She declines any worsening shortness of breath.She had a chest x-ray March 08, 2025 showing left lower lung atelectasis, and a hiatal hernia. Also trace bilateral pleural effusions. # Patient had a history of GI bleed, was going to get endoscopy with Dr. Mackenzie. Scheduled barium swallow April 2025 # Signed scheduled for cataract surgery in November, [facility]. #Cognitive decline: Patient's sister/healthcare proxy Rossi [...] to neurology. Also going to follow with [facility].Patient is doing well today # Patient is no longer driving. Does have a living will, and her sister is the power of ten [employer] bowling centre manager. 03/07/2025 Kidney lesion (ICD-10 - N28.9) # Hyperlipidemia: Continue simvastatin 20 mg #COPD: Patient diagnosed with emphysema by entertainment production professional. Taking Trelegy with adequate control of SOB. [...] mg daily following with Dr. Caceres at [facility] cardiology. Patient's weights been stable, limiting sodium. [...] Signed scheduled for cataract surgery in November, [facility]. #Cognitive decline: Patient's sister/healthcare proxy Rossi [...] to neurology. Also going to follow with [facility].Patient is doing well today # Patient is no longer driving. Does have a living will, and her sister is the power of ten [employer] bowling centre manager. Follow-up next month for Medicare wellness visit, sooner as needed. All quetsions answered to patients satisfaction. Patient verbalized understanding of diagnosis and treatments explained. To call sooner prior to next visit it any questions/concerns arise. Case discussed with collaborating physician Teri Stroud who reviewed the assessment and plan. Chart, medications, labs, vital signs reviewed. Dictation was accomplished with the use of [email or web address] voice recognition software, prone to medical misidentifications and grammatical errors. This is unintentional and the practitioner does try to identify and correct these, but some could still be present. Please do not hesitate to contact practitioner for clarification. 01/11/2025 Anemia (ICD-10 - D64.9) # Hyperlipidemia: Continue simvastatin 20 mg #COPD: Patient diagnosed with emphysema by entertainment production professional. Taking Trelegy with adequate control of SOB. [...] Signed scheduled for cataract surgery in November, [facility]. #Cognitive decline: Patient's sister/healthcare proxy Rossi [...] to neurology. Also going to follow with [facility]. # Pt has a [...] and her sister is the power of [employer] bowling centre manager. Follow-up in 3 months for Medicare wellness [...] Dictation was accomplished with the use of [email or web address] voice recognition software, prone to medical misidentifications and grammatical errors. This is unintentional and the practitioner does try to identify and correct these, but some could still be present. Please do not hesitate to contact practitioner for clarification. 04/13/2025 Encounter for examination of blood pressure without abnormal findings (ICD-10 - Z01.30) Beata is a pleasant 84-year-old female who presents the office for Medicare wellness visit. # Obtaining flu, COVID, and RSV at her local pharmacy. Up-to-date on pneumonia, shingles, and will obtain tetanus as needed # Based on age, no longer needing mammogram, colonoscopy, and patient declines bone density # Healthcare proxy completed in office today, April 13, 2025, her sister Peg # MOLST form completed April 13, 2025, provided with her original. Patient is DNR, DNI, but is not positive transferred to the hospital. She is okay with CPAP short-term only, without any dialysis, or artificial nutrition, states that she is okay with the use of artificial hydration. # Most recent labs reviewed from January 2025 # Patient recently had a mechanical fall. Was wearing sandals. Discussed supportive shoes, now walking with a walker. Does admit to some left hip pain, declines x-ray. States that she is using Bengay, lidocaine, and Biofreeze which has been helpful. # BMI 29, weight stable. 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 Taking Trelegy with adequate control of SOB. Patient started taking trelagy infrequently due to cost, has since resumed after receiving a coupon. Continue with Trelegy and albuterol. Continues to follow with pulmonology. Discussed getting up-to-date on RSV, COVID, and flu vaccine secondary to pulmonary disease PHQ-9 completed in office April 13, 2025 with a total score of 1, no concern regarding mental health at this time. # Audit negative # Follows with Dr. Caceres for cardiology, [facility], Dr. Mackenzie for gastroenterology, and Dr. Maria Luisa Mckay for pulmonology. # With pulmonology obtaining a CT of [...] to follow with cardiology., Cardiogram January 2025, With Holter monitor. # Patient did have an echo cardiogram February 03, 2025, Holter February 04, 2025. Based on those records they started patient on Lasix 20 mg daily following with Dr. Caceres at [facility]. Patient's weights been stable, limiting sodium. Considering TAVR # Followed with gastroenterology Dr. Daniela Bang, ordered barium swallow scheduled for April 2025 # Recently had blood work January [...] aortic valve. Going to proceed with a TAVR Patient's lungs clear to auscultation. She declines any worsening shortness of breath.She had a chest x-ray March 08, 2025 showing left lower lung atelectasis, and a hiatal hernia. Also trace bilateral pleural effusions. # Patient had a history of GI bleed, was going to get endoscopy with Dr. Mackenzie. Scheduled barium swallow April 2025 # Signed scheduled for cataract surgery in November, [facility]. #Cognitive decline: Patient's sister/healthcare proxy Rossi [...] to neurology. Also going to follow with [facility].Patient is doing well today # Patient is no longer driving. Does have a living will, and her sister is the power of [employer] bowling centre manager. 10/04/2024 Anxiety (ICD-10 - F41.9) # Hyperlipidemia: Continue simvastatin 20 mg #COPD: Patient diagnosed with emphysema by entertainment production professional. Taking Trelegy with adequate control of SOB.Patient [...] Signed scheduled for cataract surgery in November, [place] [facility]. #Cognitive decline: Patient's sister/healthcare proxy Rossi [...] to neurology. Also going to follow with [facility]. Follow-up in 2 months, [...] Dictation was accomplished with the use of [email or web address] voice recognition software, prone to medical misidentifications [...] reinitiate #COPD: Patient diagnosed with emphysema by entertainment production professional. Taking Trelegy with adequate control of SOB.Patient [...] were sent to them.In the meantime, getting [facility] for at home evaluation for needs. [...] Dictation was accomplished with the use of [email or web address] voice recognition software, prone to medical misidentifications and grammatical errors. This is unintentional and the practitioner does try to identify and correct these, but some could still be present. Please do not hesitate to contact practitioner for clarification. 06/16/2024 Anxiety (ICD-10 - F41.9) Beata is a pleasant 83-year-old female who presents the office for a hospital follow-up. Admitted to [facility] on 06/13/2024, discharged on 06/14/2024. 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 Taking Trelegy with adequate control of SOB. [...] Dictation was accomplished with the use of [email or web address] voice recognition software, prone to medical misidentifications [...] mg #COPD: Patient diagnosed with emphysema by entertainment production professional. Taking Trelegy with adequate control of SOB. [...] Dictation was accomplished with the use of [email or web address] voice recognition software, prone to medical misidentifications [...] mg #COPD: Patient diagnosed with emphysema by entertainment production professional. Taking Trelegy with adequate control of SOB. [...] Dictation was accomplished with the use of [email or web address] voice recognition software, prone to medical misidentifications and grammatical errors. This is unintentional and the practitioner does try to identify and correct these, but some could still be present. Please do not hesitate to contact practitioner for clarification. 06/16/2024 Kidney lesion (ICD-10 - N28.9) Beata is a pleasant 83-year-old female who presents the office for a hospital follow-up. Admitted to [facility] on 06/13/2024, discharged on 06/14/2024. 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 Taking Trelegy with adequate control of SOB. 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 Taking Trelegy with adequate control of SOB.Patient [...] were sent to them.In the meantime, getting [facility] for at home evaluation for needs. [...] Dictation was accomplished with the use of [email or web address] voice recognition software, prone to medical misidentifications and grammatical errors. This is unintentional and the practitioner does try to identify and correct these, but some could still be present. Please do not hesitate to contact practitioner for clarification. 10/04/2024 Kidney lesion (ICD-10 - N28.9) # Hyperlipidemia: Continue simvastatin 20 mg #COPD: Patient diagnosed with emphysema by entertainment production professional. Taking Trelegy with adequate control of SOB.Patient [...] Signed scheduled for cataract surgery in November, [facility]. #Cognitive decline: Patient's sister/healthcare proxy Rossi [...] to neurology. Also going to follow with [facility]. Follow-up in 2 months, [...] Dictation was accomplished with the use of [email or web address] voice recognition software, prone to medical misidentifications and grammatical errors. This is unintentional and the practitioner does try to identify and correct these, but some could still be present. Please do not hesitate to contact practitioner for clarification. 01/11/2025 Hyperlipidemia (ICD-10 - E78.5) # Hyperlipidemia: Continue simvastatin 20 mg #COPD: Patient diagnosed with emphysema by entertainment production professional. Taking Trelegy with adequate control of SOB. [...] Signed scheduled for cataract surgery in November, [place] [facility]. #Cognitive decline: Patient's sister/healthcare proxy Rossi [...] to neurology. Also going to follow with [facility]. # Pt has a [...] and her sister is the power of [employer] bowling centre manager. Follow-up in 3 months for Medicare wellness [...] Dictation was accomplished with the use of [email or web address] voice recognition software, prone to medical misidentifications and grammatical errors. This is unintentional and the practitioner does try to identify and correct these, but some could still be present. Please do not hesitate to contact practitioner for clarification. 03/07/2025 Chronic kidney disease, stage 3a (ICD-10 - N18.31) # Hyperlipidemia: Continue simvastatin 20 mg #COPD: Patient diagnosed with emphysema by entertainment production professional. Taking Trelegy with adequate control of SOB. [...] mg daily following with Dr. Caceres at [facility]. Patient's weights been stable, limiting [...] Signed scheduled for cataract surgery in November, [facility]. #Cognitive decline: Patient's sister/healthcare proxy Rossi [...] to neurology. Also going to follow with [facility].Patient is doing well today # Patient is no longer driving. Does have a living will, and her sister is the power of [employer] centre manager. Follow-up next month for Medicare wellness visit, sooner as needed. All quetsions answered to patients satisfaction. Patient verbalized understanding of diagnosis and treatments explained. To call sooner prior to next visit it any questions/concerns arise. Case discussed with collaborating physician Teri Stroud who reviewed the assessment and plan. Chart, medications, labs, vital signs reviewed. Dictation was accomplished with the use of [email or web address] voice recognition software, prone to medical misidentifications and grammatical errors. This is unintentional and the practitioner does try to identify and correct these, but some could still be present. Please do not hesitate to contact practitioner for clarification. 04/13/2025 Encounter for screening for depression (ICD-10 - Z13.31) Beata is a pleasant 84-year-old female who presents the office for Medicare wellness visit. # Obtaining flu, COVID, and RSV at her local pharmacy. Up-to-date on pneumonia, shingles, and will obtain tetanus as needed # Based on age, no longer needing mammogram, colonoscopy, and patient declines bone density # Healthcare proxy completed in office today, April 13, 2025, her sister Peg # MOLST form completed April 13, 2025, provided with her original. Patient is DNR, DNI, but is not positive transferred to the hospital. She is okay with CPAP short-term only, without any dialysis, or artificial nutrition, states that she is okay with the use of artificial hydration. # Most recent labs reviewed from January 2025 # Patient recently had a mechanical fall. Was wearing sandals. Discussed supportive shoes, now walking with a walker. Does admit to some left hip pain, declines x-ray. States that she is using Bengay, lidocaine, and Biofreeze which has been helpful. # BMI 29, weight stable. 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 Taking Trelegy with adequate control of SOB. Patient started taking trelagy infrequently due to cost, has since resumed after receiving a coupon. Continue with Trelegy and albuterol. Continues to follow with pulmonology. Discussed getting up-to-date on RSV, COVID, and flu vaccine secondary to pulmonary disease PHQ-9 completed in office April 13, 2025 with a total score of 1, no concern regarding mental health at this time. # Audit negative # Follows with Dr. Caceres for cardiology, [facility], Dr. Mackenzie for gastroenterology, and Dr. Maria Luisa Mckay for pulmonology. # With pulmonology obtaining a CT of [...] to follow with cardiology., Cardiogram January 2025, With Holter monitor. # Patient did have an echo cardiogram February 03, 2025, Holter February 04, 2025. Based on those records they started patient on Lasix 20 mg daily following with Dr. Caceres at [facility] cardiology. Patient's weights been stable, limiting sodium. Considering TAVR # Followed with gastroenterology Dr. Daniela Bang, ordered barium swallow scheduled for April 2025 # Recently had blood work January [...] aortic valve. Going to proceed with a TAVR Patient's lungs clear to auscultation. She declines any worsening shortness of breath.She had a chest x-ray March 08, 2025 showing left lower lung atelectasis, and a hiatal hernia. Also trace bilateral pleural effusions. # Patient had a history of GI bleed, was going to get endoscopy with Dr. Mackenzie. Scheduled barium swallow April 2025 # Signed scheduled for cataract surgery in November, [facility]. #Cognitive decline: Patient's sister/healthcare proxy Rossi [...] to neurology. Also going to follow with [facility].Patient is doing well today # Patient is no longer driving. Does have a living will, and her sister is the power of [employer] centre manager. 04/13/2025 Encounter for screening for other disorder (ICD-10 - Z13.89) Beata is a pleasant 84-year-old female who presents the office for Medicare wellness visit. # Obtaining flu, COVID, and RSV at her local pharmacy. Up-to-date on pneumonia, shingles, and will obtain tetanus as needed # Based on age, no longer needing mammogram, colonoscopy, and patient declines bone density # Healthcare proxy completed in office today, April 13, 2025, her sister Mariann # MOLST form completed April 13, 2025, provided with her original. Patient is DNR, DNI, but is not positive transferred to the hospital. She is okay with CPAP short-term only, without any dialysis, or artificial nutrition, states that she is okay with the use of artificial hydration. # Most recent labs reviewed from January 2025 # Patient recently had a mechanical fall. Was wearing sandals. Discussed supportive shoes, now walking with a walker. Does admit to some left hip pain, declines x-ray. States that she is using Bengay, lidocaine, and Biofreeze which has been helpful. # BMI 29, weight stable. 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 Taking Trelegy with adequate control of SOB. Patient started taking trelagy infrequently due to cost, has since resumed after receiving a coupon. Continue with Trelegy and albuterol. Continues to follow with pulmonology. Discussed getting up-to-date on RSV, COVID, and flu vaccine secondary to pulmonary disease PHQ-9 completed in office April 13, 2025 with a total score of 1, no concern regarding mental health at this time. # Audit negative # Follows with Dr. Caceres for cardiology, [facility], Dr. Mackenzie for gastroenterology, and Dr. Maria Luisa Mckay for pulmonology. # With pulmonology obtaining a CT of [...] to follow with cardiology., Cardiogram January 2025, With Holter monitor. # Patient did have an echo cardiogram February 03, 2025, Holter February 04, 2025. Based on those records they started patient on Lasix 20 mg daily following with Dr. Caceres at [facility] cardiology. Patient's weights been stable, limiting sodium. Considering TAVR # Followed with gastroenterology Dr. Daniela Bang, ordered barium swallow scheduled for April 2025 # Recently had blood work January [...] aortic valve. Going to proceed with a TAVR Patient's lungs clear to auscultation. She declines any worsening shortness of breath.She had a chest x-ray March 08, 2025 showing left lower lung atelectasis, and a hiatal hernia. Also trace bilateral pleural effusions. # Patient had a history of GI bleed, was going to get endoscopy with Dr. Mackenzie. Scheduled barium swallow April 2025 # Signed scheduled for cataract surgery in November, [facility]. #Cognitive decline: Patient's sister/healthcare proxy Rossi [...] to neurology. Also going to follow with [facility].Patient is doing well today # Patient is no longer driving. Does have a living will, and her sister is the power of [employer] centre manager. 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 Taking Trelegy with adequate control of SOB. [...] mg daily following with Dr. Caceres at [facility] cardiology. Patient's weights been stable, limiting sodium. [...] Signed scheduled for cataract surgery in November, [facility]. #Cognitive decline: Patient's sister/healthcare proxy Rossi [...] neurology. Also going to follow with [facility].Patient is doing well today # Patient is no longer driving. Does have a living will, and her sister is the power of [employer] bowling centre manager. Follow-up next month for Medicare wellness visit, sooner as needed. All quetsions answered to patients satisfaction. Patient verbalized understanding of diagnosis and treatments explained. To call sooner prior to next visit it any questions/concerns arise. Case discussed with collaborating physician Teri Stroud who reviewed the assessment and plan. Chart, medications, labs, vital signs reviewed. Dictation was accomplished with the use of [email or web address] voice recognition software, prone to medical misidentifications and grammatical errors. This is unintentional and the practitioner does try to identify and correct these, but some could still be present. Please do not hesitate to contact practitioner for clarification. 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 Taking Trelegy with adequate control of SOB. [...] Signed scheduled for cataract surgery in November, [facility]. #Cognitive decline: Patient's sister/healthcare proxy Rossi [...] to neurology. Also going to follow with [facility]. # Pt has a [...] and her sister is the power of [employer] centre manager. Follow-up in 3 months for Medicare wellness [...] Dictation was accomplished with the use of [email or web address] voice recognition software, prone to medical misidentifications and grammatical errors. This is unintentional and the practitioner does try to identify and correct these, but some could still be present. Please do not hesitate to contact practitioner for clarification. 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 Taking Trelegy with adequate control of SOB.Patient [...] Signed scheduled for cataract surgery in November, [facility]. #Cognitive decline: Patient's sister/healthcare proxy Rossi [...] to neurology. Also going to follow with [facility]. Follow-up in 2 months, [...] Dictation was accomplished with the use of [email or web address] voice recognition software, prone to medical misidentifications and grammatical errors. This is unintentional and the practitioner does try to identify and correct these, but some could still be present. Please do not hesitate to contact practitioner for clarification. 06/16/2024 Chronic kidney disease, stage 3a (ICD-10 - N18.31) Beata is a pleasant 83-year-old female who presents the office for a hospital follow-up. Admitted to [facility] on 06/13/2024, discharged on 06/14/2024. 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 Taking Trelegy with adequate control of SOB. [...] Dictation was accomplished with the use of [email or web address] voice recognition software, prone to medical misidentifications and grammatical errors. This is unintentional and the practitioner does try to identify and correct these, but some could still be present. Please do not hesitate to contact practitioner for clarification. 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 Taking Trelegy with adequate control of SOB. [...] mg daily following with Dr. Caceres at [facility] cardiology. Patient's weights been stable, limiting sodium. [...] Signed scheduled for cataract surgery in November, [facility]. #Cognitive decline: Patient's sister/healthcare proxy Rossi [...] to neurology. Also going to follow with [facility].Patient is doing well today # Patient is no longer driving. Does have a living will, and her sister is the power of [employer] bowling centre manager. Follow-up next month for Medicare wellness visit, sooner as needed. All quetsions answered to patients satisfaction. Patient verbalized understanding of diagnosis and treatments explained. To call sooner prior to next visit it any questions/concerns arise. Case discussed with collaborating physician Teri Stroud who reviewed the assessment and plan. Chart, medications, labs, vital signs reviewed. Dictation was accomplished with the use of [email or web address] voice recognition software, prone to medical misidentifications and grammatical errors. This is unintentional and the practitioner does try to identify and correct these, but some could still be present. Please do not hesitate to contact practitioner for clarification. 04/13/2025 Other specified counseling (ICD-10 - Z71.89) Beata is a pleasant 84-year-old female who presents the office for Medicare wellness visit. # Obtaining flu, COVID, and RSV at her local pharmacy. Up-to-date on pneumonia, shingles, and will obtain tetanus as needed # Based on age, no longer needing mammogram, colonoscopy, and patient declines bone density # Healthcare proxy completed in office today, April 13, 2025, her sister Peg # MOLST form completed April 13, 2025, provided with her original. Patient is DNR, DNI, but is not positive transferred to the hospital. She is okay with CPAP short-term only, without any dialysis, or artificial nutrition, states that she is okay with the use of artificial hydration. # Most recent labs reviewed from January 2025 # Patient recently had a mechanical fall. Was wearing sandals. Discussed supportive shoes, now walking with a walker. Does admit to some left hip pain, declines x-ray. States that she is using Bengay, lidocaine, and Biofreeze which has been helpful. # BMI 29, weight stable. 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 Taking Trelegy with adequate control of SOB. Patient started taking trelagy infrequently due to cost, has since resumed after receiving a coupon. Continue with Trelegy and albuterol. Continues to follow with pulmonology. Discussed getting up-to-date on RSV, COVID, and flu vaccine secondary to pulmonary disease PHQ-9 completed in office April 13, 2025 with a total score of 1, no concern regarding mental health at this time. # Audit negative # Follows with Dr. Caceres for cardiology, [facility], Dr. Mackenzie for gastroenterology, and Dr. Maria Luisa Mckay for pulmonology. # With pulmonology obtaining a CT of [...] to follow with cardiology., Cardiogram January 2025, With Holter monitor. # Patient did have an echo cardiogram February 03, 2025, Holter February 04, 2025. Based on those records they started patient on Lasix 20 mg daily following with Dr. Caceres at [facility] cardiology. Patient's weights been stable, limiting sodium. Considering TAVR # Followed with gastroenterology Dr. Daniela Bang, ordered barium swallow scheduled for April 2025 # Recently had blood work January [...] aortic valve. Going to proceed with a TAVR Patient's lungs clear to auscultation. She declines any worsening shortness of breath.She had a chest x-ray March 08, 2025 showing left lower lung atelectasis, and a hiatal hernia. Also trace bilateral pleural effusions. # Patient had a history of GI bleed, was going to get endoscopy with Dr. Mackenzie. Scheduled barium swallow April 2025 # Signed scheduled for cataract surgery in November, [facility]. #Cognitive decline: Patient's sister/healthcare proxy Rossi and [...] to neurology. Also going to follow with [facility].Patient is doing well today # Patient is no longer driving. Does have a living will, and her sister is the power of ten [employer] bowling centre manager. 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 Taking Trelegy with adequate control of SOB. [...] mg daily following with Dr. Caceres at [facility]. Patient's weights been stable, limiting [...] Signed scheduled for cataract surgery in November, [facility]. #Cognitive decline: Patient's sister/healthcare proxy Rossi [...] to neurology. Also going to follow with [facility].Patient is doing well today # Patient is no longer driving. Does have a living will, and her sister is the power of [employer] bowling centre manager. Follow-up next month for Medicare wellness visit, sooner as needed. All quetsions answered to patients satisfaction. Patient verbalized understanding of diagnosis and treatments explained. To call sooner prior to next visit it any questions/concerns arise. Case discussed with collaborating physician Teri Stroud who reviewed the assessment and plan. Chart, medications, labs, vital signs reviewed. Dictation was accomplished with the use of [email or web address] voice recognition software, prone to medical misidentifications [...] and w/o Contrast 12/30/2022 LIPID PANEL, STANDARD 01/11/2025 LIPID PANEL, STANDARD 07/24/2023 IRON, TIBC AND FERRITIN PANEL 01/11/2025 COMPREHENSIVE METABOLIC PANEL 01/11/2025 COMPREHENSIVE METABOLIC PANEL 01/20/2023 COMPREHENSIVE METABOLIC PANEL 07/24/2023 CBC (H/H, RBC, INDICES, WBC, PLT) 2023 CBC (INCLUDES DIFF/PLT) 06/16/2024 CBC (INCLUDES DIFF/PLT) 07/24/2023 CBC (INCLUDES DIFF/PLT) 01/11/2025 URINALYSIS, COMPLETE 01/11/2025 URINALYSIS, COMPLETE 03/18/2024 URINALYSIS, COMPLETE 07/24/2023 RPR (DX) W/REFL TITER AND CONFIRMATORY T ESTING 03/18/2024 HEMOGLOBIN A1c 01/11/2025 VITAMIN B12 03/18/2024 FOLATE, RBC 03/18/2024 TSH 01/11/2025 TSH 07/24/2023 TSH W/REFLEX TO FT4 03/18/2024 VITAMIN D,25-OH,TOTAL,IA 01/11/2025 VITAMIN D,25-OH,TOTAL,IA 07/24/2023 B TYPE NATRIURETIC PEPTIDE (BNP) 023 CT Chest W/O Contrast 01/07/2023 Next Appt Details Provider Name:MARTIN NUNES, 06/13/2025 11:45:00 AM, [address], [place], [address], Insurance Providers Payer Name Payer Address Payer Phone Subscriber Number Group Number Insured Name Patient Relationship to Insured Coverage Start Date Coverage End Date [employer]age [address] [place] [address] [id number] BEATA ARNOLD Self - patient is the [...]
--- OUTSIDE RECORDS SUMMARY | 2025-04-26 12:38 | XMS_ITS | Clinical Summary ---
Author Organization [facility] Address [address] [place] [address] Phone Care Team Providers Care Cartridge Feeder Name Role Phone Socrates Reddy Primary Care Provider [phone] Allergies Active Allergy Reactions Criticality Noted Date [...] moderate on exam. RYAN (acute kidney injury) (CMS/[facility] V24) 06/13/20 24 Mild cognitive impairment 06/13/2024 [...] Type Department Care Team Description 03/09/2025 Telephone [facility] - [address] [place] [phone] Shannan Addison MD 03/02/2025 Telephone Gastroenterology - [address] [facility] [address] [facility] [address] [place] [phone] Daija Santos MA 02/28/2025 9:40 AM EDT Consult Gastroenterology - [address] [place] [id number] Daniela Bang PA Anemia, unspecified type (Primary Dx); Hiatal hernia 02/24/2025 1:00 PM EDT Office Visit [facility] - [address] [place] [address] Shannan Addison MD Nonrheumatic aortic valve stenosis (Primary Dx); Palpitations; Resistant hypertension 02/21/2025 Telephone [facility] - [address] [place] [address] Socrates Reddy PA 02/17/2025 Telephone [facility] - [address] [place] [address] Shannan Addison MD 02/17/2025 Telephone [facility] - [address] [place] [address] Shannan Addison MD 02/10/2025 Telephone [facility] - [address] [place] [address] Yenny Stark MA 02/04/2025 Telephone [facility] - [address] [place] [address] Vinnie Reagan NP 02/03/2025 3:00 PM EDT Ancillary Procedure [facility] - [address] [place] [address] Palpitation 02/03/2025 2:00 PM EDT Ancillary Procedure [facility] - [address] [place] [address] Nonrheumatic aortic (valve) stenosis 02/02/2025 Telephone [facility] - [address] [place] [address] Vinnie Reagan NP 02/01/2025 3:10 PM EDT Office Visit [facility] - [address] [place] [address] Vinnie Reagan NP Nonrheumatic aortic valve stenosis (Primary Dx); Palpitation; Dyspnea on exertion from Last 3 Months Surgical History Surgery Date Site/Laterality Comments CHOLECYSTECTOMY APPENDECTOMY ESOPHAGOGASTRODUODENOSCOPY 06/13/2024 Medical History Medical History Date Comments Hypertension Restless leg syndrome COPD (chronic obstructive pu lmonary disease) [place] [place], [facility] [place]28[place] Hypercholesteremia CKD (chronic kidney disease) stage 3, GFR 30-59 ml/min ([facility] V24, [facility] [place] Insomnia Aortic stenosis Mod to severe pe r Echo 02/2024, asymptomatic Social History Tobacco Use Types Packs/Day Years Used Date Smoking Tobacco: Former Cigarettes Q uit: 2013 Tobacco Cessation:Counseling Given: Not Answered Alcohol Use Standard Drinks/Week Comments Yes 1 (1 standard drink = 0.6 oz pur e alcohol) daily Interpersonal Safety Answer Date Record ed Physical Abuse Unrecognized value 06/13/2024 Verbal Abuse Unrecognized value 06/13/2024 Comments Unknown Sex and Gender Information [...] Care Team (Late st Contact Info) Description 05/02/2025 1:00 PM EDT Consult [facility] [address] [place] [address] Lee Rodríguez MD [address] [place] [address] [place] [address] 05/05/2025 8:15 AM EDT Appointment [facility] Xray [address] [place] [address] Health Maintenance Due Date Last Done Comments [...] (03/01/2025) Blood Venous blood specimen / Unknown [employer] PA LAB BLOOD ORDERABLES Final Resu lt Performing Organization Address City/[facility]/ZIP Co de Phone Number EXTERNAL LAB (NON-INTERFACED) * Ferritin (03/01/2025) Blood Venous blood specimen / Unknown [employer] [facility] LAB BLOOD ORDERABLES Final Resu lt EXTERNAL LAB (NON-INTERFACED) * CBC and differential (02/28/2025) Blood Venous blood specimen / Unknown Daniela Bang PA LAB BLOOD ORDERABLES Final Resu lt EXTERNAL LAB (NON-INTERFACED) * CARDIAC HOLTER MONITOR (REPORT GENERATED IN HOUSE) (02/03/2025 3:05 PM EDT) Anatomical Region Laterality Modality Cardiac Diagnost ic Narrative 02/09/2025 7:45 AM EDT [facility] DIAGNOSTIC TESTING DEPARTMENT [address] [place] [address], [id number], [place] [address] TEL: FAX: Type of test: 48 hour Holter Monitor Date of test: 02/03/25 Ordering provider: Vinnie Reagan NP Reason for Test: Palpitations [employer] 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 us Shannan Addison MD CV ECHO PROCEDURES Final Result * External clinical lab (02/03/2025 10:33 AM EDT) Only the most recent of2 resultswithin the time period is included. Historical Provider MD LAB BLOOD ORDERABLES Milagro l Result * ECG 12 lead (02/01/2025 4:24 PM EDT) Ventricular Rate ECG 77 BPM GEMUSE Atrial Rate 77 BPM GEMUSE P-R Interval 154 ms GEMUSE QRS Duration 122 ms GEMUSE Q-T Interval 442 ms GEMUSE QTc 500 ms GEMUSE P Wave Corinth 57 degrees GEMUSE R Corinth 55 degrees GEMUSE T Corinth 28 degrees GEMUSE ECG Interpretation Sinus rhythm with Premature atrial complexes Right bundle branch block Abnormal ECG No previous ECGs available Confirmed by SHANNAN ADDISON ([id number]) on 02/24/2025 1:08:29 PM GEMUSE 02/01/2025 3:12 PM EDT 02/24/2025 1:08 PM EDT Vinnie Reagan NP ECG ORDERABLES Edited Result - Final GEMUSE * (ABNORMAL) Comprehensive metabolic panel (06/14/2024 5:40 AM EST) [facility] Sodium 144 133 - 145 mmol/L LAB CHEMISTRY METHOD 06/14/2024 6:46 AM [facility] Potassium 4.2 3.5 - 5.5 mmol/L LAB CHEMISTRY METHOD 06/14/2024 6:46 AM [facility] Chloride 116(H) 96 - 110 mmol/L LAB CHEMISTRY METHOD 06/14/2024 6:46 AM [facility] CO2 23 21 - 32 mmol/L LAB CHEMISTRY METHOD 06/14/2024 6:46 AM [facility] Anion Gap 5 3 - 11 LAB CHEMISTRY METHOD 06/14/2024 6:46 AM [facility] Glucose 93 70 - 100 mg/dL LAB CHEMISTRY METHOD 06/14/2024 6:46 AM [facility] BUN 64(H) 5 - 25 mg/dL LAB CHEMISTRY METHOD 06/14/2024 6:46 AM [facility] Creatinine 1.50(H) 0.50 - 1.10 mg/dL LAB CHEMISTRY METHOD 06/14/2024 6:46 AM [facility] eGFR 35(L) >=60 mL/min/1. 73m2 LAB CHEMISTRY METHOD 06/14/2024 6:46 AM [facility] Comment:Calculation based on the Chronic Kidney Disease Epidemiology Collaboration (CKD-EPI) equation refit without adjustment for race. BUN/Creatinine Ratio 42.7 LAB CHEMISTRY METHOD 06/14/2024 6:46 AM [facility] Calcium 8.6 8.5 - 10.5 mg/dL LAB CHEMISTRY METHOD 06/14/2024 6:46 AM [facility] AST (SGOT) 19 10 - 42 unit/L LAB CHEMISTRY METHOD 06/14/2024 6:46 AM [facility] ALT (SGPT) 16 10 - 60 unit/L LAB CHEMISTRY METHOD 06/14/2024 6:46 AM [facility] Alkaline Phosphatase 45 42 - 121 unit/L LAB CHEMISTRY METHOD 06/14/2024 6:46 AM [facility] Total Protein 5.0(L) 6.0 - 8.0 g/dL LAB CHEMISTRY METHOD 06/14/2024 6:46 AM [facility] Albumin 3.0(L) 3.2 - 5.0 g/dL LAB CHEMISTRY METHOD 06/14/2024 6:46 AM [facility] Total Bilirubin 0.4 0.0 - 1.4 mg/dL LAB CHEMISTRY METHOD 06/14/2024 6:46 AM [facility] Blood Venous blood specimen / Unknown Venipuncture / Unknown 06/14/2024 5:40 AM EST 06/14/2024 6:13 AM EST us Brain Green MD LAB BLOOD ORDERABLES Final Re sult MARGARETTE HAMILTON [place] ([facility]) [facility] [address] [place] [address], [place] [phone] from Last 3 Months or Most Recently Relevant to Health Maintenance Insurance * Guarantor: Beata Muñoz Account Type Relation to Patient Date of Phone Billing Address Personal/Family Self [address] [place] [address] [employer] [place] MEDICARE ADVANTAGE Advance Directives Documents on File Type Date Recorded Patient Core Assembly Supervisor Expl anation Advance Directives and Livin g [...] currently active code status orders. Care Teams Cartridge Feeder Relationship Specialty Start Date End Date Socrates Reddy PA [address] [place] [address] PCP - General 02/06/23
== END 2025-04-26 11:53 | disposition home or self-care (01) ==
PROVIDERS: PCP Physician Assistant; Visit Provider Nurse Practitioner Family
DX: J44.9 Chronic obstructive pulmonary disease, unspecified (principal); J43.9 Emphysema, unspecified; Z87.891 Personal history of nicotine dependence; R91.8 Other nonspecific abnormal finding of lung field; R06.00 Dyspnea, unspecified; G47.34 Idiopathic sleep related nonobstructive alveolar hypoventilation; R06.83 Snoring
CPT/HCPCS: 99214

== ENCOUNTER → 2025-04-26 11:12 | Outpatient (BNVA) | payer MEDICARE, SELFPAY | PROVIDERS: PCP Physician Assistant; Visit Provider Nurse Practitioner Family | DX: J44.9 Chronic obstructive pulmonary disease, unspecified (principal); J43.9 Emphysema, unspecified; Z87.891 Personal history of nicotine dependence; R91.8 Other nonspecific abnormal finding of lung field; G47.34 Idiopathic sleep related nonobstructive alveolar hypoventilation; R06.83 Snoring | CPT/HCPCS: 99212 ==

== ENCOUNTER 2025-05-04 11:43 | Outpatient (AMB) | payer MEDICARE, SELFPAY ==
--- NOTE | 2025-05-04 13:11 | MHC.OFFVIS ---
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 Accompanied by: Sister Allergies penicillin G Allergy (Unknown, Verified 05/04/25 13:11) Hives Medication List - Last Reconciled 05/04/25 by Flora Christopher LPN albuterol sulfate 90 mcg/actuation 1 puff inhalation QID PRN albuterol sulfate 90 mcg/actuation 2 puffs inhalation Q4-6H PRN diphenhydramine-acetaminophen 25-500 mg (Tylenol PM Extra Strength) 1 tab PO BEDTIME PRN epinephrine 0.125 mg/actuation (Primatene Mist) 1 puff inhalation Q6H PRN ferrous sulfate (Feosol) 975 mg PO BID ifzxvuxqyxw-zeykdrach-eebhbdik 200-62.5-25 mcg (Trelegy Ellipta) 1 ea PO DAILY furosemide (Lasix) 20 mg PO DAILY inhalational spacing device (Aerochamber Plus Z Stat spacer) As directed lisinopril 20 mg PO DAILY melatonin 12 mg PO BEDTIME ropinirole 2 mg PO BEDTIME simvastatin 20 mg PO BEDTIME PFSH Social History Patient Tobacco Use Status: Former Tobacco user Tobacco use type: Cigarette Cigarette Packs Per Day: 1.5 Cigarettes Per Day: 15 Years Smoked: 50 Office Procedures AMB Nebulizer Teach Details: Beata was in today with her sister Veronica. Beata and Veronica were educated on the proper use and cleaning of the nebulizer. They were both able to return demonstrate how to turn the machine on, put the medication in the cup, and how to clean the set up properly. They did not have any questions at this time. [employer] forms signed and nebulizer provided to Beata. [id number] - Nebulizer Teach Assessment & Plan Assessment & Plan (1) COPD (chronic obstructive pulmonary disease): Code(s): J44.9 - Chronic obstructive pulmonary disease, unspecified Category: Medical Plan nurse visit for neb teaching Orders: Orders AMB Nebulizer Teach Today J44.9 - Chronic obstructive pulmonary disease, unspecified Coding Level of Care Code Established Pt Est Pt Level 1 (41367) Patient Type Established Diagnoses COPD (chronic obstructive pulmonary disease) J44.9 CPT Codes Nebulizer Teach - Nebulizer Teach: 25299 - Nebulizer Teach ([id number]) Comment NURSE VISIT ONLY
== END 2025-05-04 13:13 | disposition home or self-care (01) ==
LOC: HO.HPS 11:43
PROVIDERS: PCP Physician Assistant; Visit Provider Nurse Practitioner Family
DX: J44.9 Chronic obstructive pulmonary disease, unspecified (principal)

== ENCOUNTER → 2025-05-04 11:43 | Outpatient (BNVA) | payer MEDICARE, SELFPAY | PROVIDERS: PCP Physician Assistant; Visit Provider Nurse Practitioner Family | DX: J44.9 Chronic obstructive pulmonary disease, unspecified (principal) | CPT/HCPCS: 94664; 99211 ==